=== PATIENT | male | born 1935 | race Caucasian/White ===

== ENCOUNTER 2016-08-24 08:00 | Inpatient (IN) | payer MEDICARE, OTHER ==
[2016-08-24] VITALS (7 sets, daily range): BP systolic 90–127; BP diastolic 40–59; PULSE 47–83; RESP 12–16; O2SAT 96–100
[~2016-08-24] VITALS: Ht 177.8 cm; Wt 82.5 kg
--- NOTE | 2016-08-24 08:13 | ED.REPORT ---
HPI-General Illness Date of Service Aug 24, 2016 ED Provider: Chau Hdz MD The patient is a 81 year old male with history of atrial fibrillation with anticoagulation, congestive heart failure, multiple myeloma, lymphoma, renal failure, trigeminal neuralgia, peripheral neuropathy, and hyponatremia, who was sent to the emergency department from [facility] for bradycardia with a rate in the 20's. The patient is currently staying a rehabilitation center for left hip surgery. He had an episode of vomiting this morning with what appeared to be coffee ground emesis. He had an abdominal CT at [place] that showed a possible ileus. He was given Protonix for his GI complaints. He was given epinephrine for long pauses and atropine which did not affect his heart rate. He was started on an dopamine drip at [place] and transferred here. Medics administered 0.5 epinephrine x2 en route. His pressures have been in the 70s and 80s systolic. The patient had a brief period of asystole, he returned to a normal rhythm spontaneously, compressions were not started. The patient is not able to provide a substantial history at this time. The patient is a full code and was able to verbally agree with plan for pacemaker. Cardiology was called prior to patients arrival. She paged the cath team. Nursing Notes Stated Complaint: BRADYCARDIA Chief Complaint: Critical Care/Intubated Nursing Notes Reviewed: Yes Allergies: Coded Allergies: Penicillins (Verified Allergy, Unknown, 08/24/16) General Time Seen by MD: 07:59 Chief Complaint Other (bradycardia) Hx Obtained From: Patient (very limited), EMS Arrived By: Ambulance Sudden in Onset?: Yes Onset Occurred: 1 - 4 hours ago Symptom Duration: Since onset Severity: Current: No pain currently Severity: Maximum: No pain Recent Healthcare: Recent doctor visit, Recent hospitalization, Previous surgery (hip surgery) Similar Sx Previous: No Past Medical History Past Medical History Atrial fibrillation Congestive heart failure Recent left hip fracture with ORIF Multiple myeloma Trigeminal neuralgia Peripheral neuropathy Hyponatremia Depression Renal failure Sleep apnea Past Surgical History Left hip ORIF Aortic valve replacement Pilonidal cyst surgery Bunionectomy Family History Noncontributory Smoking History Never Smoker Social History Alcohol Use: Denies alcohol use Drug Use: Denies drug use Other Social History: Good social support Ambulatory Status Independent Review of Systems +bradycardia Unable to Obtain ROS Patient condition Full Review of Systems GI: Reports: Hematemesis, Nausea, Vomiting Physical Exam Vital Signs Vital Signs Date Time Temp Pulse Resp B/P Pulse Ox O2 Delivery O2 Flow Rate FiO2 08/24/16 08:02 36.0 47 14 122/56 100 Non-Rebreather Initial VS: Reviewed Head / Eyes: Atraumatic, Normocephalic, PERRL ENT: Conjunctiva normal, No scleral icterus Neck: Supple, Non-tender, Full range of motion Extremities: No swelling, No tenderness Skin: Warm, Dry Neurologic: Nonfocal Alertness: Positive: Somnolent Minimally responds to verbal stimulus. No signs of trauma. Respiratory / Chest: Breath sounds = bilat, No respiratory distress, No rales, No rhonchi, No wheezing, No retractions Good oxygen saturation on 15 L by nonrebreather Heart Rate / Rhythm: Positive: Bradycardia Heart rate initially in the 20s-30s. Thready palpable femoral pulses. Abdomen: Non-tender Bowel Sounds / Distention: Positive: Distention moderate Interpretation & Diagnostics Lab Results Interpretation Result Diagram: 08/24/16 0813 08/24/16 0813 Test 08/24/16 08:13 08/24/16 08:14 White Blood Count 11.0th/mm3 (3.8-10.1) Red Blood Count 3.05mil/mm3 (4.40-5.80) Hemoglobin 9.9g/dL (13.8-17.2) Hematocrit 31.4% (41.0-50.0) Mean Corpuscular Volume 103.0fL (81-100) Mean Corpuscular Hemoglobin 32.5pg (27.0-35.0) Mean Corpuscular Hemoglobin Concent 31.5% (32.0-37.0) Red Cell Distribution Width 19.5% (12.3-15.4) Platelet Count 404bil/L (150-400) Neutrophils (%) (Auto) 91.2% (40-74) Lymphocytes (%) (Auto) 3.0% (14-46) Monocytes (%) (Auto) 4.7% (4-12) Eosinophils (%) (Auto) 0.1% (0-5) Basophils (%) (Auto) 0.3% (0-3) Prothrombin Time 25.8sec (8.1-12.5) Prothromb Time International Ratio 2.37ratio Activated Partial Thromboplast Time 43.4sec (22.8-33.0) Sodium Level 128mEq/L (134-144) Potassium Level 5.7mEq/L (3.5-5.2) Chloride Level 89mEq/L (97-108) Carbon Dioxide Level 13mmol/L (18-29) Blood Urea Nitrogen 101mg/dL (8-27) Creatinine 3.48mg/dL (0.76-1.27) Estimat Glomerular Filtration Rate 18mL/min (>59) Glucose Level 137mg/dL (60-99) Calcium Level 8.4mg/dL (8.5-10.1) Magnesium Level 3.2mg/dL (1.6-2.6) Total Bilirubin 2.7mg/dL (0.0-1.2) Aspartate Amino Transf (AST/SGOT) 40U/L (0-50) Alanine Aminotransferase (ALT/SGPT) 13U/L (0-44) Alkaline Phosphatase 260U/L (25-160) Troponin T 0.213ug/L (0.0-0.011) Pro-B-Type Natriuretic Peptide 29849ot/mL (0-486) Total Protein 8.6g/dL (6.4-8.4) Albumin 3.5g/dL (3.4-5.0) Digoxin Level 0.3nG/mL (0.9-2.0) Hold Michelle Top Tube Received (Received) ECG Interpretation ECG Interpretation: Wide complex bradycardia with a rate of 43 bpm No discernible P waves RBBB pattern Time: 08:06 Interpreted by: ED physician X-Ray Chest Interpretation Chest Xray Interpretation: IMPRESSION: Persistent right mid and lower lung air space opacities may represent atelectasis and/or developing pneumonia. Dictated by: Enrico Gama M.D. on 08/24/2016 at 8:45 Interpretation / Wet Read by: Interpret - Radiologist Re-Eval/Medical Decision Med Decision/Clinical Course In summary, the patient is a 81-year-old male with extensive past medical history as documented above who presents to this emergency department from [facility] where he initially presented with possible coffee-ground emesis but was subsequently found to be bradycardic with a heart rate in the 20s to 30s with hypotension and depressed mental status. There he was treated with atropine without any effect and placed on a dopamine drip to tell he remained bradycardic. He was found to have a positive troponin of approximately 0.2, his heart rate was noted to respond somewhat to epinephrine. He was transferred here after being discussed with Dr. Lundberg (cardiology). Prior to the patient's arrival I had a discussion with Dr. Lundberg regarding his management. Plan for transvenous pacer when adequately stabilized to go to the Text[employer] Sales Representative. Upon arrival the patient was pale/dusky in appearance, with thready femoral pulses and heart rate in the 20s to 30s despite being on a dopamine drip. I immediately administered 0.5 mg of IV atropine though this did not seem to increase his heart rate. Subsequently to Dr. Lundberg arrived at bedside and we opted to initiate transcutaneous pacing though we are unable to achieve capture. Meanwhile, I had started the patient on epinephrine drip which he responded nicely with increase in his heart rate to the 60s to 70s. His blood pressure and mentation improved. Discussion with Dr. Lundberg we opted to administer 1 ampule of calcium bicarbonate as well as 2 g of calcium gluconate given the patient's hyperkalemia and renal failure. We discussed his positive troponin which was thought to likely be multifactorial and related to his underlying renal failure as well as potential myocardial ischemia in the setting of profound bradycardia. Given his initially for stabilization he was not immediately taken for cardiac catheterization or heparinized. LABS: wbc 11, hct 31.4, INR 2.37, NA 128, K 5.7, BUN 101, creatinine 3.48, mag 3.2, total bili 2.7, trop .213, BNP 30552, digoxin level undetectable. CXR: Persistent right mid and lower lung air space opacities may represent atelectasis and/or developing pneumonia. Once stabilized, the patient was emergently taken for placement of a transvenous pacemaker. Pt was discussed with admitting hospitalist accepted for further management after plant operator control room operator consultation with cardiology. The patient had arterial stick pantoprazole for presumed upper GI bleed and had no symptoms of ongoing GI bleeding here in the emergency department. This will be further addressed once he is stabilized from a cardiovascular standpoint. Counter Attendant: Toño Hospitalist: Sedrick Time of Eval: 08:10 Re-Evaluation/Progress Note: Dr. Lundberg is at bedside Time of Eval: 08:17 Re-Evaluation/Progress Note: The patient understands with plan for cardiac catheterization. Consultation #1: Referral / Consult Name: Nataliia Lundberg MD Consulted With: Cardiology Call Returned at: 08:16 Spring Upholsterer: Agrees with eval, Agrees with plan, Requested livestock laborer Consultation #2: Referral / Consult Name: Rory Dubose MD Consulted With: Hospitalist Call Returned at: 08:34 Spring Upholsterer: Will see patient, Agrees with eval, Agrees with plan, Accepts admit Counseled Regarding: Diagnosis, Lab results, Need for admission Discharge & Departure Primary Impression: Sick sinus syndrome Additional Impressions: Hematemesis Nausea presence: with nausea Qualified Code: K92.0 - Hematemesis Acute renal failure Acute renal failure type: unspecified Qualified Code: N17.9 - Acute kidney failure, unspecified Hyperkalemia Hypotension Hypotension type: unspecified hypotension type Qualified Code: I95.9 - Hypotension, unspecified Shock circulatory Elevated troponin Elevated brain natriuretic peptide (BNP) level Hypomagnesemia Hyponatremia Disposition: ADMITTED TO HOSPITAL Discharge Condition All VS Reviewed: Yes Condition: Stable Crit Care Except Billable Proc Time Spent: 75-104 minutes Services Performed: Patient management by me, Time spent at bedside, Reviewing test results, Reviewing imaging, Discussing patient care, Documentation in record, Time with fam/surrogate Critical Care Notes: Much of my involvement in this patient's critical care was preparing for his arrival in discussing his case prior to arrival with ER physician at [facility] and cardiology here at [facility]. Scribe Attestation Portions of this note were transcribed by Nati Calle. I, Dr. Hdz personally performed the history, physical exam and medical decision-making; I reviewed and confirmed the accuracy of the information in the transcribed note. Signed by: Chelle Cadet, 08/23/2015 and 0935. Chau Hdz MD Aug 24, 2016 08:13 Nati Calle Aug 24, 2016 08:19
[2016-08-24 08:16] LABS: BASOPHILS % (AUTO) 0.3 % (0-3); EOSINOPHILS % (AUTO) 0.1 % (0-5); MONOCYTES % (AUTO) 4.7 % (4-12); Mean Corpuscular Hemoglobin 32.5 pg (27.0-35.0); NEUTROPHILS % (AUTO) 91.2 % (40-74); Platelet Count 404 bil/L (150-400)
[2016-08-24] MEDS ORDERED: Sodium Bicarb 1 mEq/mL 50 mL Inj ONE (08:17)
[2016-08-24] MEDS ORDERED: Heparin 5,000 Units/500 mL NS Premix IV ONE ×2 (08:19→13:32)
[2016-08-24] MEDS ORDERED: 0.9% Sodium Chloride 1,000 ML ONE (08:22)
[2016-08-24] MEDS ORDERED: Insulin Human REGular-Omnicell 100 Unit/mL ONE (08:26)
[2016-08-24 08:39] LABS: INR 2.37 ratio
--- NOTE | 2016-08-24 08:48 | DRSVH ---
PROCEDURE: X-RAY CHEST ONE VIEW, PORTABLE ([id number]) INDICATIONS: 81 year-old male with shortness of breath. TECHNIQUE: One view of the chest was acquired. COMPARISON: [facility], CHEST 1 VIEW, 08/24/2016, 6:00. FINDINGS: Surgical changes and devices: Patient is status post median sternotomy. Lungs and pleura: No pleural effusions or pneumothorax. Right mid and lower lung hazy opacities pers ist. Left lung appears clear. Mediastinum: Mediastinal contours appear normal. Heart size is normal. There is aortic atheroscler osis. Bones and chest wall: No suspicious bony lesions. Overlying soft tissues appear unremarkable. IMPRESSION: Persistent right mid and lower lung air space opacities may represent atelectasis and/or developing pneumonia. Dictated by: Enrico Gama M.D. on 08/24/2016 at 8:45 Approved by: Enrico Gama M.D. on 08/24/2016 at 8:47
[2016-08-24] MEDS ORDERED: fentaNYL-PF 50 mCg/mL 2 mL Inj ONE (08:55)
[2016-08-24 09:03] LABS: Magnesium 3.2 mg/dL (1.6-2.6)
[2016-08-24] MEDS ORDERED: 0.9% Sodium Chloride 250 ML ONE (09:03)
[2016-08-24 09:10] LABS: TROPONIN T 0.213 ug/L (0.0-0.011)
[2016-08-24] MEDS ORDERED: Sodium Bicarb (50 mEq) 8.4% 1 mEq/mL 50 mL Syringe IVPUSH ONE (09:50)
[2016-08-24] MEDS ORDERED: Sodium Chloride LOK Flush 10 mL Syringe IVFLUSH PRN ×4 (09:50→14:05)
[2016-08-24] MEDS ORDERED: Ondansetron 2 mg/mL 2 mL Inj IVPUSH PRN (10:05)
[2016-08-24] MEDS ORDERED: Senna-Docusate 8.6-50 mg Tablet PO PRN (10:05)
[2016-08-24] MEDS ORDERED: Polyethylene Glycol (PEG) 17 Gm Powder PO PRN (10:05)
[2016-08-24] MEDS ORDERED: Alum-Mag Hydrox-Simeth 30 mL Suspension PO PRN (10:05)
[2016-08-24] MEDS ORDERED: 0.9% Sodium Chloride 500 ML ONE (10:35)
--- NOTE | 2016-08-24 10:59 | CONS ---
[address] [address] CONSULTATION REPORT PATIENT: SANDRINE VAN : 1935 MR#: [id number] ADMIT: 08/24/2016 JOB ID: [id number] DATE OF SERVICE: 08/24/2016 CHIEF COMPLAINT: Altered mental status and symptomatic bradycardia. HISTORY OF PRESENT ILLNESS: The patient is a complex 81-year-old man with history of coronary artery disease status post CABG. He has a history of aortic valve replacement with a mechanical prosthesis in the 90s. He has chronic atrial fibrillation and has an implantable loop recorder in place for consideration of permanent pacemaker. He is closely monitored by Dr. Walker. Additionally he has pulmonary hypertension. He is on chronic oral anticoagulation. He has myelodysplastic syndrome and renal insufficiency with unknown baseline. He had a roque course in the past month. He was hospitalized for acute decompensated heart failure at [facility] for 8 days. He was aggressively diuresed and sent home. Unfortunately, at home he fell and broke his hip and subsequently required hip replacement at [facility]. He was recuperating at [facility] home doing acute inpatient rehab when he developed worsening altered mental status, bloody vomiting, and confusion. The says he has not been himself for days. This morning I received a call from Dr. Salazar after he was brought to [facility] Emergency Department for further evaluation. He was found to have symptomatic bradycardia. His heart rate was in the 30s. He was hypotensive with systolic blood pressure in the 60s. He was altered. He apparently had multiple episodes of bloody emesis. History is obtained from Dr. Salazar from patient's and patient's son. The patient himself is somewhat somnolent, but arousable so, I cannot obtain much history from him. In the emergency department after he was brought in to [facility] he was found to have hyperkalemia and acute renal failure. His potassium was 5.7, creatinine 2.8, and there was associated elevated troponin. His INR was also 2.6, and he has reduced white count of 2.9. Cardiology was consulted to assist in his management. He was diagnosed with being critically ill and so was transferred to [facility] for further management. HOSPITAL COURSE: In the emergency department I assessed this patient I firmly believe that his bradycardia and wide QRS complex was related to hyperkalemia. I treated him with 1 amp of bicarbonate, 1 amp of calcium gluconate, and 10 units of insulin and 1 amp of D50. This resulted in immediate improvement in his bradycardia. As a result, we were able to safely reduce his epinephrine drip from 0.5 mcg/kg per minute to 0.2 mcg/kg per minute and hopefully will be able to wean it off soon. The patient's mental status improved, his color improved. Of note I tried to transcutaneously pace and he could not tolerate it. PAST MEDICAL HISTORY: 1. Coronary artery disease status post CABG in the s. Procedure was done on the [facility]. I will check his chest x-ray. There are no obvious ring markers thus his surgical anatomy is unknown. 2. Aortic valve replacement. He does not have a card identifying the valve ; family being that he has a mechanical prosthesis. 3. Chronic AFib treated with metoprolol and oral anticoagulation. 4. He has an implantable loop recorder, which I have not interrogated yet. 5. Kidney disease. His baseline creatinine unfortunately is unknown. Right now his creatinine is 3.8 consistent with acute renal failure. 6. Multiple myeloma. 7. Trigemina neuralgia. 8. Sleep apnea. 9. Hip fracture, left total hip arthroplasty. 10. Bunionectomy. SOCIAL HISTORY: No tobacco. No drugs or alcohol. He is accompanied by his and son. ROS: unobtainable because patient is quite somnolent and critically ill on pressors. ALLERGIES: PENICILLIN. CURRENT MEDICATIONS: At home: 1. Torsemide 60 mg twice a day. 2. Toprol-XL 25 mg daily. 3. Potassium chloride 10 mEq daily. 4. Spironolactone 25 mg daily. 5. Sertraline 50 mg twice a day. 6. Protonix 40 mg daily. 7. Sildenafil 20 mg 3 times a day. 8. Tamsulosin 0.4 mg twice a day. 9. Warfarin. 10. Ultram. PHYSICAL EXAMINATION: Temp current, blood pressure is 110/80, pulse at this moment in time is 82 beats per minute irregularly irregular. He is satting 99% on oxy mask. Cachectic, older man in no apparent distress. Eyes: No scleral icterus. Heart normal S1, S2. Irregularly irregular. No obvious murmurs. Lungs are clear anteriorly. Abdomen is soft, positive bowel sounds, somewhat distended. Legs show no edema. He has a Cardona catheter in draining dark yellow urine. DIAGNOSTIC STUDIES: Labs reviewed from [facility]. Chest x-ray was reviewed from [facility]. CT scan abdomen and pelvis was reviewed from [facility] and it shows dilated loops of bowel and bilateral pleural effusions. ASSESSMENT AND PLAN: This is a complex man. He has pulmonary hypertension. He is on sildenafil and aggressive diuretics. He has acute renal failure. He has renal insufficiency, and he had bradycardia to the point where he requires epinephrine drip. I am going to put in a temporary pacemaker and will consult Nephrology for assistance with hyperkalemia management. He may need to have Kayexalate to facilitate bowel movements and improvement in hyperkalemia. We certainly will not give him any diuretics or potassium supplements or spironolactone. Thank you very much for the opportunity to evaluate. TAYE
[2016-08-24 11:19] LABS: Bilirubin, Direct 1.7 mg/dL (0.0-0.3)
[2016-08-24] MEDS ORDERED: 0.9% Sodium Chloride 1,000 ML IV SCH (11:45)
--- NOTE | 2016-08-24 12:22 | DRSVH ---
PROCEDURE: X-RAY PICC LINE PLACEMENT BY NURSE ([id number]) INDICATIONS: 81 year-old male with hyperkalemia, with need for pressors. COMPARISON: None. FINDINGS: PICC was placed by the intravenous therapy team from the right side. Fluoroscopic spot fi lm demonstrates tip of PICC in the lower superior vena cava. Patient is status post median sternotom y. IMPRESSION: Tip of PICC lies within the lower superior vena cava. Dictated by: Enrico Gama M.D. on 08/24/2016 at 12:19 Approved by: Enrico Gama M.D. on 08/24/2016 at 12:20
--- NOTE | 2016-08-24 12:24 | ABG ---
DateTimeAnalyzed 12:19:00 -_ pH ____7.280 - pCO2 ___41.1__ -mmHg pO2 ___41.9__ -mmHg HCO3- ___18.7__ -mmol/L ABE ___-7.0__ -mmol/L tHb ____8.4__ -g/dL O2Hb ___63.2__ -% COHb ____1.9__ -% MetHb ____1.3__ -% sO2 ___65.3__ -% FIO2 ___21.0__ -% Drawn By as - Date/Time Notified____ 12:23:00 -_ Liter_Flow ____2.0__ -L/min Oxygen Device 1 __oxymask - Notified By ams - Notified Whom dr yanchuk - B 748 -mmHg tO2 ____7.5__ -Vol% Gavin test N/A -
[2016-08-24] MEDS: Piperacillin-Tazo 3.375 Gm Inj 3.375 GM in Dextrose 5% Minibag Plus 50 ML IV SCH (13:07)
[2016-08-24] MEDS: SODIUM BICARB IV SCH (13:07)
[2016-08-24] MEDS: SODIUM CHLORIDE 0.45% IV SCH (13:07)
[2016-08-24 13:38] LABS: BASOPHILS % (AUTO) 0.1 % (0-3); EOSINOPHILS % (AUTO) 0 % (0-5); MONOCYTES % (AUTO) 3.6 % (4-12); Mean Corpuscular Hemoglobin 32.1 pg (27.0-35.0); Mean Corpuscular Volume 100.8 fL (81-100); NEUTROPHILS % (AUTO) 94.7 % (40-74); Platelet Count 469 bil/L (150-400)
--- NOTE | 2016-08-24 13:38 | CS94 ---
[address] [address] DIAGNOSTIC CARDIAC CATHETERIZATION PATIENT: SANDRINE VAN : 1935 MR#: [id number] ADMIT: 08/24/2016 JOB ID: [id number] SERVICE DATE: 08/24/2016 SUBJECTIVE: This morning, the patient presented with AFib with very slow ventricular response and wide QRS complexes. The patient was doing poorly. He was brought to the lab engineer for temporary wire placement, but as his electrolyte disarray was corrected, he actually improved to the point where he no longer needed pacing wire. The procedure was canceled.
[2016-08-24] MEDS ORDERED: Atropine 1 mg/10 mL (Code) Syringe ONE (14:04)
--- NOTE | 2016-08-24 14:28 | PCM.HPMED ---
Subjective Date of Service Aug 24, 2016 Primary Provider: Admitting Physician: Nataliia Lundberg MD Primary Care Physician: Other,Physician Attending Physician: Nataliia Lundberg MD Chief Complaint: Symptomatic Bradycardia History of Present Illness: Randy Anand is a 81 year old man with past medical history significant for atrial fibrillation on anticoagulation s/p an implantable loop recorder in place for consideration of permanent pacemaker, [place] mechanical aortic valve , right-sided heart failure, CAD s/p CABG, pulmonary hypertension, and chronic kidney disease who presented to the [facility] emergency department from [facility] ED with initial complaint of coffee-ground emesis and was subsequently found to be bradycardic in the 20s hypotension and depressed mental status. The patient is unable to give any history at this time and the majority of history is collected from chart notes and from the patient's family who are at bedside. He was noted to have significant sinus pause and was initially treated with epinephrine and atropine which had no effect. He was started on an dopamine drip at [place] and transferred here. Medics administered 0.5 epinephrine x2 en route and arrived with SBP in the 80s-90s. He was found to have a positive troponin of approximately 0.2, his heart rate was noted to respond somewhat to epinephrine. He was transferred here after being discussed with Dr. Lundberg ( cardiology). An attempt was made to initiate transcutaneous pacing, however the device would not capture and this could not be done. An initial plan was for the patient to received a transvenous pacer, however upon Dr. Lundberg's evaluation of the patient she noted his severe metabolic acidosis and treated him with 1 ampule of calcium bicarbonate as well as 2 g of calcium gluconate given the patient's hyperkalemia and renal failure which successfully increased the patient's heart rate. In the patient's recent history he was admitted to [facility] for decompensated heart failure for 8 days and was aggressive diuresed. He was discharged home and unfortunately fell and broke his hip which resulted in a subsequent hospital stay at [facility]. He was recuperating at [facility] home doing acute inpatient rehab when he developed worsening altered mental status, bloody vomiting, and confusion. Per the patient's family the patient has vomited several times this morning with bloody emesis but he has not had any episodes while he has been at [facility]. He had an abdominal CT at [place] that showed pericholecystic fluid may raise the question of acute cholecystitis. LABS: WBC 11, HCT 31.4, INR 2.37, Na 128, K 5.7, BUN 101, creatinine 3.48, mag 3.2, total bili 2.7, trop 0.213, BNP 40806, digoxin level undetectable. CXR: Persistent right mid and lower lung air space opacities may represent atelectasis and/or developing pneumonia. Outpatient [facility] [employer] [facility]: Dr. Walker. Review of Systems: A review of systems could not be performed as the patient is minimally communicative at this time. Allergies Coded Allergies: Penicillins (Verified Allergy, Unknown, 08/24/16) Home Medications 1. Torsemide 80 mg twice a day. 2. Zolpidem 10 mg PRN 3. Potassium chloride 10 mEq daily. 4. Spironolactone 25 mg daily. 5. Sertraline 50 mg twice a day. 6. Protonix 40 mg daily. 7. Sildenafil 20 mg 3 times a day. 8. Tamsulosin 0.4 mg twice a day. 9. Warfarin. 10. Ultram. 11. Metolazone 2.5 mg PO week Requesting records from acute rehab for most current medication list and administration. PMH Atrial fibrillation Congestive heart failure, right-sided Recent left hip fracture with ORIF Multiple myeloma, although this a bit questionable as the patient has not had a BMT but has been off CXT for two years per family. His outpatient oncologist is Dr. Aguila at [facility] at the [facility]. Trigeminal neuralgia Peripheral neuropathy Hyponatremia Depression Renal failure Sleep apnea Mechanical Aortic Valve Surgical History Left hip ORIF Aortic valve replacement, in the 90s. Pilonidal cyst surgery Bunionectomy Family History Family history of coronary artery disease. Social History Hx Alcohol Use: No Hx Substance Use: No Hx Tobacco Use: No Smoking Status: Never Smoker Exam Vital Signs Vital Sign - Last Date Time Temp Pulse Resp B/P Pulse Ox O2 Delivery O2 Flow Rate FiO2 08/24/16 10:00 36.3 63 14 94/41 97 OxyMask 7.00 Exam General: pale, ill-appearing thin elderly male, awakens only to noxious stimulus , somnolent HEENT: Normocephalic, atraumatic. External ears without defect. Pupils equal, round, and reactive to light and accommodation. Anicteric sclerae, moist and pale conjunctivae, and no lid lag. Oropharynx free of erythema and cobble stoning with moist mucosa. No blood noted in the month. Neck: Supple with full range of motion. No jugular venous distension. No bruits. No lymphadenopathy or thyromegaly. Cardiovascular: Bradycardic with frequent pauses with crisp mechanical valve noted Pulmonary: Coarse breath sounds throughout. Normal respiratory effort with no use of accessory muscles. Abdomen: Bowel tones present. Soft, mildly tender to palpation in the RUQ, however please note that the patient required an aggressive sternal rub to elicit a response and he dose grimace to palpation of his abdomen, nondistended. No hepatosplenomegaly or masses appreciated. Extremities: No clubbing, cyanosis, edema, or lymphadenopathy appreciated. Skin: Normal temperature, turgor, and texture; no rash, ulcers, or subcutaneous nodules appreciated. Neurological: Patient somnolent, no gross neurological deficits noted. Psychiatric: Somnolent. . Cardona absent. Lab and Diagnostics Result Diagram: 08/24/1681208/24/16812 X-Rays, CTs and MRIs ABDOMEN/PELVIS WITHOUT CONTRAST IMPRESSION: 1. Pericholecystic fluid may raise the question of acute cholecystitis in the appropriate clinical setting. Consider limited abdominal ultrasound for further evaluation as needed. 2. Bibasilar mobile pleural effusions, as well as scattered abdominal and pelvic ascites, of uncertain etiology. 3. Incidental 1.8 cm lateral right renal cortical exophytic cyst. 4. Small fat-containing periumbilical ventral hernia. Dictated by: Enrico Gama M.D. on 08/24/2016 at 7:45 Approved by: Enrico Gama M.D. on 08/24/2016 at 7:55 (Please note that a full report can be found through [employer].) Assessment & Plan Randy Anand is a 81 year old man with past medical history significant for atrial fibrillation on anticoagulation s/p an implantable loop recorder in place for consideration of permanent pacemaker, [place] mechanical aortic valve , right-sided heart failure, CAD s/p CABG, pulmonary hypertension, and chronic kidney disease who presented to the [facility] emergency department from [facility] ED with initial complaint of coffee-ground emesis and was subsequently found to be bradycardic in the 20s hypotension and depressed mental status. 1. Symptomatic bradycardia, present on admission, acute -Secondary to hyperkalemia in the setting of acute kidney injury -Patient appears to be exquisitely sensitive to hyperkalemia even at a potassium of 5.7 -Cardiology consulted, appreciate the expertise and input -Patient continues to be on an epinephrine drip -The patient is currently on a bicarbonate drip with 1 amp of sodium bicarb in 1 /2NS at 80 cc/hr per Dr. Harden -The patient did not receive a pacer earlier however he continues to have ongoing pauses as long as [address] Lundberg has elected to take him back to the cathlab for a transvenous pacer 2. Acute kidney injury on chronic kidney disease, present on admission, acute -With electrolyte abnormalities including hyperkalemia -Secondary to prerenal azotemia due to severe bradycardia and poor profusion -Dr. Harden of nephrology consulted, appreciate the expertise and input -Kayexalate given by Dr. Lundberg in the ED, patient has not yet had a bowel movement -Recheck BMP now -Discussed case in detail with Dr. Harden, he does not believe the patient needs dialysis at this time 3. Severe sepsis, present on admission, acute -Likely secondary to acalculous cholecystitis versus pneumonia -His procalcitonin argues a little against an acute infection however the rest of the picture argues for it, will trend procalcitonin tomorrow -CT of abdomen from [facility] revealed pericholecystic fluid may raise the question of acute acalculous cholecystitis -CT uncertain will proceed with abdominal U/S for better visualization -Will start patient on Zosyn for broad spectrum coverage of possible pulmonary infection but more likely an abdominal infection. 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 Anion gap metabolic acidosis, present on admission, acute -Likely multifactorial but primarily due to elevated lactate -Please note that the elevated lactate could also be concerning for ischemic bowel -Continue bicarbonate drip as described above -Dr. Harden consulted -VBG showed pH of 7.280 pCO2 41 5. Suspected acute cholecystic, present on admission, acute -Noted on CT coupled with tender RUQ, direct hyperbilirubinemia, elevated alk phos quite concerning for cholecystitis or even ascending cholangitis -U/S as noted above -Consider surgical consultation if LFTs worsen or U/S is definitive. 6. Upper GI bleed, present on admission, acute -Uncertain of cause, however a prior discharge summary describes a history of cirrhosis. Uncertain if patient has a history varices. -Will start patient on Protonix push BID -Continue to trend H&H -If H&H trends down or more emesis is noted, will consult GI -may need to consider resuming warfarin soon given mechanical valve if no further bleeding -stool guiac ordered 7. Elevated troponin of uncertain significance, present on admission, acute -Likely secondary to demand ischemia in the setting of right-sided heart failure and severe bradycardia 8. Pulmonary hypertension with right-sided heart failure, present on admission, acute -Will hold diuretics at this time due to hypotension 10. Mechanical aortic valve, present on admission, acute -Hold patient's warfarin in the setting of possible UGIB 11. Macrocytic anemia, present on admission, acute -Uncertain of baseline -Macrocytosis could represent reticulocytes, will order retic count 12. Hip fracture s/p ORIF 13. Hypovolemia hyponatremia, present on admission, acute -Likely multifactorial due to loses and SSRI, will continue to monitor 14. History of Tegretol toxicity, present on admission, acute -Will order a level 15. Altered mental state -due to severe sepsis and ARF CODE STATUS: FULL CODE Admit patient to the CCU with anticipated length of stay >2 midnights due to severity of the patient's illness, likelihood of decompensation and complexity of treatment. Time spent 60 minutes Attending Statement patient seen and examined with Dr Adame .I agree with the history,exam, impression and plan as outlined above Angelica Adame DO Aug 24, 2016 11:21 Rory Dubose MD Aug 24, 2016 15:37
[2016-08-24 14:40] LABS: APPEARANCE,URINE SLIGHTLY CLOUDY (CLEAR,HAZY); COLOR,URINE YELLOW (YELLOW); ICTOTEST,URINE POSITIVE (Negative); OCCULT BLOOD,URINE LARGE (NEGATIVE); UROBILINOGEN,URINE NORMAL (NORMAL)
--- NOTE | 2016-08-24 15:52 | CONS ---
[address] [address] CONSULTATION REPORT PATIENT: SANDRINE VAN : 1935 MR#: [id number] ADMIT: 08/24/2016 JOB ID: [id number] DATE OF SERVICE: HISTORY: The patient is a rather complex 81-year-old, white male, who was transferred to [facility] from [facility] for severe bradycardia, acute on chronic kidney injury, and hypotension. At time of his transfer, his creatinine was markedly elevated, and renal consultation is being sought for further evaluation of his renal dysfunction. He has a longstanding history of cardiovascular disease, dating back a number of years. Sometime in the , he underwent an aortic valve replacement and has been on chronic anticoagulation since that time. Since June of last year, he has had multiple admissions for congestive heart failure at [facility] in [place]. Most recently, he was discharged approximately two weeks ago following treatment for congestive heart failure. On August 19, his BUN and creatinine were 97 and 2.8, respectively. He was sent to an extended care facility for several days and then home, and several days later, he slipped and fell, fracturing his left hip. He was taken to hospital on [facility], where he underwent an ORIF of the left hip. He was in there for approximately four days and was once again also aggressively diuresed postoperatively because of extensive edema. He was subsequently discharged to an extended care facility. His states that he has had very little oral intake over the last several days and has had persistent nausea with some vomiting and constipation. He also has had a cough and some abdominal distention. Over the last several days, he has had a marked decrease in his urine output. Late last night, he was found to have a low pulse and hypotension and was subsequently taken to the emergency department and then transferred here. In the emergency department, he was found to be quite bradycardic with a heart rate in the 30s and hypotensive. His potassium at that time was 5.7, bicarbonate was 13, BUN and creatinine were 101 and 3.48, respectively. He was given an amp of sodium bicarbonate and some calcium gluconate which resulted in prompt resolution of his bradycardia. An abdominal single-view x-ray of the abdomen was performed at [facility] and was reported to have some nonspecific findings. There was no comment as far as any increased stool or changes in the gastric air bubble. Although there is no history of chronic kidney disease, I strongly suspect that he probably does have a component of this. He has been on chronic anticoagulation since his heart surgery a number of years ago. He has a history of either multiple myeloma or MGUS for about 6-7 years. He was treated with some type of chemotherapy but has had no therapy in the last two years. He does have chronic anemia and a history of benign prostatic hypertrophy. Otherwise, he denies a history of any hematuria, proteinuria, recurrent urinary tract infections, renal lithiasis, or use of nonsteroidal anti-inflammatories. At time of admission, he was on a number of medications that could have been aggravating the underlying dysfunction. These include metoprolol, Protonix, potassium chloride, and spironolactone. He has also been on 60 mg of torsemide twice a day. 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 He denies a history of any prior stroke, seizure, asthma, emphysema, prior myocardial infarction, rheumatic heart disease, hepatitis, peptic ulcer disease, other malignancies, thyroid illness, or hyperlipidemia. PAST SURGICAL HISTORY: Significant for coronary artery bypass graft and left hip ORIF several weeks ago. ALLERGIES: He is allergic to PENICILLIN. SOCIAL HISTORY: There is no history of any recent alcohol or tobacco use. MEDICATIONS: At time of admission, include Tegretol, vitamin D3, acetaminophen, vitamin B12, Colace, metoprolol, Protonix, potassium chloride, Zoloft, sildenafil, spironolactone, Flomax, testosterone injection every three weeks, torsemide, Ultram, warfarin, and Zolpidem. FAMILY HISTORY: Noncontributory. REVIEW OF SYSTEMS: Detailed above. Otherwise is negative for any severe headache, visual change, wheezing, chest pain, orthopnea, generalized abdominal pain, rash or arthralgias. PHYSICAL EXAMINATION: Revealed a pale, quite somnolent, 81-year-old, white male who was markedly pale and appeared chronically ill. Vital signs at time of my evaluation showed a blood pressure of 127/45 with a heart rate of 83. HEENT examination is remarkable for pale sclerae and dilated pupils bilaterally. These were sluggishly reactive to light. But it should be noted he has been given fentanyl. There was some evidence of some bitemporal wasting and mucous membranes were somewhat dry. Neck is supple without adenopathy, thyromegaly, or jugular venous distention. Lungs showed a few scattered rhonchi but otherwise were clear, but it should be noted that he had a very poor inspiratory effort. Heart was irregularly irregular. Abdomen was distended with diminished bowel sounds. There was diffuse tympany to percussion in the upper half of his abdomen. There was no tenderness, rebound, guarding, masses, or hepatosplenomegaly. Extremities showed some [id number] nails and some very trivial generalized edema. Skin turgor was good and there was no evidence of any rashes. LABORATORY EXAMINATION: This morning, his sodium is 128, potassium 5.8, chloride 89, CO2 of 27, BUN and creatinine are 101 and 3.48. Calcium was 8.4. Magnesium is 3.2. Total bili is 2.7. AST and ALT are normal, and his alkaline phosphatase is 260. His total protein is elevated at 8.6, and albumin is 3.5. Digoxin level is 0.3. PTT was 28.8 with an INR of 2.37. His white count is 11.0, hemoglobin was 9.9, hematocrit 31.4. MCV was 103. Platelet count was 404 with 91% neutrophils. IMPRESSION: 1. Acute on chronic kidney injury secondary to hypotension, bradycardia, and intravascular volume depletion. 2. Chronic kidney disease of unknown stage. 3. Increased anion gap metabolic acidosis. 4. Hyperkalemia. 5. Macrocytic anemia. 6. Hypotension. 7. Benign prostatic hypertrophy. 8. Status post aortic valve replacement with chronic anticoagulation. 9. 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 RECOMMENDATION: 1. I would like to get a renal ultrasound along with uric acid, SPEP, UPEP, and urinalysis. 2. I would like to give him some cautious IV hydration with half-normal saline and one amp of sodium bicarbonate at 80 per hour x24 hours. 3. I would hold the beta tyson, spironolactone, and potassium chloride. 4. I would like to check a B12 and folate level, and we need to closely follow his intake, output, and his lab. Once again, I would like to thank you for allowing me to participate in the care of this most pleasant and interesting patient. I will be following him closely with you.
[2016-08-24] MEDS: Pantoprazole 4 mg/mL 10 mL Inj IVPUSH SCH (15:55)
--- NOTE | 2016-08-24 15:58 | OP ---
[address] [address] OPERATIVE REPORT PATIENT: SANDRINE VAN : 1935 MR#: [id number] ADMIT: 08/24/2016 JOB ID: [id number] DATE OF SURGERY: 08/24/2016 SURGEON: Nataliia Lundberg MD. PREOPERATIVE DIAGNOSIS(ES): POSTOPERATIVE DIAGNOSIS(ES): PROCEDURE: Temporary pacemaker implant via right common femoral vein. CHIEF COMPLAINT: Bradycardia with very slow pulse. METHOD: Following informed consent, patient was sedated. A 5-Cameroonian sheath was placed in the right common femoral vein. Sheath placement was confirmed via fluoroscopy. At this point in time, a 5-Cameroonian balloon-tipped pacing wire was advanced into the right ventricular apex. Capture threshold testing was performed. Capture threshold testing was good with a capture threshold of 0.5 milliamps. The patient did well. The sheath and the pacing leads were secured in place. No complications immediately postprocedure. No blood loss. Thank you very much for the opportunity to participate in this patient's care.
--- NOTE | 2016-08-24 16:01 | NUR ---
Lab results phoned to Dr Harden as requested. No new orders received.
--- NOTE | 2016-08-24 17:21 | DRSVH ---
PROCEDURE: US RENAL SONOGRAM INDICATIONS: 81 year-old male with acute kidney injury. TECHNIQUE: Real-time scanning was performed of the kidneys and bladder, with image documentation. COMPARISON: [facility], CT, ABDOMEN/PELVIS WITHOUT CONTRAS, 08/24/2016, 6:09. FINDINGS: Kidneys: Kidneys are normal in size. Right kidney measures 10.0 cm long; left kidney measures 10.7 cm long. Right renal cortical thickness is 1.1 cm; left renal cortical thickness is 1.0 cm. Renal c ortical echotexture is normal. No hydronephrosis or nephrolithiasis. No suspicious solid mass lesio ns. Bladder: Bladder is decompressed by a Cardona catheter at the time of scan. Miscellaneous: No free pelvic fluid. There is gallbladder wall thickening up to 3 mm, as well as per icholecystic fluid. No gallstones or biliary sludge. There is scattered perihepatic ascites. IMPRESSION: 1. A post-renal cause is not identified for acute renal insufficiency. 2. Gallbladder wall thickening as well as pericholecystic fluid may suggest acalculous cholecystitis. 3. Scattered perihepatic ascites again noted. Dictated by: Enrico Gama M.D. on 08/24/2016 at 17:16 Approved by: Enrico Gama M.D. on 08/24/2016 at 17:20
--- NOTE | 2016-08-24 17:31 | NUR ---
Transfer to floor from [employer] [facility] Received patient from [employer] around 1000 this morning. Patient was somnolent, drowsy. Skin dusky. Placed on 7 L oxymask at time of arrival. Sats 95%. Tele showed afib with an IVCD, rate irregular. Rate from 40 - 79s. As time went on, Patient started to have more and more pauses. Some paused up to 7 seconds long. Cardiology made aware and decided to take patient back to [facility] for temporary pacemaker. That was done and patient returned again from [employer] at around 1515 with Temporary pacemaker via right groin. Pacemaker asynchronous at a rate of 80 and MA of 5. Noted a 100% paced beat since this was done. Patient is more alert and talkative since this was done and skin is pink. Patient remains on epinephrine at .2 mcg/kg/min keeping MAP at 55 or greater. Sodium Bicarb gtt running at 80 mls/hr. Patient received 1 L ns bolus when back from [facility] and then another L is running over 3 hours. Zosyn infused as ordered. Patient knows to keep right leg straight. Keeping HOB flat. Harrison cath not draining so it was assessed. Catheter did not seem to be in bladder. Water was removed from balloon and attempted to feed harrison in to drain better, but unsuccessful and too painful for patient. Harrison cath was removed. Scanned bladder and found 0 mls in bladder. Patient has put out 175 mls/dark esha urine this shift via catheter. Will attempt to void per urinal. Family supportive at bedside and aware of POC.
[2016-08-24 18:06] LABS: BASOPHILS % (AUTO) 0.1 % (0-3); EOSINOPHILS % (AUTO) 0 % (0-5); Platelet Count 473 bil/L (150-400)
[2016-08-24] MEDS ORDERED: Amiodarone 150 mg/100 mL D5W Premix IV ONE (18:07)
[2016-08-24 18:13] LABS: MONOCYTES % (AUTO) 3.4 % (4-12); Mean Corpuscular Hemoglobin 32.7 pg (27.0-35.0); Mean Corpuscular Volume 100.8 fL (81-100); NEUTROPHILS % (AUTO) 94.7 % (40-74)
[2016-08-24] MEDS ORDERED: Methohexital 10 mg/mL 50 mL Inj ONE (18:18)
[2016-08-24] MEDS: EPINEPHrine 10,000 mCg/250 mL NS IV SCH ×2 (18:43)
--- NOTE | 2016-08-24 19:11 | DRSVH ---
PROCEDURE: X-RAY CHEST ONE VIEW ([id number]) INDICATIONS: 81 year-old male with ventricular tachycardia. TECHNIQUE: One view of the chest was acquired. COMPARISON: [facility], CR, XR CHEST 1VW (PORTABLE), 08/24/2016, 8:28. [facility], CR, CHEST 1 VIEW, 08/24/2016, 6:00. FINDINGS: Surgical changes and devices: New right PICC is present, with tip in the mid superior vena cava. Sandhya ent is status post coronary artery bypass grafting. Cutaneous pacer pads are now present. Lungs and pleura: No pleural effusions or pneumothorax. Hazy right mid and lower lung opacities pers ist. Mediastinum: Mediastinal contours appear normal. Heart size is normal. Bones and chest wall: No suspicious bony lesions. Overlying soft tissues appear unremarkable. IMPRESSION: 1. New right PICC is present, with tip in expected position. 2. Persistent right lower lung subtle air space opacities may represent atelectasis or early pneumoni a. Dictated by: Enrico Gama M.D. on 08/24/2016 at 19:07 Approved by: Enrico Gama M.D. on 08/24/2016 at 19:09
--- NOTE | 2016-08-24 19:18 | NUR ---
VTach At 181, patient was drinking milk and his monitor alarmed. Looking at alarm it looked like pacemaker was not capturing, rate was in the 90s and wide. Dr Lundberg was on the floor and came right in. Toño felt this was a slow VTach. Patient was awake, but more confused and dusky in color. O2 was at 4L nc, sats at 97%. Toño ordered an Amiodarone bolus of 150 mg, done. An ECG and CXR were done. Epinephrine gtt continued at .2 mcg/kg/min. Gave one amp Na bicarb. No change in rhythm. Patent was given 1 mg Versed and 20 mg Brevital and was shocked with 200 joules. Rhythm went asystole, so pacemaker was turned on and a rhythm was captured. Patient is being paced at 81 beats/min. Patient is sleepy, but sats are 100 % on 7 L oxymask. Son is present and aware of happenings. Report given to azra shift RN.
[2016-08-24 19:22] LABS: TROPONIN T 0.275 ug/L (0.0-0.011)
[2016-08-24] MEDS ORDERED: Amiodarone 360 mg/200 mL D5W Premix IV ONE (19:36)
[2016-08-24] MEDS ORDERED: IV Premix 1 EACH IV ONE (19:36)
--- NOTE | 2016-08-24 20:21 | PROCED ---
[address] [address] PROCEDURE NOTE PATIENT: SANDRINE VAN : 1935 MR#: [id number] ADMIT: 08/24/2016 JOB ID: [id number] DATE OF SERVICE: 08/24/2016 POSTOPERATIVE DIAGNOSIS(ES): PREOPERATIVE DIAGNOSIS(ES): SURGEON: Nataliia Lundberg MD CHIEF COMPLAINT: Ventricular tachycardia. The patient is a 81-year-old man with hyperkalemia and metabolic acidosis. He has worsening dysrhythmia. He was in complete heart block and slow ventricular response in the 30s and then suddenly he developed ventricular tachycardia at a rate of 100 beats per minute. He was remarkably stable during that period but he did not respond to amiodarone. So, therefore, he was sedated with Versed 1 mg and Brevital 20 mg IV and 100 joules of synchronized energy was delivered and his index rhythm which is AFib with very slow ventricular response was restored. I turned the pacer back on and he is paced at 80 beats per minute with an output of 5 milliamps and capture threshold of 0.5 milliamps. Thank you very much for the opportunity to evaluate him. There were no complications in the post procedure period.
[2016-08-24] MEDS ORDERED: Piperacillin-Tazo 3.375 Gm Inj 3.375 GM in Dextrose 5% Minibag Plus 50 ML IV SCH (20:30)
[2016-08-24] MEDS: Amiodarone 360 mg/200 mL D5W 360 MG, Filter, Taxol 14256-28 1 EACH in IV Premix 1 EACH IV SCH (20:50)
[2016-08-25 00:30] VITALS: BP 100/79; PULSE 81; RESP 14; O2SAT 97
[2016-08-25] MEDS ORDERED: IV Premix 1 EACH IV ONE ×2 (00:41→06:24)
[2016-08-25] MEDS ORDERED: Amiodarone 360 mg/200 mL D5W Premix IV ONE ×2 (00:41→06:24)
[2016-08-25] MEDS: Piperacillin-Tazo 3.375 Gm Inj 3.375 GM in Dextrose 5% Minibag Plus 50 ML IV SCH ×3 (00:55→21:37)
[2016-08-25] MEDS: SODIUM BICARB IV SCH ×2 (01:25→16:22)
[2016-08-25] MEDS: SODIUM CHLORIDE 0.45% IV SCH ×2 (01:25→16:22)
[2016-08-25] MEDS: Amiodarone 360 mg/200 mL D5W 360 MG, Filter, Taxol 14256-28 1 EACH in IV Premix 1 EACH IV SCH (01:25)
[2016-08-25] MEDS: EPINEPHrine 10,000 mCg/250 mL NS IV SCH ×4 (03:59→13:57)
[2016-08-25 04:30] VITALS: BP 111/52; PULSE 81; RESP 16; O2SAT 98
--- NOTE | 2016-08-25 04:50 | NUR ---
At approx. 0410 pt starting having in/out runs of wide complex ventricular rhythm. Ekg showed pacer not capturing. Pt asymptomatic. Blood pressures stable. Labs pending. Dr. Lundberg notified. The only new orders given were to watch pt at this point with no further interventions.
[2016-08-25 08:00] VITALS: BP 112/53; PULSE 81; RESP 12; O2SAT 98
[2016-08-25] MEDS: Pantoprazole 4 mg/mL 10 mL Inj IVPUSH SCH ×2 (08:52→17:16)
--- NOTE | 2016-08-25 09:29 | DRSVH ---
PROCEDURE: X-RAY CHEST ONE VIEW, PORTABLE ([id number]) INDICATIONS: pulm htn TECHNIQUE: One view of the chest was acquired. COMPARISON: [facility], CR, XR CHEST 1VW, 08/24/2016, 18:21. [facility], CR, XR CHEST 1VW (PORTABLE), 08/24/2016, 8:28. FINDINGS: Surgical changes and devices: Post median sternotomy. Stable positioning of right PICC. Temporary p ercutaneous pacer lead redemonstrated projecting over the left heart. Lungs and pleura: Mild venous congestion redemonstrated in persistent bibasilar patchy airspace opaci ties. No pneumothorax. Mediastinum: Mediastinal contours appear normal. Heart size is enlarged. Bones and chest wall: No suspicious bony lesions. Overlying soft tissues appear unremarkable. IMPRESSION: 1. Stable support lines and tubes. 2. Mild edema and/or pneumonia versus atelectasis involving the lung bases. Dictated by: Juan BECKMAN Interpreted: Yves Dallas MD on 08/25/2016 at 9:26 Approved by: Juan BECKMAN Interpreted: Yves Dallas MD on 08/25/2016 at 9:28
[2016-08-25] MEDS ORDERED: SPIR25TA3 PO (10:30)
[2016-08-25] MEDS ORDERED: SERT20OR PO (10:30)
[2016-08-25] MEDS ORDERED: SERT100T PO (10:30)
[2016-08-25] MEDS ORDERED: HYDR-4003 PO (10:34)
[2016-08-25] MEDS ORDERED: PANT40TA2 PO (10:34)
[2016-08-25] MEDS ORDERED: CRB400TCR PO (10:34)
[2016-08-25] MEDS ORDERED: METO25TA99 PO (10:34)
[2016-08-25] MEDS ORDERED: DIPH25CA6 PO (10:34)
[2016-08-25] MEDS ORDERED: TORS20TA3 PO (10:34)
[2016-08-25] MEDS ORDERED: TRAM50TA2 PO (10:41)
[2016-08-25] MEDS ORDERED: SILD20TA PO (10:41)
[2016-08-25] MEDS ORDERED: LACT1CAP13 PO (10:41)
[2016-08-25] MEDS ORDERED: ZLP10T PO (10:41)
[2016-08-25] MEDS ORDERED: BISA-67 PO (10:54)
[2016-08-25] MEDS ORDERED: LOV80 SUBQ (10:54)
[2016-08-25] MEDS ORDERED: MAGN400O4 PO (10:54)
[2016-08-25] MEDS ORDERED: TAMS0.4C98 PO (10:54)
[2016-08-25] MEDS ORDERED: WARF7.5T PO (10:54)
[2016-08-25] MEDS ORDERED: Glucose 40% Oral Gel 15 Gm Tube PO PRN (11:35)
[2016-08-25 12:00] VITALS: BP 112/55; PULSE 81; RESP 14; O2SAT 98
[2016-08-25] MEDS: Insulin LISPRO 300 Unit/3 mL Inj SUBQ SCH ×3 (12:22→20:28)
[2016-08-25 12:31] LABS: INR 3.46 ratio
--- NOTE | 2016-08-25 14:25 | PCM.PNMED ---
Subjective Date of Service Aug 25, 2016 Subjective c/o being thirsty, able to lay down flat, no orthopnea. harrison cath was removed. Per family, the patient has gained at least 30 ibs after left hip surgery. They are not certain whether NSAIDs were given after the procedure. Patient is not aware of having kidney disease. Exam Vital Signs Vital Sign - Last Date Time Temp Pulse Resp B/P Pulse Ox O2 Delivery O2 Flow Rate FiO2 08/25/16 12:00 Supplement Oxygen 08/25/16 12:00 36.7 81 14 112/55 98 4.00 Intake and Output 08/24/16 08/24/16 08/25/16 Cumulative From/Thru 15:00 23:00 07:00 08/24/16 08:02 - 08/25/16 06:12 Intake Total 2017 ml 2650 ml 4667 ml Output Total 175 ml 400 ml 575 ml Balance 1842 ml 2250 ml 4092 ml Intake Oral 60 ml 60 ml IV Total 2016 ml 2590 ml 4607 ml Output Urine Total 175 ml 400 ml 575 ml # Voids 4 4 Exam General:chronically ill looking, in non acute distress. HEENT: Normocephalic, atraumatic. External ears without defect. PERRLA, dry mucous membrane. Neck: no JVD. no lymphadenopathy. Cardiovascular: valve, regular rhythm, HR 70s. Pulmonary: Coarse BS, B/L, no wheezing. no accessory muscle use. Abdomen: soft, NT, mild distension,no hepatosplenomegaly or masses appreciated. Extremities: 2+ edema with sacral and scrotal swelling. Lab and Diagnostics Result Diagram: 08/24/16 1745 08/25/16 0430 X-Rays, CTs and MRIs ABDOMEN/PELVIS WITHOUT CONTRAST IMPRESSION: 1. Pericholecystic fluid may raise the question of acute cholecystitis in the appropriate clinical setting. Consider limited abdominal ultrasound for further evaluation as needed. 2. Bibasilar mobile pleural effusions, as well as scattered abdominal and pelvic ascites, of uncertain etiology. 3. Incidental 1.8 cm lateral right renal cortical exophytic cyst. 4. Small fat-containing periumbilical ventral hernia. Dictated by: Enrico Gama M.D. on 08/24/2016 at 7:45 Approved by: Enrico Gama M.D. on 08/24/2016 at 7:55 (Please note that a full report can be found through [employer].) Assessment & Plan 1. STANTON - Unknown baseline serum creatinine. - Patient is not certain whether NSAIDs were given after the procedure. - It is very difficult to assess his volume status given a very complex underlying heart disease. - He is thirsty, able to lay down flat and has no orthopnea. Thus, he rather has low effective circulating volume with increased total body water. - The etiology of STANTON is rather due to intravascular volume depletion and possible ischemic ATN. - We will finish off the current IV 1/2 NS+NaHCO3 gtt today. - We will resume diuretic within 24 hrs. - No urgent HD indicated at this time. 2. Hyperkalemia - resolved. - secondary to STANTON, LMWH and spironolactone. 3. Anion gap metabolic acidosis due to uremia and lactic acidosis. - improving with IV bicarb gtt. 4. Hypervolemia hyponatremia. - dilutional secondary to CHF and STANTON. - check serum osm, urine osm. 4. Sepsis - Suspected acute acalculous cholecystic - B/cx: GPC 5. Coffee ground emesis. 6. Pulmonary hypertension with right-sided heart failure 7. s/p mechanical AVR. VTE Mechanical Devices: Intermittant Pneumatic CD Aris Schwartz MD Aug 25, 2016 14:25
--- NOTE | 2016-08-25 15:37 | NUR ---
Social Work: Initial Assessment Attempt Weight Reduction Specialist attempted to meet with patient and complete initial assessment, but he is in the cath. lab for a pace maker. SW will attempt to complete the initial assessment tomorrow. Snehal Melendez, SONY, ACM
--- NOTE | 2016-08-25 15:45 | NUR ---
NUTRITION ASSESSMENT Assess: Pt is a 81 yo male was transferred from [facility] w/ bradycardia, STANTON on CKD and hypotension. Pt also presented w/ coffee ground emesis. Pt taken to [facility] for insertion of a temporary pacemaker on 08/24. Pt is currently using an oxymask. Per MD notes, dialysis is not needed at this time. Notes state AMS d/t sepsis and ARF. In rounds, nurse mentioned he has a distended abdomen w/ no stool to date. Nursing had plans to start a bowel regimen to help resolve the issue. PMHx: Afib, CHF, left hip fracture, multiple myeloma, trigeminal neuralgia, peripheral neuropathy, hyponatremia, depression, renal failure, sleep apnea, mechanical aortic valve. LABS: Reviewed. Na 129, Cl 89, BUN 103, Shearing Shed Hand 3.39, Gluc 189, Uric Acid 12.0, Ca 8.1, Bilirubin 2.1, Alk Phos 210, Alb 3.2 MEDICATIONS: Epinephrine, Sodium Bicarbonate, Sodium Chloride, Insulin CURRENT DIET: Clear Liquids (08/25) no PO recorded. GI symptoms/stool: No BMs abdomen distended SKIN: George 13 no other skin issues noted. ANTHROPOMETRICS: Current Wt: 90.3 kg BMI: 28.6 kg/m2 IBW: 73 kg ESTIMATED NEEDS: Renal Failure, no dialysis Calories: 6190-7824 kcal/day (25-35 kcal/kg BW) Protein: 70-90 g/day (0.8-1.0 g/kg BW) Fluids: ~2000 ml/day (Approx. 1 ml/kcal/d) NUTRITION DIAGNOSIS: 1) Altered nutrition related lab values related to STANTON on CKD and hyponatremia as evidenced by elevated BUN and creatinine levels and low sodium lab values. INTERVENTION: 1) Will continue to monitor for timely diet advancement. 2) If diet not advanced in 24-48 hours, will consider adding supplement or initiating nutrition support. MONITOR/EVALUATE: Diet advancement, labs, GI, PO, wt, POC. Will continue to monitor pt per high nutritional risk guidelines. Addendum: 08/25/16 at [address] Auxiliary student documentation reviewed. I agree with above documentation. Jose Maria Sadler RDN, CD Addendum: 08/26/16 at [address] Diet advanced to [facility] Healthy 08/26. Nurse requested dietitian consult for pt preferences. Pt states poor appetite, likely d/t no BM in last 10 days. Pt is receiving lactulose. Will add Vanilla Ensure to B&L trays, and Magic Cups TID to increase calorie and protein intake. Addendum: 08/26/16 at [address] I have read and agree with above student documentation Cristal Foster, RD, CD
--- NOTE | 2016-08-25 15:57 | NUR ---
Social Work Initial Assessment Data & Assessment: EMR Reviewed. See Initial Assessment. What Job Titles Mean completed initial assessment with patient's , Estela Anand- [phone], via phone because patient was in the cath. lab. SW role explained and discharge plan discussed with patient's . Patient stated that prior to coming into the hospital patient was at [facility], [facility] and [facility]. The patient's stated that the plan is for the patient to return to [facility]. Patient is a 81 y/o male that admitted due to bradycardia. Patient's primary insurance is medicare and [employer] supp. as secondary. Prior to patient hospitalizations and SNF stay he live in a two story home, but everything was on the first level. There is four steps to enter the patient's home Patient does not have DME and has never had HH. Patient does not have LTC benefits. currently the plan is for the patient to return [facility] whe medically ready. SW will continue to follow. Plan: It is likely that the patient will discharge to [facility] when medically ready. SW will cotinue to follow. Nirmal Mendiola LMSW, [facility] Addendum: 08/26/16 at 1607 by NIRMAL MENDIOLA Amended: Links added.
[2016-08-25 16:00] VITALS: BP 112/52; PULSE 81; RESP 14; O2SAT 99
--- NOTE | 2016-08-25 16:46 | DRSVH ---
PROCEDURE: NM HIDA SCAN WITH CCK PHARMACEUTICAL: 4.9 mCi Tc-99m mebrofenin IV; 1.81 mcg CCK IV. INDICATIONS: thickened gallbladder TECHNIQUE: Following intravenous administration of Tc-99m mebrofenin, sequential anterior abdominal images were obtained. To evaluate the contractile response of the gallbladder in response to Cholecystokinin (CC K), sincalide (0.02 g/kg) was administered by slow intravenous infusion approximately 60 minutes aft er the administration of the radiopharmaceutical. Sequential imaging was continued for [address] the start of CCK infusion. Gallbladder ejection fraction was calculated. COMPARISON: None. FINDINGS: Biliary scan: There is normal tracer uptake and excretion by the liver. There is normal visualizati on of the intrahepatic ducts, common bile duct, and gallbladder. There is normal tracer transit into the duodenum. CCK stimulation: There is poor contractile response of the gallbladder to CCK infusion. The calcula roger gallbladder ejection fraction is 51%; normal values are above 35%. It has been shown that any patient abdominal pain after CCK administration is related to the rate of CCK injection, rather than to any underlying gallbladder disease (Clinical Nuclear Medicine 2012; 37: 63-70. Journal of Nuclear Medicine 2014; 55: 1-9). IMPRESSION: 1. Normal filling of gallbladder. No evidence for acute cholecystitis. 2. Poor contractile response of gallbladder to CCK infusion with gallbladder ejection fraction is 3.1 %. This finding is consistent with gallbladder dyskinesia. Dictated by: Yves Dallas M.D. on 08/25/2016 at 16:43 Approved by: Yves Dallas M.D. on 08/25/2016 at 16:44
--- NOTE | 2016-08-25 16:59 | PCM.PNMED ---
Subjective Date of Service Aug 25, 2016 Subjective Randy Anand is a 81 year old man with history of atrial fibrillation on anticoagulation s/p implantable loop recorder, mechanical aortic valve, right heart failure, CAD s/p CABG, pulmonary hypertension, and CKD who presented with hematemesis and bradycardia. Admitted for symptomatic bradycardia, STANTON, severe sepsis, and possible acalculous cholecystitis. Overnight: Pt had runs of wide complex tachycardia, not captured by the pacer, likely a slow Vtach per Dr. Lundberg. Pt became more confused and received Amio bolus, Na bicarb, and cardioversion. Pt went into asystole and pacer captured a rhythm. He had another run of wide complex tachycardia later in the night but remained asymptomatic and his BP was stable, and this eventually improved. He still has not had a bowel movement despite several doses of Kayexalate. Today: He reports weakness and severe constipation, without a proper bowel movement for 10 days. He denies fevers, chills, abdominal pain/chest pain, N/V, lightheadedness or dizziness. On further questioning, he is unsure about the cause of his history of cirrhosis, but reports he drank heavily earlier in life and denies hx of Hep C. He has an aunt with Crohn's disease. His states he had an upper/lower endoscopy at [facility] around June 2016 for a GI bleed. Apparently the EGD revealed ulcers, while the colonoscopy was negative other than a polyp that was not removed. He reports Tylenol use of about 3 pills at a time, but denies NSAID use. Exam Vital Signs Vital Sign - Last Date Time Temp Pulse Resp B/P Pulse Ox O2 Delivery O2 Flow Rate FiO2 08/25/16 12:00 Supplement Oxygen 08/25/16 12:00 36.7 81 14 112/55 98 4.00 Intake and Output 08/24/16 08/24/16 08/25/16 Cumulative From/Thru 15:00 23:00 07:00 08/24/16 08:02 - 08/25/16 06:12 Intake Total 2016 ml 2650 ml 4667 ml Output Total 175 ml 400 ml 575 ml Balance 1842 ml 2250 ml 4092 ml Intake Oral 60 ml 60 ml IV Total 2016 ml 2590 ml 4607 ml Output Urine Total 175 ml 400 ml 575 ml # Voids 4 4 Exam General: Pale, ill-appearing thin elderly male. Alert and oriented today. No acute distress. Head: Normocephalic, atraumatic. External ears without defect. Eyes: Pupils equal, round, and reactive to light and accommodation. Anicteric sclerae, moist and pale conjunctivae, and no lid lag. Cardiovascular: Bradycardic with frequent pauses with crisp mechanical valve noted Pulmonary: Coarse breath sounds throughout. Abdomen: Bowel tones present. Soft, tender to palpation in the RUQ. No masses appreciated. Extremities: Bilateral lower extremity edema noted. Neurological: No gross neurological deficits noted. Lab and Diagnostics Result Diagram: 08/24/16 1745 08/25/16 0430 X-Rays, CTs and MRIs ABDOMEN/PELVIS WITHOUT CONTRAST IMPRESSION: 1. Pericholecystic fluid may raise the question of acute cholecystitis in the appropriate clinical setting. Consider limited abdominal ultrasound for further evaluation as needed. 2. Bibasilar mobile pleural effusions, as well as scattered abdominal and pelvic ascites, of uncertain etiology. 3. Incidental 1.8 cm lateral right renal cortical exophytic cyst. 4. Small fat-containing periumbilical ventral hernia. Dictated by: Enrico Gama M.D. on 08/24/2016 at 7:45 Approved by: Enrico Gama M.D. on 08/24/2016 at 7:55 (Please note that a full report can be found through Web Ambassador.) Assessment & Plan Randy Anand is a 81 year old man with history of atrial fibrillation on anticoagulation s/p implantable loop recorder, mechanical aortic valve, right heart failure, CAD s/p CABG, pulmonary hypertension, and CKD who presented with hematemesis and bradycardia. Admitted for symptomatic bradycardia, STANTON, severe sepsis, and possible acalculous cholecystitis. 1. Symptomatic bradycardia, present on admission, acute -Secondary to hyperkalemia in the setting of acute kidney injury. Patient appears to be exquisitely sensitive to hyperkalemia even at a potassium of 5.7. -Cardiology consulted, appreciate the expertise and input -Patient continues to be on an epinephrine drip -The patient is currently on a bicarbonate drip per Dr. Harden for hyperkalemia and acidosis. 2. Acute kidney injury on chronic kidney disease, present on admission, acute -Secondary to prerenal azotemia due to severe bradycardia and poor profusion. Kayexalate given by Dr. Lundberg in the ED, patient has not yet had a bowel movement -Dr. Harden of nephrology consulted, appreciate the expertise and input -Discussed case in detail with Dr. Harden, he does not believe the patient needs dialysis at this time 3. Severe sepsis, present on admission, acute. Improving. -Likely secondary to acalculous cholecystitis versus pneumonia. His procalcitonin has increased to 1.19. Lactic acid 1.4. WBC 15.5. Temp 36 on admission. Fluid resuscitation proves a little difficult in this patient due to his pulmonary hypertension and right-sided heart failure and his need to be flat for a transvenous pacemaker -Zosyn IV for broad spectrum coverage. 4. Anion gap metabolic acidosis, present on admission, acute. Improving. -Likely multifactorial but primarily due to elevated lactate. Lactic acidosis resolved. AG improved from 26 to 19. -Continue bicarbonate drip as described above -Dr. Harden of Nephrology consulted. 5. Acute acalculous cholecystitis, present on admission, acute -Tender RUQ, direct hyperbilirubinemia, elevated alk phos. CT abd showed pericholecystic fluid, US showed gallbladder wall thickening. -Dr. Redding of Surgery has been consulted. We appreciate his expertise. 6. Upper GI bleed, present on admission, acute -Uncertain of cause, however a prior discharge summary describes a history of cirrhosis. He denies hx of varices, apparently had gastric ulcers on EGD in Jun 2016. Colonoscopy at same time was apparently negative except for a polyp. -Obtain endoscopy records from [facility] -Protonix push BID -Continue to trend H&H -If H&H trends down or more hematemesis is noted, will consult GI -May need to consider resuming warfarin soon given mechanical valve if no further bleeding 7. Hyperglycemia, acute. - Glucose in 170s-180s. - A1c ordered - Humalog low dose correctional scale. 8. Elevated troponin of uncertain significance, present on admission, acute -Likely secondary to demand ischemia in the setting of right-sided heart failure and severe bradycardia 9. Pulmonary hypertension with right-sided heart failure, present on admission, acute -Will hold diuretics at this time due to hypotension 10. Mechanical aortic valve, present on admission, acute -Hold patient's warfarin in the setting of possible UGIB 11. Macrocytic anemia, present on admission, acute -Uncertain of baseline -Macrocytosis could represent reticulocytes, will order retic count 12. Hip fracture s/p ORIF 13. Hypovolemia hyponatremia, present on admission, acute -Likely multifactorial due to loses and SSRI, will continue to monitor 14. History of Tegretol toxicity, present on admission, acute -Will order a level 15. Altered mental state -due to severe sepsis and ARF CODE STATUS: FULL CODE Admit patient to the CCU with anticipated length of stay >2 midnights due to severity of the patient's illness, likelihood of decompensation and complexity of treatment. VTE Mechanical Devices: Intermittant Pneumatic CD Attending Statement The patient was seen and examined together with Dr. Martinez on 08/25/2016 and I agree with the history, exam and plan as outlined in the note above. . Jose Juan Martinez Aug 25, 2016 13:27 Brandon Nielson MD Aug 25, 2016 19:56
--- NOTE | 2016-08-25 18:10 | NUR ---
Cardiac/Hemodynamics/Activity Tele was 100% paced, rate 81 until cards turned off temp pacer. Tele has since been Afib with IVCD, rate 79s. No tachycardia or pauses. Right groin pacer sheath still in place, but pacer off. Attempting to wean Epinephrine gtt which is down to .16 from .2. BP is 111/58, with MAP of 68. Continuing to wean Epi. UOP this shift = 1100 mls. Patient voiding per urinal. Patient keeping right leg strait and HOB at 15 degrees. Patient is adjusting himself in bed. left knee slightly elevated on pillow for comfort. Continuing with POC.
--- NOTE | 2016-08-25 18:34 | NUR ---
Post Void Residual Bladder scanned after voiding via urinal and said that there were 0 mls in bladder.
--- NOTE | 2016-08-25 19:30 | CONS ---
[address] [address] CONSULTATION REPORT PATIENT: SANDRINE VAN : 1935 MR#: [id number] ADMIT: 08/24/2016 JOB ID: [id number] DATE OF SERVICE: 08/25/2016 REQUESTED BY: Angelica Adame D.O. HISTORY OF PRESENT ILLNESS: I was asked to see this patient for possible acalculous cholecystitis. He is a complex man who was transferred from a skilled nursing in [place] to [facility] because of change of mental status and the development of bradycardia. He has had a temporary pacemaker placed by Dr. Lundberg. In his workup, he had a CT scan of his abdomen demonstrate a thickened gallbladder. He had a retroperitoneal ultrasound that also showed a thickened gallbladder but no gallstones. There was also some pericholecystic fluid. But, he also has bilateral effusions. He is on warfarin and he has a therapeutic INR. The patient denies any abdominal pain. The patient would like to have water. He has not had any upper abdominal operations. He has had a recent left hip operation. PAST MEDICAL HISTORY: His past history is significant for his recent left hip replacement. He also has a history of atrial fibrillation and anticoagulation status, congestive heart failure, multiple myeloma, trigeminal neuralgia, peripheral neuropathy, hyponatremia, depression, sleep apnea and renal failure. REVIEW OF SYSTEMS: Again, the patient denies any abdominal pain. He is alert and asking appropriate questions. He is accompanied by his very supportive family including his , daughter and son. PHYSICAL EXAMINATION: BMI is 28.6, temperature 36.7, brachial blood pressure 112/55, pulse 81, respiratory rate 14, O2 sat on 4 L is 98%. HEENT: EOMI. PERRLA, No scleral icterus. Neck: No masses. Abdomen: Soft, nontender with deep palpation in his right upper quadrant. There is no tenderness. He has a negative Queen sign. LABORATORY RESULTS: White blood cell count from yesterday is 15.5 with a left shift. He has a hematocrit of 26.8, platelet count 473,000. INR today is 3.46. Chemistries from this morning: Sodium was 129, potassium 4.9, creatinine 3.39, glucose 189, total bilirubin 2.1. AST is 48, ALT 17, alk phos 210. Imaging is reviewed by myself. IMPRESSION: Certainly on physical examination, he has no evidence of cholecystitis. He also is therapeutically anticoagulated. He has bilateral pleural effusions, and I am not convinced that he has cholecystitis. I have recommended and have ordered a HIDA scan. Will use that to determine next steps. For the time being, I would not reverse his INR and I think he can have clear liquids.
[2016-08-25 20:35] VITALS: BP 102/56; PULSE 85; RESP 14; O2SAT 97
--- NOTE | 2016-08-25 23:09 | CONS ---
[address] [address] CONSULTATION REPORT PATIENT: SANDRINE VAN : 1935 MR#: [id number] ADMIT: 08/24/2016 JOB ID: [id number] DATE OF SERVICE: 08/25/[address] Kraus for this timely consult. REASON FOR CONSULTATION: Sepsis with shock and bradycardia. 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 He was admitted twice to [facility] in [place] with heart failure which sounds as if it was primarily right-sided heart failure during June and early July. The patient's son tells me there were also issues perhaps with some cirrhosis issues and fluid accumulation in his abdomen and legs. Eventually, the patient's cardiac filling pressures and other issues were apparently fine tuned and he was discharged home. After a very brief period at home, the patient fell which was quite unrelated to any of his problems which just preceded that. During that fall, he fractured his left hip and required admission to [facility] where his hip was successfully pinned in an ORIF procedure. He was then transferred to the rehab in [place] where yesterday, August 24, he was found to have coffee-ground emesis as well as severe bradycardia and hypotension. This was all associated with diminished mental status. No additional history was available from the patient at the time of these events and he now really cannot recall much of what happened, of course, during that period at [facility]. In any event, he was transferred to the ED at [place] and because Cardiology was needed, the plan was to transfer him back to [facility] in [place] where he is usually hospitalized. Unfortunately, their hospital was full and he ended up here at [facility] in the ICU. En route, he required epinephrine and dopamine to maintain his blood pressure. Upon admission here, he was found to have an elevated troponin and a temporary pacer was inserted in the groin. He was also found to have very significant metabolic acidosis which has been addressed. A CT scan done at [facility] apparently just prior to her transfer raised the question about possible acute cholecystitis and that has led to some concern about infection as a precipitating cause of these recent events. Also of concern has been the positive blood culture which is growing Staph. For his part, the patient does not recall too much about these recent events. He is certainly aware about his hip fracture and his ongoing convalescence at the rehab facility, but beyond that does not recall much of yesterday's events. He tells me today that he does not recall having had any fevers, chills, or sweats in the recent several days. He likewise has no sinus complaints, no sore throat, no significant cough or shortness of breath and no chest pain. He has had some vomiting and some of this was apparently coffee-ground emesis which has led to part of this ongoing evaluation. He has been constipated lately perhaps due to pain meds he has been receiving and denies any urinary complaints though apparently during part of his recent hospital/SNF experience lately he did have a Cardona in place which has now been removed. PAST MEDICAL HISTORY: 1. Organic heart disease; a. Atrial fibrillation. b. Status post aortic valve replacement. c. Right-sided CHF. 2. Alcoholic cirrhosis, according to both the patient and his son. 3. Trigeminal neuralgia with history of Tegretol toxicity as part of his treatment regimen. 4. Lymphocytoblastic lymphoma. 5. 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 6. 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 7. Chronic hyponatremia. 8. Benign prostatic hypertrophy. 9. Recent left hip fracture within the past 10 days with left hip ORIF. 10. Chronic renal insufficiency. 11. Obstructive sleep apnea. SOCIAL HISTORY: The patient reports he is a long-time nonsmoker. Apparently he was a pretty significant consumer of alcohol until seven or eight years ago when he was diagnosed with his hematologic problems and then quit all alcohol consumption and has not drunk since. 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 He and his retired to this area as one of their sons resides here and this is the son who is with him providing additional history today. His has subsequently . FAMILY HISTORY: Negative for tuberculosis in his first-degree relatives. REVIEW OF SYSTEMS: Was done in its entirety. The patient reports he has no headache, no visual change, no eye pain. His mouth is dry but he has no sore throat or trouble swallowing. He reports his neck is not stiff. He has not noticed any swollen lymph nodes or glands. He has no cough or shortness of breath at this time. No chest pain. No nausea or vomiting. He is constipated. Since his Cardona catheter was removed he notes a little bit of terminal dysuria but not severe. No urgency or frequency. He has the temporary catheter in his groin which he finds a bit uncomfortable, but that is the only symptom in that region. He notes his legs and abdomen are much, much more swollen than they were just a week or two ago and he attributes this to all the fluids he received after his hip fracture. The remainder of the review of systems is negative. PHYSICAL EXAMINATION: Reveals an afebrile gentleman, temperature 36.7, pulse 81, respiratory rate 14, blood pressure 112/55. He is saturating 98% on 4 L. The patient's mental status is fairly clear. With prompting, he is aware of where he is, though he initially thought he was in a hospital in [place], but that is probably excusable since he was just recently in a hospital in [place]. He is aware of the date and current events. His mood seems a bit depressed and his affect is a bit flat, but it is difficult to establish given all he has been through in the last day or two. His head is without trauma. His eyes without conjunctival or scleral change. Nose normal. Oral cavity: Dry mucous membranes. No thrush, hairy leukoplakia or pharyngitis. Neck is completely supple. No cervical or supraclavicular adenopathy is noted. His lungs are quite clear with only a few crackles at the bases. Cardiac tones currently regular rate and rhythm. The abdomen is distended and it appears he does have some degree of ascites. I cannot palpate his liver or spleen due to his abdominal distention. The patient does not have suprapubic fullness. He does not have a Cardona catheter. Penis and scrotum essentially normal. No inguinal adenopathy. A transvenous pacer is present in the left groin. The patient has basically anasarca with 2 to 3+ edema all the way from his lower abdomen all the way down to his feet. There is no skin breakdown, however, and no evidence of cellulitis. Neurologically, he is intact. He can move all four extremities though he is quite weak. He does have stocking-type peripheral neuropathy. LABORATORIES: Include white count 11,000 yesterday, now 15, with about 95% polys. Platelet count 473. His hematocrit 27. Hemoglobin A1c is pending. Lactic acid was elevated when he came over at 8; it is now down to a normal 1.4. Procalcitonin 1.19 and this is in association though with a creatinine of 3.39. Liver function tests normal AST and ALT. His alk phos was 218 which is one of the reasons a HIDA scan was done earlier today. Urinalysis was 6-10 white cells. Micro studies include a single bottle which has gram-positive cocci in it which are in clusters and appear to be Staph. A MRSA screen of the nares is complete and negative. A urine has no growth to date. IMAGING: Includes three chest x-rays so far. The most recent of these shows some subtle bibasilar changes which could most likely be atelectasis. These are not impressive. In addition, the patient has had a retroperitoneal ultrasound which did not show any abnormalities of the kidneys. Gallbladder wall thickening and some pericholecystic fluid was seen, but it was also noted that he had scattered perihepatic ascites. The HIDA scan was just completed, and I reviewed this downstairs in the [facility] area with the radiologist. There is no evidence whatsoever of cholecystitis. IMPRESSION: At this point, I think the verdict is out as to whether or not the patient has any significant infection. The patient was found with diminished mental status, bradycardia and hypotension yesterday at the rehabilitation facility and transported him to the [facility] and then on to here. At that time, he was having a pronounced bradycardia and with recovery of the bradycardia, the patient's blood pressure basically recovered. There was also found what appeared to be a gastrointestinal bleed while he was there. He has had a recent fracture of his hip and there are multiple other factors which could be contributing to the drop in the blood pressure and pulse besides infection. Arguing in favor of infection is the elevated white count to about 15,000 as well as a procalcitonin of 1.2, but recall this is a procalcitonin of 1.2 in the setting of quite an elevated creatinine which tends to increase the level of pro calcitonin, so I am not certain we can hang our hat on that. I see little evidence for pneumonia. The patient has really no pulmonary symptoms. His lungs sound clear to auscultation, and his chest x-ray is quite unimpressive. It is possible he may have a urinary tract infection given that he has some pyuria but, again, that is certainly not proven. There is no evidence that he has an infection of his hip as the surgical site looks benign and it is relatively asymptomatic. Likewise, there is no evidence at all for gallbladder infection nor inflammation as his right upper quadrant is basically nontender. I suspect that the pericholecystic fluid and wall thickening are the result of the ascites in that area which makes the ultrasound notoriously difficult to interpret and we have a HIDA scan which would indicate the gallbladder fills normally and there is no cholecystitis. Given all that I just stated that argues against infection, I do think it is prudent to cover him for least another day or two until we have some maturation of the blood cultures and see whether the single Staph positive blood culture is coag-negative or coag-positive Staph. This patient does have a [place] Mitchell's valve and, of course, the possibility of prosthetic valve infection with either coag-positive or coag-negative Staph is an ever present concern. RECOMMENDATIONS: 1. I would continue with Zosyn overnight. 2. Repeat blood cultures x2 will be checked. 3. Will repeat procalcitonin and a CBC with a diff tomorrow morning. 4. We await the ID of the organism found in his blood. 5. Also note that the patient does apparently have underlying alcoholic cirrhosis and we now have a dramatically rising creatinine along with anasarca. This is, of course, worrisome and raises the possibility of hepatorenal syndrome. 6. Will continue to follow this case closely with you.
[2016-08-26] VITALS (7 sets, daily range): BP systolic 95–118; BP diastolic 48–83; PULSE 79–103; RESP 14–30; O2SAT 96–98
--- NOTE | 2016-08-26 00:55 | PROG NOTE ---
[address] [address] PROGRESS NOTE PATIENT: SANDRINE VAN : 1935 MR#: [id number] ADMIT: 08/24/2016 JOB ID: [id number] DATE: 08/25/2016 CHIEF COMPLAINT: Severe dizziness and altered mental status. SUBJECTIVE: This morning, August 25, 2016, the patient started getting breakthrough marshall rhythm which appears to be junctional escape, which is quite regular at about 80 beats per minute with wide QRS complex morphology. I contacted his primary veterinarian, Dr. Hope, and it turns out that this is what his marshall rhythm generally looks like. He is feeling better. He is pain-free. He still has not had a bowel movement and, unfortunately, it turns out that he has acute cholecystitis and his white count is going up, but he is not having any fevers or chills. OBJECTIVE: Vital signs: Temperature 36.7, blood pressure 100/79, up to 112/55, pulse 80 beats per minute, satting 97-99% on 3-4 L nasal cannula. His weight is 90.3 kg on the built-in scale. This corresponds to 200 pounds. He is in more than out so far, as of August 24 by 1.8 L. Very pleasant man. No apparent distress. Eyes: No scleral icterus. Neck: Supple. No carotid bruits. Heart: Normal S1, mechanical S2. No murmurs. Lungs are clear anterior. Abdomen is soft, but distended, with hypoactive bowel sounds. Extremities show mild edema bilaterally. Serial compression devices are on. Capture thresholds on the pacing wire is 0.5 milliamps, but I actually turned off the pacing wire because he does not appear to be needing it anymore, but I left the sheath in. LABORATORY: His labs were reviewed. His white count is going up, 15, with anemia, hematocrit 27%. Platelet count is elevated consistent with acute phase reactant with significant neutrophil predominance. The patient's lactic acid is better, down from 8, to most recently 1.4. The patient's protein electrophoresis is still pending. Albumin as low as 3.1. Troponin-T 0.275. Potassium was 5.7 on admission. Most recent potassium was 4.9. Creatinine was apparently 2 at baseline, 3.5 on admission, and 3.4 currently. CURRENT MEDICATIONS: 1. He is still on epinephrine drip at 0.2 mcg/kg per minute. 2. Protonix 40 mg IV twice a day. 3. Zosyn 3.375 g every 12 hours. 4. Lispro sliding scale insulin. 5. Bicarb drip at 80 mL/h. ASSESSMENT AND PLAN: This is a 81-year-old man with multiple cardiovascular issues. 1. Atrial fibrillation with slow ventricular response--resolved after electrolytes have been corrected. 2. Elevated INR--most recently 3.46. Warfarin is on hold. Goal INR is between 2-3 given mechanical mitral prosthesis and chronic atrial fibrillation. 3. Pulmonary hypertension--he has elevated transpulmonary gradient in the past, with the most recent cardiac catheterization showing pulmonary artery systolic pressure of 60/28, with a mean pulmonary artery pressure of 41 mmHg and pulmonary capillary wedge pressure of 17 mmHg. He was previously treated with sildenafil, but not recently. He was previously treated with high dose diuretic, torsemide and spironolactone, but not currently. Diuretics are on hold, and the potassium supplements due to acute renal failure. 4. Ventricular tachycardia--he had a brief episode of sustained ventricular tachycardia, which responded favorably to DC cardioversion. Normal sinus rhythm was restored. 5. Management of temporary pacemaker wire. Temporary pacemaker wire was implanted August 24, 2016. It is currently connected to a pacing box, but it is turned off because his marshall conduction appears to have returned. If his marshall conduction continues to be working well, then we can tomorrow, on August 26, take out the pacing wire and the pacing venous sheath. 6. Preoperative assessment. The patient may need to have cholecystectomy versus G-tube for cholecystostomy drainage of infected gallbladder. He has a history of remote coronary artery bypass graft surgery and history of mechanical prosthesis in the aortic position. Recommend obtaining an echocardiogram prior to surgery to better stratify his operative risks. My partner, Dr. Bledsoe, will see the patient on August 26, and discuss this issue with him further once diagnostics are available for review. 7. Prognosis: The patient's prognosis is poor because of his multiple comorbid conditions. Dr. Bledsoe broached the subject of palliative care. The patient is thinking about it, but certainly right now, he appears to be . Thank you very much for the opportunity to participate in his care.
[2016-08-26] MEDS: EPINEPHrine 10,000 mCg/250 mL NS IV SCH ×2 (02:14)
[2016-08-26 05:05] LABS: BASOPHILS % (AUTO) 0.2 % (0-3); EOSINOPHILS % (AUTO) 1.4 % (0-5); Mean Corpuscular Hemoglobin 31.9 pg (27.0-35.0); Mean Corpuscular Volume 100.4 fL (81-100); NEUTROPHILS % (AUTO) 91.2 % (40-74); Platelet Count 306 bil/L (150-400)
[2016-08-26 05:27] LABS: Magnesium 2.8 mg/dL (1.6-2.6)
--- NOTE | 2016-08-26 05:37 | NUR ---
BP/Tele Pt BP stable throughout night. Able to wean Epi gtt almost to off (BP drops slightly when asleep). Goal is to keep MAP >55. Pt remains free of CP, palpitations, SCHMID, n/v/d, or abdominal pain. Tele stable accelerated junctional rhythm throughout night with rate in 80s. No need for pacing at any time. Will continue to monitor. Care ongoing
[2016-08-26 06:13] LABS: Vitamin B12 >1999 pg/mL (211-946)
[2016-08-26] MEDS: Pantoprazole 4 mg/mL 10 mL Inj IVPUSH SCH ×2 (07:58→17:48)
[2016-08-26] MEDS: Insulin LISPRO 300 Unit/3 mL Inj SUBQ SCH ×4 (08:00→20:10)
[2016-08-26] MEDS: Piperacillin-Tazo 3.375 Gm Inj 3.375 GM in Dextrose 5% Minibag Plus 50 ML IV SCH ×2 (08:18→20:11)
--- NOTE | 2016-08-26 10:48 | PCM.PNMED ---
Subjective Date of Service Aug 26, 2016 Subjective Pt reports feeling better today. He has no chest pain or shortness of breath. His HR is regular with wide QRS complex. He c/o worsening scrotal swelling and LE edema. Gaining at least 30 ibs over the past couple of weeks. He remains on epinephrine gtt. Exam Vital Signs Vital Sign - Last Date Time Temp Pulse Resp B/P Pulse Ox O2 Delivery O2 Flow Rate FiO2 08/26/16 08:00 Supplement Oxygen 08/26/16 05:30 36.8 80 16 95/48 98 3.00 Intake and Output 08/25/16 08/25/16 08/26/16 Cumulative From/Thru 15:00 23:00 07:00 08/24/16 08:02 - 08/26/16 05:32 Intake Total 1430 ml 899 ml 6996 ml Output Total 1100 ml 1200 ml 2875 ml Balance 330 ml -301 ml 4121 ml Intake Oral 400 ml 600 ml 1060 ml IV Total 1030 ml 299 ml 5936 ml Output Urine Total 1100 ml 1200 ml 2875 ml # Voids 4 # Bowel Movements 0 0 Exam General:chronically ill looking, in non acute distress. HEENT: Normocephalic, atraumatic. External ears without defect. PERRLA, dry mucous membrane. Neck: no JVD. no lymphadenopathy. Cardiovascular: valve click, regular rhythm, HR 80s. Pulmonary: Coarse BS, B/L, no wheezing. no accessory muscle use. Abdomen: soft, NT, mild distension,no hepatosplenomegaly or masses appreciated. Extremities: 3+ edema with sacral and scrotal swelling. Lab and Diagnostics Result Diagram: 08/26/1644408/26/16444 X-Rays, CTs and MRIs ABDOMEN/PELVIS WITHOUT CONTRAST IMPRESSION: 1. Pericholecystic fluid may raise the question of acute cholecystitis in the appropriate clinical setting. Consider limited abdominal ultrasound for further evaluation as needed. 2. Bibasilar mobile pleural effusions, as well as scattered abdominal and pelvic ascites, of uncertain etiology. 3. Incidental 1.8 cm lateral right renal cortical exophytic cyst. 4. Small fat-containing periumbilical ventral hernia. Dictated by: Enrico Gama M.D. on 08/24/2016 at 7:45 Approved by: Enrico Gama M.D. on 08/24/2016 at 7:55 (Please note that a full report can be found through [employer].) Assessment & Plan 1. STANTON - Unknown baseline serum creatinine. - Patient is not certain whether NSAIDs were given after the procedure. - It is very difficult to assess his volume status given a very complex underlying heart disease. - His kidney function has improved with IVF over the past 48 hrs. He now c/o LE and scrotal swelling and gaining 30 ibs (normal weight 170 ibs). - will try IV lasix drip today at 5 mg /hr. 2. Symptomatic bradycardia - resolved. 3. Hyperkalemia - resolved. - secondary to STANTON, LMWH and spironolactone. 4. Anion gap metabolic acidosis due to uremia and lactic acidosis. - improving with IV bicarb gtt. 5. Sepsis - Suspected acute acalculous cholecystic, HIDA scan: No evidence for acute cholecystitis. (+) GB dyskinesia. - B/cx: GPC. 6. Coffee ground emesis. 7. Pulmonary hypertension with right-sided heart failure. 8. s/p mechanical AVR. Plan: start lasix gtt 5 mg/hr. Urgent HD is not indicated at this moment. monitor intake and output. Overall prognosis is poor. Agreed with Dr. Bledsoe to consult palliative care. VTE Mechanical Devices: Intermittant Pneumatic CD Aris Schwartz MD Aug 26, 2016 10:48
--- NOTE | 2016-08-26 11:20 | NUR ---
Palliative Care Palliative Care received verbal order from Dr Bledsoe 08/26/16 to assist with goals of care. Patient is a 81 year old man with history of atrial fibrillation on anticoagulation s/p implantable loop recorder, mechanical aortic valve, right heart failure, CAD s/p CABG, pulmonary hypertension and CKD. He presented with hematemesis and bradycardia and was admitted 08/24/16 for care of symptomatic bradycardia, STANTON, severe sepsis and possible acalculous cholecystitis. Estela Anand () [phone] Candido Bautista (son) [phone] Palliative Care to follow. Dr Reynaga and [facility] SPECIALIST will meet with patient and today at 12:45 p.m. Ronda Bello
[2016-08-26] MEDS: Furosemide Inj 100 MG in 0.9% Sodium Chloride 90 ML IVPUSH SCH (11:25)
--- NOTE | 2016-08-26 12:01 | DRSVH ---
[facility]erg[facility] With [facility] [address] [place] [address] Echocardiogram Report Name: SANDRINE VAN Study Date: 08/26/2016 Height : 70 in Hospital Exam Location: [facility] Weight : 210 lb Gender: Male BSA: 2 .1 m2 : 1935 Age: 81 yrs BP: 10 1/50 mmHg Reason For Study: AVR Ordering Physician: HOSPITALIST [facility] Performed By: Shira Bradley Referring Physician: DR. Sourav GREENE, DR. BLEDSOE Interpretation Summary 1) Mild concentric left ventricular hypertrophy with normal size and systolic function (EF 55-60%). 2) Severely dliated right ventricle with severely reduced function. 3) Flattened septum is consistent with RV pressure/volume overload. 4) Mechanical aortic valve present, opens well. Mildly increased mean gradient of 26mHg. 5) Severe tricuspid regurgitation present. 6) Pulmonary hypertension present, estimated systolic pulmonary pressure of 52mmHg. 7) Elevated right sided filling pressures. 8) No prior Echo avaliable for comparison. Left Ventricle: The left ventricle is normal in size. The LVOT diameter is 1.9 cm. There is mild concentric left ventricular hypertrophy. Left ventricular systolic function is normal. The ejection fraction is estimated to be 55-60%. Flattened septum is consistent with RV pressure/volume overload. Right Ventricle: There is a pacemaker lead in the right ventricle. The right ventricle is severely dilated. Right ventricular systolic function is severely reduced. Atria: The left atrium is mildly dilated. The right atrium is moderately dilated. There is no Doppler evidence for an atrial septal defect. Mitral Valve: There is moderate mitral annular calcification. The mitral valve leaflets are mildly calcified. Aortic Valve: The aortic valve is not well visualized. There is a mechanical aortic valve. The prosthetic aortic valve is well-seated. The calculated aortic valve area is 1.2 cm2. The peak aortic velocity is 3.2 m/sec. The aortic valve mean gradient is 26 mmHg. No aortic regurgitation is present. Tricuspid Valve: Tricuspid leaflets are thickened. The right ventricular systolic pressure is estimated at 52 mmHg assuming a right atrial pressure of 15 mm Hg. There is severe tricuspid regurgitation. Pulmonic Valve: The pulmonic valve leaflets are thin and pliable; valve motion is normal. There is a trace or physiologic amount of pulmonic regurgitation. Great Vessels: The aortic root is normal size. The ascending aorta is mildly enlarged. The pulmonary artery is not well visualized, but is probably normal size. The IVC is dilated (diameter is greater than 2.1 cm) and it collapses less than 50% with a sniff. This suggests a high right atrial pressure of 15 mm Hg. A catheter appeared to lie in the inferior vena cava. Pericardium/ Pleura There is no pericardial effusion. There is a small right-sided pleural effusion. MMode/2D Measurements & Calculations LVIDd: 5.1 cm LA dimension: 4.2 cm RA long axis LVOT diam: 1.9 cm LVIDs: 3.7 cm Ao root diam FS: 27.4 % LA A2 area: 25.2 cm RA area EPSS: 1.0 cm LA A4 area: 22.8 cm asc Aorta Diam IVSd: 1.2 cm LA length (vol) : 25.1 cm LVPWd: 1.3 cm RA vol Ao Arch Diam (Prox LA vol: 87.6 ml : 100.ml Trans): 2.4 cm LA vol index RA : 47.2 mm2 IVC diam: 2.7 cm LV lemons. diameter/BSA LV sys. diameter/BSA (cm/m^2): 2.4 (cm/m^2): 1.7 Doppler Measurements & Calculations Ao V2 max MV E max rick TR max rick MV V2 mean : 316.5 cm/sec : 143.7 cm/sec : 302.8 cm/sec : 77.4 cm/sec Ao max PG TR max PG MV mean P.1 mmHg : 40.1 mmHg MVA(VTI): 2.2 cm2 : 36.7 mmHg MV V2 VTI: 35.1 cm Ao mean PG PA V2 max : 26.3 mmHg : 90.8 cm/sec LVOT Max Rick PA mean PG : 142.8 cm/sec PA Accel Time JACKIE(I,D): 1.2 cm sev ratio Ao V2 mean LV V1 max PG PA V2 mean JACKIE indexed to BSA : 251.6 cm/sec : 63.0 cm/sec (cm^2/m^2): 0.57 Ao V2 VTI: 64.3 cmLV V1 VTI: 28.7 cm JACKIE(V,D): 1.2 cm2 Reading Physician:12:00 PM
--- NOTE | 2016-08-26 12:58 | PROG NOTE ---
[address] [address] PROGRESS NOTE PATIENT: SANDRINE VAN : 1935 MR#: [id number] ADMIT: 08/24/2016 JOB ID: [id number] DATE: 08/26/2016 SUBJECTIVE: The patient is seen in followup. He again reports no abdominal pain. His HIDA scan showed normal filling of his gallbladder without evidence of acute cholecystitis. His ejection fraction was reduced but he does not have acute cholecystitis. He does not need an operation or a percutaneous drainage of his gallbladder. I will not actively follow. Please contact me if you need further input.
--- NOTE | 2016-08-26 13:06 | PROG NOTE ---
[address] [address] PROGRESS NOTE PATIENT: SANDRINE VAN : 1935 MR#: [id number] ADMIT: 08/24/2016 JOB ID: [id number] DATE: 08/26/2016 INFECTIOUS DISEASE FOLLOW UP NOTE: REASON FOR FOLLOWUP: Leukocytosis and elevated procalcitonin in a patient with multiple medical problems. INTERVAL HISTORY: Overnight, the patient states he has been free of fevers, chills or sweats. He has no sore throat, cough or chest pain. He denies abdominal pain, nausea, vomiting or diarrhea. He is having some trouble urinating and this is in part due to the impressive swelling of his scrotum and lower extremities. He has not had dysuria per se. PHYSICAL EXAMINATION: Reveals an afebrile gentleman, temperature 36.8, pulse 80, respiratory rate 16, blood pressure 95/48. He is not on vasopressors. He is saturating well on 3 L nasal oxygen. Examination of the mental status reveals he is clear today. Oral cavity without thrush or pharyngitis. Lungs with some crackles at the bases. Cardiac tone: Regular rate and rhythm. The abdomen is soft and nontender. He does have a quite enlarged scrotum with a great deal of edema but no inflammation. He does not have a Cardona catheter. Lower extremities are notable for anasarca. His left hip postoperative incision is without evidence of inflammation. LABORATORY STUDIES: Include a white count which has normalized at 8300. He does have 91% polys, however. His creatinine is 2.7, down from yesterday's 3.39. His AST is 52. His ALT is 21. His alk phos 193. Albumin is 3. Urinalysis 6-10 white cells. Micro studies include one of four blood cultures on admission which grew coag-negative Staph. A MRSA screen is negative. A urine culture is negative and repeat blood cultures negative so far. The liver scan showed no evidence of cholecystitis and yesterday's chest x-ray showed possible mild atelectasis, pneumonia or CHF. IMPRESSION: This is an extraordinarily complicated case who I discussed in person with the ICU team today as well as personally with Dr. Bledsoe of Cardiology. The patient was transferred from the [facility] two days ago because of bradycardia and hypotension. There was also a possibility of a GI bleed and this was all occurring after two recent hospitalizations in [place] for right heart failure and a recent hospitalization at [facility], to have a fractured hip repaired. It was unclear when he was transferred here whether not he had an infection and I think it is still a bit debatable. At this point, his white count has normalized and we are waiting on a repeat procalcitonin. There is really little to suggest pneumonia based on auscultation and chest x-ray. There is no evidence that he has a urinary tract infection as he has a negative urine culture and his gallbladder has been exonerated by the basically normal HIDA scan. The hip incision likewise looks uninfected and his blood culture which was positive in 1/4 bottles is coag-negative staph, and almost certainly a contaminant even though it is of concern as he does have a prosthetic heart valve. RECOMMENDATIONS: 1. I would continue with the Zosyn one more day. If our follow up blood cultures and all other studies are negative tomorrow, I think we should seriously consider stopping. 2. I have ordered a stat repeat procalcitonin as I thought it had been ordered today but it has not apparently. If his procalcitonin is dropping, I think that will be more evidence that he does not have an infection. 3. Palliative Care will be meeting with this patient given that he has quite an extraordinary list of problems including his kidneys, liver, right heart and a recent hip fracture.
[2016-08-26] MEDS: carBAMazepine 200 mg Tablet PO SCH ×2 (13:57→20:12)
--- NOTE | 2016-08-26 14:07 | PCM.PNMED ---
Subjective Date of Service Aug 26, 2016 Subjective Overnight: Epinephrine was weaned almost off but unable to be discontinued due to hypotension. Pacer was turned off per cardiology, pt had accelerated junctional rhythm with HR 80s overnight without any acute events. Today: He states he feels much better, reports constipation but denies fevers, chills, shortness of breath, abdominal pain, N/V/D, chest pain. Exam Vital Signs Vital Sign - Last Date Time Temp Pulse Resp B/P Pulse Ox O2 Delivery O2 Flow Rate FiO2 08/26/16 08:00 Supplement Oxygen 08/26/16 05:30 36.8 80 16 95/48 98 3.00 Intake and Output 08/25/16 08/25/16 08/26/16 Cumulative From/Thru 15:00 23:00 07:00 08/24/16 08:02 - 08/26/16 05:32 Intake Total 1430 ml 899 ml 6996 ml Output Total 1100 ml 1200 ml 2875 ml Balance 330 ml -301 ml 4121 ml Intake Oral 400 ml 600 ml 1060 ml IV Total 1030 ml 299 ml 5936 ml Output Urine Total 1100 ml 1200 ml 2875 ml # Voids 4 # Bowel Movements 0 0 Exam General: Alert and oriented today. No acute distress. Head: Normocephalic, atraumatic. External ears without defect. Eyes: Pupils equal, round, and reactive to light and accommodation. Anicteric sclerae, Cardiovascular: Regular rate and rhythm. Mechanical valve sound noted. Pulmonary: Clear to auscultation bilaterally. Abdomen: Bowel tones present. Soft, minimally tender to palpation in the RUQ. No masses appreciated. Extremities: Significant bilateral lower extremity edema Neurological: No gross neurological deficits noted. Lab and Diagnostics Result Diagram: 08/26/165 08/26/16444 X-Rays, CTs and MRIs ABDOMEN/PELVIS WITHOUT CONTRAST IMPRESSION: 1. Pericholecystic fluid may raise the question of acute cholecystitis in the appropriate clinical setting. Consider limited abdominal ultrasound for further evaluation as needed. 2. Bibasilar mobile pleural effusions, as well as scattered abdominal and pelvic ascites, of uncertain etiology. 3. Incidental 1.8 cm lateral right renal cortical exophytic cyst. 4. Small fat-containing periumbilical ventral hernia. Dictated by: Enrico Gama M.D. on 08/24/2016 at 7:45 Approved by: Enrico Gama M.D. on 08/24/2016 at 7:55 X-RAY CHEST ONE VIEW, PORTABLE IMPRESSION: Persistent right mid and lower lung air space opacities may represent atelectasis and/or developing pneumonia. Dictated by: Enrico Gama M.D. on 08/24/2016 at 8:45 Approved by: Enrico Gama M.D. on 08/24/2016 at 8:47 X-RAY CHEST ONE VIEW IMPRESSION: 1. New right PICC is present, with tip in expected position. 2. Persistent right lower lung subtle air space opacities may represent atelectasis or early pneumonia. Dictated by: Enrico Gama M.D. on 08/24/2016 at 19:07 Approved by: Enrico Gama M.D. on 08/24/2016 at 19:09 X-RAY CHEST ONE VIEW, PORTABLE IMPRESSION: 1. Stable support lines and tubes. 2. Mild edema and/or pneumonia versus atelectasis involving the lung bases. Dictated by: Juan BECKMAN Interpreted: Yves Dallas MD on 08/25/2016 at 9:26 Approved by: Juan BECKMAN Interpreted: Yves Dallas MD on 08/25/2016 at 9:28 US RENAL SONOGRAM IMPRESSION: 1. A post-renal cause is not identified for acute renal insufficiency. 2. Gallbladder wall thickening as well as pericholecystic fluid may suggest acalculous cholecystitis. 3. Scattered perihepatic ascites again noted. Dictated by: Enrico Gama M.D. on 08/24/2016 at 17:16 Approved by: Enrico Gama M.D. on 08/24/2016 at 17:20 NM HIDA SCAN WITH CCK IMPRESSION: 1. Normal filling of gallbladder. No evidence for acute cholecystitis. 2. Poor contractile response of gallbladder to CCK infusion with gallbladder ejection fraction is 3.1%. This finding is consistent with gallbladder dyskinesia. Dictated by: Yves Dallas M.D. on 08/25/2016 at 16:43 Approved by: Yves Dallas M.D. on 08/25/2016 at 16:44 Assessment & Plan Randy Anand is a 81 year old man with history of atrial fibrillation on anticoagulation s/p implantable loop recorder, mechanical aortic valve, right heart failure, CAD s/p CABG, pulmonary hypertension, and CKD who presented with hematemesis and bradycardia. Admitted for symptomatic bradycardia, STANTON, severe sepsis, and possible acalculous cholecystitis. 1. Symptomatic bradycardia, present on admission, acute. Improving. -Secondary to hyperkalemia in the setting of acute kidney injury. Patient appears to be exquisitely sensitive to hyperkalemia even at a potassium of 5.7. K now normal and bradycardia has since improved, with HR in 80s. He still has a temporary pacer at this time. -Cardiology consulted, appreciate the expertise and input -Patient continues to be on an epinephrine drip, attempting to wean off. May switch to dopamine per cardiology. 2. Acute kidney injury on chronic kidney disease, present on admission, acute. Improving. -Secondary to prerenal azotemia due to severe bradycardia and poor profusion. Kayexalate given by Dr. Lundberg in the ED, patient has not yet had a bowel movement. -Dr. Harden of nephrology consulted, appreciate the expertise and input -Discussed case in detail with Dr. Harden, he does not believe the patient needs dialysis at this time 3. Upper GI bleed, present on admission, acute. Present on admission. -Uncertain of cause, however a prior discharge summary describes a history of cirrhosis. He denies hx of varices, apparently had gastric ulcers on EGD in Jun 2016. Colonoscopy at same time was apparently negative except for a polyp. -Obtain endoscopy records from [facility] -Protonix push BID -Continue to trend H&H -If H&H trends down or more hematemesis is noted, will consult GI -May need to consider resuming warfarin soon given mechanical valve if no further bleeding 4. Anasarca, acute. Not present on admission. - Pt is up 4L total this admission but presents with significant bilateral lower extremity and scrotal edema. Per Dr. Solano, will attempt to diurese gently with low-dose Lasix drip. - Low dose Lasix drip ordered. 5. Hyperglycemia, acute. Present on admission. - Glucose in 170s-180s. A1c 5.7. - A1c ordered - Humalog low dose correctional scale. 6. Acute constipation. Present on admission. - Pt reports no bowel movement for 10 days despite receiving stool softeners, as well as Kayexalate this admission. He has been passing gas. - Will attempt scheduled Senna. If this fails, will start Lactulose. 7. Severe sepsis, present on admission, acute. Resolving. -Possibly secondary to pneumonia. His procalcitonin was 1.19. Lactic acid 1.4. WBC 15.5. Temp 36 on admission. Fluid resuscitation proves a little difficult in this patient due to his pulmonary hypertension and right-sided heart failure. -Zosyn IV for broad spectrum coverage. 8. Elevated troponin of uncertain significance, present on admission, acute -Likely secondary to demand ischemia in the setting of right-sided heart failure and severe bradycardia 9. Anion gap metabolic acidosis, present on admission, acute. Resolving. -Likely multifactorial but primarily due to elevated lactate. Lactic acidosis resolved. AG improved from 26 to 19 to 16. -Dr. Harden of Nephrology consulted. 10. Gallbladder dyskinesia, present on admission. -Initially concern for acalculous cholecystitis given mildly tender RUQ, direct hyperbilirubinemia, elevated alk phos. CT abd showed pericholecystic fluid, US showed gallbladder wall thickening. However, HIDA scan showed gallbladder dyskinesia and no sign of cholecystitis. Surgery has evaluated the patient and he does not require surgery. - Continue to monitor. 11. Pulmonary hypertension with right-sided heart failure, present on admission , acute - Continue to monitor 12. Mechanical aortic valve, present on admission, acute -Hold patient's warfarin in the setting of possible UGIB 13. Macrocytic anemia, present on admission, acute -Uncertain of baseline -Macrocytosis could represent reticulocytes, will order retic count 14. Hip fracture s/p ORIF - Ordered PT to evaluate and help with mobility. 15. Hypovolemia hyponatremia, present on admission, acute -Likely multifactorial due to loses and SSRI, will continue to monitor 16. History of Tegretol toxicity. -Tegretol level normal. 17. Altered mental state. Resolved. -due to severe sepsis and ARF Disposition: Given his cardiac history, CKD, cirrhosis, and recent hip fracture , his prognosis is not favorable. We have consulted Palliative Care to guide a [id number] discussion with the patient and family. Pain Evaluation: Adequate Pain Control VTE Mechanical Devices: Intermittant Pneumatic CD Resuscitation Status: DNR/DNI:Do Not Resuscitate/Intubate Attending Statement The patient was seen and examined together with Dr. Martinez on 08/26/2015 and I agree with the history, exam and plan as outlined in the note above. . Jose Juan Martinez Aug 26, 2016 14:07 Brandon Nielson MD Aug 27, 2016 08:17
--- NOTE | 2016-08-26 14:14 | PCM.PNCARD ---
Subjective Date of service Aug 26, 2016 Chief Complaint bradycardia History of Present Illness 81 yo M with very complicated medical history involving cor pulmonale, prior CABG and mechanical AVR in the admitted with STANTON and bradycardia in the setting of diuretic therapy. Subjective: Patient feels comfortable at rest. He wishes that he could do more things such as watch TV or read a book, something he hasn't done in the past few months due to recurrent hospitalizations and facility stays. PROBLEM LIST: # Hypotension # Chronic cor pulmonale from pulm HTN # VT # Atrial fibrillation with slow ventricular response # STANTON # Anemia Exam Vital Signs Vital Sign - Last Date Time Temp Pulse Resp B/P Pulse Ox O2 Delivery O2 Flow Rate FiO2 08/26/16 08:00 Supplement Oxygen 08/26/16 05:30 36.8 80 16 95/48 98 3.00 Intake and Output 08/25/16 08/25/16 08/26/16 Cumulative From/Thru 15:00 23:00 07:00 08/24/16 08:02 - 08/26/16 05:32 Intake Total 1430 ml 899 ml 6996 ml Output Total 1100 ml 1200 ml 2875 ml Balance 330 ml -301 ml 4121 ml Intake Oral 400 ml 600 ml 1060 ml IV Total 1030 ml 299 ml 5936 ml Output Urine Total 1100 ml 1200 ml 2875 ml # Voids 4 # Bowel Movements 0 0 General appearance: No apparent distress, frail elderly, pleasant, cooperative HEET: Normocephalic atraumatic, no scleral icterus, tongue midline, mucous membranes moist Neck: supple Cardiovascular: RRR, normal S1 and normal S2, no murmurs/rubs/gallops, PMI nondisplaced, +JVD, 3+ peripheral edema extending to sacrum Respiratory: Fair aeration, coarse b/l Abdomen: Soft, nontender, nondistended, + bowel sounds Lab and Diagnostics Result Diagram: 08/26/1644408/26/16444 X-Rays, CTs and MRIs Echo 08/26/2016: 1) Mild concentric left ventricular hypertrophy with normal size and systolic function (EF 55-60%). 2) Severely dliated right ventricle with severely reduced function. 3) Flattened septum is consistent with RV pressure/volume overload. 4) Mechanical aortic valve present, opens well. Mildly increased mean gradient of 26mHg. 5) Severe tricuspid regurgitation present. 6) Pulmonary hypertension present, estimated systolic pulmonary pressure of 52mmHg. 7) Elevated right sided filling pressures. 8) No prior Echo avaliable for comparison. Assessment & Plan Assessment 81 yo M with very complicated medical history involving cor pulmonale, prior CABG and mechanical AVR in the admitted with STANTON and bradycardia in the setting of diuretic therapy.L # Hypotension: likely from cor pulmonale. BP is better with epinephrine gtt. - Wean down epinephrine as tolerated by BP # Chronic cor pulmonale from Pulm HTN: severe RV failure and significant pulm HTN noted on Echo 08/26/16. He is clearly hypervolemic but high dose of diuretics caused significant STANTON that was present on admission. Plan - Oxygen therapy - Gentle diuresis while closely monitoring the renal function # VT: patient had sustained VT in the hospital that required synchronized cardioversion. Suspect this was due to electrolyte abnormalities due to renal failure. No recurrence since. - Continue to monitor # Atrial fibrillation with slow ventricular response: resolved with correction of electrolyte abnormalities. - Will consider taking out the temporary pacer wire tomorrow (ideally when the patient is off epinephrine gtt) - INR therapeutic (goal 2.5-3.5). Probably due gut dysfunction along with recent warfarin use. Hold warfarin until INR below 3 and then consider restarting it # Mechanical AVR: anticoagulation as above # STANTON: BUN and Cr have improved mildly with IVFs. Will monitor renal function with gentle diuresis today # Anemia: suspect this is due to recent illnesses and IVFs. Continue to monitor serially. # Goals of care: Mr. Anand is a man with a very complicated medical history and has had recurrent hospitalization and facility stays over the past few months. He is frail and not thriving. I recommend palliative care consult to discuss goals of care and patient agrees with the plan. Problems: VTE Mechanical Devices: Intermittant Pneumatic CD Time spent I spent 60 minutes of critical care time managing the patient's hemodynamics, pacemaker, volume status, and goals of care. Garett Bledsoe MD Aug 26, 2016 14:13
--- NOTE | 2016-08-26 14:53 | PCM.CONPAL ---
Date of Service Aug 26, 2016 Date of Hospital Admission: Aug 24, 2016 at 08:16 Date of Palliative Consult: Aug 26, 2016 Requesting Provider: Garett Bledsoe MD Reason Palliative Care Consult: Goals of Care Discussion Hospital Unit @time of consult: Critical Care Palliative Care Recommendation 81 yo male with multiple medical problems including CHF, chronic a. fib, mechanical aortic valve, myelodysplasia, etc. admitted with bradycardia and hypotension, acute on chronic renal failure, electrolyte abnormalities, possible cholecystitis, etc. Clinically improving, though still with significant limitations related to his chronic right heart failure and associated lower extremity edema as well as his recent hip fracture. Palliative medicine consulted to review with patient and family their goals of care. Summary of palliative recommendations: -Symptom management (Pain/other)- patient in no significant distress. Continued management per his medical/consulting teams. -DPOA/Advanced Directives/POLST- patient has previously expressed wish to be DO NOT RESUSCITATE/DO NOT INTUBATE/limited interventions. He and his are quite confident that he does not want CPR/defibrillation/intubation or mechanical ventilation. They would not want artificial nutrition nor dialysis. He has said he does not want any further chemotherapy for his myelodysplasia/ myeloma. They are quite comfortable with lesser interventions including synchronized cardioversion, IV fluids, antibiotics, etc. They both note that if he reaches a point where it appears as recovery is impossible that he would not want to be kept alive. 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 -Family/emotional support- patient has excellent support locally from his and son. Family is comfortable contemplating obtaining additional caregiver support at home if needed eventually. -Spiritual support- active with their [employer] jehovah's witness, and comforted by their eloisa. Offered pull tab dealer visit and they declined at this time. Patient Goals: 1. Patient and his want to be told the truth about his illness, even if it is unpleasant. 2. Patient and his would like to be told prognosis when it can be predicted , to better guide treatment decisions. Additional Medical Diagnoses with primary management by Hospitalist team include : 1. Symptomatic bradycardia, present on admission, acute. Improving. 2. Acute kidney injury on chronic kidney disease, present on admission, acute. Improving. 3. Upper GI bleed, present on admission, acute. Present on admission. 4. Anasarca, acute. Not present on admission. 5. Hyperglycemia, acute. Present on admission. 6. Acute constipation. Present on admission. 7. Severe sepsis, present on admission, acute. Resolving. 8. Elevated troponin of uncertain significance, present on admission, acute 9. Anion gap metabolic acidosis, present on admission, acute. Resolving. 10. Gallbladder dyskinesia, present on admission. 11. Pulmonary hypertension with right-sided heart failure, present on admission , acute 12. Mechanical aortic valve, present on admission, acute 13. Macrocytic anemia, present on admission, acute 14. Hip fracture s/p ORIF 15. Hypovolemia hyponatremia, present on admission, acute 16. History of Tegretol toxicity. 17. Altered mental state. Resolved. Problems: End of Life Preferences DO NOT RESUSCITATE/DO NOT INTUBATE/limited interventions as above Goals of Care Patient and his continue to hope for recovery and eventual return home. They understand that his prognosis is limited- they have been told by his usual import dispatcher that he may have 2-4 years to live Disposition Plan on return to [facility] for further rehabilitation before eventual return home Resuscitation Status Resuscitation Status: DNR/DNI:Do Not Resuscitate/Intubate Limited Interventions: Medications and IV Fluid POLST Updates/Changes Previous POLST?: Yes POLST Last Review Date: Aug 26, 2016 Antibiotics: Use ABX if can Prolong Life Artificially Admin Nutrition: No Artifical Nutrition by Tube POLST Discussed with: Patient, Spouse/Other POLST Review Outcome: No Change . Advanced Care Planning Address: POLST, Durable Power of Printer Slotter Feeder Pain: None Pt History History of Present Illness Per admission H&P: 81 year old man with past medical history significant for atrial fibrillation on anticoagulation s/p an implantable loop recorder in place for consideration of permanent pacemaker, [place] mechanical aortic valve, right-sided heart failure, CAD s/p CABG, pulmonary hypertension, and chronic kidney disease who presented to the [facility] emergency department from [facility] ED with initial complaint of coffee-ground emesis and was subsequently found to be bradycardic in the 20s hypotension and depressed mental status. The patient is unable to give any history at this time and the majority of history is collected from chart notes and from the patient's family who are at bedside. He was noted to have significant sinus pause and was initially treated with epinephrine and atropine which had no effect. He was started on an dopamine drip at [facility] and transferred here. Medics administered 0.5 epinephrine x2 en route and arrived with SBP in the 80s-90s. He was found to have a positive troponin of approximately 0.2, his heart rate was noted to respond somewhat to epinephrine. He was transferred here after being discussed with Dr. Lundberg (cardiology). An attempt was made to initiate transcutaneous pacing, however the device would not capture and this could not be done. An initial plan was for the patient to received a transvenous pacer, however upon Dr. Lundberg's evaluation of the patient she noted his severe metabolic acidosis and treated him with 1 ampule of calcium bicarbonate as well as 2 g of calcium gluconate given the patient's hyperkalemia and renal failure which successfully increased the patient's heart rate. In the patient's recent history he was admitted to [facility] for decompensated heart failure for 8 days and was aggressive diuresed. He was discharged home and unfortunately fell and broke his hip which resulted in a subsequent hospital stay at [facility]. He was recuperating at [facility] home doing acute inpatient rehab when he developed worsening altered mental status, bloody vomiting, and confusion. Per the patient's family the patient has vomited several times this morning with bloody emesis but he has not had any episodes while he has been at [facility]. Outpatient import dispatcher: Dr. Walker. Since admission, patient's cardiac rhythm has stabilized. Temporary transvenous pacemaker to be removed later today, and thereafter he will be mobilized. Concerns about possible infection at time of admission have receded , with Dr. Baez of infectious disease anticipating possible discontinuation of antibiotics tomorrow. Palliative medicine was consulted in order to review goals of care with patient and his family, in light of his multiple recent hospitalizations and decline Prior to seeing the patient, I reviewed his records in the EMR in detail, requested community health advocate obtain records from [facility] in [facility] re: his recent admission there (and then later reviewed those records in detail when they became available) and spoke with his import dispatcher, his hospitalist team and nurse. When I first arrived, he was undergoing echocardiogram evaluation and we agreed I would return later to speak with him and his . I contacted her by phone and arranged a meeting. Past Medical History Significant PMH Noted: Atrial fibrillation, chronic Congestive heart failure, right-sided, chronic Recent left hip fracture with ORIF Multiple myeloma, although this a bit questionable as the patient has not had a BMT but has been off CXT for two years per family. His outpatient oncologist is Dr. Aguila at [facility] at the [facility]. Trigeminal neuralgia Peripheral neuropathy Hyponatremia Depression Chronic renal failure (awaiting records to stage) Sleep apnea Mechanical Aortic Valve; on chronic warfarin anticoagulation Surgical History Left hip ORIF Aortic valve replacement, in the 90s. 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 Family Members Issues: Remarried recently as above. 5 children, one in this area [place] the [place]. His local son, Candido Gomez, is maintaining contact with the other family members and keeping them apprised of the situation. Patient's Hillary is the POA, with son Candido as backup Family continues to hope that he will recover and be able to return home and have several more years of quality life Social Support: By report, good social support from family members and others Living Situation: Has been at [facility] since his most recent hospitalization and hip fracture but hopes to return home eventually Spiritual Support Spiritual Support [employer] and he and his note that they are comforted by their eloisa Palliative Performance Scale PPS Patient Status: Baseline (recent baseline while at [facility]) PPS Ambulation: Mainly Sit/Lie PPS Activity: Unable to do any work PPS Self-Care: Occasional assistance necessary PPS Intake: Normal or reduced PPS Conscious Level: Full or confusion (mild confusion intermittently) Performance Scale: 50% ADLs ADL Patient Status: Baseline (while at SNF recovering from hip surgery) ADL Ambulation: Mainly Sit/Lie ADL Dressing: Occasional assistance necessary ADL Feeding: Full ADL Hygene/bathing: Occasional assistance necessary ADL Transfers: Occasional assistance necessary POLST at Time of Admission Previous POLST?: Yes POLST Last Review Date: Aug 26, 2016 Cardiopulmonary Resuscitation: DNR: Do Not Attempt Resuscitation Medical Interventions: Limited Additional Interventions Antibiotics: Use ABX if can Prolong Life Artificially Admin Nutrition: No Artifical Nutrition by Tube POLST Discussed with: Patient, Spouse/Other POLST Status: No change from last encounter Allergy Allergies Reviewed: Yes Medications Current Medications: Current Medications Sodium Chloride 1,000 ml @ 0 mls/hr Q0M IV Last administered on 08/24/16 15:34 ; Admin Dose 999 MLS/HR; Start 08/24/16 at 11:45 Pantoprazole 40 mg 40 mg BIDAC IVPUSH Last administered on 08/26/16 07:58; Admin Dose 40 MG; Start 08/24/16 at 16:30 Piperacillin Sod/ Tazobactam Sod 3.375 gm/Dextrose/ Water 50 ml @ 12.5 mls/hr Q12 IV; Start 08/24/16 at 20:30; Stop 08/24/16 at 20:30; Status DC Piperacillin Sod/ Tazobactam Sod 3.375 gm/Dextrose/ Water 50 ml @ 12.5 mls/hr Q12 IV Last administered on 08/26/16 08:18; Admin Dose 12.5 MLS/HR; Start at 12:40 Sodium Bicarbonate/ Sodium Chloride 1,050 ml @ 80 mls/hr Q13H8M IV Last administered on 08/25/16 01:25; Admin Dose 80 MLS/HR; Start 08/24/16 at 12:47; Stop 08/26/16 at 02:26; Status DC Lidocaine HCl 10 ml 10 ml ONCE PRN INJ; Start 08/24/16 at 14:55 Epinephrine/ Sodium Chloride/ Miscellaneous 250 ml @ 7.63 mls/hr Q24H IV Last administered on 08/26/16 02:14; Admin Dose 7.63 MLS/HR; Start 08/24/16 at 18:40 Insulin Human Lispro Nutritional Dose to be given pr... [facility] SUBQ Last administered on 08/25/16 17:16; Admin Dose 1 UNIT; Start 08/25/16 at 12:00 Furosemide/Sodium Chloride 100 ml @ 5 mls/hr Q20H IVPUSH; Start 08/26/16 at 10:30 Scheduled Carbamazepine (Tegretol Xr) 400 Mg Tabcr 400 MG PO BID Enoxaparin (Lovenox) 80 Mg/0.8 Ml Syringe 80 MG SUBQ DAILY Metoprolol Succinate ER (Metoprolol Succinate ER) 25 Mg Tab.er.24h 25 MG PO DAILY Pantoprazole DR (Protonix) 40 Mg Tablet 40 MG PO DAILY Sertraline HCl (Zoloft) 100 Mg Tablet 100 MG PO DAILY Sildenafil Citrate (Revatio) 20 Mg Tablet 20 MG PO TID Spironolactone (Spironolactone) 25 Mg Tablet 25 MG PO DAILY Tamsulosin (Flomax) 0.4 Mg Capsule 0.4 MG PO BID Torsemide (Torsemide) 20 Mg Tablet 20 MG PO DAILY Warfarin Sodium (Coumadin) 7.5 Mg Tablet 7.5 MG PO DAILY Scheduled PRN Bisacodyl (Dulcolax) 5 Mg Tablet.dr 5 MG PO DAILY PRN PRN For Constipation Mild Constipation : Step 2 Hydrocodone-Acetaminophen 5-325 mg (Hydrocodone-Acetaminophen 5-325 mg) 1 Each Tablet 1-2 TABLET PO Q4H PRN PRN For Pain Lactobacillus Acidophilus (Acidophilus) 1 Each Capsule 1 EACH PO BID PRN PRN When on antibiotics Magnesium Hydroxide (Milk of Magnesia) 400 Mg/5 Ml Oral.susp 400 MG PO PRN For Constipation If no BM for 3 days If unable to give or refuse, then see step 2 Tramadol (Tramadol) 50 Mg Tablet 50 MG PO BID PRN PRN For Pain Zolpidem (Ambien) 10 Mg Tablet 10 MG PO HS PRN PRN For Insomnia diphenhydrAMINE HCl (Benadryl) 25 Mg Capsule 25 MG PO Q4 PRN PRN For Itching Objective Findings Exam Vital Sign - Last Date Time Temp Pulse Resp B/P Pulse Ox O2 Delivery O2 Flow Rate FiO2 08/26/16 08:00 Supplement Oxygen 08/26/16 05:30 36.8 80 16 95/48 98 3.00 Intake and Output 08/25/16 08/25/16 08/26/16 Cumulative From/Thru 15:00 23:00 07:00 08/24/16 08:02 - 08/26/16 05:32 Intake Total 1430 ml 899 ml 6996 ml Output Total 1100 ml 1200 ml 2875 ml Balance 330 ml -301 ml 4121 ml Intake Oral 400 ml 600 ml 1060 ml IV Total 1030 ml 299 ml 5936 ml Output Urine Total 1100 ml 1200 ml 2875 ml # Voids 4 # Bowel Movements 0 0 Objective Pleasant, thin elderly gentleman lying in bed in no distress. Oriented and appropriate, with only occasional slight lapses in memory. Vital signs noted. Skin is pale, warm and dry. Head and neck exam without acute focal findings. Lungs clear auscultation anterolaterally with dry sounding cough after deep breathing. Heart sounds regular with very soft systolic murmur heard across the precordium. Abdomen is flat, nontender, without peritoneal signs. Upper extremities are lean and without edema; lower extremities with 3+ pitting edema above the knees and also scrotal edema. Neurologic exam limited but grossly intact throughout. Lab/Diagnostics Lab and Imaging results reviewed in detail in EMR. Patient/Family Conference Members Present Family Members Present Patient and his Hillary Medical Team Members Present? Dr. Reynaga Ms. Collier and medical student Ricardo Trimble Discussion/Goals of Care Discussion FAMILY UNDERSTANDING OF DISEASE: Good. Patient and his agree that their heart doctors have told them he has 2-4 years to live, secondary to his advanced right heart failure. Patient had functionally been doing very well prior to June and he and his hope he can return to that baseline status. DISEASE PROGRESSION/EVIDENCE OF DECLINE: Unfortunate series of hospitalizations , not all related to his chronic medical illnesses. Hip fracture and associated rehabilitation has set him back. SYMPTOM BURDEN: Most troubled at this time by his lower extremity and scrotal edema. GOALS: Stabilization of cardiac status, improvement in lower extremity edema, improvement in mobility. He and his hope that he gets well enough that he will be able to return home, and ultimately be able to take a little trips locally, stay socially active, spends time with his pet Time spent Total time 95 minutes; >50% face to face with patient and family, providing counselling regarding plans and recommendations, and in care coordination with his medical teams. Of the above total time, 30 minutes counseling for advanced care planning with the patient and his copies to: Jeffy Dunlap MD; Pattie Hope MD, David F MD Aug 26, 2016 11:29
[2016-08-26 15:08] LABS: INR 2.51 ratio
--- NOTE | 2016-08-26 15:08 | NUR ---
Palliative care note [facility] D/A: Met with pt and his spouse Estela as well as Dr.s Reynaga and Nai. Discussion regarding goals of care and prognosis. 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 He worked for 17 years for [employer] which had a variety of hospitals around the [facility]. At one time, he worked on what was then called [employer] which had 564 beds. 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 Pt spouse Estela was an tax accountant in the [employer] business and describes that she has "seen what happens when families are not aware of what the wishes and goals of their family members or loved ones are" and both have resolved to make as many decisions and talk openly about end of life and their wishes. Pt is clear that he does not wish CPR nor does he wish intubation/ventilation. He would like to continue to receive medical care which he feels adds to his quality of life (hence current treatment) but has turned down chemo after getting very ill on chemo and is not sure he would want dialysis should the need arise. Pt and spouse are recently to each other, about three years ago. Spouse Estela can be reached at either [phone] or [phone]. She is pt DPOA and secondary DPOA is pt son Candido Bautista who can be reached at [phone] or [phone]. Candido is pt's son by his first . Pt has several children and all except Candido live on the [facility]. Pt goal is to be able to go home post return to [facility] and be able to go on several weekend trips. Phone call to [facility] to relay that pt and spouse wish for him to return to [facility]. Have also educated family about OPC services from [facility] as well as the fact that [facility] program. P: Palliative care to follow. Analy Carroll [facility]
--- NOTE | 2016-08-26 19:25 | NUR ---
CV: Junctional rhythm with rate 80's much of day, appears to convert to A-fib around [address] Bledsoe here and aware, no new orders. Pacing cath remains in place, right groin site stable. Pacer has been off this shift. Epi gtt 0.05-0.09 keeping MAP >55, currently at 0.05. Goal per Dr Bledsoe is to wean to off or lowest possible rate prior to removing pacing wire. Plan possibly d/c pacer tomorrow. GI/: Good uop on lasix gtt with 1100cc out this shift. C/O constipation, ducolax suppository given without pt able to pass hard stool independently. Able to manually disimpact some but able to feel a large amount of firm stool still in rectal vault. Report to car shifter regarding progress and or lack of in passing stool. Dressing removed from left hip. Parks in place. Incisions WNL, no redness, minimal amount serous drainage. Family here at intervals. questions answered as able.
[2016-08-27] VITALS (9 sets, daily range): BP systolic 80–108; BP diastolic 48–83; PULSE 88–102; RESP 10–20; O2SAT 92–97
[2016-08-27] MEDS ORDERED: 0.9% Sodium Chloride 250 ML ONE (03:32)
[2016-08-27] MEDS: Furosemide Inj 100 MG in 0.9% Sodium Chloride 90 ML IVPUSH SCH (04:32)
[2016-08-27] MEDS: EPINEPHrine 10,000 mCg/250 mL NS IV SCH ×2 (04:33)
[2016-08-27 04:52] LABS: BASOPHILS % (AUTO) 0.1 % (0-3); MONOCYTES % (AUTO) 2.7 % (4-12); Mean Corpuscular Hemoglobin 31.8 pg (27.0-35.0); Mean Corpuscular Volume 100.8 fL (81-100); NEUTROPHILS % (AUTO) 94.3 % (40-74); Platelet Count 300 bil/L (150-400)
--- NOTE | 2016-08-27 05:05 | NUR ---
BM Pt started shift with 9/10 bowel pain. Pt requesting additional bowel medications. Pt given ordered Magnesium Citrate. Pt given ordered Tylenol with little effect. Order received for Oxycodone 5mg PO with some effect. Pt later incontinent of large loose stool.
[2016-08-27] MEDS: Piperacillin-Tazo 3.375 Gm Inj 3.375 GM in Dextrose 5% Minibag Plus 50 ML IV SCH (08:23)
[2016-08-27] MEDS: Insulin LISPRO 300 Unit/3 mL Inj SUBQ SCH ×4 (08:24→20:00)
[2016-08-27] MEDS: Pantoprazole 4 mg/mL 10 mL Inj IVPUSH SCH ×2 (08:24→18:44)
[2016-08-27] MEDS: carBAMazepine 200 mg Tablet PO SCH ×2 (08:25→21:34)
--- NOTE | 2016-08-27 09:15 | PROG NOTE ---
[address] [address] PROGRESS NOTE PATIENT: SANDRINE VAN : 1935 MR#: [id number] ADMIT: 08/24/2016 JOB ID: [id number] DATE: 08/27/2016 REASON FOR FOLLOW UP: Elevated procalcitonin, and questions regarding infection. INTERVAL HISTORY: The patient is awake and alert today. He reports that he was having a terrible problem with constipation but that has been relieved during the course of the night. Otherwise he says he has been fairly comfortable. He denies fevers, chills, or sweats. He denies sore throat. He states he has a little bit of a dry cough but is not significantly short of breath. He no longer has any abdominal discomfort. PHYSICAL EXAMINATION: Reveals a consistently afebrile gentleman, who has been afebrile since admission. Temperature now 36.6, pulse 102, blood pressure ranging between 107 systolic and 80 systolic. He is saturating pretty well on 2 L. He is awake, alert, and able to offer a history. His sinuses are nontender. Oral cavity without pharyngitis. Neck is supple. Lungs: A few crackles at the bases when he sits upright, but actually quite clear. His abdomen is soft and nontender throughout, and particularly the right upper quadrant is completely benign. No skin rashes noted. He does have considerable peripheral edema, and efforts are underway to diurese the patient. LABORATORIES: Include a white count of 9900, left shift 94% segs. His creatinine is 2.06, improved from 3.65 just three days ago. His bilirubin is 2.3. AST and ALT have now normalized. Alk phos 219. His procalcitonin is basically steady at 1.2-1.3, and has been over the last three days. We do not have a procalcitonin from today, though one might be helpful, and I have ordered a stat repeat. Urine 6-10 white cells, and the urine culture negative. One blood culture out of eight has grown coag-negative Staph which almost certainly represents contamination. The gallbladder scan exonerated the gallbladder as a source of infection, and also ruled out cholecystitis. Chest x-rays have been basically negative, though there has been some subtle bibasilar infiltrates which likely represent atelectasis. IMPRESSION: This is a complex, elderly gentleman with a recent hip fracture, as well as multiple recent admissions for right-sided heart failure and edema. He has an underlying aortic valve replacement. Despite many concerns about infection including the possibility of pneumonia, prosthetic valve infection or possible cholecystitis, I really see no evidence for infection ongoing. At this point, I think we should stop antibiotics and observe. RECOMMENDATIONS: 1. This case discussed with Dr. Nielson of the hospital's service, who concurs with this plan. 2. Will go ahead and stop his Zosyn, as I think it is likely that this contributes to his fluid and electrolyte problems without benefit. 3. A procalcitonin will be added on to this morning's labs. I anticipate his procalcitonin will likely hover around 1, given his degree of renal insufficiency.
--- NOTE | 2016-08-27 11:08 | PCM.PNMED ---
Subjective Date of Service Aug 27, 2016 Subjective Good UOP with lasix gtt. constipated, received some laxatives. (+) large BM with loose stool. (+) tachycardic, HR 90-100, wide QRS complex. Exam Vital Signs Vital Sign - Last Date Time Temp Pulse Resp B/P Pulse Ox O2 Delivery O2 Flow Rate FiO2 08/27/16 04:51 36.6 102 10 80/48 92 Nasal Cannula 2.00 08/26/16 08:00 50 Intake and Output 08/26/16 08/26/16 08/27/16 Cumulative From/Thru 15:00 23:00 07:00 08/24/16 08:02 - 08/27/16 05:18 Intake Total 1231 ml 1332 ml 9559 ml Output Total 1100 ml 2150 ml 6125 ml Balance 131 ml -818 ml 3434 ml Intake Oral 860 ml 1100 ml 3020 ml IV Total 371 ml 232 ml 6539 ml Output Urine Total 1100 ml 2150 ml 6125 ml # Voids 4 # Bowel Movements 2 1 3 Exam General:chronically ill looking, in non acute distress. HEENT: Normocephalic, atraumatic. External ears without defect. PERRLA, dry mucous membrane. Neck: no JVD. no lymphadenopathy. Cardiovascular: valve click, regular rhythm, HR 80s. Pulmonary: Coarse BS, B/L, no wheezing. no accessory muscle use. Abdomen: soft, NT, mild distension,no hepatosplenomegaly or masses appreciated. Extremities: 3+ edema with sacral and scrotal swelling, condom cath with yellowish urine. Lab and Diagnostics Result Diagram: 08/27/1642908/27/16429 X-Rays, CTs and MRIs ABDOMEN/PELVIS WITHOUT CONTRAST IMPRESSION: 1. Pericholecystic fluid may raise the question of acute cholecystitis in the appropriate clinical setting. Consider limited abdominal ultrasound for further evaluation as needed. 2. Bibasilar mobile pleural effusions, as well as scattered abdominal and pelvic ascites, of uncertain etiology. 3. Incidental 1.8 cm lateral right renal cortical exophytic cyst. 4. Small fat-containing periumbilical ventral hernia. Dictated by: Enrico Gama M.D. on 08/24/2016 at 7:45 Approved by: Enrico Gama M.D. on 08/24/2016 at 7:55 X-RAY CHEST ONE VIEW, PORTABLE IMPRESSION: Persistent right mid and lower lung air space opacities may represent atelectasis and/or developing pneumonia. Dictated by: Enrico Gama M.D. on 08/24/2016 at 8:45 Approved by: Enrico Gama M.D. on 08/24/2016 at 8:47 X-RAY CHEST ONE VIEW IMPRESSION: 1. New right PICC is present, with tip in expected position. 2. Persistent right lower lung subtle air space opacities may represent atelectasis or early pneumonia. Dictated by: Enrico Gama M.D. on 08/24/2016 at 19:07 Approved by: Enrico Gama M.D. on 08/24/2016 at 19:09 X-RAY CHEST ONE VIEW, PORTABLE IMPRESSION: 1. Stable support lines and tubes. 2. Mild edema and/or pneumonia versus atelectasis involving the lung bases. Dictated by: Juan BECKMAN Interpreted: Yves Dallas MD on 08/25/2016 at 9:26 Approved by: Juan BECKMAN Interpreted: Yves Dallas MD on 08/25/2016 at 9:28 US RENAL SONOGRAM IMPRESSION: 1. A post-renal cause is not identified for acute renal insufficiency. 2. Gallbladder wall thickening as well as pericholecystic fluid may suggest acalculous cholecystitis. 3. Scattered perihepatic ascites again noted. Dictated by: Enrico Gama M.D. on 08/24/2016 at 17:16 Approved by: Enrico Gama M.D. on 08/24/2016 at 17:20 NM HIDA SCAN WITH CCK IMPRESSION: 1. Normal filling of gallbladder. No evidence for acute cholecystitis. 2. Poor contractile response of gallbladder to CCK infusion with gallbladder ejection fraction is 3.1%. This finding is consistent with gallbladder dyskinesia. Dictated by: Yves Dallas M.D. on 08/25/2016 at 16:43 Approved by: Yves Dallas M.D. on 08/25/2016 at 16:44 Assessment & Plan 1. STANTON - cardiorenal syndrome. - improving. 2. Symptomatic bradycardia - resolved. 3. Hyperkalemia - resolved. - secondary to STANTON, LMWH and spironolactone. 4. Anion gap metabolic acidosis due to uremia and lactic acidosis. - improving with IV bicarb gtt. 5. Coffee ground emesis. 6. Pulmonary hypertension with right-sided heart failure. 7. s/p mechanical AVR. Plan:continue supportive treatment. continue lasix gtt 5 mg/hr for another day. Aug 26, 2016 10:48 VTE Mechanical Devices: Intermittant Pneumatic CD Resuscitation Status: DNR/DNI:Do Not Resuscitate/Intubate Limited Interventions: Medications and IV Fluid Aris Schwartz MD Aug 27, 2016 11:08
[2016-08-27] MEDS ORDERED: 0.9% Sodium Chloride 250 ML IV ONE (12:10)
[2016-08-27 12:44] LABS: Unsaturated Iron Binding 159.1 ug/dL
--- NOTE | 2016-08-27 13:24 | PCM.PNCARD ---
Subjective Date of service Aug 27, 2016 Chief Complaint bradycardia History of Present Illness 81 yo M with very complicated medical history involving cor pulmonale, prior CABG and mechanical AVR in the admitted with STANTON and bradycardia in the setting of diuretic therapy. Subjective: Patient feels comfortable at rest. He wants to rest and sleep. He is on IV furosemide and making urine. His epinephrine gtt has been turned off. PROBLEM LIST: # Hypotension: nearly resolved # Chronic cor pulmonale from pulm HTN # Atrial fibrillation with slow ventricular response # CABG and mechanical AVR in the # STANTON # Anemia Exam Vital Signs Vital Sign - Last Date Time Temp Pulse Resp B/P Pulse Ox O2 Delivery O2 Flow Rate FiO2 08/27/16 04:51 36.6 102 10 80/48 92 Nasal Cannula 2.00 08/26/16 08:00 50 Intake and Output 08/26/16 08/26/16 08/27/16 Cumulative From/Thru 15:00 23:00 07:00 08/24/16 08:02 - 08/27/16 05:18 Intake Total 1231 ml 1332 ml 9559 ml Output Total 1100 ml 2150 ml 6125 ml Balance 131 ml -818 ml 3434 ml Intake Oral 860 ml 1100 ml 3020 ml IV Total 371 ml 232 ml 6539 ml Output Urine Total 1100 ml 2150 ml 6125 ml # Voids 4 # Bowel Movements 2 1 3 General appearance: No apparent distress, frail elderly, pleasant, cooperative HEET: Normocephalic atraumatic, no scleral icterus, tongue midline, mucous membranes moist Neck: supple Cardiovascular: RRR, normal S1 and normal S2, no murmurs/rubs/gallops, PMI nondisplaced, +JVD, 3+ peripheral edema extending to sacrum Respiratory: Fair aeration, coarse b/l Abdomen: Soft, nontender, nondistended, + bowel sounds Lab and Diagnostics Result Diagram: 08/27/1642908/27/16 043 X-Rays, CTs and MRIs Echo 08/26/2016: 1) Mild concentric left ventricular hypertrophy with normal size and systolic function (EF 55-60%). 2) Severely dliated right ventricle with severely reduced function. 3) Flattened septum is consistent with RV pressure/volume overload. 4) Mechanical aortic valve present, opens well. Mildly increased mean gradient of 26mHg. 5) Severe tricuspid regurgitation present. 6) Pulmonary hypertension present, estimated systolic pulmonary pressure of 52mmHg. 7) Elevated right sided filling pressures. 8) No prior Echo avaliable for comparison. Assessment & Plan Assessment 81 yo M with very complicated medical history involving cor pulmonale, prior CABG and mechanical AVR in the admitted with STANTON and bradycardia in the setting of diuretic therapy.L # Hypotension: nearly resolved. Off epinephrine gtt today. Continue to monitor. # Chronic cor pulmonale from Pulm HTN: severe RV failure and significant pulm HTN noted on Echo 08/26/16. He is clearly hypervolemic but high dose of diuretics caused significant STANTON that was present on admission. With low dose diuretic on 08/26/2016, patient's renal function didn't worsen. Plan - Oxygen therapy - Diuresis while closely monitoring the renal function # VT: patient had sustained VT in the hospital that required synchronized cardioversion. Suspect this was due to electrolyte abnormalities due to renal failure. No recurrence since. - Continue to monitor # Atrial fibrillation with slow ventricular response: resolved with correction of electrolyte abnormalities. - Will take out the temporary pacer wire today - Restart warfarin to keep goal INR therapeutic (goal 2.5-3.5). # Mechanical AVR: anticoagulation as above # STANTON: BUN and Cr have improved. Etiology was ischemic ATN. Will monitor renal function with diuresis. # Anemia: suspect this is due to recent illnesses and IVFs. Continue to monitor serially. # Goals of care: Palliative care saw the patient yesterday and patient and family decided that he is DNR/DNI and not interested in dialysis. He is okay with synchronized cardioversion if that is needed. Problems: Pain Evaluation: Adequate Pain Control VTE Mechanical Devices: Intermittant Pneumatic CD Resuscitation Status: DNR/DNI:Do Not Resuscitate/Intubate Limited Interventions: Medications and IV Fluid Time spent I spent 45 minutes of critical care time manging this patient's hemodynamics, arrhythmias, cor pulmonale, and volume status. Garett Bledsoe MD Aug 27, 2016 13:23
[2016-08-27 15:36] LABS: INR 2.06 ratio
--- NOTE | 2016-08-27 16:33 | NUR ---
Blood pressure Epinephrine gtt weaned off this am at 0900. Lasix gtt continued per nephrology and will stop tomorrow at 0900. Temp pacemaker catheter removed per slab stripper at 1330. No complications. R groin site soft , clean and dry. 1 unit of blood started at 1515. Patient tolerating well. Patient having diarrhea after laxatives given yesterday. Patient incontinent of bladder and bowel. Patient refusing catheter as was very difficult and unsuccessful attempt a couple of days ago. Condom cath not staying on. Brief on currently. Skin intact. L hip wound oozing still. Resident researched hip surgery was on 08/18/16. Requested date to remove rené from Dr. Kraus who reports because of swelling/edema and oozing from insc. will leave rené in for a couple more days until after further diereses. Labs including potassium values reviewed with Resident No new orders except to continue to monitor. No change to rhythm. Patient still afib with IVCD
--- NOTE | 2016-08-27 18:09 | PCM.PNMED ---
Subjective Date of Service Aug 27, 2016 Subjective Overnight: Pt had a large bowel movement overnight. On telemetry, he had junctional rhythm in the 80s, occasionally converting into afib. Otherwise stable overnight. Today: He denies abdominal pain, N/V/D, chest pain, shortness of breath, fevers , or chills. Exam Vital Signs Vital Sign - Last Date Time Temp Pulse Resp B/P Pulse Ox O2 Delivery O2 Flow Rate FiO2 08/27/16 16:02 36.5 88 18 95/55 96 Nasal Cannula 2.00 08/26/16 08:00 50 Intake and Output 08/26/16 08/26/16 08/27/16 Cumulative From/Thru 15:00 23:00 07:00 08/24/16 08:02 - 08/27/16 05:18 Intake Total 1231 ml 1332 ml 9559 ml Output Total 1100 ml 2150 ml 6125 ml Balance 131 ml -818 ml 3434 ml Intake Oral 860 ml 1100 ml 3020 ml IV Total 371 ml 232 ml 6539 ml Output Urine Total 1100 ml 2150 ml 6125 ml # Voids 4 # Bowel Movements 2 1 3 Exam General: Alert and oriented today. No acute distress. Head: Normocephalic, atraumatic. External ears without defect. Eyes: Pupils equal, round, and reactive to light and accommodation. Anicteric sclerae, Cardiovascular: Regular rate and rhythm. Mechanical valve sound noted. Pulmonary: Clear to auscultation bilaterally. Abdomen: Bowel tones present. Soft, no tenderness to palpation. No masses appreciated. Extremities: Significant bilateral lower extremity edema Neurological: No gross neurological deficits noted. Lab and Diagnostics Result Diagram: 08/27/1642908/27/16 043 X-Rays, CTs and MRIs ABDOMEN/PELVIS WITHOUT CONTRAST IMPRESSION: 1. Pericholecystic fluid may raise the question of acute cholecystitis in the appropriate clinical setting. Consider limited abdominal ultrasound for further evaluation as needed. 2. Bibasilar mobile pleural effusions, as well as scattered abdominal and pelvic ascites, of uncertain etiology. 3. Incidental 1.8 cm lateral right renal cortical exophytic cyst. 4. Small fat-containing periumbilical ventral hernia. Dictated by: Enrico Gama M.D. on 08/24/2016 at 7:45 Approved by: Enrico Gama M.D. on 08/24/2016 at 7:55 X-RAY CHEST ONE VIEW, PORTABLE IMPRESSION: Persistent right mid and lower lung air space opacities may represent atelectasis and/or developing pneumonia. Dictated by: Enrico Gama M.D. on 08/24/2016 at 8:45 Approved by: Enrico Gama M.D. on 08/24/2016 at 8:47 X-RAY CHEST ONE VIEW IMPRESSION: 1. New right PICC is present, with tip in expected position. 2. Persistent right lower lung subtle air space opacities may represent atelectasis or early pneumonia. Dictated by: Enrico Gama M.D. on 08/24/2016 at 19:07 Approved by: Enrico Gama M.D. on 08/24/2016 at 19:09 X-RAY CHEST ONE VIEW, PORTABLE IMPRESSION: 1. Stable support lines and tubes. 2. Mild edema and/or pneumonia versus atelectasis involving the lung bases. Dictated by: Juan BECKMAN Interpreted: Yves Dallas MD on 08/25/2016 at 9:26 Approved by: Juan BECKMAN Interpreted: Yves Dallas MD on 08/25/2016 at 9:28 US RENAL SONOGRAM IMPRESSION: 1. A post-renal cause is not identified for acute renal insufficiency. 2. Gallbladder wall thickening as well as pericholecystic fluid may suggest acalculous cholecystitis. 3. Scattered perihepatic ascites again noted. Dictated by: Enrico Gama M.D. on 08/24/2016 at 17:16 Approved by: Enrico Gama M.D. on 08/24/2016 at 17:20 NM HIDA SCAN WITH CCK IMPRESSION: 1. Normal filling of gallbladder. No evidence for acute cholecystitis. 2. Poor contractile response of gallbladder to CCK infusion with gallbladder ejection fraction is 3.1%. This finding is consistent with gallbladder dyskinesia. Dictated by: Yves Dallas M.D. on 08/25/2016 at 16:43 Approved by: Yves Dallas M.D. on 08/25/2016 at 16:44 Assessment & Plan Randy Anand is a 81 year old man with history of atrial fibrillation on anticoagulation s/p implantable loop recorder, mechanical aortic valve, right heart failure, CAD s/p CABG, pulmonary hypertension, and CKD who presented with hematemesis and bradycardia. Admitted for symptomatic bradycardia, STANTON, severe sepsis, and possible acalculous cholecystitis. 1. Symptomatic bradycardia, present on admission, acute. Improving. -Secondary to hyperkalemia in the setting of acute kidney injury. Patient appears to be exquisitely sensitive to hyperkalemia even at a potassium of 5.7. K now normal and bradycardia has since improved, with HR in 80s. He still has a temporary pacer at this time. -Cardiology consulted, appreciate the expertise and input -Patient weaned off epinephrine gtt. 2. Acute kidney injury on chronic kidney disease, present on admission, acute. Improving. -Secondary to cardiorenal syndrome due to bradycardia caused by hyperkalemia -Nephrology is consulted. We appreciate the expertise and input. 3. Possible upper GI bleed, present on admission, acute. Present on admission. -Uncertain of cause, however a prior discharge summary describes a history of cirrhosis. EGD 07/01/16 was normal. Colonoscopy 07/01/16 showed 4 polyps, not resected, small internal and medium external hemorrhoids, and 2 areas of possible angiodysplasia in the colon. -Protonix push BID -If H&H trends down or more hematemesis is noted, will consult GI -Will transfuse 1U PRBC slowly over 4 hours while diuresing. 4. Anasarca, acute. Not present on admission. - Pt is up 4L total this admission but presents with significant bilateral lower extremity and scrotal edema. Per Dr. Solano, will attempt to diurese gently with low-dose Lasix drip. - Lasix drip 5. Hyperglycemia, acute. Present on admission. - Glucose in 170s-180s. A1c 5.7. - Humalog low dose correctional scale. 6. Acute constipation. Present on admission. - Pt reports no bowel movement for 10 days despite receiving stool softeners, as well as Kayexalate this admission. He has been passing gas. - Will attempt scheduled Senna. If this fails, will start Lactulose. 7. Sepsis, Ruled out. -Initially thought to be secondary to pneumonia or cholecystitis but these were ruled out. His procalcitonin was 1.19. Lactic acid 1.4. WBC 15.5. Temp 36 on admission. His presentation and labs were likely secondary to cardiorenal syndrome. -Zosyn IV stopped. 8. Elevated troponin of uncertain significance, present on admission, acute -Likely secondary to demand ischemia in the setting of right-sided heart failure and severe bradycardia, as well as acute kidney injury. 9. Anion gap metabolic acidosis, present on admission, acute. Resolving. -Likely multifactorial but primarily due to elevated lactate. Lactic acidosis resolved. AG improved from 26 to 19 to 16. -Dr. Harden of Nephrology consulted. 10. Gallbladder dyskinesia, present on admission. -Initially concern for acalculous cholecystitis given mildly tender RUQ, direct hyperbilirubinemia, elevated alk phos. CT abd showed pericholecystic fluid, US showed gallbladder wall thickening. However, HIDA scan showed gallbladder dyskinesia and no sign of cholecystitis. Surgery has evaluated the patient and he does not require surgery. - Continue to monitor. 11. Pulmonary hypertension with right-sided heart failure, present on admission , acute - Continue to monitor 12. Mechanical aortic valve, present on admission, acute -Restarted warfarin 13. Macrocytic anemia, present on admission, acute -Uncertain of baseline -Macrocytosis could represent reticulocytes, will order retic count 14. Hip fracture s/p ORIF - Ordered PT to evaluate and help with mobility. 15. Hypovolemia hyponatremia, present on admission, acute -Likely multifactorial due to loses and SSRI, will continue to monitor 16. History of Tegretol toxicity. -Tegretol level normal. 17. Altered mental state. Resolved. -due to severe sepsis and ARF Disposition: Given his cardiac history, CKD, cirrhosis, and recent hip fracture , his prognosis is not favorable. We have consulted Palliative Care to guide a [id number] discussion with the patient and family. VTE Mechanical Devices: Intermittant Pneumatic CD Resuscitation Status: DNR/DNI:Do Not Resuscitate/Intubate Limited Interventions: Medications and IV Fluid Attending Statement The patient was seen and examined together with Dr. Martinez on 08/27/2016 and I agree with the history, exam and plan as outlined in the note above. . Jose Juan Martinez Aug 27, 2016 18:09 Brandon Nielson MD Aug 30, 2016 08:09
[2016-08-28] VITALS (8 sets, daily range): BP systolic 97–117; BP diastolic 55–66; PULSE 91–104; RESP 14–17; O2SAT 95–99
[2016-08-28] MEDS: Furosemide Inj 100 MG in 0.9% Sodium Chloride 90 ML IVPUSH SCH (04:43)
--- NOTE | 2016-08-28 06:10 | NUR ---
Shift TELE: Afib with IVC (Unchanged) rate of 80s-110s. Irregular and click upon auscultation. Respiratory: Pt removed oxygen several times throughout the night. Pt desaturates to mid 80s but quickly recovers upon replacing oxygen on patient. Prominent cough on several occasions throughout the night; coughing not started when drinking water but continues despite drinking sips of water. GI/: Patient denies N/V. Pt has had 3 incontinent briefs of diarrhea. Condom Catheter replaced. Neuro: Pt is forgetful, A&Ox3, able to [place], CMS in all extremities. Pt uses call light appropriately and is able to express his needs. Skin: Right femoral groin site covered with clear op-site dressing, no hematoma/tenderness. Marc intact to right Hip with slight serous drainage from the uncovered anterior-lateral site, and moderate sero-sanguenous drainage from covered staple sites inferiorly. Additional 24 hours of Lasix gtt at 5mg/hour will be up at 0900 this morning (08/28).
--- NOTE | 2016-08-28 07:10 | PCM.PALLBR ---
Palliative Care Recommendation 81 yo male with multiple medical problems including CHF, chronic a. fib, mechanical aortic valve, myelodysplasia, etc. admitted with bradycardia and hypotension, acute on chronic renal failure, electrolyte abnormalities, possible cholecystitis, etc. Clinically improving, though still with significant limitations related to his chronic right heart failure and associated lower extremity edema as well as his recent hip fracture. Palliative medicine consulted to review with patient and family their goals of care. Summary of palliative recommendations: -Symptom management (Pain/other)- patient in no significant distress. Continued management per his medical/consulting teams. -DPOA/Advanced Directives/POLST- patient has previously expressed wish to be DO NOT RESUSCITATE/DO NOT INTUBATE/limited interventions. He and his are quite confident that he does not want CPR/defibrillation/intubation or mechanical ventilation. They would not want artificial nutrition nor dialysis. He has said he does not want any further chemotherapy for his myelodysplasia/ myeloma. They are quite comfortable with lesser interventions including synchronized cardioversion, IV fluids, antibiotics, etc. They both note that if he reaches a point where it appears as recovery is impossible that he would not want to be kept alive. 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 -Family/emotional support- patient has excellent support locally from his and son. Family is comfortable contemplating obtaining additional caregiver support at home if needed eventually. -Spiritual support- active with their [employer], and comforted by their eloisa. Offered roll forming machine set up operator visit and they declined at this time. Patient Goals: 1. Patient and his want to be told the truth about his illness, even if it is unpleasant. 2. Patient and his would like to be told prognosis when it can be predicted , to better guide treatment decisions. Additional Medical Diagnoses with primary management by Hospitalist team include : 1. Symptomatic bradycardia, present on admission, acute. Improving. 2. Acute kidney injury on chronic kidney disease, present on admission, acute. Improving. 3. Upper GI bleed, present on admission, acute. Present on admission. 4. Anasarca, acute. Not present on admission. 5. Hyperglycemia, acute. Present on admission. 6. Acute constipation. Present on admission. 7. Severe sepsis, present on admission, acute. Resolving. 8. Elevated troponin of uncertain significance, present on admission, acute 9. Anion gap metabolic acidosis, present on admission, acute. Resolving. 10. Gallbladder dyskinesia, present on admission. 11. Pulmonary hypertension with right-sided heart failure, present on admission , acute 12. Mechanical aortic valve, present on admission, acute 13. Macrocytic anemia, present on admission, acute 14. Hip fracture s/p ORIF 15. Hypovolemia hyponatremia, present on admission, acute 16. History of Tegretol toxicity. 17. Altered mental state. Resolved. Problems: End of Life Preferences DO NOT RESUSCITATE/DO NOT INTUBATE/limited interventions as above Goals of Care Patient and his continue to hope for recovery and eventual return home. They understand that his prognosis is limited- they have been told by his usual job coach that he may have 2-4 years to live Disposition Plan on return to [facility] for further rehabilitation before eventual return home Resuscitation Status Resuscitation Status: DNR/DNI:Do Not Resuscitate/Intubate Limited Interventions: Medications and IV Fluid POLST Updates/Changes Previous POLST?: Yes POLST Last Review Date: Aug 26, 2016 Antibiotics: Use ABX if can Prolong Life Artificially Admin Nutrition: No Artifical Nutrition by Tube POLST Discussed with: Patient, Spouse/Other POLST Review Outcome: No Change Total time 15 minutes; >50% face to face with patient and/or family, providing counselling regarding plans and recommendations, and in care coordination with his/her medical teams. I also spent an additional [ ] minutes counseling for advanced care planning with the patient/the patients family/the surrogate decision maker. Palliative Brief Note Date of Service Aug 27, 2016 . 81 yo with multiple medical issues including recent hypotension, renal insuff, CHF primarily R sided, myelodysplasia and afib. Seen today but note of modest confusion-unclear on what has been diagnosed etc- was more confused in the night. His partner is not here today due to weather and any discussion on GOC and POLST are postponed--pt agrees-until she can be here to assist. Shanique Caldwell MD Aug 28, 2016 07:10
[2016-08-28 07:35] LABS: BASOPHILS % (AUTO) 0 % (0-3); EOSINOPHILS % (AUTO) 1.3 % (0-5); MONOCYTES % (AUTO) 3.1 % (4-12); Mean Corpuscular Hemoglobin 31.6 pg (27.0-35.0); Mean Corpuscular Volume 101.5 fL (81-100); NEUTROPHILS % (AUTO) 92.3 % (40-74); Platelet Count 248 bil/L (150-400)
[2016-08-28] MEDS: Insulin LISPRO 300 Unit/3 mL Inj SUBQ SCH ×4 (08:00→22:00)
[2016-08-28] MEDS: Pantoprazole 4 mg/mL 10 mL Inj IVPUSH SCH ×2 (09:09→17:56)
[2016-08-28] MEDS: carBAMazepine 200 mg Tablet PO SCH ×2 (09:10→20:16)
--- NOTE | 2016-08-28 10:44 | NUR ---
NUTRITION FOLLOW UP Assess: Pt is a 81 yo male was transferred from [facility] w/ bradycardia, STANTON on CKD and hypotension. STANTON is improving w/ nephrology consulted. Per MD notes, dialysis is not needed at this time. Pt remains on temporary pacemaker. Pt started on bowel regimen 08/26, and has experienced multiple BMs and diarrhea. Diet advanced on 08/26. Pt PO intake is improving. States liking Vanilla Ensure and Magic Cups. All breakfast items on tray were eaten 08/28. Palliative is involved w/ plans of care. PMHx: Afib, CHF, left hip fracture, multiple myeloma, trigeminal neuralgia, peripheral neuropathy, hyponatremia, depression, renal failure, sleep apnea, mechanical aortic valve. LABS: Reviewed. Cl 95, BUN 80, Ticket Printer 2.06, Gluc 152, Ca 8.1, Total Bilirubin 2.3, Alk Phos 219, Alb 2.9, Procalcitonin 0.80 MEDICATIONS: Epinephrine, Senna CURRENT DIET: Heart Healthy - PO Ref-75% GI symptoms/stool: Diarrhea r/t bowel regimen - BM x 3 (08/28) SKIN: George 16 - no other skin issues noted. ANTHROPOMETRICS: Current Wt: 95.9 kg BMI: 30.3 kg/m2 IBW: 73 kg Admit Wt: 90.3 kg (BMI: 28.6 kg/m2) ESTIMATED NEEDS: Renal Failure, no dialysis (recalculated 08/28) Calories: 5520-5375 kcal/day (25-30 kcal/kg BW) Protein: 70-90 g/day (0.8-1.0 g/kg BW) Fluids: ~2000 ml/day (Approx. 1 ml/kcal/d) NUTRITION DIAGNOSIS: 1) Altered nutrition related lab values related to STANTON on CKD and hyponatremia as evidenced by elevated BUN and creatinine levels and low sodium lab values. ---IMPROVED. Na WNL. BUN and Ticket Printer trending down. INTERVENTION: 1) Continue w/ Vanilla Ensure on B&L trays. 2) Continue Magic Cups on all trays. 3) Send Skim Milk on all trays per pt preference. MONITORING/EVALUATION: PO intake, Supps, GI, Labs, nutrition status, POC. Will continue to monitor per moderate nutritional risk guidelines. Addendum: 08/28/16 at [address] Student documentation reviewed and I agree with the above assessment. Tavo Ruiz, , RDN, CD
--- NOTE | 2016-08-28 10:48 | NUR ---
RIVAS Patient's gave verbal agreement for RIVAS
--- NOTE | 2016-08-28 11:44 | PROG NOTE ---
[address] [address] PROGRESS NOTE PATIENT: SANDRINE VAN : 1935 MR#: [id number] ADMIT: 08/24/2016 JOB ID: [id number] DATE: 08/28/2016 INFECTIOUS DISEASE FOLLOW UP NOTE: REASON FOR FOLLOW UP: Concern about systemic infection. INTERVAL HISTORY: The patient reports he is continuing to feel well. Recall that we stopped his antibiotics yesterday. He denies having any fevers, chills or sweats. He has been bothered a bit by abdominal distention, but no significant abdominal pain. No nausea or vomiting. No skin rash has been reported. PHYSICAL EXAMINATION: Reveals an elderly gentleman who is sitting up in bed and looks more alert than he has previously. 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 Temperature 36.5, pulse 98, blood pressure 117/66. He is saturating 96% on 2 L. As noted he is awake and alert. His eyes are without scleral icterus. His oral cavity negative. Lungs reasonably clear today. Abdomen soft and nontender though quite distended. The extremities are warm and well perfused. His hip incision site benign. LABORATORIES: Include a white count which has further normalized to 6100. Platelet count stable at 248. His creatinine is 1.85 which continues to improve. AST and ALT are normal. Bilirubin is 2. Alk phos 211 which is actually better. Procalcitonin yesterday was 0.8 and that has been declining from 1.27 two days ago. Micro studies include eight blood culture bottles, one of which grew a coag-negative staph, which was methicillin sensitive. MRSA screen was negative and urine culture was negative. Recall that the gallbladder study HIDA scan was negative. IMPRESSION: I see no evidence for infection in this patient. It would appear that a decision to stop antibiotics yesterday was a reasonable and safe one, and at this point, I see no evidence of ongoing infection. His procalcitonin is slightly elevated and this is almost certainly on the basis of renal insufficiency and I think the fall in his procalcitonin in the last couple days is just basically a marker for his improving renal function. RECOMMENDATIONS: 1. No antibiotics. 2. ID will go ahead and sign off at this time.
[2016-08-28] MEDS ORDERED: Potassium Chloride 20 mEq SR Tablet PO ONE (11:55)
--- NOTE | 2016-08-28 12:01 | PCM.PNMED ---
Subjective Date of Service Aug 28, 2016 Subjective off epinephrine. stable BP, HR 90-100/min. no acute issue overnight. responding well with IV lasix gtt. Exam Vital Signs Vital Sign - Last Date Time Temp Pulse Resp B/P Pulse Ox O2 Delivery O2 Flow Rate FiO2 08/28/16 10:30 98 08/28/16 08:12 Supplement Oxygen 08/28/16 08:12 36.5 15 117/66 96 2.00 50 Intake and Output 08/27/16 08/27/16 08/28/16 Cumulative From/Thru 15:00 23:00 07:00 08/24/16 08:02 - 08/28/16 05:44 Intake Total 732 ml 1058 ml 25740 ml Output Total 900 ml 200 ml 7225 ml Balance -168 ml 858 ml 4124 ml Intake Oral 900 ml 3920 ml IV Total 432 ml 158 ml 7129 ml Packed Cells 300 ml 300 ml Output Urine Total 900 ml 200 ml 7225 ml # Voids 3 3 10 # Bowel Movements 3 3 9 Exam General:chronically ill looking, in non acute distress. HEENT: Normocephalic, atraumatic. External ears without defect. PERRLA. Neck: no JVD. no lymphadenopathy. Cardiovascular: valve click, regular rhythm, HR 90-100s. Pulmonary: fine crackles at bases, no wheezing. no accessory muscle use. Abdomen: soft, NT, mild distension,no hepatosplenomegaly or masses appreciated. Extremities: 2+ edema with sacral and scrotal swelling, condom cath with yellowish urine. Lab and Diagnostics Result Diagram: 08/28/1651408/28/16514 X-Rays, CTs and MRIs ABDOMEN/PELVIS WITHOUT CONTRAST IMPRESSION: 1. Pericholecystic fluid may raise the question of acute cholecystitis in the appropriate clinical setting. Consider limited abdominal ultrasound for further evaluation as needed. 2. Bibasilar mobile pleural effusions, as well as scattered abdominal and pelvic ascites, of uncertain etiology. 3. Incidental 1.8 cm lateral right renal cortical exophytic cyst. 4. Small fat-containing periumbilical ventral hernia. Dictated by: Enrico Gama M.D. on 08/24/2016 at 7:45 Approved by: Enrico Gama M.D. on 08/24/2016 at 7:55 X-RAY CHEST ONE VIEW, PORTABLE IMPRESSION: Persistent right mid and lower lung air space opacities may represent atelectasis and/or developing pneumonia. Dictated by: Enrico Gama M.D. on 08/24/2016 at 8:45 Approved by: Enrico Gama M.D. on 08/24/2016 at 8:47 X-RAY CHEST ONE VIEW IMPRESSION: 1. New right PICC is present, with tip in expected position. 2. Persistent right lower lung subtle air space opacities may represent atelectasis or early pneumonia. Dictated by: Enrico Gama M.D. on 08/24/2016 at 19:07 Approved by: Ernico Gama M.D. on 08/24/2016 at 19:09 X-RAY CHEST ONE VIEW, PORTABLE IMPRESSION: 1. Stable support lines and tubes. 2. Mild edema and/or pneumonia versus atelectasis involving the lung bases. Dictated by: Juan BECKMAN Interpreted: Yves Dallas MD on 08/25/2016 at 9:26 Approved by: Juan BECKMAN Interpreted: Yves Dallas MD on 08/25/2016 at 9:28 US RENAL SONOGRAM IMPRESSION: 1. A post-renal cause is not identified for acute renal insufficiency. 2. Gallbladder wall thickening as well as pericholecystic fluid may suggest acalculous cholecystitis. 3. Scattered perihepatic ascites again noted. Dictated by: Enrico Gama M.D. on 08/24/2016 at 17:16 Approved by: Enrico Gama M.D. on 08/24/2016 at 17:20 NM HIDA SCAN WITH CCK IMPRESSION: 1. Normal filling of gallbladder. No evidence for acute cholecystitis. 2. Poor contractile response of gallbladder to CCK infusion with gallbladder ejection fraction is 3.1%. This finding is consistent with gallbladder dyskinesia. Dictated by: Yves Dallas M.D. on 08/25/2016 at 16:43 Approved by: Yves Dallas M.D. on 08/25/2016 at 16:44 Assessment & Plan 1. STANTON - cardiorenal syndrome. - improving. 2. Symptomatic bradycardia - resolved. 3. Hyperkalemia - resolved. - secondary to STANTON, LMWH and spironolactone. 4. Anion gap metabolic acidosis due to uremia and lactic acidosis. - resolved. 5. Coffee ground emesis. 6. Anemia s/p blood transfusion. 7. Pulmonary hypertension with right-sided heart failure. 8. s/p mechanical AVR. Plan: add metolazone 5 mg PO x 1, increase lasix gtt to 10 mg/hr. KCL 40 mEq PO x1. VTE Mechanical Devices: Intermittant Pneumatic CD Resuscitation Status: DNR/DNI:Do Not Resuscitate/Intubate Limited Interventions: Medications and IV Fluid Aris Schwartz MD Aug 28, 2016 12:01
[2016-08-28] MEDS: Furosemide Inj 100 MG in 0.9% Sodium Chloride 90 ML IV SCH ×2 (12:28→19:25)
--- NOTE | 2016-08-28 13:01 | PCM.PNCARD ---
Subjective Date of service Aug 28, 2016 Chief Complaint bradycardia History of Present Illness 81 yo M with very complicated medical history involving cor pulmonale, prior CABG and mechanical AVR in the admitted with STANTON and bradycardia in the setting of diuretic therapy. Subjective: Patient feels comfortable at rest. He is on IV furosemide and making urine. His temporary pacer wire has been removed and he has been off epinephrine gtt for > 24 hours. PROBLEM LIST: # Hypotension: resolved # Chronic cor pulmonale from pulm HTN # Atrial fibrillation with slow ventricular response # CABG and mechanical AVR in the # STANTON # Anemia Exam Vital Signs Vital Sign - Last Date Time Temp Pulse Resp B/P Pulse Ox O2 Delivery O2 Flow Rate FiO2 08/28/16 12:21 36.7 97 16 97/65 97 Nasal Cannula 2.00 08/28/16 08:12 50 Intake and Output 08/27/16 08/27/16 08/28/16 Cumulative From/Thru 14:59 22:59 06:59 08/24/16 08:02 - 08/28/16 05:44 Intake Total 732 ml 1058 ml 51061 ml Output Total 900 ml 200 ml 7225 ml Balance -168 ml 858 ml 4124 ml Intake Oral 900 ml 3920 ml IV Total 432 ml 158 ml 7129 ml Packed Cells 300 ml 300 ml Output Urine Total 900 ml 200 ml 7225 ml # Voids 3 3 10 # Bowel Movements 3 3 9 General appearance: No apparent distress, frail elderly, pleasant, cooperative HEET: Normocephalic atraumatic, no scleral icterus, tongue midline, mucous membranes moist Neck: supple Cardiovascular: RRR, normal S1 and normal S2, no murmurs/rubs/gallops, PMI nondisplaced, +JVD, 2+ peripheral edema extending to sacrum Respiratory: Fair aeration, coarse b/l Abdomen: Soft, nontender, nondistended, + bowel sounds Lab and Diagnostics Result Diagram: 08/28/1651408/28/16514 X-Rays, CTs and MRIs Echo 08/26/2016: 1) Mild concentric left ventricular hypertrophy with normal size and systolic function (EF 55-60%). 2) Severely dliated right ventricle with severely reduced function. 3) Flattened septum is consistent with RV pressure/volume overload. 4) Mechanical aortic valve present, opens well. Mildly increased mean gradient of 26mHg. 5) Severe tricuspid regurgitation present. 6) Pulmonary hypertension present, estimated systolic pulmonary pressure of 52mmHg. 7) Elevated right sided filling pressures. 8) No prior Echo avaliable for comparison. Assessment & Plan Assessment 81 yo M with very complicated medical history involving cor pulmonale, prior CABG and mechanical AVR in the admitted with STANTON and bradycardia in the setting of diuretic therapy. # Chronic cor pulmonale from Pulm HTN: severe RV failure and significant pulm HTN noted on Echo 08/26/16. With high dose torsemide as outpatient, he had significant STANTON on admission that improved with IVFs. He is clearly hypervolemic and is urinating with furosemide gtt with stable renal function. Plan - Oxygen therapy - Diuresis while closely monitoring the renal function # VT: patient had sustained VT in the hospital that required synchronized cardioversion. Suspect this was due to electrolyte abnormalities as a result of STANTON. No recurrence since. - Continue to monitor # Atrial fibrillation with slow ventricular response: resolved with correction of electrolyte abnormalities. s/p temporary pacer wire that was removed 2016. - Continue warfarin to keep goal INR therapeutic (goal 2.5-3.5). # Mechanical AVR: anticoagulation as above # STANTON: BUN and Cr have improved. Etiology was ischemic ATN. Will monitor renal function with diuresis. # Hypotension: resolved # Anemia: suspect this is due to recent illnesses and IVFs. Continue to monitor serially. # Goals of care: Palliative care saw the patient yesterday and patient and family decided that he is DNR/DNI and not interested in dialysis. He is okay with synchronized cardioversion if that is needed. Problems: Pain Evaluation: Adequate Pain Control VTE Mechanical Devices: Intermittant Pneumatic CD Resuscitation Status: DNR/DNI:Do Not Resuscitate/Intubate Limited Interventions: Medications and IV Fluid Garett Bledsoe MD Aug 28, 2016 13:01
[2016-08-28 13:23] LABS: INR 1.63 ratio
--- NOTE | 2016-08-28 15:03 | PCM.PHAPRO ---
Progress bradycardia Warfarin DOsing Indication AVR plus Afib Home dose 7.5mg/d Target INR 2.5-3.5 Recent dosing Date Aug 25-Aug 26-Aug 27-Aug 28-Aug 29-Aug 30-Aug 31-Aug INR 2.37 3.46 2.51 2.06 1.63 INR change 1.09 -0.95 -0.45 Warf Dose held held 5 5 7.5 a/ Seems able to tolerate home dose. p. 7.5mg today and follow. Robin Grissom S Pharm D Aug 28, 2016 15:03
--- NOTE | 2016-08-28 15:29 | NUR ---
Evaluation completed. Please go to "Notes" then click on "Assessments and Notes" (bottom left corner of screen). Then select appropriate discipline tab on top of screen.
--- NOTE | 2016-08-28 15:35 | PCM.PNMED ---
Subjective Date of Service Aug 28, 2016 Subjective Overnight: Patient continued to have afib overnight. He intermittently removed his nasal cannula overnight and desatted to 80s but recovers when replacing the NC. Otherwise no acute events overnight. Today: He states he feels well, denies chest pain, SOB, coughing, wheezing, fevers, chills, N/V/D. He reports lower extremity edema. Exam Vital Signs Vital Sign - Last Date Time Temp Pulse Resp B/P Pulse Ox O2 Delivery O2 Flow Rate FiO2 08/28/16 12:21 36.7 97 16 97/65 97 Nasal Cannula 2.00 08/28/16 08:12 50 Intake and Output 08/27/16 08/27/16 08/28/16 Cumulative From/Thru 15:00 23:00 07:00 08/24/16 08:02 - 08/28/16 05:44 Intake Total 732 ml 1058 ml 64666 ml Output Total 900 ml 200 ml 7225 ml Balance -168 ml 858 ml 4124 ml Intake Oral 900 ml 3920 ml IV Total 432 ml 158 ml 7129 ml Packed Cells 300 ml 300 ml Output Urine Total 900 ml 200 ml 7225 ml # Voids 3 3 10 # Bowel Movements 3 3 9 Exam General: Alert and oriented today. No acute distress. Head: Normocephalic, atraumatic. External ears without defect. Eyes: Pupils equal, round, and reactive to light and accommodation. Anicteric sclerae, Cardiovascular: Regular rate and rhythm. Mechanical valve sound noted. Pulmonary: Clear to auscultation bilaterally. Abdomen: Bowel tones present. Soft, no tenderness to palpation. No masses appreciated. Extremities: Significant bilateral lower extremity edema Neurological: No gross neurological deficits noted. Lab and Diagnostics Result Diagram: 08/28/1651408/28/16514 X-Rays, CTs and MRIs ABDOMEN/PELVIS WITHOUT CONTRAST IMPRESSION: 1. Pericholecystic fluid may raise the question of acute cholecystitis in the appropriate clinical setting. Consider limited abdominal ultrasound for further evaluation as needed. 2. Bibasilar mobile pleural effusions, as well as scattered abdominal and pelvic ascites, of uncertain etiology. 3. Incidental 1.8 cm lateral right renal cortical exophytic cyst. 4. Small fat-containing periumbilical ventral hernia. Dictated by: Enrico Gama M.D. on 08/24/2016 at 7:45 Approved by: Enrico Gama M.D. on 08/24/2016 at 7:55 X-RAY CHEST ONE VIEW, PORTABLE IMPRESSION: Persistent right mid and lower lung air space opacities may represent atelectasis and/or developing pneumonia. Dictated by: Enrico Gama M.D. on 08/24/2016 at 8:45 Approved by: Enrico Gama M.D. on 08/24/2016 at 8:47 X-RAY CHEST ONE VIEW IMPRESSION: 1. New right PICC is present, with tip in expected position. 2. Persistent right lower lung subtle air space opacities may represent atelectasis or early pneumonia. Dictated by: Enrico Gama M.D. on 08/24/2016 at 19:07 Approved by: Enrico Gama M.D. on 08/24/2016 at 19:09 X-RAY CHEST ONE VIEW, PORTABLE IMPRESSION: 1. Stable support lines and tubes. 2. Mild edema and/or pneumonia versus atelectasis involving the lung bases. Dictated by: Juan BECKMAN Interpreted: Yves Dallas MD on 08/25/2016 at 9:26 Approved by: Juan BECKMAN Interpreted: Yves Dallas MD on 08/25/2016 at 9:28 US RENAL SONOGRAM IMPRESSION: 1. A post-renal cause is not identified for acute renal insufficiency. 2. Gallbladder wall thickening as well as pericholecystic fluid may suggest acalculous cholecystitis. 3. Scattered perihepatic ascites again noted. Dictated by: Enrico Gama M.D. on 08/24/2016 at 17:16 Approved by: Enrico Gama M.D. on 08/24/2016 at 17:20 NM HIDA SCAN WITH CCK IMPRESSION: 1. Normal filling of gallbladder. No evidence for acute cholecystitis. 2. Poor contractile response of gallbladder to CCK infusion with gallbladder ejection fraction is 3.1%. This finding is consistent with gallbladder dyskinesia. Dictated by: Yves Dallas M.D. on 08/25/2016 at 16:43 Approved by: Yves Dallas M.D. on 08/25/2016 at 16:44 Assessment & Plan Randy Anand is a 81 year old man with history of atrial fibrillation on anticoagulation s/p implantable loop recorder, mechanical aortic valve, right heart failure, CAD s/p CABG, pulmonary hypertension, and CKD who presented with hematemesis and bradycardia. Admitted for symptomatic bradycardia, STANTON, severe sepsis, and possible acalculous cholecystitis. 1. Chronic cor pulmonale with fluid overload - Pt has history of severe RV failure and significant pulmonary hypertension. Echo 08/26/16 showed mild concentric LVH with EF 55-60%, severe RV dilation with reduced function, flattened septum, mechanical AV, severe TR, and pulmonary hypertension. Will continue to diurese while closely monitoring renal function. - Lasix drip increased from 5 to 10 ml/hr. - Metolazone 5 mg PO once 2. Acute kidney injury on chronic kidney disease, present on admission, acute. Improving. -Secondary to cardiorenal syndrome due to bradycardia caused by hyperkalemia -Nephrology is consulted. We appreciate the expertise and input. 3. Possible upper GI bleed, present on admission, acute. Present on admission. -Uncertain of cause, however a prior discharge summary describes a history of cirrhosis. EGD 07/01/16 was normal. Colonoscopy 07/01/16 showed 4 polyps, not resected, small internal and medium external hemorrhoids, and 2 areas of possible angiodysplasia in the colon. Received 1U PRBC. -Protonix push BID -If H&H trends down or more hematemesis is noted, will consult GI 4. Anasarca, acute. Not present on admission. - Pt is up 4L total this admission but presents with significant bilateral lower extremity and scrotal edema. Per Dr. Solano, will attempt to diurese with Lasix drip. 5. Symptomatic bradycardia, present on admission, acute. Resolved. -Secondary to hyperkalemia in the setting of acute kidney injury. Patient appears to be exquisitely sensitive to hyperkalemia even at a potassium of 5.7. K now normal and bradycardia has since improved, with HR in 80s. He still has a temporary pacer at this time. -Cardiology consulted, appreciate the expertise and input -Patient weaned off epinephrine gtt. Temporary pacemaker removed. 6. Hyperglycemia, acute. Present on admission. - Glucose in 170s-180s. A1c 5.7. - Humalog low dose correctional scale. 7. Acute constipation. Present on admission. - Pt reports no bowel movement for 10 days despite receiving stool softeners, as well as Kayexalate this admission. He has been passing gas. - Will attempt scheduled Senna. If this fails, will start Lactulose. 8. Sepsis, Ruled out. -Initially thought to be secondary to pneumonia or cholecystitis but these were ruled out. His procalcitonin was 1.19. Lactic acid 1.4. WBC 15.5. Temp 36 on admission. His presentation and labs were likely secondary to cardiorenal syndrome. -Zosyn IV stopped. 9. Elevated troponin of uncertain significance, present on admission, acute -Likely secondary to demand ischemia in the setting of right-sided heart failure and severe bradycardia, as well as acute kidney injury. 10. Anion gap metabolic acidosis, present on admission, acute. Resolving. -Likely multifactorial but primarily due to elevated lactate. Lactic acidosis resolved. AG improved from 26 to 19 to 16. -Dr. Harden of Nephrology consulted. 11. Gallbladder dyskinesia, present on admission. -Initially concern for acalculous cholecystitis given mildly tender RUQ, direct hyperbilirubinemia, elevated alk phos. CT abd showed pericholecystic fluid, US showed gallbladder wall thickening. However, HIDA scan showed gallbladder dyskinesia and no sign of cholecystitis. Surgery has evaluated the patient and he does not require surgery. - Continue to monitor. 12. Pulmonary hypertension with right-sided heart failure, present on admission , acute - Continue to monitor 13. Mechanical aortic valve, present on admission, acute -Restarted warfarin 14. Macrocytic anemia, present on admission, acute -Uncertain of baseline -Macrocytosis could represent reticulocytes, will order retic count 15. Hip fracture s/p ORIF - Ordered PT to evaluate and help with mobility. 16. Hypovolemia hyponatremia, present on admission, acute -Likely multifactorial due to loses and SSRI, will continue to monitor 17. History of Tegretol toxicity. -Tegretol level normal. 18. Altered mental state. Resolved. -due to severe sepsis and ARF Disposition: Given his cardiac history, CKD, cirrhosis, and recent hip fracture , his prognosis is not favorable. We have consulted Palliative Care to guide a [id number] discussion with the patient and family. [facility] in 3-4 days. VTE Mechanical Devices: Intermittant Pneumatic CD Resuscitation Status: DNR/DNI:Do Not Resuscitate/Intubate Limited Interventions: Medications and IV Fluid Attending Statement The patient was seen and examined together with Dr. Martinez on 08/28/2016 and I agree with the history, exam and plan as outlined in the note above. . Jose Juan Martinez Aug 28, 2016 15:35 Brandon Nielson MD Aug 30, 2016 08:10
--- NOTE | 2016-08-28 16:32 | PCM.PALLBR ---
Palliative Care Recommendation 81 yo male with multiple medical problems including CHF, chronic a. fib, mechanical aortic valve, myelodysplasia, etc. admitted with bradycardia and hypotension, acute on chronic renal failure, electrolyte abnormalities, possible cholecystitis, etc. Clinically improving, though still with significant limitations related to his chronic right heart failure and associated lower extremity edema as well as his recent hip fracture. Palliative medicine consulted to review with patient and family their goals of care. Summary of palliative recommendations: 08/28/16 Weakness and debility-continues most likely due to CHF and recent hip fx. Confusion mild but we both think it best to await his to complete POLST. She has been ill and hopfully can come in tomorrow -Symptom management (Pain/other)- patient in no significant distress. Continued management per his medical/consulting teams. -DPOA/Advanced Directives/POLST- patient has previously expressed wish to be DO NOT RESUSCITATE/DO NOT INTUBATE/limited interventions. He and his are quite confident that he does not want CPR/defibrillation/intubation or mechanical ventilation. They would not want artificial nutrition nor dialysis. He has said he does not want any further chemotherapy for his myelodysplasia/ myeloma. They are quite comfortable with lesser interventions including synchronized cardioversion, IV fluids, antibiotics, etc. They both note that if he reaches a point where it appears as recovery is impossible that he would not want to be kept alive. 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 -Family/emotional support- patient has excellent support locally from his and son. Family is comfortable contemplating obtaining additional caregiver support at home if needed eventually. -Spiritual support- [facility], and comforted by their eloisa. Offered supervisor color making visit and they declined at this time. Patient Goals: 1. Patient and his want to be told the truth about his illness, even if it is unpleasant. 2. Patient and his would like to be told prognosis when it can be predicted , to better guide treatment decisions. Additional Medical Diagnoses with primary management by Hospitalist team include : 1. Symptomatic bradycardia, present on admission, acute. Improving. 2. Acute kidney injury on chronic kidney disease, present on admission, acute. Improving. 3. Upper GI bleed, present on admission, acute. Present on admission. 4. Anasarca, acute. Not present on admission. 5. Hyperglycemia, acute. Present on admission. 6. Acute constipation. Present on admission. 7. Severe sepsis, present on admission, acute. Resolving. 8. Elevated troponin of uncertain significance, present on admission, acute 9. Anion gap metabolic acidosis, present on admission, acute. Resolving. 10. Gallbladder dyskinesia, present on admission. 11. Pulmonary hypertension with right-sided heart failure, present on admission , acute 12. Mechanical aortic valve, present on admission, acute 13. Macrocytic anemia, present on admission, acute 14. Hip fracture s/p ORIF 15. Hypovolemia hyponatremia, present on admission, acute 16. History of Tegretol toxicity. 17. Altered mental state. Resolved. Problems: End of Life Preferences DO NOT RESUSCITATE/DO NOT INTUBATE/limited interventions as above Goals of Care Patient and his continue to hope for recovery and eventual return home. They understand that his prognosis is limited- they have been told by his usual front end alignment specialist that he may have 2-4 years to live Disposition Plan on return to [facility] for further rehabilitation before eventual return home Resuscitation Status Resuscitation Status: DNR/DNI:Do Not Resuscitate/Intubate Limited Interventions: Medications and IV Fluid POLST Updates/Changes Previous POLST?: Yes POLST Last Review Date: Aug 26, 2016 Antibiotics: Use ABX if can Prolong Life Artificially Admin Nutrition: No Artifical Nutrition by Tube POLST Discussed with: Patient, Spouse/Other POLST Review Outcome: No Change . Symptom management: Drowsiness/sleepiness, Delirium (mild) Total time 15 minutes; >50% face to face with patient and/or family, providing counselling regarding plans and recommendations, and in care coordination with his/her medical teams. I also spent an additional [ ] minutes counseling for advanced care planning with the patient/the patients family/the surrogate decision maker. Palliative Brief Note Date of Service Aug 28, 2016 . 81 yo with Afib, RHCHF, bradycardia requiring temporary pacing and hypotension without known infection. He continues to be weak-stating tried to work with PT and sit up but just want to lie back down. He has had some confusion since admit but has been easily redirected. O: pupils remain pinpoint, FEOM sleeping much of the day and still groggy with occ slurred speech when seen HR irreg and 90-100 BP 90/ initial proBNP 38K CR down to 1.85 lactic acid was >8 now 2.2 Shanique Caldwell MD Aug 28, 2016 16:32
[2016-08-28] MEDS: EPINEPHrine 10,000 mCg/250 mL NS IV SCH ×2 (17:55)
--- NOTE | 2016-08-28 19:42 | NUR ---
Ortho/Edema/Lasix gtt/Bowels/Nuero Patient a/o x 3, but forgetful. Patient denies pain, but unable to stand because of LLE pain from ORIF hip. Left hip drsg with sangineous drainage, changed x 1 and serous drainage from upper incision, rené intact. gen edema from waist down with swelling in scrotal area. Scrotum and BLE elevated. Lasix gtt increased to 10 mg/hr per MD orders. Condom cath inplace, esha uop. Bladder scan x 1 done showed zero ml in bladder. Patient incont loose brown stool x 1. Patient has noted BUE jerking when attempting to hold objects or feed self. Will cont poc.
[2016-08-29] VITALS (9 sets, daily range): BP systolic 90–108; BP diastolic 56–63; PULSE 90–104; RESP 12–20; O2SAT 93–96
--- NOTE | 2016-08-29 05:23 | NUR ---
Transfer of care Pt received into care from Carmen Benjamin RN. Pt A&O. Full assessment done. Pt incontinent. Condom catheter removed. Another could not be placed. Brief placed.
[2016-08-29] MEDS: Furosemide Inj 100 MG in 0.9% Sodium Chloride 90 ML IV SCH (06:01)
[2016-08-29 06:15] LABS: BASOPHILS % (AUTO) 0 % (0-3); EOSINOPHILS % (AUTO) 1.4 % (0-5); MONOCYTES % (AUTO) 3.2 % (4-12); Mean Corpuscular Hemoglobin 31.2 pg (27.0-35.0); Mean Corpuscular Volume 101.1 fL (81-100); NEUTROPHILS % (AUTO) 91.2 % (40-74); Platelet Count 227 bil/L (150-400)
[2016-08-29 06:32] LABS: INR 1.66 ratio
[2016-08-29] MEDS: Insulin LISPRO 300 Unit/3 mL Inj SUBQ SCH ×4 (08:00→21:04)
[2016-08-29] MEDS: Pantoprazole 4 mg/mL 10 mL Inj IVPUSH SCH ×2 (08:19→17:28)
[2016-08-29] MEDS: carBAMazepine 200 mg Tablet PO SCH ×2 (08:20→21:03)
[2016-08-29] MEDS: Potassium Chloride 20 mEq SR Tablet PO SCH ×3 (09:10→21:03)
[2016-08-29] MEDS ORDERED: KCl 40 mEq/D5W 500 mL 40 MEQ in IV Premix 1 EACH IV ONE (10:15)
--- NOTE | 2016-08-29 10:15 | PCM.PNMED ---
Subjective Date of Service Aug 29, 2016 Subjective BP on the low side. Hypokalemia noted. doing about the same, no acute issue overnight. Exam Vital Signs Vital Sign - Last Date Time Temp Pulse Resp B/P Pulse Ox O2 Delivery O2 Flow Rate FiO2 08/29/16 07:50 36.7 97 12 94/56 93 Nasal Cannula 2.00 08/28/16 08:12 50 Intake and Output 08/28/16 08/28/16 08/29/16 Cumulative From/Thru 15:00 23:00 07:00 08/24/16 08:02 - 08/29/16 06:27 Intake Total 964 ml 870 ml 19749 ml Output Total 550 ml 1400 ml 9175 ml Balance 414 ml -530 ml 4008 ml Intake Oral 857 ml 750 ml 5527 ml IV Total 107 ml 120 ml 7356 ml Packed Cells 300 ml Output Urine Total 550 ml 1400 ml 9175 ml # Voids 2 12 # Bowel Movements 1 2 12 Exam General:chronically ill looking, in non acute distress. HEENT: Normocephalic, atraumatic. External ears without defect. PERRLA. Neck: no JVD. no lymphadenopathy. Cardiovascular: valve click, regular rhythm, HR 90-100s. Pulmonary: fine crackles at bases, no wheezing. no accessory muscle use. Abdomen: soft, NT, mild distension,no hepatosplenomegaly or masses appreciated. Extremities: 2+ edema with sacral and decreased scrotal swelling. Lab and Diagnostics Result Diagram: 08/29/16 0500 08/29/16 0500 X-Rays, CTs and MRIs ABDOMEN/PELVIS WITHOUT CONTRAST IMPRESSION: 1. Pericholecystic fluid may raise the question of acute cholecystitis in the appropriate clinical setting. Consider limited abdominal ultrasound for further evaluation as needed. 2. Bibasilar mobile pleural effusions, as well as scattered abdominal and pelvic ascites, of uncertain etiology. 3. Incidental 1.8 cm lateral right renal cortical exophytic cyst. 4. Small fat-containing periumbilical ventral hernia. Dictated by: Enrico Gama M.D. on 08/24/2016 at 7:45 Approved by: Enrico Gama M.D. on 08/24/2016 at 7:55 X-RAY CHEST ONE VIEW, PORTABLE IMPRESSION: Persistent right mid and lower lung air space opacities may represent atelectasis and/or developing pneumonia. Dictated by: Enrico Gama M.D. on 08/24/2016 at 8:45 Approved by: Enrico Gama M.D. on 08/24/2016 at 8:47 X-RAY CHEST ONE VIEW IMPRESSION: 1. New right PICC is present, with tip in expected position. 2. Persistent right lower lung subtle air space opacities may represent atelectasis or early pneumonia. Dictated by: Enrico Gama M.D. on 08/24/2016 at 19:07 Approved by: Enrico Gama M.D. on 08/24/2016 at 19:09 X-RAY CHEST ONE VIEW, PORTABLE IMPRESSION: 1. Stable support lines and tubes. 2. Mild edema and/or pneumonia versus atelectasis involving the lung bases. Dictated by: Juan BECKMAN Interpreted: Yves Dallas MD on 08/25/2016 at 9:26 Approved by: Juan BECKMAN Interpreted: Yves Dallas MD on 08/25/2016 at 9:28 US RENAL SONOGRAM IMPRESSION: 1. A post-renal cause is not identified for acute renal insufficiency. 2. Gallbladder wall thickening as well as pericholecystic fluid may suggest acalculous cholecystitis. 3. Scattered perihepatic ascites again noted. Dictated by: Enrico Gama M.D. on 08/24/2016 at 17:16 Approved by: Enrico Gama M.D. on 08/24/2016 at 17:20 NM HIDA SCAN WITH CCK IMPRESSION: 1. Normal filling of gallbladder. No evidence for acute cholecystitis. 2. Poor contractile response of gallbladder to CCK infusion with gallbladder ejection fraction is 3.1%. This finding is consistent with gallbladder dyskinesia. Dictated by: Yves Dallas M.D. on 08/25/2016 at 16:43 Approved by: Yves Dallas M.D. on 08/25/2016 at 16:44 Assessment & Plan 1. STANTON - cardiorenal syndrome. - improving. 2. Symptomatic bradycardia - resolved. 3. Hyperkalemia - resolved. - secondary to STANTON, LMWH and spironolactone. 4. Anion gap metabolic acidosis due to uremia and lactic acidosis. - resolved. 5. Coffee ground emesis. 6. Anemia s/p blood transfusion. 7. Pulmonary hypertension with right-sided heart failure. 8. s/p mechanical AVR. 9. Chronic Afib. Plan: d/c IV lasix gtt. replace KCL 40 meq IVPB x 1 and KCL 40 meq TID. check Mg and PO4 level. Repeat K at 1600. will resume IV lasix gtt 10 mg/hr tonight. VTE Mechanical Devices: Intermittant Pneumatic CD Resuscitation Status: DNR/DNI:Do Not Resuscitate/Intubate Limited Interventions: Medications and IV Fluid Aris Schwartz MD Aug 29, 2016 10:15
[2016-08-29] MEDS: Albuterol 1.25 mg/3 mL Inhalation Solution NEB PRN ×2 (13:59→16:17)
--- NOTE | 2016-08-29 14:19 | PCM.PNCARD ---
Subjective Date of service Aug 29, 2016 Chief Complaint bradycardia History of Present Illness 81 yo M with very complicated medical history involving cor pulmonale, prior CABG and mechanical AVR in the admitted with STANTON and bradycardia in the setting of diuretic therapy. Subjective: Patient feels comfortable at rest. He is on IV furosemide and making urine. He continues to have significant anasarca. PROBLEM LIST: # Chronic cor pulmonale from pulm HTN # Atrial fibrillation with slow ventricular response # CABG and mechanical AVR in the # STANTON # Anemia Exam Vital Signs Vital Sign - Last Date Time Temp Pulse Resp B/P Pulse Ox O2 Delivery O2 Flow Rate FiO2 08/29/16 13:40 103 20 95 Nasal Cannula 1.00 08/29/16 12:12 37.0 97/57 08/28/16 08:12 50 Intake and Output 08/28/16 08/28/16 08/29/16 Cumulative From/Thru 14:59 22:59 06:59 08/24/16 08:02 - 08/29/16 06:27 Intake Total 964 ml 870 ml 87922 ml Output Total 550 ml 1400 ml 9175 ml Balance 414 ml -530 ml 4008 ml Intake Oral 857 ml 750 ml 5527 ml IV Total 107 ml 120 ml 7356 ml Packed Cells 300 ml Output Urine Total 550 ml 1400 ml 9175 ml # Voids 2 12 # Bowel Movements 1 2 12 General appearance: No apparent distress, frail elderly, pleasant, cooperative HEET: Normocephalic atraumatic, no scleral icterus, tongue midline, mucous membranes moist Neck: supple Cardiovascular: RRR, normal S1 and normal S2, no murmurs/rubs/gallops, PMI nondisplaced, +JVD, 2+ peripheral edema extending to sacrum Respiratory: Fair aeration, coarse b/l Abdomen: Soft, nontender, nondistended, + bowel sounds Lab and Diagnostics Result Diagram: 08/29/16 0500 08/29/16 0500 X-Rays, CTs and MRIs Echo 08/26/2016: 1) Mild concentric left ventricular hypertrophy with normal size and systolic function (EF 55-60%). 2) Severely dliated right ventricle with severely reduced function. 3) Flattened septum is consistent with RV pressure/volume overload. 4) Mechanical aortic valve present, opens well. Mildly increased mean gradient of 26mHg. 5) Severe tricuspid regurgitation present. 6) Pulmonary hypertension present, estimated systolic pulmonary pressure of 52mmHg. 7) Elevated right sided filling pressures. 8) No prior Echo avaliable for comparison. Assessment & Plan Assessment 81 yo M with very complicated medical history involving cor pulmonale, prior CABG and mechanical AVR in the admitted with STANTON and bradycardia in the setting of diuretic therapy. # Chronic cor pulmonale from Pulm HTN: severe RV failure and significant pulm HTN noted on Echo 08/26/16. With high dose torsemide as outpatient, he had significant STANTON on admission that improved with IVFs. He is clearly hypervolemic and is urinating with furosemide gtt with stable renal function but he continues to have significant anasarca. Plan: - Oxygen therapy - Start dopamine gtt renal perfusion dose to help improve diuresis - Diuresis while closely monitoring the renal function # VT: patient had sustained VT in the hospital that required synchronized cardioversion. Suspect this was due to electrolyte abnormalities as a result of STANTON. No recurrence since. - Continue to monitor # Atrial fibrillation with slow ventricular response: resolved with correction of electrolyte abnormalities. s/p temporary pacer wire that was removed 2016. - Continue warfarin to keep goal INR therapeutic (goal 2.5-3.5). # Mechanical AVR: anticoagulation as above # STANTON: BUN and Cr have improved. Etiology was ischemic ATN. Will monitor renal function with diuresis. # Hypotension: resolved # Anemia: suspect this is due to recent illnesses and IVFs. Continue to monitor serially. # Goals of care: Palliative care saw the patient yesterday and patient and family decided that he is DNR/DNI and not interested in dialysis. He is okay with synchronized cardioversion if that is needed. Problems: Pain Evaluation: Adequate Pain Control VTE Mechanical Devices: Intermittant Pneumatic CD Resuscitation Status: DNR/DNI:Do Not Resuscitate/Intubate Limited Interventions: Medications and IV Fluid Garett Bledsoe MD Aug 29, 2016 14:19
--- NOTE | 2016-08-29 14:32 | PCM.PHAPRO ---
Progress bradycardia WARFARIN MANAGEMENT PER PHARMACY [facility] gsf DFF Date 5-Aug 6-Aug 7-Aug 8-Aug 28-Aug 29-Aug INR 2.37 3.46 2.51 2.06 1.63 1.66 INR change 1.09 -0.95 -0.45 0.03 Warf Dose held held 5 5 7.5 Subtherapeutic INR. Dose not given yesterday evening. Will order warfarin 7.5 mg this evening. Gary Cook, PharmD Gary Cook Aug 29, 2016 14:32
--- NOTE | 2016-08-29 15:18 | DRSVH ---
PROCEDURE: X-RAY CHEST ONE VIEW, PORTABLE ([id number]) INDICATIONS: cough TECHNIQUE: One view of the chest was acquired. COMPARISON: [facility], CR, XR CHEST 1VW (PORTABLE), 08/25/2016, 5:25. FINDINGS: Surgical changes and devices: Post median sternotomy. Stable position of right PICC. Lungs and pleura: Diffuse, widespread bilateral pulmonary interstitial and air space opacities are p resent minimally decreased from prior examination Mediastinum: Mediastinal contours appear normal. Heart size is enlarged. Bones and chest wall: No suspicious bony lesions. Overlying soft tissues appear unremarkable. IMPRESSION: Slight decrease in diffuse edema/pneumonia pattern when compared to prior exam. Dictated by: Juan Mooney RRA Interpreted: Franklin Hernandez MD on 08/29/2016 at 15:17 Transcribed by: ELSA on 08/29/2016 at 15:18 Approved by: Franklin Hernandez M.D. on 08/31/2016 at 16:02
[2016-08-29 15:58] LABS: APPEARANCE,URINE HAZY (CLEAR,HAZY); COLOR,URINE YELLOW (YELLOW); OCCULT BLOOD,URINE TRACE (NEGATIVE); UROBILINOGEN,URINE NORMAL (NORMAL)
--- NOTE | 2016-08-29 16:26 | NUR ---
Shift: VSS, tele Afib 60s-90s, a/o x3, moves all extremities. Pt able to dangle at EOB with PT, very resistant to activity, required firm encouragement to participate. Cardona cath placed with 1 attempt, urine specimen sent to lab, Lasix gtt continues at 10mL/hr, Dopamine gtt started at 5mcg/kg/min. Pt's concerned about increasing levels of confusion and increasing productive cough, MD notified, PRN neb treatments ordered, sputum sample ordered. Pt/spouse instructed to collect sputum if pt coughs something up, specimen cup provided. R Picc line occludes frequently, IV therapy notified and will assess during their rounds. Care ongoing.
[2016-08-29] MEDS: Furosemide Inj 100 MG in 0.9% Sodium Chloride 90 ML IVPUSH SCH (17:27)
[2016-08-29] MEDS: EPINEPHrine 10,000 mCg/250 mL NS IV SCH ×2 (17:33)
--- NOTE | 2016-08-29 18:14 | NUR ---
Wound Wound evaluation received, pt seen at bedside. 81 year old man with past medical history significant for atrial fibrillation on anticoagulation s/p an implantable loop recorder in place for consideration of permanent pacemaker, [facility] [place] mechanical aortic valve, right-sided heart failure, CAD s/p CABG, pulmonary hypertension, and chronic kidney disease who presented to the [facility] emergency department from [facility] ED with initial complaint of coffee-ground emesis and was subsequently found to be bradycardic in the 20s hypotension and depressed mental status. reports pt fell and suffered a fracture at his left hip/femur this was treated orthopedically at [facility]. Today I visualize 3 incisions that are held closed by rené at his right hip. leg is significantly edematous and the proximal incisions are weeping minimally a serous fluid, skin edges of all wounds are approximated and there is no erythema, wounds are cleaned with betadine then covered with xeroform and a adhesive foam dressing, pt was rolled into sidelying to further assess for any pressure related skin issues, none were found. Pt's brief was saturated so the recommendation was made for consideration of Cardona ctheterization. Dressings at hip can be changed by nursing q 48 hrs or PRN for soiling. Wound will recheck on this patient Thursday.
--- NOTE | 2016-08-29 20:10 | PCM.PNMED ---
Subjective Date of Service Aug 29, 2016 Subjective Randy Anand is a 81 year old man with history of atrial fibrillation on anticoagulation s/p implantable loop recorder, mechanical aortic valve, right heart failure, CAD s/p CABG, pulmonary hypertension, and CKD who presented with hematemesis and bradycardia. Admitted for symptomatic bradycardia, STANTON, severe sepsis, and possible acalculous cholecystitis. Overnight: No acute events overnight. Patient Yobany ramos converted to sinus rhythm snoring. Today: He states he feels a bit weak, also has a bit of a non-productive cough with some wheezes, although patient does seem to very weak cough ability., denies chest pain, SOB, fevers, chills, N/V/D. He reports lower extremity edema and scrotal edema. Of note family states the patient's mental status may be just a bit slowed from the days prior. Exam Vital Signs Vital Sign - Last Date Time Temp Pulse Resp B/P Pulse Ox O2 Delivery O2 Flow Rate FiO2 08/29/16 07:50 36.7 97 12 94/56 93 Nasal Cannula 2.00 08/28/16 08:12 50 Intake and Output 08/28/16 08/28/16 08/29/16 Cumulative From/Thru 15:00 23:00 07:00 08/24/16 08:02 - 08/29/16 06:27 Intake Total 964 ml 870 ml 08723 ml Output Total 550 ml 1400 ml 9175 ml Balance 414 ml -530 ml 4008 ml Intake Oral 857 ml 750 ml 5527 ml IV Total 107 ml 120 ml 7356 ml Packed Cells 300 ml Output Urine Total 550 ml 1400 ml 9175 ml # Voids 2 12 # Bowel Movements 1 2 12 Exam General: Alert and oriented today. No acute distress. Head: Normocephalic, atraumatic. External ears without defect. Eyes: Pupils equal, round, and reactive to light and accommodation. Anicteric sclerae, Cardiovascular: Regular rate and rhythm. Mechanical valve sound noted. Pulmonary: Clear to auscultation bilaterally. Abdomen: Bowel tones present. Soft, no tenderness to palpation. No masses appreciated. Extremities: Significant bilateral lower extremity edema Neurological: No gross neurological deficits noted. IVs and Medications Medications Reviewed: Medications were reviewed in detail Lab and Diagnostics Result Diagram: 08/29/16 0500 08/29/16 0500 X-Rays, CTs and MRIs ABDOMEN/PELVIS WITHOUT CONTRAST IMPRESSION: 1. Pericholecystic fluid may raise the question of acute cholecystitis in the appropriate clinical setting. Consider limited abdominal ultrasound for further evaluation as needed. 2. Bibasilar mobile pleural effusions, as well as scattered abdominal and pelvic ascites, of uncertain etiology. 3. Incidental 1.8 cm lateral right renal cortical exophytic cyst. 4. Small fat-containing periumbilical ventral hernia. Dictated by: Enrico Gama M.D. on 08/24/2016 at 7:45 Approved by: Enrico Gama M.D. on 08/24/2016 at 7:55 X-RAY CHEST ONE VIEW, PORTABLE IMPRESSION: Persistent right mid and lower lung air space opacities may represent atelectasis and/or developing pneumonia. Dictated by: Enrico Gama M.D. on 08/24/2016 at 8:45 Approved by: Enrico Gama M.D. on 08/24/2016 at 8:47 X-RAY CHEST ONE VIEW IMPRESSION: 1. New right PICC is present, with tip in expected position. 2. Persistent right lower lung subtle air space opacities may represent atelectasis or early pneumonia. Dictated by: Enrico Gama M.D. on 08/24/2016 at 19:07 Approved by: Enrico Gama M.D. on 08/24/2016 at 19:09 X-RAY CHEST ONE VIEW, PORTABLE IMPRESSION: 1. Stable support lines and tubes. 2. Mild edema and/or pneumonia versus atelectasis involving the lung bases. Dictated by: Juan BECKMAN Interpreted: Yves Dallas MD on 08/25/2016 at 9:26 Approved by: Juan BECKMAN Interpreted: Yves Dallas MD on 08/25/2016 at 9:28 US RENAL SONOGRAM IMPRESSION: 1. A post-renal cause is not identified for acute renal insufficiency. 2. Gallbladder wall thickening as well as pericholecystic fluid may suggest acalculous cholecystitis. 3. Scattered perihepatic ascites again noted. Dictated by: Enrico Gama M.D. on 08/24/2016 at 17:16 Approved by: Enrico Gama M.D. on 08/24/2016 at 17:20 NM HIDA SCAN WITH CCK IMPRESSION: 1. Normal filling of gallbladder. No evidence for acute cholecystitis. 2. Poor contractile response of gallbladder to CCK infusion with gallbladder ejection fraction is 3.1%. This finding is consistent with gallbladder dyskinesia. Dictated by: Yves Dallas M.D. on 08/25/2016 at 16:43 Approved by: Yves Dallas M.D. on 08/25/2016 at 16:44 Assessment & Plan Randy Anand is a 81 year old man with history of atrial fibrillation on anticoagulation s/p implantable loop recorder, mechanical aortic valve, right heart failure, CAD s/p CABG, pulmonary hypertension, and CKD who presented with hematemesis and bradycardia. Admitted for symptomatic bradycardia, STANTON, severe sepsis, and possible acalculous cholecystitis. 1. Chronic cor pulmonale with fluid overload, present on admission. Active. - Pt has history of severe RV failure and significant pulmonary hypertension. Echo 08/26/16 showed mild concentric LVH with EF 55-60%, severe RV dilation with reduced function, flattened septum, mechanical AV, severe TR, and pulmonary hypertension. Will continue to diurese while closely monitoring renal function. - Metolazone 5 mg PO once - Increased non-productive cough today. - Viral PCR pending, - Sputum culture pending. - UA with culture pending. - Cardona placed. - Procalcitonin pending 2. Acute kidney injury on chronic kidney disease, present on admission, acute. Improving. - Secondary to cardiorenal syndrome due to bradycardia caused by hyperkalemia - Nephrology is consulted. We appreciate the expertise and input. - Creatinine on admission 2.48 on 08/24/16, currently 1.60. 08/29/16 3. Anasarca, acute. Not present on admission. Active and improving. - Pt is up 4L total this admission but presents with significant bilateral lower extremity and scrotal edema. - Per Dr. Solano with nephrology, will d/c Lasix drip. - Replace KCL 40 meq IVPB x 1 and KCL 40 meq TID. - IV lasix 40 mg Q 12hr starting tonight. 4. Symptomatic bradycardia, present on admission, acute. Resolved. -Secondary to hyperkalemia in the setting of acute kidney injury. Patient appears to be exquisitely sensitive to hyperkalemia even at a potassium of 5.7. K now normal and bradycardia has since improved, with HR in 80s. He still has a temporary pacer at this time. -Cardiology consulted, appreciate the expertise and input -Patient weaned off epinephrine gtt. Temporary pacemaker removed. 5. Hyperglycemia, acute. Present on admission. Resolved. - Glucose in 170s-180s. A1c 5.7. - Humalog low dose correctional scale. 6. Possible upper GI bleed, present on admission, stable. -Uncertain of cause, however a prior discharge summary describes a history of cirrhosis. EGD 07/01/16 was normal. Colonoscopy 07/01/16 showed 4 polyps, not resected, small internal and medium external hemorrhoids, and 2 areas of possible angiodysplasia in the colon. Received 1U PRBC. -Protonix push BID -If H&H trends down or more hematemesis is noted, will consult GI - Hemoglobin 8.4 up from 7.8 7. Acute constipation. Present on admission. Resolved. - Pt reports no bowel movement for 10 days despite receiving stool softeners, as well as Kayexalate this admission. He has been passing gas. - Will attempt scheduled Senna. If this fails, will start Lactulose. 9. Elevated troponin of uncertain significance, present on admission, acute -Likely secondary to demand ischemia in the setting of right-sided heart failure and severe bradycardia, as well as acute kidney injury. 10. Anion gap metabolic acidosis, present on admission, acute. Resolving. - Likely multifactorial but primarily due to elevated lactate. Lactic acidosis resolved. AG improved from 26 to 19 to 16. - Dr. Harden of Nephrology consulted. 11. Gallbladder dyskinesia, present on admission. Stable. -Initially concern for acalculous cholecystitis given mildly tender RUQ, direct hyperbilirubinemia, elevated alk phos. CT abd showed pericholecystic fluid, US showed gallbladder wall thickening. However, HIDA scan showed gallbladder dyskinesia and no sign of cholecystitis. Surgery has evaluated the patient and he does not require surgery. - Continue to monitor. 12. Pulmonary hypertension with right-sided heart failure, present on admission , acute. Active. - Continue to monitor 13. Mechanical aortic valve, present on admission, acute -Restarted warfarin 14. Macrocytic anemia, present on admission, acute -Uncertain of baseline -Macrocytosis could represent reticulocytes, will order retic count 15. Hip fracture s/p ORIF - Ordered PT to evaluate and help with mobility. 16. Hypovolemia hyponatremia, present on admission, acute -Likely multifactorial due to loses and SSRI, will continue to monitor 17. History of Tegretol toxicity. -Tegretol level normal. 18. Altered mental state. Resolved. -due to severe sepsis and ARF Disposition: Given his cardiac history, CKD, cirrhosis, and recent hip fracture , his prognosis is not favorable. We have consulted Palliative Care to guide a [id number] discussion with the patient and family. He will eventually discharge to [facility], likely in 3-4 days. Pain Evaluation: Adequate Pain Control VTE Mechanical Devices: Intermittant Pneumatic CD Resuscitation Status: DNR/DNI:Do Not Resuscitate/Intubate Limited Interventions: Medications and IV Fluid Attending Statement The patient was seen and examined together with Dr. Woodward on 08/29/2016 and I agree with the history, exam and plan as outlined in the note above. . CEDRICK WOODWARD DO Aug 29, 2016 11:51 Brandon Nielson MD Aug 30, 2016 08:10
--- NOTE | 2016-08-29 23:06 | PCM.PALLBR ---
Palliative Care Recommendation 81 yo male with multiple medical problems including CHF, chronic a. fib, mechanical aortic valve, myelodysplasia, etc. admitted with bradycardia and hypotension, acute on chronic renal failure, electrolyte abnormalities, possible cholecystitis, etc. Clinically improving, though still with significant limitations related to his chronic right heart failure and associated lower extremity edema as well as his recent hip fracture. Palliative medicine consulted to review with patient and family their goals of care. Summary of palliative recommendations 08/29/16 goals of care reviewed with patient and his . POLST is completed. He has difficulty with signing but makes his attempt. His close signs front and back of form. Goals are DNR/DNI/ limited intervention/ no feeding tube. Form completed and copies made for patient and chart Expectations are another 2-3 days at least for diuresing. Patient is not interested in pursuing dialysis in the future. 08/28/16 Weakness and debility-continues most likely due to CHF and recent hip fx. Confusion mild but we both think it best to await his to complete POLST. She has been ill and hopfully can come in tomorrow -Symptom management (Pain/other)- patient in no significant distress. Continued management per his medical/consulting teams. -DPOA/Advanced Directives/POLST- patient has previously expressed wish to be DO NOT RESUSCITATE/DO NOT INTUBATE/limited interventions. He and his are quite confident that he does not want CPR/defibrillation/intubation or mechanical ventilation. They would not want artificial nutrition nor dialysis. He has said he does not want any further chemotherapy for his myelodysplasia/ myeloma. They are quite comfortable with lesser interventions including synchronized cardioversion, IV fluids, antibiotics, etc. They both note that if he reaches a point where it appears as recovery is impossible that he would not want to be kept alive. 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 -Family/emotional support- patient has excellent support locally from his and son. Family is comfortable contemplating obtaining additional caregiver support at home if needed eventually. -Spiritual support- active with their [employer], and comforted by their eloisa. Offered bingo checker visit and they declined at this time. Patient Goals: 1. Patient and his want to be told the truth about his illness, even if it is unpleasant. 2. Patient and his would like to be told prognosis when it can be predicted , to better guide treatment decisions. Additional Medical Diagnoses with primary management by Hospitalist team include : 1. Symptomatic bradycardia, present on admission, acute. Improving. 2. Acute kidney injury on chronic kidney disease, present on admission, acute. Improving. 3. Upper GI bleed, present on admission, acute. Present on admission. 4. Anasarca, acute. Not present on admission. 5. Hyperglycemia, acute. Present on admission. 6. Acute constipation. Present on admission. 7. Severe sepsis, present on admission, acute. Resolving. 8. Elevated troponin of uncertain significance, present on admission, acute 9. Anion gap metabolic acidosis, present on admission, acute. Resolving. 10. Gallbladder dyskinesia, present on admission. 11. Pulmonary hypertension with right-sided heart failure, present on admission , acute 12. Mechanical aortic valve, present on admission, acute 13. Macrocytic anemia, present on admission, acute 14. Hip fracture s/p ORIF 15. Hypovolemia hyponatremia, present on admission, acute 16. History of Tegretol toxicity. 17. Altered mental state. Resolved. Problems: End of Life Preferences DO NOT RESUSCITATE/DO NOT INTUBATE/limited interventions as above Goals of Care Patient and his continue to hope for recovery and eventual return home. They understand that his prognosis is limited- they have been told by his usual line controller that he may have 2-4 years to live Disposition Plan on return to [facility] for further rehabilitation before eventual return home Resuscitation Status Resuscitation Status: DNR/DNI:Do Not Resuscitate/Intubate Limited Interventions: Medications and IV Fluid POLST Updates/Changes Previous POLST?: Yes POLST Last Review Date: Aug 26, 2016 Antibiotics: Use ABX if can Prolong Life Artificially Admin Nutrition: No Artifical Nutrition by Tube POLST Discussed with: Patient, Spouse/Other POLST Review Outcome: New Form Completed (08/29/16 DNR/DNI) . Advanced Care Planning Address: POLST Pain: None Symptom management: Dyspnea, Delirium Total time 30 minutes; >50% face to face with patient and/or family, providing counselling regarding plans and recommendations, and in care coordination with his/her medical teams. I also spent an additional [ ] minutes counseling for advanced care planning with the patient/the patients family/the surrogate decision maker. Palliative Brief Note Date of Service Aug 29, 2016 . Met with patient and his Lucas. She had been out ill for 2 days and was surprised at his confusion. She is well versed in his clinical course otherwise and is progression of disease. He came in with picture of sepsis but no source identified. Cultures negative blood pressure remains borderline low 90/ and he continues to have significant lower extremity and scrotal edema relating to his right heart failure. He also continues to have his mild delirium. He has been managed aggressively by cardiology with known diagnosis of cor pulmonale and pulmonary hypertension with severe right ventricular failure status post AVR and CABG in . Attempts at diuresis improved with addition of IV dobutamine. 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 He and his have been for over 3 years. They have had extensive discussions regarding desired medical interventions and end-of-life issues. She has been gradually taking over all of their affairs he has been first at [facility] more recently at [facility]. Shanique Caldwell MD Aug 29, 2016 23:06
[2016-08-30] VITALS (13 sets, daily range): BP systolic 90–107; BP diastolic 47–65; PULSE 95–108; RESP 15–23; O2SAT 91–96
[2016-08-30] MEDS: Furosemide Inj 100 MG in 0.9% Sodium Chloride 90 ML IVPUSH SCH ×2 (02:57→14:41)
[2016-08-30 03:21] LABS: BASOPHILS % (AUTO) 0.1 % (0-3); EOSINOPHILS % (AUTO) 1.2 % (0-5); MONOCYTES % (AUTO) 2.3 % (4-12); Mean Corpuscular Hemoglobin 31.8 pg (27.0-35.0); Mean Corpuscular Volume 99.7 fL (81-100); NEUTROPHILS % (AUTO) 93.4 % (40-74); Platelet Count 247 bil/L (150-400)
[2016-08-30 03:40] LABS: INR 1.76 ratio
--- NOTE | 2016-08-30 04:48 | NUR ---
Edema Ongoing pitting edema to BLE with anasarca from scrotal edema; lasix gtt infusing and >2L urine output so far this shift. Pt reports significant discomfort from edema and catheter placement; 650mg Tylenol administered x2 this shift with relief upon reassessment. Brief changed PRN d/t weeping. Pt refused turns this shift but compliant with all other care. AOx3 with delayed responses and mild confusion. NC 1.5L in place, SpO2 92-94%. Dressings C/D/I to L hip and arm. VSS. at bedside.
[2016-08-30] MEDS ORDERED: Potassium Chloride Oral 20 mEq SR Tab(K 3 - 3.7 & Creat < 2) PO ONE (05:15)
--- NOTE | 2016-08-30 07:25 | PCM.PHAPRO ---
Progress bradycardia Date 5-Aug 6-Aug 7-Aug 8-b 9-b 10-Aug 11-Aug INR 2.37 3.46 2.51 2.06 1.63 1.66 1.76 INR change 1.09 -0.95 -0.45 0.03 0.1 Warf Dose held held ? 5 ? 7.5 5 Daniel Monroe Aug 30, 2016 07:25
[2016-08-30] MEDS: Pantoprazole 4 mg/mL 10 mL Inj IVPUSH SCH ×2 (07:48→17:36)
[2016-08-30] MEDS: carBAMazepine 200 mg Tablet PO SCH ×2 (07:53→20:42)
[2016-08-30] MEDS: Insulin LISPRO 300 Unit/3 mL Inj SUBQ SCH ×4 (07:53→20:42)
[2016-08-30] MEDS ORDERED: Albuterol-Ipratropium 3 mL Inhalation Solution NEB ONE (08:10)
[2016-08-30] MEDS ORDERED: acetaZOLAMIDE 250 mg Tablet PO ONE (11:25)
--- NOTE | 2016-08-30 11:29 | PCM.PNCARD ---
Subjective Date of service Aug 30, 2016 Chief Complaint bradycardia History of Present Illness 81 yo M with very complicated medical history involving cor pulmonale, prior CABG and mechanical AVR in the admitted with STANTON and bradycardia in the setting of diuretic therapy. Subjective: Patient feels comfortable at rest. He was started on IV dopamine gtt and his diuresis improved significantly. He participated in PT today but got tired very easily. PROBLEM LIST: # Chronic cor pulmonale from pulm HTN # Atrial fibrillation with slow ventricular response # CABG and mechanical AVR in the # STANTON # Anemia Exam Vital Signs Vital Sign - Last Date Time Temp Pulse Resp B/P Pulse Ox O2 Delivery O2 Flow Rate FiO2 08/30/16 10:59 99 17 93 Nasal Cannula 1.50 08/30/16 07:32 36.8 104/65 08/28/16 08:12 50 Intake and Output 08/29/16 08/29/16 08/30/16 Cumulative From/Thru 14:59 22:59 06:59 08/24/16 08:02 - 08/30/16 06:24 Intake Total 1149 ml 1219 ml 76960 ml Output Total 700 ml 2775 ml 93530 ml Balance 449 ml -1556 ml 2901 ml Intake Oral 460 ml 1000 ml 6987 ml IV Total 689 ml 219 ml 8264 ml Packed Cells 300 ml Output Urine Total 700 ml 2775 ml 48373 ml # Voids 3 15 # Bowel Movements 1 13 General appearance: No apparent distress, frail elderly, pleasant, cooperative HEET: Normocephalic atraumatic, no scleral icterus, tongue midline, mucous membranes moist Neck: supple Cardiovascular: RRR, normal S1 and normal S2, no murmurs/rubs/gallops, PMI nondisplaced, +JVD, 2+ peripheral edema extending to sacrum Respiratory: Fair aeration, coarse b/l Abdomen: Soft, nontender, nondistended, + bowel sounds Lab and Diagnostics Result Diagram: 08/30/1630908/30/16 031 X-Rays, CTs and MRIs Echo 08/26/2016: 1) Mild concentric left ventricular hypertrophy with normal size and systolic function (EF 55-60%). 2) Severely dliated right ventricle with severely reduced function. 3) Flattened septum is consistent with RV pressure/volume overload. 4) Mechanical aortic valve present, opens well. Mildly increased mean gradient of 26mHg. 5) Severe tricuspid regurgitation present. 6) Pulmonary hypertension present, estimated systolic pulmonary pressure of 52mmHg. 7) Elevated right sided filling pressures. 8) No prior Echo avaliable for comparison. Assessment & Plan Assessment 81 yo M with very complicated medical history involving cor pulmonale, prior CABG and mechanical AVR in the admitted with STANTON and bradycardia in the setting of diuretic therapy. # Chronic cor pulmonale from Pulm HTN: severe RV failure and significant pulm HTN noted on Echo 08/26/16. With high dose torsemide as outpatient, he had significant STANTON on admission that improved with IVFs. He is now clearly hypervolemic and has significant anasarca. His urine output was marginal with IV furosemide alone but addition of dopamine gtt has significantly improved diuresis. Plan: - Oxygen therapy - Continue dopamine gtt renal perfusion dose to continue with IV diuresis - Acetazolamide 500mg PO X1 today to decrease rising CO2 - Diuresis with IV furosemide gtt while closely monitoring the renal function # VT: patient had sustained VT in the hospital that required synchronized cardioversion. Suspect this was due to electrolyte abnormalities as a result of STANTON. No recurrence since. - Continue to monitor # Atrial fibrillation with slow ventricular response: resolved with correction of electrolyte abnormalities. s/p temporary pacer wire that was removed 2016. - Continue warfarin to keep goal INR therapeutic (goal 2.5-3.5). # Mechanical AVR: anticoagulation as above # STANTON: BUN and Cr have improved. Etiology was ischemic ATN. Will monitor renal function with diuresis. # Hypotension: resolved # Anemia: suspect this is due to recent illnesses and IVFs. Continue to monitor serially. # Goals of care: Palliative care consulted and following and patient and family decided that he is DNR/DNI and not interested in dialysis. He is okay with synchronized cardioversion if that is needed. Problems: Pain Evaluation: Adequate Pain Control VTE Mechanical Devices: Intermittant Pneumatic CD Resuscitation Status: DNR/DNI:Do Not Resuscitate/Intubate Limited Interventions: Medications and IV Fluid Garett Bledsoe MD Aug 30, 2016 11:29
--- NOTE | 2016-08-30 11:36 | NUR ---
RIVAS RIVAS signed by patient's
--- NOTE | 2016-08-30 12:30 | PCM.PNMED ---
Subjective Date of Service Aug 30, 2016 Subjective good UOP. scrotal swelling improved. (+) LE swelling. on dopamine and IV lasix drip at 10 mg/hr. (+) nausea/vomiting x 1 in am. (+) tired and weak. Exam Vital Signs Vital Sign - Last Date Time Temp Pulse Resp B/P Pulse Ox O2 Delivery O2 Flow Rate FiO2 08/30/16 11:16 99 16 94 Nasal Cannula 1.50 08/30/16 07:32 36.8 104/65 08/28/16 08:12 50 Intake and Output 08/29/16 08/29/16 08/30/16 Cumulative From/Thru 15:00 23:00 07:00 08/24/16 08:02 - 08/30/16 06:24 Intake Total 1149 ml 1219 ml 71696 ml Output Total 700 ml 2775 ml 82202 ml Balance 449 ml -1556 ml 2901 ml Intake Oral 460 ml 1000 ml 6987 ml IV Total 689 ml 219 ml 8264 ml Packed Cells 300 ml Output Urine Total 700 ml 2775 ml 51823 ml # Voids 3 15 # Bowel Movements 1 13 Exam General:chronically ill looking, in non acute distress. HEENT: Normocephalic, atraumatic. External ears without defect. PERRLA. Neck: no JVD. no lymphadenopathy. Cardiovascular: valve click, regular rhythm, systolic murmur, HR 100-110s. Pulmonary: fine crackles at bases, no wheezing. no accessory muscle use. Abdomen: soft, NT, mild distension,no hepatosplenomegaly or masses appreciated. Extremities: 2+ edema with sacral and decreased scrotal swelling. Lab and Diagnostics Result Diagram: 08/30/1630908/30/16 0310 X-Rays, CTs and MRIs ABDOMEN/PELVIS WITHOUT CONTRAST IMPRESSION: 1. Pericholecystic fluid may raise the question of acute cholecystitis in the appropriate clinical setting. Consider limited abdominal ultrasound for further evaluation as needed. 2. Bibasilar mobile pleural effusions, as well as scattered abdominal and pelvic ascites, of uncertain etiology. 3. Incidental 1.8 cm lateral right renal cortical exophytic cyst. 4. Small fat-containing periumbilical ventral hernia. Dictated by: Enrico Gama M.D. on 08/24/2016 at 7:45 Approved by: Enrico Gama M.D. on 08/24/2016 at 7:55 X-RAY CHEST ONE VIEW, PORTABLE IMPRESSION: Persistent right mid and lower lung air space opacities may represent atelectasis and/or developing pneumonia. Dictated by: Enrico Gama M.D. on 08/24/2016 at 8:45 Approved by: Enrico Gama M.D. on 08/24/2016 at 8:47 X-RAY CHEST ONE VIEW IMPRESSION: 1. New right PICC is present, with tip in expected position. 2. Persistent right lower lung subtle air space opacities may represent atelectasis or early pneumonia. Dictated by: Enrico Gama M.D. on 08/24/2016 at 19:07 Approved by: Enrico Gama M.D. on 08/24/2016 at 19:09 X-RAY CHEST ONE VIEW, PORTABLE IMPRESSION: 1. Stable support lines and tubes. 2. Mild edema and/or pneumonia versus atelectasis involving the lung bases. Dictated by: Juan BECKMAN Interpreted: Yves Dallas MD on 08/25/2016 at 9:26 Approved by: Juan BECKMAN Interpreted: Yves Dallas MD on 08/25/2016 at 9:28 US RENAL SONOGRAM IMPRESSION: 1. A post-renal cause is not identified for acute renal insufficiency. 2. Gallbladder wall thickening as well as pericholecystic fluid may suggest acalculous cholecystitis. 3. Scattered perihepatic ascites again noted. Dictated by: Enrico Gama M.D. on 08/24/2016 at 17:16 Approved by: Enrico Gama M.D. on 08/24/2016 at 17:20 NM HIDA SCAN WITH CCK IMPRESSION: 1. Normal filling of gallbladder. No evidence for acute cholecystitis. 2. Poor contractile response of gallbladder to CCK infusion with gallbladder ejection fraction is 3.1%. This finding is consistent with gallbladder dyskinesia. Dictated by: Yves Dallas M.D. on 08/25/2016 at 16:43 Approved by: Yves Dallas M.D. on 08/25/2016 at 16:44 Assessment & Plan 1. STANTON - cardiorenal syndrome. - improving. 2. Acute on chronic right sided heart failure. 3. Suspected overdiuresis - worsening metabolic alkalosis. - hyponatremia, hypochloremia. 4. Hypokalemia. 5. Anemia s/p blood transfusion. 6. s/p mechanical AVR. 7. Chronic Afib. Plan: decrease lasix gtt to 5 mg/hr. add diamox 500 mg PO x 1. replace KCL 40 meq x1. 2g Na per day. Check serum osm. VTE Mechanical Devices: Intermittant Pneumatic CD Resuscitation Status: DNR/DNI:Do Not Resuscitate/Intubate Limited Interventions: Medications and IV Fluid Aris Schwartz MD Aug 30, 2016 12:30
--- NOTE | 2016-08-30 14:45 | PCM.PNMED ---
Subjective Date of Service Aug 30, 2016 Subjective Randy Anand is a 81 year old man with history of atrial fibrillation on anticoagulation s/p implantable loop recorder, mechanical aortic valve, right heart failure, CAD s/p CABG, pulmonary hypertension, and CKD who presented with hematemesis and bradycardia. Admitted for symptomatic bradycardia, STANTON, severe sepsis, and possible acalculous cholecystitis. Overnight: No acute events overnight. Today: He states he feels better than yesterday and at bedside states that he looks better and sounds better than yesterday. His cough continues largely nonproductive from the day before however it is more productive and sounds a bit more rhonchorous. Continues to experience and expiratory wheezes. Patient does seem to very weak cough ability. Denies chest pain, SOB, fevers, chills, N /V/D. He reports lower extremity edema and scrotal edema is improving from the day before. Exam Vital Signs Vital Sign - Last Date Time Temp Pulse Resp B/P Pulse Ox O2 Delivery O2 Flow Rate FiO2 08/30/16 07:32 36.8 101 15 104/65 92 1.50 08/30/16 07:32 Supplement Oxygen 08/28/16 08:12 50 Intake and Output 08/29/16 08/29/16 08/30/16 Cumulative From/Thru 15:00 23:00 07:00 08/24/16 08:02 - 08/30/16 06:24 Intake Total 1149 ml 1219 ml 93527 ml Output Total 700 ml 2775 ml 72910 ml Balance 449 ml -1556 ml 2901 ml Intake Oral 460 ml 1000 ml 6987 ml IV Total 689 ml 219 ml 8264 ml Packed Cells 300 ml Output Urine Total 700 ml 2775 ml 86591 ml # Voids 3 15 # Bowel Movements 1 13 Exam General: Alert and oriented today. No acute distress. Head: Normocephalic, atraumatic. External ears without defect. Eyes: Pupils equal, round, and reactive to light and accommodation. Anicteric sclerae, Cardiovascular: Regular rate and rhythm. Mechanical valve sound noted. Pulmonary: Clear to auscultation bilaterally. Abdomen: Bowel tones present. Soft, no tenderness to palpation. No masses appreciated. Extremities: Significant bilateral lower extremity edema Neurological: No gross neurological deficits noted. IVs and Medications Medications Reviewed: Medications were reviewed in detail Lab and Diagnostics Result Diagram: 08/30/1630908/30/16309 X-Rays, CTs and MRIs ABDOMEN/PELVIS WITHOUT CONTRAST IMPRESSION: 1. Pericholecystic fluid may raise the question of acute cholecystitis in the appropriate clinical setting. Consider limited abdominal ultrasound for further evaluation as needed. 2. Bibasilar mobile pleural effusions, as well as scattered abdominal and pelvic ascites, of uncertain etiology. 3. Incidental 1.8 cm lateral right renal cortical exophytic cyst. 4. Small fat-containing periumbilical ventral hernia. Dictated by: Enrico Gama M.D. on 08/24/2016 at 7:45 Approved by: Enrico Gama M.D. on 08/24/2016 at 7:55 X-RAY CHEST ONE VIEW, PORTABLE IMPRESSION: Persistent right mid and lower lung air space opacities may represent atelectasis and/or developing pneumonia. Dictated by: Enrico Gama M.D. on 08/24/2016 at 8:45 Approved by: Enrico Gama M.D. on 08/24/2016 at 8:47 X-RAY CHEST ONE VIEW IMPRESSION: 1. New right PICC is present, with tip in expected position. 2. Persistent right lower lung subtle air space opacities may represent atelectasis or early pneumonia. Dictated by: Enrico Gama M.D. on 08/24/2016 at 19:07 Approved by: Enrico Gama M.D. on 08/24/2016 at 19:09 X-RAY CHEST ONE VIEW, PORTABLE IMPRESSION: 1. Stable support lines and tubes. 2. Mild edema and/or pneumonia versus atelectasis involving the lung bases. Dictated by: Juan BECKMAN Interpreted: Yves Dallas MD on 08/25/2016 at 9:26 Approved by: Juan BECKMAN Interpreted: Yves Dallas MD on 08/25/2016 at 9:28 US RENAL SONOGRAM IMPRESSION: 1. A post-renal cause is not identified for acute renal insufficiency. 2. Gallbladder wall thickening as well as pericholecystic fluid may suggest acalculous cholecystitis. 3. Scattered perihepatic ascites again noted. Dictated by: Enrico Gama M.D. on 08/24/2016 at 17:16 Approved by: Enrico Gama M.D. on 08/24/2016 at 17:20 NM HIDA SCAN WITH CCK IMPRESSION: 1. Normal filling of gallbladder. No evidence for acute cholecystitis. 2. Poor contractile response of gallbladder to CCK infusion with gallbladder ejection fraction is 3.1%. This finding is consistent with gallbladder dyskinesia. Dictated by: Yves Dallas M.D. on 08/25/2016 at 16:43 Approved by: Yves Dallas M.D. on 08/25/2016 at 16:44 Assessment & Plan Randy Anand is a 81 year old man with history of atrial fibrillation on anticoagulation s/p implantable loop recorder, mechanical aortic valve, right heart failure, CAD s/p CABG, pulmonary hypertension, and CKD who presented with hematemesis and bradycardia. Admitted for symptomatic bradycardia, STANTON, severe sepsis, and possible acalculous cholecystitis. 1. Chronic cor pulmonale with fluid overload, present on admission. Active. - Pt has history of severe RV failure and significant pulmonary hypertension. Echo 08/26/16 showed mild concentric LVH with EF 55-60%, severe RV dilation with reduced function, flattened septum, mechanical AV, severe TR, and pulmonary hypertension. Will continue to diurese while closely monitoring renal function. - Metolazone 5 mg PO once. - Increased non-productive cough today. - Sputum culture pending. - UA with culture negative. - Cardona placed. - Procalcitonin 0.40. 2. Acute kidney injury on chronic kidney disease, present on admission, acute. Improving. - Secondary to cardiorenal syndrome due to bradycardia caused by hyperkalemia - Nephrology is consulted. We appreciate the expertise and input. - Creatinine on admission 2.48 on 08/24/16, currently 1.50 - 08/30/2016. - Following ins and outs. - Decrease lasix gtt to 5 mg/hr. - Diamox 500 mg PO x 1. - KCL 40 meq x1. - 2g Na per day. - Check serum osm. 3. Anasarca, acute. Not present on admission. Active and improving. - Pt is up 4L total this admission but presents with significant bilateral lower extremity and scrotal edema. - Per Dr. Solano with nephrology, will d/c Lasix drip. - Replace KCL 40 meq IVPB x 1 and KCL 40 meq TID. - IV lasix 40 mg Q 12hr starting tonight. 4. Symptomatic bradycardia, present on admission, acute. Resolved. -Secondary to hyperkalemia in the setting of acute kidney injury. Patient appears to be exquisitely sensitive to hyperkalemia even at a potassium of 5.7. K now normal and bradycardia has since improved, with HR in 80s. He still has a temporary pacer at this time. -Cardiology consulted, appreciate the expertise and input -Patient weaned off epinephrine gtt. Temporary pacemaker removed. 5. Hyperglycemia, acute. Present on admission. Resolved. - Glucose in 170s-180s. A1c 5.7. - Humalog low dose correctional scale. 6. Possible upper GI bleed, present on admission, stable. -Uncertain of cause, however a prior discharge summary describes a history of cirrhosis. EGD 07/01/16 was normal. Colonoscopy 07/01/16 showed 4 polyps, not resected, small internal and medium external hemorrhoids, and 2 areas of possible angiodysplasia in the colon. Received 1U PRBC. -Protonix push BID -If H&H trends down or more hematemesis is noted, will consult GI - Hemoglobin 8.4 up from 7.8 7. Acute constipation. Present on admission. Resolved. - Pt reports no bowel movement for 10 days despite receiving stool softeners, as well as Kayexalate this admission. He has been passing gas. - Will attempt scheduled Senna. If this fails, will start Lactulose. 9. Elevated troponin of uncertain significance, present on admission, acute -Likely secondary to demand ischemia in the setting of right-sided heart failure and severe bradycardia, as well as acute kidney injury. 10. Anion gap metabolic acidosis, present on admission, acute. Resolving. - Likely multifactorial but primarily due to elevated lactate. Lactic acidosis resolved. AG improved from 26 to 19 to 16. - Dr. Harden of Nephrology consulted. 11. Gallbladder dyskinesia, present on admission. Stable. -Initially concern for acalculous cholecystitis given mildly tender RUQ, direct hyperbilirubinemia, elevated alk phos. CT abd showed pericholecystic fluid, US showed gallbladder wall thickening. However, HIDA scan showed gallbladder dyskinesia and no sign of cholecystitis. Surgery has evaluated the patient and he does not require surgery. - Continue to monitor. 12. Pulmonary hypertension with right-sided heart failure, present on admission , acute. Active. - Continue to monitor 13. Mechanical aortic valve, present on admission, acute -Restarted warfarin 14. Macrocytic anemia, present on admission, acute -Uncertain of baseline -Macrocytosis could represent reticulocytes, will order retic count 15. Hip fracture s/p ORIF - Ordered PT to evaluate and help with mobility. 16. Hypovolemia hyponatremia, present on admission, acute -Likely multifactorial due to loses and SSRI, will continue to monitor 17. History of Tegretol toxicity. -Tegretol level normal. 18. Altered mental state. Resolved. -due to severe sepsis and ARF Disposition: Given his cardiac history, CKD, cirrhosis, and recent hip fracture , his prognosis is not favorable. We have consulted Palliative Care to guide a [id number] discussion with the patient and family. He will eventually discharge to [facility], likely in 3-4 days. Pain Evaluation: Adequate Pain Control VTE Mechanical Devices: Intermittant Pneumatic CD Resuscitation Status: DNR/DNI:Do Not Resuscitate/Intubate Limited Interventions: Medications and IV Fluid Attending Statement The patient was seen and examined together with Dr. Woodward on 08/30/2016 and I agree with the history, exam and plan as outlined in the note above. . CEDRICK WOODWARD DO Aug 30, 2016 07:47 Brandon Nielson MD Aug 31, 2016 08:00
--- NOTE | 2016-08-30 15:20 | NUR ---
Social Work Brief Note: Data & Assessment: EMR reviewed. Patient is a 81 y/o male on his seventh day of hospitalization. Patient's was at bedside. Palliative has been consulted and is on the case. Patient is currently on nasal Cannular and Oxymizer. Patient will likely discharge back to [facility]. SW will continue to follow and assist throughout stay. Plan: Patient is likely to discharge back to [facility]. SW will continue to follow. Snehal Melendez LMSW, LASHAUN
[2016-08-31] VITALS (8 sets, daily range): BP systolic 84–118; BP diastolic 59–66; PULSE 99–105; RESP 18–22; O2SAT 89–93
[2016-08-31 04:05] LABS: BASOPHILS % (AUTO) 0.1 % (0-3); EOSINOPHILS % (AUTO) 1.5 % (0-5); MONOCYTES % (AUTO) 2.6 % (4-12); Mean Corpuscular Hemoglobin 31.4 pg (27.0-35.0); Platelet Count 256 bil/L (150-400)
[2016-08-31 04:29] LABS: INR 2.2 ratio
--- NOTE | 2016-08-31 05:12 | NUR ---
Respiratory Pt on 1.5L NC throughout shift, intermittent desaturations to 87-89%; pt increased to 2L NC this AM with SpO2 increase to 89-92%. Pt denies feeling dyspneic; frequent production of thick yellow sputum. VSS. Lasix gtt and dopamine gtt infusing. Tele afib 100s. Pt denies any pain. Ongoing waist-down edema, extremities elevated, SCDs in place, pt positioned on side intermittently. Dressings C/D/I.
[2016-08-31] MEDS ORDERED: Potassium Chloride Oral 20 mEq SR Tab(K 3 - 3.7 & Creat < 2) PO ONE (06:50)
[2016-08-31] MEDS: Insulin LISPRO 300 Unit/3 mL Inj SUBQ SCH ×4 (08:00→22:00)
[2016-08-31] MEDS: carBAMazepine 200 mg Tablet PO SCH ×2 (10:08→20:20)
[2016-08-31] MEDS: Pantoprazole 4 mg/mL 10 mL Inj IVPUSH SCH ×2 (10:09→16:12)
[2016-08-31] MEDS: Furosemide Inj 100 MG in 0.9% Sodium Chloride 90 ML IVPUSH SCH (10:42)
[2016-08-31] MEDS ORDERED: acetaZOLAMIDE 250 mg Tablet PO ONE ×2 (11:00→13:15)
--- NOTE | 2016-08-31 13:13 | PCM.PNCARD ---
Subjective Date of service Aug 31, 2016 Chief Complaint bradycardia History of Present Illness 81 yo M with very complicated medical history involving cor pulmonale, prior CABG and mechanical AVR in the admitted with STANTON and bradycardia in the setting of diuretic therapy. Subjective: Patient feels comfortable at rest. He had a difficulty night due to coughing. He is tired today. PROBLEM LIST: # Chronic cor pulmonale from pulm HTN # Atrial fibrillation with slow ventricular response # CABG and mechanical AVR in the # STANTON # Anemia Exam Vital Signs Vital Sign - Last Date Time Temp Pulse Resp B/P Pulse Ox O2 Delivery O2 Flow Rate FiO2 08/31/16 10:14 102 08/31/16 07:53 37.1 20 110/60 93 Nasal Cannula 3.00 08/28/16 08:12 50 Intake and Output 08/30/16 08/30/16 08/31/16 Cumulative From/Thru 15:00 23:00 07:00 08/24/16 08:02 - 08/31/16 05:54 Intake Total 684 ml 464 ml 60667 ml Output Total 2100 ml 1600 ml 96331 ml Balance -1416 ml -1136 ml 349 ml Intake Oral 480 ml 300 ml 7767 ml IV Total 204 ml 164 ml 8632 ml Packed Cells 300 ml Output Urine Total 2100 ml 1600 ml 56120 ml # Voids 15 # Bowel Movements 0 13 General appearance: No apparent distress, frail elderly, pleasant, cooperative HEET: Normocephalic atraumatic, no scleral icterus, tongue midline, mucous membranes moist Neck: supple Cardiovascular: RRR, normal S1 and normal S2, no murmurs/rubs/gallops, PMI nondisplaced, +JVD, 2+ peripheral edema extending to sacrum (improved from yesterday) Respiratory: Fair aeration, coarse b/l Abdomen: Soft, nontender, nondistended, + bowel sounds Lab and Diagnostics Result Diagram: 08/31/16 03508/31/16 035 X-Rays, CTs and MRIs Echo 08/26/2016: 1) Mild concentric left ventricular hypertrophy with normal size and systolic function (EF 55-60%). 2) Severely dliated right ventricle with severely reduced function. 3) Flattened septum is consistent with RV pressure/volume overload. 4) Mechanical aortic valve present, opens well. Mildly increased mean gradient of 26mHg. 5) Severe tricuspid regurgitation present. 6) Pulmonary hypertension present, estimated systolic pulmonary pressure of 52mmHg. 7) Elevated right sided filling pressures. 8) No prior Echo avaliable for comparison. Assessment & Plan Assessment 81 yo M with very complicated medical history involving cor pulmonale, prior CABG and mechanical AVR in the admitted with STANTON and bradycardia in the setting of diuretic therapy. # Chronic cor pulmonale from Pulm HTN: severe RV failure and significant pulm HTN noted on Echo 08/26/16. With high dose torsemide as outpatient, he had significant STANTON on admission that improved with IVFs. He is now clearly hypervolemic and has significant anasarca which is slowly improving with IV furosemide and IV dopamine gtt. Plan: - Oxygen therapy - Continue dopamine gtt renal perfusion dose to continue with IV diuresis - Acetazolamide 500mg PO X1 again today to stabilize/decrease rising CO2 - Diuresis with IV furosemide gtt while closely monitoring the renal function - Continue spironolactone 25mg daily # VT: patient had sustained VT in the hospital that required synchronized cardioversion. Suspect this was due to electrolyte abnormalities as a result of STANTON. No recurrence since. - Continue to monitor # Atrial fibrillation with slow ventricular response: resolved with correction of electrolyte abnormalities. s/p temporary pacer wire that was removed 2016. - Continue warfarin to keep goal INR therapeutic (goal 2.5-3.5). # Mechanical AVR: anticoagulation as above # STANTON: BUN and Cr have improved. Etiology was ischemic ATN. Will monitor renal function with diuresis. # Hypotension: resolved # Anemia: suspect this is due to recent illnesses and IVFs. Continue to monitor serially. # Goals of care: Palliative care consulted and following and patient and family decided that he is DNR/DNI and not interested in dialysis. He is okay with synchronized cardioversion if that is needed. Problems: Pain Evaluation: Adequate Pain Control VTE Mechanical Devices: Intermittant Pneumatic CD Resuscitation Status: DNR/DNI:Do Not Resuscitate/Intubate Limited Interventions: Medications and IV Fluid Garett Bledsoe MD Aug 31, 2016 13:13
--- NOTE | 2016-08-31 13:53 | PCM.PNMED ---
Subjective Date of Service Aug 31, 2016 Subjective tired, cough, (+) RSV and coronavirus. good UOP with IV lasix and dopamine. Exam Vital Signs Vital Sign - Last Date Time Temp Pulse Resp B/P Pulse Ox O2 Delivery O2 Flow Rate FiO2 08/31/16 10:14 102 08/31/16 07:53 37.1 20 110/60 93 Nasal Cannula 3.00 08/28/16 08:12 50 Intake and Output 08/30/16 08/30/16 08/31/16 Cumulative From/Thru 15:00 23:00 07:00 08/24/16 08:02 - 08/31/16 05:54 Intake Total 684 ml 464 ml 84506 ml Output Total 2100 ml 1600 ml 08162 ml Balance -1416 ml -1136 ml 349 ml Intake Oral 480 ml 300 ml 7767 ml IV Total 204 ml 164 ml 8632 ml Packed Cells 300 ml Output Urine Total 2100 ml 1600 ml 18866 ml # Voids 15 # Bowel Movements 0 13 Exam General:chronically ill looking, in non acute distress. HEENT: Normocephalic, atraumatic. External ears without defect. PERRLA. Neck: no JVD. no lymphadenopathy. Cardiovascular: valve click, regular rhythm, systolic murmur, HR 100-110s. Pulmonary: fine crackles at bases, no wheezing. no accessory muscle use. Abdomen: soft, NT, mild distension,no hepatosplenomegaly or masses appreciated. Extremities: 2+ edema with sacral and decreased scrotal swelling. Lab and Diagnostics Result Diagram: 08/31/16 0355 08/31/16 0355 X-Rays, CTs and MRIs ABDOMEN/PELVIS WITHOUT CONTRAST IMPRESSION: 1. Pericholecystic fluid may raise the question of acute cholecystitis in the appropriate clinical setting. Consider limited abdominal ultrasound for further evaluation as needed. 2. Bibasilar mobile pleural effusions, as well as scattered abdominal and pelvic ascites, of uncertain etiology. 3. Incidental 1.8 cm lateral right renal cortical exophytic cyst. 4. Small fat-containing periumbilical ventral hernia. Dictated by: Enrico Gama M.D. on 08/24/2016 at 7:45 Approved by: Enrico Gama M.D. on 08/24/2016 at 7:55 X-RAY CHEST ONE VIEW, PORTABLE IMPRESSION: Persistent right mid and lower lung air space opacities may represent atelectasis and/or developing pneumonia. Dictated by: Enrico Gama M.D. on 08/24/2016 at 8:45 Approved by: Enrico Gama M.D. on 08/24/2016 at 8:47 X-RAY CHEST ONE VIEW IMPRESSION: 1. New right PICC is present, with tip in expected position. 2. Persistent right lower lung subtle air space opacities may represent atelectasis or early pneumonia. Dictated by: Enrico Gama M.D. on 08/24/2016 at 19:07 Approved by: Enrico Gama M.D. on 08/24/2016 at 19:09 X-RAY CHEST ONE VIEW, PORTABLE IMPRESSION: 1. Stable support lines and tubes. 2. Mild edema and/or pneumonia versus atelectasis involving the lung bases. Dictated by: Juan BECKMAN Interpreted: Yves Dallas MD on 08/25/2016 at 9:26 Approved by: Juan BECKMAN Interpreted: Yves Dallas MD on 08/25/2016 at 9:28 US RENAL SONOGRAM IMPRESSION: 1. A post-renal cause is not identified for acute renal insufficiency. 2. Gallbladder wall thickening as well as pericholecystic fluid may suggest acalculous cholecystitis. 3. Scattered perihepatic ascites again noted. Dictated by: Enrico Gama M.D. on 08/24/2016 at 17:16 Approved by: Enrico Gama M.D. on 08/24/2016 at 17:20 NM HIDA SCAN WITH CCK IMPRESSION: 1. Normal filling of gallbladder. No evidence for acute cholecystitis. 2. Poor contractile response of gallbladder to CCK infusion with gallbladder ejection fraction is 3.1%. This finding is consistent with gallbladder dyskinesia. Dictated by: Yves Dallas M.D. on 08/25/2016 at 16:43 Approved by: Yves Dallas M.D. on 08/25/2016 at 16:44 Assessment & Plan 1. STANTON - cardiorenal syndrome. - improving. 2. Acute on chronic right sided heart failure. 3. RSV and Coronavirus infection. 4. Hypokalemia. 5. Anemia s/p blood transfusion. 6. s/p mechanical AVR. 7. Chronic Afib. Plan: continue lasix gtt to 5 mg/hr. add diamox 500 mg PO x 1. replace KCL 40 meq x1. 2g Na per day. VTE Mechanical Devices: Intermittant Pneumatic CD Resuscitation Status: DNR/DNI:Do Not Resuscitate/Intubate Limited Interventions: Medications and IV Fluid Aris Schwartz MD Aug 31, 2016 13:53
--- NOTE | 2016-08-31 16:53 | PCM.PNMED ---
Subjective Date of Service Aug 31, 2016 Subjective Overnight: He had been feeling short of breath, coughing up thick yellow sputum. Today: He reports shortness of breath, productive cough, wheezing, and constipation. No other complaints at this time. Exam Vital Signs Vital Sign - Last Date Time Temp Pulse Resp B/P Pulse Ox O2 Delivery O2 Flow Rate FiO2 08/31/16 11:30 36.9 99 20 103/59 92 Nasal Cannula 08/31/16 07:53 3.00 08/28/16 08:12 50 Intake and Output 08/30/16 08/30/16 08/31/16 Cumulative From/Thru 15:00 23:00 07:00 08/24/16 08:02 - 08/31/16 05:54 Intake Total 684 ml 464 ml 44321 ml Output Total 2100 ml 1600 ml 61787 ml Balance -1416 ml -1136 ml 349 ml Intake Oral 480 ml 300 ml 7767 ml IV Total 204 ml 164 ml 8632 ml Packed Cells 300 ml Output Urine Total 2100 ml 1600 ml 67972 ml # Voids 15 # Bowel Movements 0 13 Exam General: Alert and oriented today. No acute distress. Head: Normocephalic, atraumatic. External ears without defect. Eyes: Pupils equal, round, and reactive to light and accommodation. Anicteric sclerae, Cardiovascular: Regular rate and rhythm. Mechanical valve sound noted. Pulmonary: Wheezes bilaterally Abdomen: Bowel tones present. Soft, no tenderness to palpation. No masses appreciated. Extremities: Improving bilateral lower extremity edema Neurological: No gross neurological deficits noted. Lab and Diagnostics Result Diagram: 08/31/16 0355 08/31/16 0355 X-Rays, CTs and MRIs ABDOMEN/PELVIS WITHOUT CONTRAST IMPRESSION: 1. Pericholecystic fluid may raise the question of acute cholecystitis in the appropriate clinical setting. Consider limited abdominal ultrasound for further evaluation as needed. 2. Bibasilar mobile pleural effusions, as well as scattered abdominal and pelvic ascites, of uncertain etiology. 3. Incidental 1.8 cm lateral right renal cortical exophytic cyst. 4. Small fat-containing periumbilical ventral hernia. Dictated by: Enrico Gama M.D. on 08/24/2016 at 7:45 Approved by: Enrico Gama M.D. on 08/24/2016 at 7:55 X-RAY CHEST ONE VIEW, PORTABLE IMPRESSION: Persistent right mid and lower lung air space opacities may represent atelectasis and/or developing pneumonia. Dictated by: Enrico Gama M.D. on 08/24/2016 at 8:45 Approved by: Enrico Gama M.D. on 08/24/2016 at 8:47 X-RAY CHEST ONE VIEW IMPRESSION: 1. New right PICC is present, with tip in expected position. 2. Persistent right lower lung subtle air space opacities may represent atelectasis or early pneumonia. Dictated by: Enrico Gama M.D. on 08/24/2016 at 19:07 Approved by: Enrico Gama M.D. on 08/24/2016 at 19:09 X-RAY CHEST ONE VIEW, PORTABLE IMPRESSION: 1. Stable support lines and tubes. 2. Mild edema and/or pneumonia versus atelectasis involving the lung bases. Dictated by: Juan BECKMAN Interpreted: Yves Dallas MD on 08/25/2016 at 9:26 Approved by: Juan BECKMAN Interpreted: Yves Dallas MD on 08/25/2016 at 9:28 US RENAL SONOGRAM IMPRESSION: 1. A post-renal cause is not identified for acute renal insufficiency. 2. Gallbladder wall thickening as well as pericholecystic fluid may suggest acalculous cholecystitis. 3. Scattered perihepatic ascites again noted. Dictated by: Enrico Gama M.D. on 08/24/2016 at 17:16 Approved by: Enrico Gama M.D. on 08/24/2016 at 17:20 NM HIDA SCAN WITH CCK IMPRESSION: 1. Normal filling of gallbladder. No evidence for acute cholecystitis. 2. Poor contractile response of gallbladder to CCK infusion with gallbladder ejection fraction is 3.1%. This finding is consistent with gallbladder dyskinesia. Dictated by: Yves Dallas M.D. on 08/25/2016 at 16:43 Approved by: Yves Dallas M.D. on 08/25/2016 at 16:44 Assessment & Plan Randy Anand is a 81 year old man with history of atrial fibrillation on anticoagulation s/p implantable loop recorder, mechanical aortic valve, right heart failure, CAD s/p CABG, pulmonary hypertension, and CKD who presented with hematemesis and bradycardia. Admitted for symptomatic bradycardia, STANTON, severe sepsis, and possible acalculous cholecystitis. 1. Chronic cor pulmonale with fluid overload, present on admission. Active. - Pt has history of severe RV failure and significant pulmonary hypertension. Echo 08/26/16 showed mild concentric LVH with EF 55-60%, severe RV dilation with reduced function, flattened septum, mechanical AV, severe TR, and pulmonary hypertension. Will continue to diurese while closely monitoring renal function. - Metolazone 5 mg PO once. - Continue Lasix gtt - Increased non-productive cough today. - Sputum culture showed coronavirus and RSV. - UA with culture negative. 2. Acute kidney injury on chronic kidney disease, present on admission, acute. Improving. - Secondary to cardiorenal syndrome due to bradycardia caused by hyperkalemia - Nephrology is consulted. We appreciate the expertise and input. - Creatinine on admission 2.48 on 08/24/16, currently 1.50 - 08/30/2016. - Following ins and outs. - Decrease lasix gtt to 5 mg/hr. - Diamox 500 mg PO x 1. - KCL 40 meq x1. - 2g Na per day. - Check serum osm. 3. Anasarca, acute. Not present on admission. Active and improving. - Pt is up 4L total this admission but presents with significant bilateral lower extremity and scrotal edema. - Per Dr. Solano with nephrology, will d/c Lasix drip. - Replace KCL 40 meq IVPB x 1 and KCL 40 meq TID. - IV lasix 40 mg Q 12hr starting tonight. 4. Symptomatic bradycardia, present on admission, acute. Resolved. -Secondary to hyperkalemia in the setting of acute kidney injury. Patient appears to be exquisitely sensitive to hyperkalemia even at a potassium of 5.7. K now normal and bradycardia has since improved, with HR in 80s. He still has a temporary pacer at this time. -Cardiology consulted, appreciate the expertise and input -Patient weaned off epinephrine gtt. Temporary pacemaker removed. 5. Hyperglycemia, acute. Present on admission. Resolved. - Glucose in 170s-180s. A1c 5.7. - Humalog low dose correctional scale. 6. Possible upper GI bleed, present on admission, stable. -Uncertain of cause, however a prior discharge summary describes a history of cirrhosis. EGD 07/01/16 was normal. Colonoscopy 07/01/16 showed 4 polyps, not resected, small internal and medium external hemorrhoids, and 2 areas of possible angiodysplasia in the colon. Received 1U PRBC. -Protonix push BID -If H&H trends down or more hematemesis is noted, will consult GI - Hemoglobin 8.4 up from 7.8 7. Acute constipation. Present on admission. Resolved. - Pt reports no bowel movement for 10 days despite receiving stool softeners, as well as Kayexalate this admission. He has been passing gas. - Will attempt scheduled Senna. If this fails, will start Lactulose. 9. Elevated troponin of uncertain significance, present on admission, acute -Likely secondary to demand ischemia in the setting of right-sided heart failure and severe bradycardia, as well as acute kidney injury. 10. Anion gap metabolic acidosis, present on admission, acute. Resolving. - Likely multifactorial but primarily due to elevated lactate. Lactic acidosis resolved. AG improved from 26 to 19 to 16. - Dr. Harden of Nephrology consulted. 11. Gallbladder dyskinesia, present on admission. Stable. -Initially concern for acalculous cholecystitis given mildly tender RUQ, direct hyperbilirubinemia, elevated alk phos. CT abd showed pericholecystic fluid, US showed gallbladder wall thickening. However, HIDA scan showed gallbladder dyskinesia and no sign of cholecystitis. Surgery has evaluated the patient and he does not require surgery. - Continue to monitor. 12. Pulmonary hypertension with right-sided heart failure, present on admission , acute. Active. - Continue to monitor 13. Mechanical aortic valve, present on admission, acute -Restarted warfarin 14. Macrocytic anemia, present on admission, acute -Uncertain of baseline -Macrocytosis could represent reticulocytes, will order retic count 15. Hip fracture s/p ORIF - Ordered PT to evaluate and help with mobility. 16. Hypovolemia hyponatremia, present on admission, acute -Likely multifactorial due to loses and SSRI, will continue to monitor 17. History of Tegretol toxicity. -Tegretol level normal. 18. Altered mental state. Resolved. -due to severe sepsis and ARF Disposition: Given his cardiac history, CKD, cirrhosis, and recent hip fracture , his prognosis is not favorable. We have consulted Palliative Care to guide a [id number] discussion with the patient and family. He will eventually discharge to [facility], likely in 3-4 days. VTE Mechanical Devices: Intermittant Pneumatic CD Resuscitation Status: DNR/DNI:Do Not Resuscitate/Intubate Limited Interventions: Medications and IV Fluid Attending Statement The patient was seen and examined together with Dr. Martinez on 08/31/2016 and I agree with the history, exam and plan as outlined in the note above. . Jose Juan Martinez Aug 31, 2016 16:53 Brandon Nielson MD Sep 03, 2016 09:13
--- NOTE | 2016-08-31 18:37 | NUR ---
Diuresing during day shift patient had 1550ml out with 707ml in PO and IV combined. Denies SOB. LE swelling improved from a couple days ago, per 's reports. decreased appetite, eating only 25% of breakfast and lunch, declined dinner. encourage increased mobility, even in bed while awake. continue to monitor.
[2016-09-01] VITALS (16 sets, daily range): BP systolic 85–113; BP diastolic 43–62; PULSE 86–120; RESP 16–22; O2SAT 91–99
[2016-09-01 03:55] LABS: BASOPHILS % (AUTO) 0.1 % (0-3); EOSINOPHILS % (AUTO) 0.8 % (0-5); MONOCYTES % (AUTO) 1.8 % (4-12); Mean Corpuscular Hemoglobin 31.7 pg (27.0-35.0); Mean Corpuscular Volume 101.3 fL (81-100); Platelet Count 251 bil/L (150-400)
[2016-09-01 04:12] LABS: INR 2.46 ratio
--- NOTE | 2016-09-01 05:49 | NUR ---
Dressing Change Dressing changed to pt left hip. Xeroform and Island dressing applied, site was C/D/I with rené intact, pt denies any pain. Pt on Q2 turns with hip precautions followed. VSS and Tele Afib with IVCD
[2016-09-01] MEDS: Furosemide Inj 100 MG in 0.9% Sodium Chloride 90 ML IVPUSH SCH (06:16)
[2016-09-01] MEDS ORDERED: Potassium Chloride Oral 20 mEq SR Tab(K 3 - 3.7 & Creat < 2) PO ONE (06:25)
[2016-09-01] MEDS: Insulin LISPRO 300 Unit/3 mL Inj SUBQ SCH (08:00)
[2016-09-01] MEDS: Pantoprazole 4 mg/mL 10 mL Inj IVPUSH SCH ×2 (08:58→18:07)
[2016-09-01] MEDS: carBAMazepine 200 mg Tablet PO SCH ×2 (08:58→21:38)
[2016-09-01] MEDS ORDERED: Albuterol-Ipratropium 3 mL Inhalation Solution NEB ONE (10:10)
[2016-09-01] MEDS: Albuterol 1.25 mg/3 mL Inhalation Solution NEB PRN ×2 (12:05→17:40)
--- NOTE | 2016-09-01 12:46 | DRSVH ---
PROCEDURE: X-RAY CHEST ONE VIEW, PORTABLE ([id number]) INDICATIONS: dyspnea TECHNIQUE: One view of the chest was acquired. COMPARISON: [facility], CR, XR CHEST 1VW (PORTABLE), 08/29/2016, 11:27. FINDINGS: Surgical changes and devices: Median sternotomy wires. No change in positioning of right PICC. Lungs and pleura: Mild edema persist and bibasilar airspace opacities. No pleural effusion or pneumo thorax. Mediastinum: Mediastinal contours appear normal. Heart size is normal. Bones and chest wall: No suspicious bony lesions. Overlying soft tissues appear unremarkable. IMPRESSION: Edema and/or pneumonia versus atelectasis involving the lung bases. Dictated by: Juan Mooney RRA Interpreted: Yves Dallas MD on 09/01/2016 at 12:45 Transcribed by: PRATEEK on 09/01/2016 at 12:46 Approved by: Yves Dallas M.D. on 09/01/2016 at 17:20
[2016-09-01] MEDS ORDERED: KCl 40 mEq/D5W 500 mL 40 MEQ in IV Premix 500 EACH IV SCH (13:25)
--- NOTE | 2016-09-01 13:29 | ABG ---
DateTimeAnalyzed 13:23:00 -_ pH ____7.444 - 7.350 7.450 pCO2 ___48.2__ -mmHg 35.0 45.0 pO2 ___80.0__ -mmHg 69.0 116 HCO3- ___32.5__ -mmol/L 22.0 26.0 ABE ____7.8__ -mmol/L -2.0 2.0 tHb ____9.5__ -g/dL O2Hb ___93.2__ -% COHb ____2.3__ -% MetHb ____1.2__ -% sO2 ___96.6__ -% 25.0 FIO2 ___32.0__ -% Drawn By gj - Date/Time Notified____ 13:29:00 -_ Spontaneous_RR ___20.0__ -b/min Liter_Flow ____3.0__ -L/min Oxygen Device 1 __CANNULA - Notified By GJ - Notified Whom ___MCCART - B 763 -mmHg tO2 ___12.5__ -Vol% Gavin test _Positive -
[2016-09-01] MEDS: KCl 40 mEq/100 mL (CENTRAL) 40 MEQ in IV Premix 1 EACH IV SCH ×2 (14:20→21:39)
[2016-09-01] MEDS: Lactulose 20 Gm/30 mL 30 mL Syrup PO SCH ×2 (14:20→21:39)
--- NOTE | 2016-09-01 14:43 | PCM.PNMED ---
Subjective Date of Service Sep 01, 2016 Subjective Patient is known to me from a GI consultation approximately 8 days ago. Since that time he has had a rather stormy hospital course. While his heart function remains good with an ejection fraction of around 40-50% he continues to be fluid overload. He has been receiving diuretics and has a persistent metabolic alkalosis probably secondary to this. Last 24 hours his intake is 1171 with 3150 and urine output. His blood pressures remain hovering in the 90-100 range. Otherwise his sodium is 133, potassium 3.4 chloride 89, CO2 33 BUN and creatinine 47 and 1.54. I am not sure if this is congestive heart failure since he has a relatively preserved ejection fraction and remains persistently hypotensive. Exam Vital Signs Vital Sign - Last Date Time Temp Pulse Resp B/P Pulse Ox O2 Delivery O2 Flow Rate FiO2 09/01/16 14:28 87/56 09/01/16 13:02 103 09/01/16 12:30 36.9 17 96 Nasal Cannula 3.00 08/28/16 08:12 50 Intake and Output 08/31/16 08/31/16 09/01/16 Cumulative From/Thru 15:00 23:00 07:00 08/24/16 08:02 - 09/01/16 06:09 Intake Total 707 ml 957 ml 55745 ml Output Total 1550 ml 1675 ml 59243 ml Balance -843 ml -718 ml -1212 ml Intake Oral 540 ml 800 ml 9107 ml IV Total 167 ml 157 ml 8956 ml Packed Cells 300 ml Output Urine Total 1550 ml 1675 ml 03381 ml # Voids 15 # Bowel Movements 13 Exam Patient remains quite somnolent and minimally responsive. Neck is supple without adenopathy, thyromegaly, or jugular venous distention. Lungs showed a few rhonchi but otherwise clear. Heart regular rhythm. Bradycardic. Diminished bowel sounds. There is also diffuse tympany to percussion. I did not appreciate any hepatomegaly. He does have some dullness in both flanks. Extremities showed some mild generalized edema. Lab and Diagnostics Result Diagram: 09/01/16 0345 09/01/16 1100 X-Rays, CTs and MRIs ABDOMEN/PELVIS WITHOUT CONTRAST IMPRESSION: 1. Pericholecystic fluid may raise the question of acute cholecystitis in the appropriate clinical setting. Consider limited abdominal ultrasound for further evaluation as needed. 2. Bibasilar mobile pleural effusions, as well as scattered abdominal and pelvic ascites, of uncertain etiology. 3. Incidental 1.8 cm lateral right renal cortical exophytic cyst. 4. Small fat-containing periumbilical ventral hernia. Dictated by: Enrico Gama M.D. on 08/24/2016 at 7:45 Approved by: Enrico Gama M.D. on 08/24/2016 at 7:55 X-RAY CHEST ONE VIEW, PORTABLE IMPRESSION: Persistent right mid and lower lung air space opacities may represent atelectasis and/or developing pneumonia. Dictated by: Enrico Gama M.D. on 08/24/2016 at 8:45 Approved by: Enrico Gama M.D. on 08/24/2016 at 8:47 X-RAY CHEST ONE VIEW IMPRESSION: 1. New right PICC is present, with tip in expected position. 2. Persistent right lower lung subtle air space opacities may represent atelectasis or early pneumonia. Dictated by: Enrico Gama M.D. on 08/24/2016 at 19:07 Approved by: Enrico Gama M.D. on 08/24/2016 at 19:09 X-RAY CHEST ONE VIEW, PORTABLE IMPRESSION: 1. Stable support lines and tubes. 2. Mild edema and/or pneumonia versus atelectasis involving the lung bases. Dictated by: Juan BECKMAN Interpreted: Yves Dallas MD on 08/25/2016 at 9:26 Approved by: Juan BECKMAN Interpreted: Yves Dallas MD on 08/25/2016 at 9:28 US RENAL SONOGRAM IMPRESSION: 1. A post-renal cause is not identified for acute renal insufficiency. 2. Gallbladder wall thickening as well as pericholecystic fluid may suggest acalculous cholecystitis. 3. Scattered perihepatic ascites again noted. Dictated by: Enrico Gama M.D. on 08/24/2016 at 17:16 Approved by: Enrico Gama M.D. on 08/24/2016 at 17:20 NM HIDA SCAN WITH CCK IMPRESSION: 1. Normal filling of gallbladder. No evidence for acute cholecystitis. 2. Poor contractile response of gallbladder to CCK infusion with gallbladder ejection fraction is 3.1%. This finding is consistent with gallbladder dyskinesia. Dictated by: Yves Dallas M.D. on 08/25/2016 at 16:43 Approved by: Yves Dallas M.D. on 08/25/2016 at 16:44 Assessment & Plan Impression #1 acute kidney injury which appears resolved #2 hyponatremia and hypokalemia with a persistent metabolic alkalosis. Most likely this is from transient intravascular volume depletion from diuresis. I do not feel that congestive heart failure as part of the clinical picture at this time. Recommendations #1 As his renal function is back to baseline I will sign off. Please notify me of any change or any questions thank you VTE Mechanical Devices: Intermittant Pneumatic CD Resuscitation Status: DNR/DNI:Do Not Resuscitate/Intubate Limited Interventions: Medications and IV Fluid Walter Harden DO Sep 01, 2016 14:43 to see if he has reaccumulated any ascitic fluid. We may be looking at a possible hepatorenal rather than a cardiorenal syndrome currently. VTE Mechanical Devices: Intermittant Pneumatic CD Resuscitation Status: DNR/DNI:Do Not Resuscitate/Intubate Limited Interventions: Medications and IV Fluid Walter Harden DO Sep 01, 2016 14:43
--- NOTE | 2016-09-01 15:21 | PROG NOTE ---
[address] [address] PROGRESS NOTE PATIENT: SANDRINE VAN : 1935 MR#: [id number] ADMIT: 08/24/2016 JOB ID: [id number] DATE: 09/01/2016 FOLLOWUP NOTE: The patient has been in the hospital now for eight days with anasarca related to a combination of chronic right heart failure in addition to volume overload related to recent hospitalization for fracture repair. He is followed by Cardiology in [place] closely, and in June and July, had hospitalizations and right heart catheterizations for fluid congestion. In July, his left and right-sided filling pressures were markedly elevated with a wedge pressure of 25 and a CVP pressure of 28. He has a history of moderate pulmonary hypertension with PA pressures in the 60s and was treated for a period of time with sildenafil, though this was discontinued in July when he presented with recurrent episodes of falling at home. Both heart catheterizations demonstrated a normal cardiac output and normal cardiac index. Echocardiograms demonstrate normal left ventricular systolic function. On my review of his echocardiogram currently, his right ventricle is moderately but not severely enlarged and right ventricular systolic function is mild to moderately impaired and not severely impaired. He has significant tricuspid regurgitation noted as well. During his hospital stay, he has been diuresing briskly over the past 3-4 days with institution of intravenous furosemide and low-dose dopamine. His admitting weight was between 100 and 102 kg. His current weight this morning was 88.6 kg. This equates to around 193 pounds, and his , who is in the room today, states that his dry weight is around 170 pounds, which is what he had been able to maintain prior to his hip replacement surgery. During his diuresis, his renal function and acute renal insufficiency have improved with a creatinine stabilizing in the range of 1.5-1.6. He is mildly hypokalemic and I think will require much more aggressive potassium replacement and probably will benefit from an increased dose of spironolactone. PAST MEDICAL HISTORY: Also notable for the fact that his right heart failure symptoms and pulmonary hypertension apparently have been something that have been notable for the past several years, according to his . The etiology of his pulmonary hypertension and right heart failure is not at all certain, and what is notable to me is the fact that he did have a history of obstructive sleep apnea with a sleep study done in [place] a couple of years ago but has been unable to tolerate the CPAP mask and has not been using it. In addition to his cardiac issues, he has a history of multiple myeloma treated with chemotherapy by information contained in his current records. Apparently, also a lymphoblastic lymphoma. He has been on Tegretol for trigeminal neuralgia and has been toxic with that previously. He has a history of hepatic cirrhosis by report, likely related both to a combination of right heart failure and history of increased alcohol intake a number of years ago. Today, this gentleman appears moderately dyspneic. He has mild pallor and some evidence to suggest mild hyperbilirubinemia. His respiratory rate is steady with no evidence of Sunil-Bonner respirations. He has a very prominent jugular venous distention visible at the ear lobe of the patient at about 60 degrees, only with inspiration. His heart rate with atrial fibrillation has been moderately increased on his current dose of 5 mcg/kg/minute of dopamine. Lung exam demonstrates moderate expiratory wheezes. I do not hear any obvious rhonchi or rales. Heart tones demonstrate crisp mechanical aortic valve clicks. I do not hear any significant diastolic murmurs. There is a soft aortic systolic flow murmur, normal for this valve. He has apparent ascites and hepatomegaly on exam and flank, sacral, and lower extremity edema that is still 3+. LABORATORY WORK: Today is notable for an INR of 2.46. Potassium of 3.3, sodium of 133. CO2 is high at 32 and 33 consistent with a hypokalemic metabolic alkalosis. Creatinine is stable at 1.4-1.5. Bilirubin has been variable at 1.7-2.0. Alkaline phosphatase around 237. Total protein 7.7 with an albumin of 3.3. His protein electrophoresis, ordered on August 24, 2016, apparently still is pending. IMPRESSION: The patient is still 20-25 pounds above his dry weight. His right ventricular function is not severely depressed but only moderately so, and his left ventricular systolic function is normal with previously demonstrated normal cardiac index and output. He should continue to be aggressively diuresed, and I would continue with intravenous Lasix. I would increase his spironolactone to 50 mg a day and his potassium to 40 mEq b.i.d. This will help his metabolic alkalosis. Blood gas may be helpful to make sure that he does not have a compensatory respiratory acidosis. Repeat dose of Diamox or acetazolamide would also be reasonable to consider. I will be happy to follow up with his care over the next several days.
--- NOTE | 2016-09-01 15:51 | NUR ---
NUTRITION FOLLOW UP Assess: Pt is a 81 yo male was transferred from [facility] w/ bradycardia, STANTON on CKD and hypotension. STANTON is improving per nephrology. Pt experiencing bilateral lower extremity and scrotal edema, and is receiving diuretics. Pt remains on bowel regimen. Per notes, pt has decreased appetite w/ low PO intake. PMHx: Afib, CHF, left hip fracture, multiple myeloma, trigeminal neuralgia, peripheral neuropathy, hyponatremia, depression, renal failure, sleep apnea, mechanical aortic valve. LABS: Reviewed. Na 133, K 3.4, Cl 89, CO2 33, BUN 65, [employer] 1.54, Gluc 140, Bilirubin 1.7, Alk Phos 237, Ammonia 90, Alb 3.3 MEDICATIONS: Potassium Chloride, Dopamine, Senna, Sodium Chloride, Lactulose CURRENT DIET: Heart Healthy - PO Ref-25% GI symptoms/stool: BM x 1 (08/29) SKIN: George 16 - no other skin issues noted. ANTHROPOMETRICS: Current Wt: 88.6 kg BMI: 28.0 kg/m2 IBW: 73 kg Admit Wt: 90.3 kg (BMI: 28.6 kg/m2) ESTIMATED NEEDS: Renal Failure, no dialysis (recalculated 08/28) Calories: 1069-4645 kcal/day (25-30 kcal/kg BW) Protein: 70-90 g/day (0.8-1.0 g/kg BW) Fluids: ~2000 ml/day (Approx. 1 ml/kcal/d) NUTRITION DIAGNOSIS: 1) Altered nutrition related lab values related to STANTON on CKD and hyponatremia as evidenced by elevated BUN and creatinine levels and low sodium lab values. ---IMPROVED. BUN and Creatinine trending down. 2) Inadequate oral intake related to acute illness as evidenced by poor PO intake of refused-25% and pt stated decrease in appetite. INTERVENTION: 1) Continue w/ Vanilla Ensure on B&L trays. 2) Continue Magic Cups on all trays. MONITORING/EVALUATION: PO intake, GI, labs, nutrition status, POC. Will continue to monitor per moderate nutritional risk guidelines. Addendum: 09/01/16 at [address] Student documentation reviewed and I agree with above note. DUSTIN.
--- NOTE | 2016-09-01 16:56 | NUR ---
Change in Condition Mentation - This morning upon his assessment he was alert and oriented to self and place, but not time. He definitely is forgetful and confused as he makes comments that do not make sense. For example, he said, "hello," multiple times in a row to a respiratory therapist that came in to care for him. Blood Pressure - His Dopamine was at 5 mcg/kg/hour. Dr. Peres said to decrease it to 2. Did so and his blood pressure dropped from 100s/60s to 80s/50s (checked automatic and manually). Asymptomatic. Notified Dr. Mcgee and Dr. Harden. A few medication orders were changed. BP has ranged 80-100s/50s. Pt sleeping. Potassium - His recheck of potassium this morning was 3.3. MD order IV potassium every 8 hours which was hung. Will recheck in the AM of 09/02. Care continues.
--- NOTE | 2016-09-01 17:46 | DRSVH ---
PROCEDURE: US ABDOMEN, LIMITED ([id number]) INDICATIONS: Ascites, liver dysfunction. TECHNIQUE: Real-time focused scanning was performed of the abdomen, with image documentation. COMPARISON: [facility], CR, XR CHEST 1VW (PORTABLE), 09/01/2016, 10:44. [facility], CT, ABDOMEN/PELVIS WITHOUT CONTRAS, 08/24/2016, 6:09. FINDINGS: Limited evaluation of the abdomen demonstrates trace free fluid in the right upper quadrant. No disc rete free fluid collections identified in the left upper, left lower, or right lower quadrants. IMPRESSION: 1. Trace free fluid demonstrated in the right upper quadrant. Dictated by: Garett Coffey M.D. on 09/01/2016 at 17:41 Approved by: Garett Coffey M.D. on 09/01/2016 at 17:44
--- NOTE | 2016-09-01 17:55 | NUR ---
Social Work Note: Readiness for Discharge Data& Assessment: Per MD in morning rounds, pt is getting closer to being medically ready for discharge. SW confirmed with pt that the plan is for pt to return to [facility] for continued rehab prior to returning home once stronger. SW left voicemail with [facility] admissions to confirm they are still expecting pt at their facility when medically ready. Pt denies any other needs at this time. SW to continue to follow if any needs arise. Plan: Anticipated discharge back to [facility] when medically ready for continued rehab. SW to await confirmation from [facility]. Pt denies any other needs at this time. SW to continue to follow if any needs arise. LANDRY Hemphill
--- NOTE | 2016-09-01 22:10 | PCM.PNMED ---
Subjective Date of Service Sep 01, 2016 Subjective Overnight: No acute overnight events. Today: He reports feeling better today. His appetite is diminished. He is only oriented to person and day. No other complaints at this time. Exam Vital Signs Vital Sign - Last Date Time Temp Pulse Resp B/P Pulse Ox O2 Delivery O2 Flow Rate FiO2 09/01/16 17:40 98 16 99 Nasal Cannula 3.00 09/01/16 17:18 36.9 107/57 08/28/16 08:12 50 Intake and Output 08/31/16 08/31/16 09/01/16 Cumulative From/Thru 15:00 23:00 07:00 08/24/16 08:02 - 09/01/16 06:09 Intake Total 707 ml 957 ml 01830 ml Output Total 1550 ml 1675 ml 36811 ml Balance -843 ml -718 ml -1212 ml Intake Oral 540 ml 800 ml 9107 ml IV Total 167 ml 157 ml 8956 ml Packed Cells 300 ml Output Urine Total 1550 ml 1675 ml 04562 ml # Voids 15 # Bowel Movements 13 Exam General: Alert and oriented to person and day. No acute distress. Slower mentation today from previous days. Head: Normocephalic, atraumatic. External ears without defect. Eyes: Pupils equal, round, and reactive to light and accommodation. Anicteric sclerae, Cardiovascular: Regular rate and rhythm. Mechanical valve sound noted. Pulmonary: Wheezes bilaterally Abdomen: Bowel tones present. Soft, no tenderness to palpation. No masses appreciated. Extremities: Improving bilateral lower extremity edema. Neurological: No gross neurological deficits noted. IVs and Medications Medications Reviewed: Medications were reviewed in detail Lab and Diagnostics Result Diagram: 09/01/16 0345 09/01/16 1100 X-Rays, CTs and MRIs ABDOMEN/PELVIS WITHOUT CONTRAST IMPRESSION: 1. Pericholecystic fluid may raise the question of acute cholecystitis in the appropriate clinical setting. Consider limited abdominal ultrasound for further evaluation as needed. 2. Bibasilar mobile pleural effusions, as well as scattered abdominal and pelvic ascites, of uncertain etiology. 3. Incidental 1.8 cm lateral right renal cortical exophytic cyst. 4. Small fat-containing periumbilical ventral hernia. Dictated by: Enrico Gama M.D. on 08/24/2016 at 7:45 Approved by: Enrico Gama M.D. on 08/24/2016 at 7:55 X-RAY CHEST ONE VIEW, PORTABLE IMPRESSION: Persistent right mid and lower lung air space opacities may represent atelectasis and/or developing pneumonia. Dictated by: Enrico Gama M.D. on 08/24/2016 at 8:45 Approved by: Enrico Gama M.D. on 08/24/2016 at 8:47 X-RAY CHEST ONE VIEW IMPRESSION: 1. New right PICC is present, with tip in expected position. 2. Persistent right lower lung subtle air space opacities may represent atelectasis or early pneumonia. Dictated by: Enrico Gama M.D. on 08/24/2016 at 19:07 Approved by: Enrico Gama M.D. on 08/24/2016 at 19:09 X-RAY CHEST ONE VIEW, PORTABLE IMPRESSION: 1. Stable support lines and tubes. 2. Mild edema and/or pneumonia versus atelectasis involving the lung bases. Dictated by: Juan BECKMAN Interpreted: Yves Dallas MD on 08/25/2016 at 9:26 Approved by: Juan BECKMAN Interpreted: Yves Dallas MD on 08/25/2016 at 9:28 US RENAL SONOGRAM IMPRESSION: 1. A post-renal cause is not identified for acute renal insufficiency. 2. Gallbladder wall thickening as well as pericholecystic fluid may suggest acalculous cholecystitis. 3. Scattered perihepatic ascites again noted. Dictated by: Enrico Gama M.D. on 08/24/2016 at 17:16 Approved by: Enrico Gama M.D. on 08/24/2016 at 17:20 NM HIDA SCAN WITH CCK IMPRESSION: 1. Normal filling of gallbladder. No evidence for acute cholecystitis. 2. Poor contractile response of gallbladder to CCK infusion with gallbladder ejection fraction is 3.1%. This finding is consistent with gallbladder dyskinesia. Dictated by: Yves Dallas M.D. on 08/25/2016 at 16:43 Approved by: Yves Dallas M.D. on 08/25/2016 at 16:44 Additional Diagnostics US ABDOMEN, LIMITED IMPRESSION: 1. Trace free fluid demonstrated in the right upper quadrant. Dictated by: Garett Coffey M.D. on 09/01/2016 at 17:41 Assessment & Plan Randy Anand is a 81 year old man with history of atrial fibrillation on anticoagulation s/p implantable loop recorder, mechanical aortic valve, right heart failure, CAD s/p CABG, pulmonary hypertension, and CKD who presented with hematemesis and bradycardia. Admitted for symptomatic bradycardia, STANTON, severe sepsis, and possible acalculous cholecystitis. 1. Chronic cor pulmonale with fluid overload, present on admission. Active. - Pt has history of severe RV failure and significant pulmonary hypertension. Echo 08/26/16 showed mild concentric LVH with EF 55-60%, severe RV dilation with reduced function, flattened septum, mechanical AV, severe TR, and pulmonary hypertension. Will continue to diurese while closely monitoring renal function. Most likely 2nd to uncontrolled severe sleep apnea. - Dr. Peres with Cardiology following, recommendations appreciated. - Lasix gtt was d/c'd today and restarted this evening. - Increased non-productive cough today. - Sputum culture showed coronavirus and RSV. - UA with culture negative. - Awaiting previous Sleep study results. - We will start CPAP tonight. 2. Acute kidney injury on chronic kidney disease, present on admission, acute. Improving. - Secondary to cardiorenal or hepatorenal syndrome. - Nephrology has signed off. - Creatinine on admission 2.48 on 08/24/16, currently 1.50 - 08/30/2016. - Following ins and outs. - Lasix gtt was d/c'd today and restarted this evening. - KCL 40 meq x1. - 2g Na per day. 3. Anasarca, acute. Not present on admission. Active and improving. - Pt is up 4L total this admission but presents with significant bilateral lower extremity and scrotal edema. - Replace KCL 40 Q8H x 4 doses. - Continue spironolactone 50 mg daily. - Lasix gtt was continued today. We will discontinue Lasix drip tomorrow and start torsemide 80 twice a day. - Abdominal US per above. 4. Symptomatic bradycardia, present on admission, acute. Resolved. -Secondary to hyperkalemia in the setting of acute kidney injury. Patient appears to be exquisitely sensitive to hyperkalemia even at a potassium of 5.7. K now normal and bradycardia has since improved, with HR in 80s. He still has a temporary pacer at this time. -Cardiology consulted, appreciate the expertise and input -Patient weaned off epinephrine gtt. Temporary pacemaker removed. 5. Hyperglycemia, acute. Present on admission. Resolved. - Glucose in 170s-180s. A1c 5.7. - Humalog low dose correctional scale. 6. Possible upper GI bleed, present on admission, stable. -Uncertain of cause, however a prior discharge summary describes a history of cirrhosis. EGD 07/01/16 was normal. Colonoscopy 07/01/16 showed 4 polyps, not resected, small internal and medium external hemorrhoids, and 2 areas of possible angiodysplasia in the colon. Received 1U PRBC. -Protonix push BID -If H&H trends down or more hematemesis is noted, will consult GI - Hemoglobin 8.4 up from 7.8 7. Acute constipation. Present on admission. Resolved. - Pt reports no bowel movement for 10 days despite receiving stool softeners, as well as Kayexalate this admission. He has been passing gas. - Will attempt scheduled Senna. If this fails, will start Lactulose. 9. Elevated troponin of uncertain significance, present on admission, acute -Likely secondary to demand ischemia in the setting of right-sided heart failure and severe bradycardia, as well as acute kidney injury. 10. Anion gap metabolic acidosis, present on admission, acute. Resolving. - Likely multifactorial but primarily due to elevated lactate. Lactic acidosis resolved. AG improved from 26 to 19 to 16. - Dr. Harden of Nephrology consulted. 11. Gallbladder dyskinesia, present on admission. Stable. -Initially concern for acalculous cholecystitis given mildly tender RUQ, direct hyperbilirubinemia, elevated alk phos. CT abd showed pericholecystic fluid, US showed gallbladder wall thickening. However, HIDA scan showed gallbladder dyskinesia and no sign of cholecystitis. Surgery has evaluated the patient and he does not require surgery. - Continue to monitor. 12. Pulmonary hypertension with right-sided heart failure, present on admission , acute. Active. - Continue to monitor 13. Mechanical aortic valve, present on admission, acute -Restarted warfarin 14. Macrocytic anemia, present on admission, acute -Uncertain of baseline -Macrocytosis could represent reticulocytes, will order retic count 15. Hip fracture s/p ORIF - Ordered PT to evaluate and help with mobility. 16. Hypovolemia hyponatremia, present on admission, acute -Likely multifactorial due to loses and SSRI, will continue to monitor 17. History of Tegretol toxicity. -Tegretol level normal. 18. Altered mental state. Continuing. -due to severe sepsis and ARF - Ammonia level elevated 90. - Titrating with lactulose 3-4 bowel movements per day. Disposition: Given his cardiac history, CKD, cirrhosis, and recent hip fracture , his prognosis is not favorable. We have consulted Palliative Care to guide a [id number] discussion with the patient and family. He will eventually discharge to [facility], likely in 3-4 days. Pain Evaluation: Adequate Pain Control VTE Mechanical Devices: Intermittant Pneumatic CD Resuscitation Status: DNR/DNI:Do Not Resuscitate/Intubate Limited Interventions: Medications and IV Fluid Attending Statement The patient was seen and examined together with Dr. Woodward on 09/01/2016 and I agree with the history, exam and plan as outlined in the note above. . CEDRICK WOODWARD DO Sep 01, 2016 18:36 Brandon Nielson MD Sep 03, 2016 09:14
[2016-09-02] VITALS (9 sets, daily range): BP systolic 96–110; BP diastolic 58–67; PULSE 93–110; RESP 15–20; O2SAT 96–99
[2016-09-02] MEDS: KCl 40 mEq/100 mL (CENTRAL) 40 MEQ in IV Premix 1 EACH IV SCH ×2 (04:43→14:26)
[2016-09-02] MEDS: Lactulose 20 Gm/30 mL 30 mL Syrup PO SCH ×3 (04:43→20:33)
[2016-09-02 05:00] LABS: BASOPHILS % (AUTO) 0.2 % (0-3); EOSINOPHILS % (AUTO) 2.7 % (0-5); MONOCYTES % (AUTO) 2.9 % (4-12); Mean Corpuscular Hemoglobin 31.2 pg (27.0-35.0); Mean Corpuscular Volume 102.7 fL (81-100); Platelet Count 229 bil/L (150-400)
[2016-09-02 05:21] LABS: INR 2.6 ratio
--- NOTE | 2016-09-02 05:22 | NUR ---
Mentation / Respiratory Pt AOx3, answers questions appropriately though with delay, voices needs, more coherent as shift progressed and able to converse with staff. Pt participatory in care and bed mobility. SpO2 90-98% on 3L NC, pt denies dyspnea. 1 loose BM this shift after lactulose administration. Lasix gtt reinitiated. VSS. Tele afib 100s-110s.
--- NOTE | 2016-09-02 09:45 | NUR ---
PICC, Dopamine PICC - About 0945 it was discovered that he had pulled out his PICC Line. He had a small amount of blood on his gown and linens. The PICC site had clotted off and stopped bleeding. A dressing as applied to the site and PICC line was inspected and found to be intact. A new peripheral IV was started in his left forearm. Dopamine - Per Dr. Javier and Dr. Peres's orders his Dopamine was stopped this morning. Care continues.
--- NOTE | 2016-09-02 10:17 | PROG NOTE ---
[address] [address] PROGRESS NOTE PATIENT: SANDRINE VAN : 1935 MR#: [id number] ADMIT: 08/24/2016 JOB ID: [id number] DATE: 09/02/2016 SUBJECTIVE: The patient seems to be getting along better. He continues to diurese on intravenous Lasix and is doing fine with lower dose dopamine at 2 mcg/kg per minute. When I see him in the room, he is alert and cooperative, but mildly confused, with obvious asterixis. His exam otherwise is unchanged from yesterday with prominent jugular venous distention and a dependent edema with moderate ascites. He has pulled out his IV and taken off his oxygen sometime during the night and wrapped them up in the sheets. There is a modest amount of blood related to this, but there is no active bleeding seen. LABORATORY: The patient's laboratory shows a stable renal function. Potassium is improved some at 3.6. Bilirubin has continued to decline at 1.5, and his hemoglobin is stable at 9.3. IMPRESSION: Anasarca: Again, this patient has near-normal left ventricular systolic function with moderate right ventricular enlargement and systolic dysfunction and moderately severe pulmonary hypertension, likely related to underlying obstructive sleep apnea which has not been treated. He remains about 20 pounds above his stated dry weight of 170 pounds. His ammonia level was elevated and clearly he is moderately confused with asterixis, likely related to that, and I believe that should be treated. I am going to recommend that we discontinue his dopamine today and continue intravenous Lasix for one more day, and probably tomorrow, I think it would be reasonable to change him to p.o. torsemide at 80 mg b.i.d., which he was taking before. With adequate potassium replacement, would continue with 50 mg of spironolactone daily as well. He should be maintained off of sildenafil and the beta-tyson therapy, and will require aggressive treatment of his malnutrition and generalized weakness. I do not think we will be successful with that unless his ammonia is treated, and I think I would certainly recommend that.
[2016-09-02] MEDS: carBAMazepine 200 mg Tablet PO SCH ×2 (10:28→20:36)
[2016-09-02] MEDS: Pantoprazole 4 mg/mL 10 mL Inj IVPUSH SCH ×2 (10:28→17:55)
--- NOTE | 2016-09-02 11:52 | DRSVH ---
PROCEDURE: X-RAY CHEST ONE VIEW, PORTABLE ([id number]) INDICATIONS: DYSPNEA. TECHNIQUE: One view of the chest was acquired. COMPARISON: [facility], CR, XR CHEST 1VW (PORTABLE), 09/01/2016, 10:44. FINDINGS: Surgical changes and devices: A well-positioned right PICC. Median sternotomy wires. Lungs and pleura: Persistent edema and bibasilar patchy airspace opacities. No significant change. Mediastinum: Mediastinal contours appear normal. Heart size is enlarged. Bones and chest wall: No suspicious bony lesions. Overlying soft tissues appear unremarkable. IMPRESSION: 1. No significant change from prior examination suggestive of pulmonary edema and/or pneumonia. Dictated by: Juan Mooney RRA Interpreted: Veronica Guevara MD on 09/02/2016 at 10:37 Transcribed by: LOY on 09/02/2016 at 14:51 Approved by: Veronica Guevara M.D. on 09/02/2016 at 15:01
--- NOTE | 2016-09-02 16:08 | PCM.PALLBR ---
Palliative Care Recommendation 81 yo male with multiple medical problems including CHF, chronic a. fib, mechanical aortic valve, myelodysplasia, etc. admitted with bradycardia and hypotension, acute on chronic renal failure, electrolyte abnormalities, possible cholecystitis, etc. Clinically improving, though still with significant limitations related to his chronic right heart failure and associated lower extremity edema as well as his recent hip fracture. Palliative medicine consulted to review with patient and family their goals of care. Summary of palliative recommendation 09/02/16 Patient remains medically complicated with mild hypotension requiring pressors at times. Weakness and debility-significant RHF- reviewed with Dr. Peres-he believes ongoing diureses slowly and then maintenance with moderate dosing. Ja Bell thinks this is remeable at least in the short term. GO-- he would like to go to [facility]. DNR/DNI. 08/29/16 goals of care reviewed with patient and his . POLST is completed. He has difficulty with signing but makes his attempt. His close signs front and back of form. Goals are DNR/DNI/ limited intervention/ no feeding tube. Form completed and copies made for patient and chart Expectations are another 2-3 days at least for diuresing. Patient is not interested in pursuing dialysis in the future. 08/28/16 Weakness and debility-continues most likely due to CHF and recent hip fx. Confusion mild but we both think it best to await his to complete POLST. She has been ill and hopefully can come in tomorrow -Symptom management (Pain/other)- patient in no significant distress. Continued management per his medical/consulting teams. -DPOA/Advanced Directives/POLST- patient has previously expressed wish to be DO NOT RESUSCITATE/DO NOT INTUBATE/limited interventions. He and his are quite confident that he does not want CPR/defibrillation/intubation or mechanical ventilation. They would not want artificial nutrition nor dialysis. He has said he does not want any further chemotherapy for his myelodysplasia/ myeloma. They are quite comfortable with lesser interventions including synchronized cardioversion, IV fluids, antibiotics, etc. They both note that if he reaches a point where it appears as recovery is impossible that he would not want to be kept alive. 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 -Family/emotional support- patient has excellent support locally from his and son. Family is comfortable contemplating obtaining additional caregiver support at home if needed eventually. -Spiritual support- active with their [facility] hoahaoism, and comforted by their eloisa. Offered vessel scrapper helper visit and they declined at this time. Patient Goals: 1. Patient and his want to be told the truth about his illness, even if it is unpleasant. 2. Patient and his would like to be told prognosis when it can be predicted , to better guide treatment decisions. Additional Medical Diagnoses with primary management by Hospitalist team include : 1. Symptomatic bradycardia, present on admission, acute. Improving. 2. Acute kidney injury on chronic kidney disease, present on admission, acute. Improving. 3. Upper GI bleed, present on admission, acute. Present on admission. 4. Anasarca, acute. Not present on admission. 5. Hyperglycemia, acute. Present on admission. 6. Acute constipation. Present on admission. 7. Severe sepsis, present on admission, acute. Resolving. 8. Elevated troponin of uncertain significance, present on admission, acute 9. Anion gap metabolic acidosis, present on admission, acute. Resolving. 10. Gallbladder dyskinesia, present on admission. 11. Pulmonary hypertension with right-sided heart failure, present on admission , acute 12. Mechanical aortic valve, present on admission, acute 13. Macrocytic anemia, present on admission, acute 14. Hip fracture s/p ORIF 15. Hypovolemia hyponatremia, present on admission, acute 16. History of Tegretol toxicity. 17. Altered mental state. Resolved. Problems: End of Life Preferences DO NOT RESUSCITATE/DO NOT INTUBATE/limited interventions as above Goals of Care Patient and his continue to hope for recovery and eventual return home. They understand that his prognosis is limited- they have been told by his usual steel turner that he may have 2-4 years to live Disposition Plan on return to [facility] for further rehabilitation before eventual return home Resuscitation Status Resuscitation Status: DNR/DNI:Do Not Resuscitate/Intubate Limited Interventions: Medications and IV Fluid POLST Updates/Changes Previous POLST?: Yes POLST Last Review Date: Aug 26, 2016 Antibiotics: Use ABX if can Prolong Life Artificially Admin Nutrition: No Artifical Nutrition by Tube POLST Discussed with: Patient, Spouse/Other POLST Review Outcome: New Form Completed (08/29/16 DNR/DNI) . Symptom management: Nausea, Dyspnea, Delirium Total time 25 minutes; >50% face to face with patient and/or family, providing counselling regarding plans and recommendations, and in care coordination with his/her medical teams. I also spent an additional [ ] minutes counseling for advanced care planning with the patient/the patients family/the surrogate decision maker. copies to: Nataliia Lundberg MD Palliative Brief Note Date of Service Sep 02, 2016 . 81 yo pt with known MCI now worse with elevated ammonia and increased confusion. RHfailure- at least moderated with fluid retention and scrotal edema now gradually diuresed off. Problem with moderate hypotension- probably reflecting Recent hip fx possibly related to orthostasis-still in recovery from that. O: seen with Dr. Peres confused but very pleasant NAD moderate anemia CR 1.4 Shanique Caldwell MD Sep 02, 2016 16:08
[2016-09-03] VITALS (9 sets, daily range): BP systolic 83–108; BP diastolic 45–62; PULSE 74–107; RESP 13–20; O2SAT 95–99
[2016-09-03 03:48] LABS: BASOPHILS % (AUTO) 0.2 % (0-3); MONOCYTES % (AUTO) 3.3 % (4-12); Mean Corpuscular Hemoglobin 31.4 pg (27.0-35.0); Mean Corpuscular Volume 102.5 fL (81-100); NEUTROPHILS % (AUTO) 86.3 % (40-74); Platelet Count 201 bil/L (150-400)
[2016-09-03 03:59] LABS: INR 2.67 ratio
--- NOTE | 2016-09-03 06:33 | NUR ---
Cough/Mentation Pt has a strong productive cough and is able to clear is airway. Pt alert and oriented x3 and appropriate.
[2016-09-03] MEDS: Lactulose 20 Gm/30 mL 30 mL Syrup PO SCH ×3 (06:42→21:25)
[2016-09-03] MEDS: carBAMazepine 200 mg Tablet PO SCH ×2 (07:58→21:49)
[2016-09-03] MEDS: Pantoprazole 4 mg/mL 10 mL Inj IVPUSH SCH ×2 (07:59→17:28)
--- NOTE | 2016-09-03 10:37 | PROG NOTE ---
[address] [address] PROGRESS NOTE PATIENT: SANDRINE VAN : 1935 MR#: [id number] ADMIT: 08/24/2016 JOB ID: [id number] DATE: 09/03/2016 CARDIOLOGY FOLLOW UP NOTE: The patient states that he is feeling congested this morning. He is coughing up some clear sputum and has fairly severe diffuse wheezing. He continues on intravenous furosemide but his weight is actually up a kilogram from yesterday and his net diuresis has significantly declined over the past couple of days since his low-dose dobutamine was held or discontinued. He remains in atrial fibrillation with a moderately rapid ventricular response with rates in the 100-110 range. DATE: PHYSICAL EXAMINATION: This gentleman is mildly confused but cooperative. He appears moderately dyspneic with audible wheezing. Blood pressure has been in the 90s to low 100s with heart rates in the 100-110 range in AFib. His lungs demonstrate diffuse expiratory wheezes and bibasilar rales. Cardiac auscultation reveals a rapid irregular rhythm with normal aortic mechanical clicks. Abdomen is soft and nontender with prominent flank and sacral edema. He has prominent dependent edema in both lower extremities. His color appears reasonably good without obvious jaundice and his extremities are warm and well perfused. He has no focal neurologic findings. LABORATORY: Shows improved potassium at 3.7. His renal function is stable. Carbon dioxide is improving. His bilirubin is lower at 1.4. IMPRESSION: The patient needs more aggressive diuresis. Instead of starting him back up on dopamine, I would like to switch him over to oral antibiotics and see if we can titrate those to provide ample diuresis. Will change him to 40 mg of torsemide b.i.d. plus 5 mg dose of metolazone today. Will put him on low-dose oral potassium as well as his spironolactone. I would like to put him on low-dose beta tyson because of his moderately rapid atrial fibrillation which I think he should tolerate okay. Lactulose was started for his elevated ammonia level and liver function seems to be stable. I think it is clear that he has a fairly significant bronchitis or perhaps pneumonia. His chest x-ray from yesterday actually shows continued improvement in his moderate pulmonary edema noted on admission. He may benefit from a more aggressive bronchodilator therapy and respiratory treatment.
--- NOTE | 2016-09-03 11:20 | PCM.PHAPRO ---
Progress bradycardia Warfarin: Indication: AVR plus AFIB INR Target 2.5-3.5 History of Inpt dosing: RPh gsf ? ? DFF RTM RTM RTM DFF gsf Date 5-Aug 6-Aug 7-Aug 8-Aug 28-Aug 29-Aug 30-Aug 12-Aug 13-Aug 14-Aug 15-Aug INR 2.37 3.46 2.51 2.06 1.63 1.66 1.76 2.20 2.46 2.6 2.67 INR change 1.09 -0.95 -0.45 0.03 0.1 0.44 0.26 0.14 0.07 Warf Dose held held ? 5 ? 7.5 5 5 5 5 7.5mg p/ Increase to 6mg/d to push INR closer to 3 Robin Grissom Pharm D Sep 03, 2016 11:20
--- NOTE | 2016-09-03 11:42 | PCM.PNMED ---
Subjective Date of Service Sep 02, 2016 Subjective Overnight: No acute overnight events. Reports that he pulled out his picc line due to confusion. Today: He reports feeling better today. His appetite is diminished. He is only oriented to person and day. No other complaints at this time. Exam Vital Signs Vital Sign - Last Date Time Temp Pulse Resp B/P Pulse Ox O2 Delivery O2 Flow Rate FiO2 09/03/16 11:30 36.5 101 18 89/54 96 Nasal Cannula 3.00 08/28/16 08:12 50 Intake and Output 09/02/16 09/02/16 09/03/16 Cumulative From/Thru 15:00 23:00 07:00 08/24/16 08:02 - 09/03/16 06:33 Intake Total 914 ml 655 ml 29514 ml Output Total 900 ml 1200 ml 14696 ml Balance 14 ml -545 ml -3754 ml Intake Oral 750 ml 600 ml 42596 ml IV Total 164 ml 55 ml 9564 ml Packed Cells 300 ml Output Urine Total 900 ml 1200 ml 68199 ml # Voids 15 # Bowel Movements 1 1 16 Exam General: Alert and oriented to person and day. No acute distress. Slower mentation today from previous days. Head: Normocephalic, atraumatic. External ears without defect. Eyes: Pupils equal, round, and reactive to light and accommodation. Anicteric sclerae, Cardiovascular: Regular rate and rhythm. Mechanical valve sound noted. Pulmonary: Wheezes bilaterally Abdomen: Bowel tones present. Soft, no tenderness to palpation. No masses appreciated. Extremities: Improving bilateral lower extremity edema. Neurological: No gross neurological deficits noted.s equal, round, and reactive to light and accommodation. Anicteric sclerae, Cardiovascular: Regular rate and rhythm. Mechanical valve sound noted. Pulmonary: Wheezes bilaterally Abdomen: Bowel tones present. Soft, no tenderness to palpation. No masses appreciated. Extremities: Improving bilateral lower extremity edema. Neurological: No gross neurological deficits noted. IVs and Medications Medications Reviewed: Medications were reviewed in detail Lab and Diagnostics Result Diagram: 09/03/1633309/03/16333 X-Rays, CTs and MRIs ABDOMEN/PELVIS WITHOUT CONTRAST IMPRESSION: 1. Pericholecystic fluid may raise the question of acute cholecystitis in the appropriate clinical setting. Consider limited abdominal ultrasound for further evaluation as needed. 2. Bibasilar mobile pleural effusions, as well as scattered abdominal and pelvic ascites, of uncertain etiology. 3. Incidental 1.8 cm lateral right renal cortical exophytic cyst. 4. Small fat-containing periumbilical ventral hernia. Dictated by: Enrico Gama M.D. on 08/24/2016 at 7:45 Approved by: Enrico Gama M.D. on 08/24/2016 at 7:55 X-RAY CHEST ONE VIEW, PORTABLE IMPRESSION: Persistent right mid and lower lung air space opacities may represent atelectasis and/or developing pneumonia. Dictated by: Enrico Gama M.D. on 08/24/2016 at 8:45 Approved by: Enrico Gama M.D. on 08/24/2016 at 8:47 X-RAY CHEST ONE VIEW IMPRESSION: 1. New right PICC is present, with tip in expected position. 2. Persistent right lower lung subtle air space opacities may represent atelectasis or early pneumonia. Dictated by: Enrico Gama M.D. on 08/24/2016 at 19:07 Approved by: Enrico Gama M.D. on 08/24/2016 at 19:09 X-RAY CHEST ONE VIEW, PORTABLE IMPRESSION: 1. Stable support lines and tubes. 2. Mild edema and/or pneumonia versus atelectasis involving the lung bases. Dictated by: Juan BECKMAN Interpreted: Yves Dallas MD on 08/25/2016 at 9:26 Approved by: Juan BECKMAN Interpreted: Yves Dallas MD on 08/25/2016 at 9:28 US RENAL SONOGRAM IMPRESSION: 1. A post-renal cause is not identified for acute renal insufficiency. 2. Gallbladder wall thickening as well as pericholecystic fluid may suggest acalculous cholecystitis. 3. Scattered perihepatic ascites again noted. Dictated by: Enrico Gama M.D. on 08/24/2016 at 17:16 Approved by: Enrico Gama M.D. on 08/24/2016 at 17:20 NM HIDA SCAN WITH CCK IMPRESSION: 1. Normal filling of gallbladder. No evidence for acute cholecystitis. 2. Poor contractile response of gallbladder to CCK infusion with gallbladder ejection fraction is 3.1%. This finding is consistent with gallbladder dyskinesia. Dictated by: Yves Dallas M.D. on 08/25/2016 at 16:43 Approved by: Yves Dallas M.D. on 08/25/2016 at 16:44 Additional Diagnostics US ABDOMEN, LIMITED IMPRESSION: 1. Trace free fluid demonstrated in the right upper quadrant. Dictated by: Garett Coffey M.D. on 09/01/2016 at 17:41 Assessment & Plan Randy Anand is a 81 year old man with history of atrial fibrillation on anticoagulation s/p implantable loop recorder, mechanical aortic valve, right heart failure, CAD s/p CABG, pulmonary hypertension, and CKD who presented with hematemesis and bradycardia. Admitted for symptomatic bradycardia, STANTON, severe sepsis, and possible acalculous cholecystitis. 1. Chronic cor pulmonale with fluid overload, present on admission. Active. - Pt has history of severe RV failure and significant pulmonary hypertension. Echo 08/26/16 showed mild concentric LVH with EF 55-60%, severe RV dilation with reduced function, flattened septum, mechanical AV, severe TR, and pulmonary hypertension. Will continue to diurese while closely monitoring renal function. Most likely 2nd to uncontrolled severe sleep apnea. - Dr. Peres with Cardiology following, recommendations appreciated. - Lasix gtt was d/c'd today and restarted this evening. - Increased non-productive cough today. - Sputum culture showed coronavirus and RSV. - UA with culture negative. - Sleep study showed severe sleep apnea. - We will start CPAP tonight. 2. Acute kidney injury on chronic kidney disease, present on admission, acute. Improving. - Secondary to cardiorenal or hepatorenal syndrome. - Nephrology has signed off. - Creatinine on admission 2.48 on 08/24/16, currently 1.50 - 08/30/2016. - Following ins and outs. - Lasix gtt was d/c'd today and restarted this evening. - KCL 40 meq x1. - 2g Na per day. 3. Anasarca, acute. Not present on admission. Active and improving. - Pt is up 4L total this admission but presents with significant bilateral lower extremity and scrotal edema. - Replace KCL 40 Q8H x 4 doses. - Continue spironolactone 50 mg daily. - Lasix gtt was continued today. We will discontinue Lasix drip tomorrow and start torsemide 80 twice a day. - Abdominal US per above. 4. Symptomatic bradycardia, present on admission, acute. Resolved. -Secondary to hyperkalemia in the setting of acute kidney injury. Patient appears to be exquisitely sensitive to hyperkalemia even at a potassium of 5.7. K now normal and bradycardia has since improved, with HR in 80s. He still has a temporary pacer at this time. -Cardiology consulted, appreciate the expertise and input -Patient weaned off epinephrine gtt. Temporary pacemaker removed. 5. Hyperglycemia, acute. Present on admission. Resolved. - Glucose in 170s-180s. A1c 5.7. - Humalog low dose correctional scale. 6. Possible upper GI bleed, present on admission, stable. -Uncertain of cause, however a prior discharge summary describes a history of cirrhosis. EGD 07/01/16 was normal. Colonoscopy 07/01/16 showed 4 polyps, not resected, small internal and medium external hemorrhoids, and 2 areas of possible angiodysplasia in the colon. Received 1U PRBC. -Protonix push BID -If H&H trends down or more hematemesis is noted, will consult GI - Hemoglobin 8.4 up from 7.8 7. Acute constipation. Present on admission. Resolved. - Pt reports no bowel movement for 10 days despite receiving stool softeners, as well as Kayexalate this admission. He has been passing gas. - Will attempt scheduled Senna. If this fails, will start Lactulose. 9. Elevated troponin of uncertain significance, present on admission, acute -Likely secondary to demand ischemia in the setting of right-sided heart failure and severe bradycardia, as well as acute kidney injury. 10. Anion gap metabolic acidosis, present on admission, acute. Resolving. - Likely multifactorial but primarily due to elevated lactate. Lactic acidosis resolved. AG improved from 26 to 19 to 16. - Dr. Harden of Nephrology consulted. 11. Gallbladder dyskinesia, present on admission. Stable. -Initially concern for acalculous cholecystitis given mildly tender RUQ, direct hyperbilirubinemia, elevated alk phos. CT abd showed pericholecystic fluid, US showed gallbladder wall thickening. However, HIDA scan showed gallbladder dyskinesia and no sign of cholecystitis. Surgery has evaluated the patient and he does not require surgery. - Continue to monitor. 12. Pulmonary hypertension with right-sided heart failure, present on admission , acute. Active. - Continue to monitor 13. Mechanical aortic valve, present on admission, acute -Restarted warfarin 14. Macrocytic anemia, present on admission, acute -Uncertain of baseline -Macrocytosis could represent reticulocytes, will order retic count 15. Hip fracture s/p ORIF - Ordered PT to evaluate and help with mobility. 16. Hypovolemia hyponatremia, present on admission, acute -Likely multifactorial due to loses and SSRI, will continue to monitor 17. History of Tegretol toxicity. -Tegretol level normal. 18. Altered mental state. Continuing. -due to severe sepsis and ARF - Ammonia level elevated 90. - Titrating with lactulose 3-4 bowel movements per day. Disposition: Given his cardiac history, CKD, cirrhosis, and recent hip fracture , his prognosis is not favorable. We have consulted Palliative Care to guide a [id number] discussion with the patient and family. He will eventually discharge to [facility], likely in 3-4 days. Pain Evaluation: Adequate Pain Control VTE Mechanical Devices: Intermittant Pneumatic CD Resuscitation Status: DNR/DNI:Do Not Resuscitate/Intubate Limited Interventions: Medications and IV Fluid Attending Statement The patient was seen and examined together with Dr. Woodward on 09/02/2016 and I agree with the history, exam and plan as outlined in the note above. . CEDRICK WOODWARD DO Sep 03, 2016 11:40 Brandon Nielson MD Sep 14, 2016 08:50
--- NOTE | 2016-09-03 11:57 | PCM.PNMED ---
Subjective Date of Service Sep 03, 2016 Subjective Overnight: No acute overnight events. Today: He reports feeling better today. His appetite continues to remain diminished. He is only oriented to person and day. No other complaints at this time. We discussed the importance of using the CPAP machine. Exam Vital Signs Vital Sign - Last Date Time Temp Pulse Resp B/P Pulse Ox O2 Delivery O2 Flow Rate FiO2 09/03/16 11:30 36.5 101 18 89/54 96 Nasal Cannula 3.00 08/28/16 08:12 50 Intake and Output 09/02/16 09/02/16 09/03/16 Cumulative From/Thru 15:00 23:00 07:00 08/24/16 08:02 - 09/03/16 06:33 Intake Total 914 ml 655 ml 97727 ml Output Total 900 ml 1200 ml 59966 ml Balance 14 ml -545 ml -3754 ml Intake Oral 750 ml 600 ml 39016 ml IV Total 164 ml 55 ml 9564 ml Packed Cells 300 ml Output Urine Total 900 ml 1200 ml 81177 ml # Voids 15 # Bowel Movements 1 1 16 Exam General: Alert and oriented to person and day. No acute distress. Slower mentation today from previous days. Head: Normocephalic, atraumatic. External ears without defect. Eyes: Pupils equal, round, and reactive to light and accommodation. Anicteric sclerae, Cardiovascular: Regular rate and rhythm. Mechanical valve sound noted. Pulmonary: Wheezes bilaterally Abdomen: Bowel tones present. Soft, no tenderness to palpation. No masses appreciated. Extremities: Improving bilateral lower extremity edema. Neurological: No gross neurological deficits noted.s equal, round, and reactive to light and accommodation. Anicteric sclerae, Cardiovascular: Regular rate and rhythm. Mechanical valve sound noted. Pulmonary: Wheezes bilaterally Abdomen: Bowel tones present. Soft, no tenderness to palpation. No masses appreciated. Extremities: Improving bilateral lower extremity edema. Neurological: No gross neurological deficits noted. IVs and Medications Medications Reviewed: Medications were reviewed in detail Lab and Diagnostics Result Diagram: 09/03/1633309/03/16333 X-Rays, CTs and MRIs ABDOMEN/PELVIS WITHOUT CONTRAST IMPRESSION: 1. Pericholecystic fluid may raise the question of acute cholecystitis in the appropriate clinical setting. Consider limited abdominal ultrasound for further evaluation as needed. 2. Bibasilar mobile pleural effusions, as well as scattered abdominal and pelvic ascites, of uncertain etiology. 3. Incidental 1.8 cm lateral right renal cortical exophytic cyst. 4. Small fat-containing periumbilical ventral hernia. Dictated by: Enrico Gama M.D. on 08/24/2016 at 7:45 Approved by: Enrico Gmaa M.D. on 08/24/2016 at 7:55 X-RAY CHEST ONE VIEW, PORTABLE IMPRESSION: Persistent right mid and lower lung air space opacities may represent atelectasis and/or developing pneumonia. Dictated by: Enrico Gama M.D. on 08/24/2016 at 8:45 Approved by: Enrico Gama M.D. on 08/24/2016 at 8:47 X-RAY CHEST ONE VIEW IMPRESSION: 1. New right PICC is present, with tip in expected position. 2. Persistent right lower lung subtle air space opacities may represent atelectasis or early pneumonia. Dictated by: Enrico Gama M.D. on 08/24/2016 at 19:07 Approved by: Enrico Gama M.D. on 08/24/2016 at 19:09 X-RAY CHEST ONE VIEW, PORTABLE IMPRESSION: 1. Stable support lines and tubes. 2. Mild edema and/or pneumonia versus atelectasis involving the lung bases. Dictated by: Juan BECKMAN Interpreted: Yves Dallas MD on 08/25/2016 at 9:26 Approved by: Juan BECKMAN Interpreted: Yves Dallas MD on 08/25/2016 at 9:28 US RENAL SONOGRAM IMPRESSION: 1. A post-renal cause is not identified for acute renal insufficiency. 2. Gallbladder wall thickening as well as pericholecystic fluid may suggest acalculous cholecystitis. 3. Scattered perihepatic ascites again noted. Dictated by: Enrico Gama M.D. on 08/24/2016 at 17:16 Approved by: Enrico Gama M.D. on 08/24/2016 at 17:20 NM HIDA SCAN WITH CCK IMPRESSION: 1. Normal filling of gallbladder. No evidence for acute cholecystitis. 2. Poor contractile response of gallbladder to CCK infusion with gallbladder ejection fraction is 3.1%. This finding is consistent with gallbladder dyskinesia. Dictated by: Yves Dallas M.D. on 08/25/2016 at 16:43 Approved by: Yves Dallas M.D. on 08/25/2016 at 16:44 Additional Diagnostics US ABDOMEN, LIMITED IMPRESSION: 1. Trace free fluid demonstrated in the right upper quadrant. Dictated by: Garett Coffey M.D. on 09/01/2016 at 17:41 Assessment & Plan Randy Anand is a 81 year old man with history of atrial fibrillation on anticoagulation s/p implantable loop recorder, mechanical aortic valve, right heart failure, CAD s/p CABG, pulmonary hypertension, and CKD who presented with hematemesis and bradycardia. Admitted for symptomatic bradycardia, STANTON, severe sepsis, and possible acalculous cholecystitis. 1. Chronic cor pulmonale with fluid overload, present on admission. Active. - Pt has history of severe RV failure and significant pulmonary hypertension. Echo 08/26/16 showed mild concentric LVH with EF 55-60%, severe RV dilation with reduced function, flattened septum, mechanical AV, severe TR, and pulmonary hypertension. Will continue to diurese while closely monitoring renal function. Most likely 2nd to uncontrolled severe sleep apnea. - Dr. Peres with Cardiology following, recommendations appreciated. - Torsemide 40 BID. Metolazone 5 mg daily, Metoprolol 25 mg BID. - Viral resp pcr panel showed coronavirus and RSV. - Previous Sleep study showed severe sleep apnea. - Encourage nightly CPAP. 2. Acute kidney injury on chronic kidney disease (stage 3), present on admission , acute. Improving. - Secondary to cardiorenal or hepatorenal syndrome. - Nephrology has signed off. - Creatinine on admission 2.48 on 08/24/16, currently 1.58. - Following ins and outs. - KCL 10mg Kdur BID. 3. Anasarca, acute. Not present on admission. Active and improving. - Pt is up 4L total this admission but presents with significant bilateral lower extremity and scrotal edema. Most likely 2nd to cirrhosis and right sided Heart failure per above. - Continue spironolactone 50 mg daily. - Abdominal ultra sound per above. 4. Altered mental state (metabolic encephalopathy). Continuing. - Due to severe sepsis and ARF. - Ammonia level was elevated to 90 and lactulose started 09/01. - Titrating with lactulose 3-4 bowel movements per day. 5. Symptomatic bradycardia, present on admission, acute. Resolved. - Secondary to hyperkalemia in the setting of acute kidney injury. Patient appears to be exquisitely sensitive to hyperkalemia even at a potassium of 5.7. K now normal and bradycardia has since improved, with HR in 80s. He still has a temporary pacer at this time. - Cardiology consulted, appreciate the expertise and input. - Patient weaned off epinephrine gtt. Temporary pacemaker removed. 6. Hyperglycemia, acute. Present on admission. Resolved. - Glucose in 170s-180s. A1c 5.7. - Humalog low dose correctional scale. 7. Possible upper GI bleed, present on admission, stable. - Uncertain of cause, however a prior discharge summary describes a history of cirrhosis. EGD 07/01/16 was normal. Colonoscopy 07/01/16 showed 4 polyps, not resected, small internal and medium external hemorrhoids, and 2 areas of possible angiodysplasia in the colon. Received 1U PRBC. - Protonix push BID. - If H&H trends down or more hematemesis is noted, will consult GI. - Hemoglobin 8.4 up from 7.8. 8. Acute constipation. Present on admission. Resolved. - Pt reports no bowel movement for 10 days despite receiving stool softeners, as well as Kayexalate this admission. He has been passing gas. - Will attempt scheduled Senna. If this fails, will start Lactulose. 9. Elevated troponin of uncertain significance, present on admission, acute - Likely secondary to demand ischemia in the setting of right-sided heart failure and severe bradycardia, as well as acute kidney injury. 10. Anion gap metabolic acidosis, present on admission, acute. Resolving. - Likely multifactorial but primarily due to elevated lactate. Lactic acidosis resolved. AG improved from 26 to 19 to 16. - Dr. Harden of Nephrology consulted. 11. Gallbladder dyskinesia, present on admission. Stable. - Initially concern for acalculous cholecystitis given mildly tender RUQ, direct hyperbilirubinemia, elevated alk phos. CT abd showed pericholecystic fluid, US showed gallbladder wall thickening. However, HIDA scan showed gallbladder dyskinesia and no sign of cholecystitis. Surgery has evaluated the patient and he does not require surgery. - Continue to monitor. 12. Pulmonary hypertension with right-sided heart failure, present on admission , acute. Active. - Continue to monitor 13. Mechanical aortic valve, present on admission, acute - Restarted warfarin 14. Macrocytic anemia, present on admission, acute - Uncertain of baseline - Macrocytosis could represent reticulocytes, will order retic count 15. Hip fracture s/p ORIF - Ordered PT to evaluate and help with mobility. -Marc out when able 16. Hypovolemia hyponatremia, present on admission, acute - Likely multifactorial due to loses and SSRI, will continue to monitor 17. History of Tegretol toxicity. - Tegretol level normal. Acetaminophen for mild pain when necessary. Bowel regimen Senna and MiraLAX scheduled and PRN. Zofran when necessary for nausea and vomiting. SubQ heparin held for now. SCDs in place. High-risk medications: Warfarin. Disposition: Given his cardiac history, CKD, cirrhosis, and recent hip fracture , his prognosis is not favorable. We have consulted Palliative Care to guide a [id number] discussion with the patient and family. He will eventually discharge to [facility], likely in 3-4 days. Pain Evaluation: Adequate Pain Control VTE Mechanical Devices: Intermittant Pneumatic CD Resuscitation Status: DNR/DNI:Do Not Resuscitate/Intubate Limited Interventions: Medications and IV Fluid Time spent 40 minutes Attending Statement Patient seen and examined with house staff, agree with all attached documentation CEDRICK WOODWARD DO Sep 03, 2016 11:56 Gavin Redding MD Sep 04, 2016 14:49
[2016-09-03] MEDS: Albuterol-Ipratropium 3 mL Inhalation Solution NEB SCH ×2 (15:07→21:00)
--- NOTE | 2016-09-03 17:43 | NUR ---
Diuretics/PT/Nutrition The pt has been switched to oral diuretics - good urine output and blood pressures low, but stable. PT worked with the pt today, and was pleased with the increase in activity. Hopeful for walking steps tomorrow. The pt's was caught force-feeding the pt today because "he doesn't eat enough". The was educated on the risks of this behavior, yet determined to continue. We will continue to advocate for the pt.
[2016-09-04] VITALS (10 sets, daily range): BP systolic 87–123; BP diastolic 44–66; PULSE 66–100; RESP 12–20; O2SAT 89–100
--- NOTE | 2016-09-04 02:39 | NUR ---
Mentation/Dysphagia Pt alert and oriented to time and place. Pt coughing with sips of water. Candies and other foods placed off of bedside table to far table and pt asked not to consume foods without nurse being present. Pt agreed. HS medications crushed and given with pudding.
[2016-09-04 04:03] LABS: BASOPHILS % (AUTO) 0.5 % (0-3); EOSINOPHILS % (AUTO) 5.7 % (0-5); MONOCYTES % (AUTO) 2.8 % (4-12); Mean Corpuscular Hemoglobin 30.9 pg (27.0-35.0); Mean Corpuscular Volume 101.8 fL (81-100); NEUTROPHILS % (AUTO) 84.6 % (40-74); Platelet Count 191 bil/L (150-400)
[2016-09-04 04:13] LABS: INR 2.44 ratio
[2016-09-04 04:20] LABS: Magnesium 2.2 mg/dL (1.6-2.6)
[2016-09-04] MEDS: Lactulose 20 Gm/30 mL 30 mL Syrup PO SCH ×3 (06:05→20:21)
[2016-09-04] MEDS: carBAMazepine 200 mg Tablet PO SCH ×2 (07:50→20:21)
[2016-09-04] MEDS: Pantoprazole 4 mg/mL 10 mL Inj IVPUSH SCH ×2 (07:51→17:07)
[2016-09-04] MEDS: Albuterol-Ipratropium 3 mL Inhalation Solution NEB SCH ×4 (08:08→20:40)
--- NOTE | 2016-09-04 10:33 | PCM.PHAPRO ---
Progress bradycardia WARFARIN DOSING INDICATION AVR plus AFIB Target INR 2.5-3.5 Inpatient Dosing Date 5-Aug 6-Aug 7-Aug 8-Aug 28-Aug 29-Aug 30-Aug 12-Aug 13-Aug 14-Aug 15-Aug 16- Aug INR 2.37 3.46 2.51 2.06 1.63 1.66 1.76 2.20 2.46 2.6 2.67 2.44 INR change 1.09 -0.95 -0.45 0.03 0.1 0.44 0.26 0.14 0.07 -0.23 Warf Dose held held ? 5 ? 7.5 5 5 5 5 6 7.5 p/ Tolerating full dose- increase to home regimen. Robin Grissom Pharm D Sep 04, 2016 10:33
--- NOTE | 2016-09-04 12:16 | DRSVH ---
PROCEDURE: US VEINOUS LEG DUPLEX UNILATERAL, LEFT INDICATIONS: L sided hip fracture recently. TECHNIQUE: Real-time imaging, as well as color and pulse Doppler interrogation, were performed of the lower extr emity deep veins from the inguinal ligament to the popliteal fossa. COMPARISON: None. FINDINGS: The deep veins are normally compressible, and free of intraluminal thrombus. Color and pu lse Doppler demonstrate normal phasic intraluminal flow. There is normal augmentation response to di stal compression maneuver. Soft tissue swelling noted. IMPRESSION: No left leg DVT. Dictated by: Juan Mooney Corrie Interpreted: Yves Dallas MD on 09/04/2016 at 12:15 Transcribed by: PRATEEK on 09/04/2016 at 12:16 Approved by: Yves Dallas M.D. on 09/05/2016 at 18:44
--- NOTE | 2016-09-04 12:51 | PROG NOTE ---
[address] [address] PROGRESS NOTE PATIENT: SANDRINE VAN : 1935 MR#: [id number] ADMIT: 08/24/2016 JOB ID: [id number] DATE: 09/04/2016 SUBJECTIVE: The patient has made good progress over the past few days. He seems to be diuresing briskly now on oral diuretics and is no longer requiring any intravenous inotropic support for his kidneys. Renal function has stabilized, with a creatinine of 1.5-1.6. His potassium is a little bit low this morning. This patient seems much more alert and oriented and responsive today. He is eating better and starting to work with physical therapy. He still has not been out of bed yet, but seems to have made good progress over the past several days. OBJECTIVE: His exam again shows absence of jaundice. He has prominent jugular venous distention with the jugular venous pulse visible at the earlobe with the patient at 60 degrees. His lungs show less wheezing, but he still has a fairly bronchitic cough and sputum production. Cardiac auscultation is notable for an irregular rhythm with normal aortic prosthetic sounds. Abdomen shows prominent flank edema. I think I can feel his liver edge now about 6 cm below the right costal margin, but it does not appear tender. I am sure there is some mild ascites, but probably not a great deal. He continues to have sacral and lower extremity edema as well. LABORATORY: Notable for a stable protime on his current anticoagulant dose. Electrolytes again show a potassium of 3.3. His renal function is quite stable. Notable is the fact that his serum protein electrophoresis returned showing an abnormal monoclonal protein. His protein electrophoresis is pending apparently. This was drawn on August 24 and probably needs followup or perhaps consultation with hematology/oncology. DISCUSSION: I think the patient is doing well with his current medications. His hyperbilirubinemia has resolved. His liver is less congested. He has diuresed considerably and continues to do so now on oral medications. He still has probably 15 or 20 pounds to diurese. The plan going forward will be to continue with his current diuretics and potassium supplementation, hopefully to achieve another 10 or 15 pounds of diuresis while he is here in the hospital. He needs ongoing physical therapy and nutritional support. His mental status seems to be much more clear at this point and I am pleased with his clinical progress. My associate will be taking over for me tomorrow in the hospital and I will ask him to make rounds on this patient. When he is ready for discharge, he should have an appointment made to follow up with his [employer] specialist in the near future. Once again, the abnormal serum protein electrophoresis is notable and likely requires some followup.
--- NOTE | 2016-09-04 14:20 | NUR ---
NUTRITION FOLLOW UP Assess: Pt is a 81 yo male was transferred from [facility] w/ bradycardia, STANTON on CKD and hypotension. Pt being followed by nephrology and is undergoing slow diuresis. Per notes, pt will not be put on dialysis as he is not interested. Pt remains on bowel regimen. Pt experiencing decreased appetite, but states pt is eating Magic Cups on all trays. Pt is only drinking one or two Ensure drinks a day. states she is bringing in foods from home that the pt typically enjoys, such as steak and shrimp, and has been feeding him. PMHx: Afib, CHF, left hip fracture, multiple myeloma, trigeminal neuralgia, peripheral neuropathy, hyponatremia, depression, renal failure, sleep apnea, mechanical aortic valve. LABS: Reviewed. K 3.3, Cl 94, CO2, 32, BUN 59, Plant Associate 1.52, Gluc 100, Ca 8.1, Alk Phos 226, Alb 2.7 MEDICATIONS: Lactulose, Demadex, Spirinolactone, Coumadin, Senna CURRENT DIET: Heart Healthy - PO Ref-50%, usually bites GI symptoms/stool: BM x 1 (09/03) Senna provided. SKIN: George 15 redness and weeping noted on sacrum. ANTHROPOMETRICS: Current Wt: 88.3 kg BMI: 27.9 kg/m2 IBW: 73 kg Admit Wt: 90.3 kg (BMI: 28.6 kg/m2) ESTIMATED NEEDS: Renal Failure, no dialysis (recalculated 08/28) Calories: 8156-1114 kcal/day (25-30 kcal/kg BW) Protein: 70-90 g/day (0.8-1.0 g/kg BW) Fluids: ~2000 ml/day (Approx. 1 ml/kcal/d) NUTRITION DIAGNOSIS: 1) Altered nutrition related lab values related to STANTON on CKD and hyponatremia as evidenced by elevated BUN and creatinine levels and low sodium lab values. ---IMPROVED. BUN and Creatinine trending down. 2) Inadequate oral intake related to acute illness as evidenced by poor PO intake of refused-25% and pt stated decrease in appetite.---PERSISTS INTERVENTION: 1) Continue w/ Vanilla Ensure on L tray. 2) Continue Magic Cups on all trays. MONITORING/EVALUATION: PO intake, GI, labs, nutrition status, POC. Will continue to monitor per moderate nutritional risk guidelines. Addendum: 09/04/16 at [address] Student documentation reviewed and I agree with the above assessment. Tavo Ruiz, MS, RDN, CD
--- NOTE | 2016-09-04 15:40 | PCM.PNMED ---
Subjective Date of Service Sep 04, 2016 Subjective Randy Anand is a 81 year old man with past medical history significant for atrial fibrillation on anticoagulation s/p an implantable loop recorder in place for consideration of permanent pacemaker, [place] mechanical aortic valve , right-sided heart failure, CAD s/p CABG, pulmonary hypertension, and chronic kidney disease who presented to the [facility] emergency department from [facility] ED with initial complaint of coffee-ground emesis and was subsequently found to be bradycardic in the 20s hypotension and depressed mental status. The patient is unable to give any history at this time and the majority of history is collected from chart notes and from the patient's family who are at bedside. He was noted to have significant sinus pause and was initially treated with epinephrine and atropine which had no effect. He was started on an dopamine drip at [place] and transferred here. Medics administered 0.5 epinephrine x2 en route and arrived with SBP in the 80s-90s. He was found to have a positive troponin of approximately 0.2, his heart rate was noted to respond somewhat to epinephrine. He was transferred here after being discussed with Dr. Lundberg ( cardiology). An attempt was made to initiate transcutaneous pacing, however the device would not capture and this could not be done. An initial plan was for the patient to received a transvenous pacer, however upon Dr. Lundberg's evaluation of the patient she noted his severe metabolic acidosis and treated him with 1 ampule of calcium bicarbonate as well as 2 g of calcium gluconate given the patient's hyperkalemia and renal failure which successfully increased the patient's heart rate. In the patient's recent history he was admitted to [facility] for decompensated heart failure for 8 days and was aggressive diuresed. He was discharged home and unfortunately fell and broke his hip which resulted in a subsequent hospital stay at [facility]. He was recuperating at [facility] home doing acute inpatient rehab when he developed worsening altered mental status, bloody vomiting, and confusion. Per the patient's family the patient has vomited several times this morning with bloody emesis but he has not had any episodes while he has been at [facility]. Author - Angelica Adame DO Aug 24, 2016 11:21 Rory Dubose MD Aug 24, 2016 15:37 Overnight: No acute overnight events. Today: He reports feeling better today. He appears to be mentating more proficiently. Physical Therapy reports he is progressing well. Marc on left hip continue to ooze and wound care does not recommend removal at this time His appetite continues to remain diminished. Alert and oriented x 2. No other complaints at this time. We discussed the importance of using the CPAP machine at night, work with Physical therapy, and take in adequate ament of calories. . Exam Vital Signs Vital Sign - Last Date Time Temp Pulse Resp B/P Pulse Ox O2 Delivery O2 Flow Rate FiO2 09/04/16 15:01 36.8 88 20 123/66 100 Nasal Cannula 1.00 Intake and Output 09/03/16 09/03/16 09/04/16 Cumulative From/Thru 15:00 23:00 07:00 08/24/16 08:02 - 09/04/16 05:20 Intake Total 520 ml 700 ml 46333 ml Output Total 1475 ml 2200 ml 48836 ml Balance -955 ml -1500 ml -6209 ml Intake Oral 460 ml 700 ml 75201 ml IV Total 60 ml 9624 ml Packed Cells 300 ml Output Urine Total 1475 ml 2200 ml 20480 ml # Voids 15 # Bowel Movements 16 Exam General: Alert and oriented to person and day. No acute distress. Slower mentation today from previous days. Head: Normocephalic, atraumatic. External ears without defect. Eyes: Pupils equal, round, and reactive to light and accommodation. Anicteric sclerae, Cardiovascular: Regular rate and rhythm. Mechanical valve sound noted. Pulmonary: Wheezes bilaterally Abdomen: Bowel tones present. Soft, no tenderness to palpation. No masses appreciated. Extremities: Improving bilateral lower extremity edema. Neurological: No gross neurological deficits noted.s equal, round, and reactive to light and accommodation. Anicteric sclerae, Cardiovascular: Regular rate and rhythm. Mechanical valve sound noted. Pulmonary: Wheezes bilaterally Abdomen: Bowel tones present. Soft, no tenderness to palpation. No masses appreciated. Extremities: Improving bilateral lower extremity edema. Neurological: No gross neurological deficits noted. IVs and Medications Medications Reviewed: Medications were reviewed in detail Lab and Diagnostics Result Diagram: 09/04/16 0335 09/04/16 033 X-Rays, CTs and MRIs US VEINOUS LEG DUPLEX UNILATERAL, LEFT IMPRESSION: Left leg edema present and no left leg DVT identified. Dictated by: Juan BECKMAN Interpreted: Yves Dallas MD on 09/04/2016 at 12:15 ABDOMEN/PELVIS WITHOUT CONTRAST IMPRESSION: 1. Pericholecystic fluid may raise the question of acute cholecystitis in the appropriate clinical setting. Consider limited abdominal ultrasound for further evaluation as needed. 2. Bibasilar mobile pleural effusions, as well as scattered abdominal and pelvic ascites, of uncertain etiology. 3. Incidental 1.8 cm lateral right renal cortical exophytic cyst. 4. Small fat-containing periumbilical ventral hernia. Dictated by: Enrico Gama M.D. on 08/24/2016 at 7:45 Approved by: Enrico Gama M.D. on 08/24/2016 at 7:55 X-RAY CHEST ONE VIEW, PORTABLE IMPRESSION: Persistent right mid and lower lung air space opacities may represent atelectasis and/or developing pneumonia. Dictated by: Enrico Gama M.D. on 08/24/2016 at 8:45 Approved by: Enrico Gama M.D. on 08/24/2016 at 8:47 X-RAY CHEST ONE VIEW IMPRESSION: 1. New right PICC is present, with tip in expected position. 2. Persistent right lower lung subtle air space opacities may represent atelectasis or early pneumonia. Dictated by: Enrico Gama M.D. on 08/24/2016 at 19:07 Approved by: Enrico Gama M.D. on 08/24/2016 at 19:09 X-RAY CHEST ONE VIEW, PORTABLE IMPRESSION: 1. Stable support lines and tubes. 2. Mild edema and/or pneumonia versus atelectasis involving the lung bases. Dictated by: Juan BECKMAN Interpreted: Yves Dallas MD on 08/25/2016 at 9:26 Approved by: Juan BECKMAN Interpreted: Yves Dallas MD on 08/25/2016 at 9:28 US RENAL SONOGRAM IMPRESSION: 1. A post-renal cause is not identified for acute renal insufficiency. 2. Gallbladder wall thickening as well as pericholecystic fluid may suggest acalculous cholecystitis. 3. Scattered perihepatic ascites again noted. Dictated by: Enrico Gama M.D. on 08/24/2016 at 17:16 Approved by: Enrico Gama M.D. on 08/24/2016 at 17:20 NM HIDA SCAN WITH CCK IMPRESSION: 1. Normal filling of gallbladder. No evidence for acute cholecystitis. 2. Poor contractile response of gallbladder to CCK infusion with gallbladder ejection fraction is 3.1%. This finding is consistent with gallbladder dyskinesia. Dictated by: Yves Dallas M.D. on 08/25/2016 at 16:43 Approved by: Yves Dallas M.D. on 08/25/2016 at 16:44 Additional Diagnostics US ABDOMEN, LIMITED IMPRESSION: 1. Trace free fluid demonstrated in the right upper quadrant. Dictated by: Garett Coffey M.D. on 09/01/2016 at 17:41 Assessment & Plan Randy Anand is a 81 year old man with history of atrial fibrillation on anticoagulation s/p implantable loop recorder, mechanical aortic valve, right heart failure, CAD s/p CABG, pulmonary hypertension, and CKD who presented with hematemesis and bradycardia. Admitted for symptomatic bradycardia, STANTON, severe sepsis, and possible acalculous cholecystitis. 1. Chronic cor pulmonale with fluid overload (PAH, unclear etiology), present on admission. Active. - Pt has history of severe RV failure and significant pulmonary hypertension. Echo 08/26/16 showed mild concentric LVH with EF 55-60%, severe RV dilation with reduced function, flattened septum, mechanical AV, severe TR, and pulmonary hypertension. Will continue to diurese while closely monitoring renal function. Most likely 2nd to uncontrolled severe sleep apnea. - Cardiology following, recommendations appreciated. - Torsemide 40 BID. Metolazone 5 mg daily, Metoprolol 25 mg BID. - Viral resp pcr panel showed coronavirus and RSV. - Previous Sleep study showed severe sleep apnea. - Encourage nightly CPAP. 2. Acute kidney injury on chronic kidney disease (stage 3), present on admission , acute. Improving. - Secondary to cardiorenal or hepatorenal syndrome. - Nephrology has signed off. - Creatinine on admission 2.48 on 08/24/16, currently 1.58. - Following ins and outs. - KCL 10mg Kdur BID. 3. Anasarca, acute. Not present on admission. Active and improving. - Pt is up 4L total this admission but presents with significant bilateral lower extremity and scrotal edema. Most likely 2nd to cirrhosis and right sided Heart failure per above. - Continue spironolactone 50 mg daily. - Abdominal ultra sound per above. 4. Encephalopathy of unknown etiology, possibly metabolic. present on admission. Continuing and improving. - Due to severe sepsis and ARF. - Ammonia level was elevated to 90 and lactulose started 09/01. 5. Symptomatic bradycardia, present on admission, acute. Resolved. - Secondary to hyperkalemia in the setting of acute kidney injury. Patient appears to be exquisitely sensitive to hyperkalemia even at a potassium of 5.7. K now normal and bradycardia has since improved, with HR in 80s. He still has a temporary pacer at this time. - Cardiology consulted, appreciate the expertise and input. - Patient weaned off epinephrine gtt. Temporary pacemaker removed. 6. Hyperglycemia, acute. Present on admission. Resolved. - Glucose in 170s-180s. A1c 5.7. - Humalog low dose correctional scale. 7. Possible upper GI bleed, present on admission, stable. - Uncertain of cause, however a prior discharge summary describes a history of cirrhosis. EGD 07/01/16 was normal. Colonoscopy 07/01/16 showed 4 polyps, not resected, small internal and medium external hemorrhoids, and 2 areas of possible angiodysplasia in the colon. Received 1U PRBC. - Protonix push BID. - If H&H trends down or more hematemesis is noted, will consult GI. - Hemoglobin 8.4 up from 7.8. 8. Acute constipation. Present on admission. Resolved. - Pt reports no bowel movement for 10 days despite receiving stool softeners, as well as Kayexalate this admission. He has been passing gas. - Will attempt scheduled Senna. If this fails, will start Lactulose. 9. Elevated troponin of uncertain significance, present on admission, acute - Likely secondary to demand ischemia in the setting of right-sided heart failure and severe bradycardia, as well as acute kidney injury. 10. Anion gap metabolic acidosis, present on admission, acute. Resolving. - Likely multifactorial but primarily due to elevated lactate. Lactic acidosis resolved. AG improved from 26 to 19 to 16. - Dr. Harden of Nephrology consulted. 11. Gallbladder dyskinesia, present on admission. Stable. - Initially concern for acalculous cholecystitis given mildly tender RUQ, direct hyperbilirubinemia, elevated alk phos. CT abd showed pericholecystic fluid, US showed gallbladder wall thickening. However, HIDA scan showed gallbladder dyskinesia and no sign of cholecystitis. Surgery has evaluated the patient and he does not require surgery. - Continue to monitor. 12. Pulmonary hypertension with right-sided heart failure, present on admission , acute. Active. - Continue to monitor 13. Mechanical aortic valve, present on admission, acute - Restarted warfarin 14. Macrocytic anemia, present on admission, acute - Uncertain of baseline - Macrocytosis could represent reticulocytes, will order retic count 15. Hip fracture s/p ORIF - Ordered PT to evaluate and help with mobility. -[place] out when able 16. Hypovolemia hyponatremia, present on admission, acute - Likely multifactorial due to loses and SSRI, will continue to monitor 17. History of Tegretol toxicity. - Tegretol level normal. Acetaminophen for mild pain when necessary. Bowel regimen Senna and MiraLAX scheduled and PRN. Zofran when necessary for nausea and vomiting. SubQ heparin held for now. SCDs in place. High-risk medications: Warfarin. Disposition: Given his cardiac history, CKD, cirrhosis, and recent hip fracture , his prognosis is not favorable. We have consulted Palliative Care to guide a [id number] discussion with the patient and family. He will eventually discharge to [facility], likely in 3-4 days. Pain Evaluation: Adequate Pain Control VTE Mechanical Devices: Intermittant Pneumatic CD Resuscitation Status: DNR/DNI:Do Not Resuscitate/Intubate Limited Interventions: Medications and IV Fluid Time spent 45 minutes Attending Statement Patient seen and examined with house staff. Agree with all attached documentation. CEDRICK WOODWARD DO Sep 04, 2016 15:34 Gavin Redding MD Sep 06, 2016 07:20
--- NOTE | 2016-09-04 17:00 | DRSVH ---
PROCEDURE: US ABDOMEN DOPPLER, LIMITED INDICATIONS: RUQ, possible cirrhosis. TECHNIQUE: Real-time scanning was performed of the abdominal and retroperitoneal organs, with image documentatio n. Color and pulse Doppler interrogation was also performed of the hepatic and splenic vessels, or o f the lesion of interest. COMPARISON: [facility], [place], [facility]EN LTD, 09/01/2016, 16:56. FINDINGS: Liver: Liver is normal in size and homogeneous in echotexture. No focal hepatic abnormality seen Doppler: Main portal vein is patent, with luminal diameter of 14.0 mm (normal of 13-16 mm). On puls e Doppler interrogation, portal vein flow direction is hepatopetal. Hepatic artery Doppler waveforms demonstrate normal systolic upstrokes. Hepatic veins are all patent, with expected triphasic Dopple r waveforms. Miscellaneous: Small amount of upper abdominal and pelvic fluid is seen. Right pleural effusion. IMPRESSION: 1. Normal ultrasound normal appearance of the liver. Hepatopedal flow of the portal veins. 2. Trace ascites redemonstrated and small right pleural effusion. Dictated by: Juan Mooney [facility] Interpreted: Yves Dallas MD on 09/04/2016 at 16:14 Transcribed by: PRATEEK on 09/04/2016 at 16:16 Approved by: Yves Dallas M.D. on 09/05/2016 at 18:53
--- NOTE | 2016-09-04 17:16 | NUR ---
O2/PT/BM's The pt was able to keep sats above 92% on RA during the second half of day shift. He was able to get up again with PT, and his mentation continues to improve. He has three BM's during day shift - evening lactulose dose held as the pt had 4 BM's in the past 24 hours.
--- NOTE | 2016-09-04 22:33 | NUR ---
Swallowing Pt is bright and conservational. Able to cough and clear secretions adequately. Pt drank water with straw and did not have any difficulties. Pt able to take HS pills whole without issue.
--- NOTE | 2016-09-04 22:40 | NUR ---
Dressing change Pt's previous dressings not dated. Day shift stated that dressings needed to be changed. Left hip dressings changed and dated.
[2016-09-05] VITALS (12 sets, daily range): BP systolic 90–105; BP diastolic 44–66; PULSE 72–102; RESP 13–20; O2SAT 90–99
[2016-09-05] MEDS: Albuterol-Ipratropium 3 mL Inhalation Solution NEB SCH ×4 (02:30→22:02)
[2016-09-05 03:47] LABS: BASOPHILS % (AUTO) 0.4 % (0-3); EOSINOPHILS % (AUTO) 5.2 % (0-5); MONOCYTES % (AUTO) 2.6 % (4-12); Mean Corpuscular Hemoglobin 31.5 pg (27.0-35.0); Platelet Count 226 bil/L (150-400)
[2016-09-05 04:02] LABS: Magnesium 2.2 mg/dL (1.6-2.6); Phosphorus 2.5 mg/dL (2.5-4.9)
--- NOTE | 2016-09-05 04:03 | NUR ---
patient had requested that he not be woken up for a breathing tx. Patient is stable no respiratory distress noted
[2016-09-05] MEDS: Lactulose 20 Gm/30 mL 30 mL Syrup PO SCH ×3 (05:25→21:22)
--- NOTE | 2016-09-05 08:26 | NUR ---
Faxed clinicals to [facility] per TITLE EXAMINER
[2016-09-05] MEDS: Pantoprazole 4 mg/mL 10 mL Inj IVPUSH SCH ×2 (08:36→17:10)
[2016-09-05] MEDS: carBAMazepine 200 mg Tablet PO SCH ×2 (08:37→21:18)
[2016-09-05 09:37] LABS: INR 2.38 ratio
--- NOTE | 2016-09-05 10:13 | NUR ---
Social Work: Readiness for Discharge D: Pt discussed in am rounds. Pt is not medically stable for discharge and continues to be diuresed. Anticipate pt may be ready for discharge on Thursday or Thursday. COPY CAMERA OPERATOR spoke with Asael at [facility] to confirm that pt can be accepted back. He states that they are willing to accept the pt back when clinically appropriate. COPY CAMERA OPERATOR informed him of anticipated discharge early next week. COPY CAMERA OPERATOR requested MEMORIAL ADVISER fax clinicals to [facility] for further review. Pt continues to work with PT and continues to require Mod to Max assist; recommendation for discharge back to skilled rehab. PPW on chart. A: Pt who will continue to require PT at time of discharge for continued strengthening and mobility training. P: Anticipate pt to return to [facility] with Dr. Cordoba to follow once medically stable; COPY CAMERA OPERATOR to continue to follow. LANDRY Hobson
--- NOTE | 2016-09-05 12:17 | PCM.CONPHA ---
Subjective Date of Service: Sep 05, 2016 AVR and atrial fibrillation Reason for Pharmacy Consult: Anticoagulation Management Objective Vital Signs Date Time Temp Pulse Resp B/P Pulse Ox O2 Delivery O2 Flow Rate FiO2 09/05/16 08:29 36.8 95 19 105/66 92 Nasal Cannula 2.00 09/05/16 07:57 98 09/05/16 07:30 86 14 94 Nasal Cannula 0.50 09/05/16 06:25 Supplement Oxygen 09/05/16 05:15 80 09/05/16 05:12 36.5 102 13 95/54 93 Nasal Cannula 2.00 09/05/16 00:43 36.8 100 16 95/44 96 Nasal Cannula 2.00 09/04/16 20:40 100 16 95 Nasal Cannula 1.00 09/04/16 19:47 Supplement Oxygen 09/04/16 19:47 85 16 87/53 89 Nasal Cannula 2.00 09/04/16 15:01 36.8 88 20 123/66 100 Nasal Cannula 1.00 09/04/16 14:44 82 16 99 Nasal Cannula 1.00 Intake and Output 09/02/16 09/03/16 09/04/16 23:59 23:59 23:59 Intake Total 1210 ml 1175 ml 1030 ml Output Total 2000 ml 2675 ml 3850 ml Balance -790 ml -1500 ml -2820 ml Weight (Kilograms): 83.500 Height (Feet): 5 Height (Inches): 10.00 Test 08/24/16 08:13 08/24/16 08:14 08/24/16 10:22 08/24/16 13:22 Activated Partial Thromboplast Time 43.4sec (22.8-33.0) Pro-B-Type Natriuretic Peptide 64443be/mL (0-486) Digoxin Level 0.3nG/mL (0.9-2.0) Hold Michelle Top Tube Received (Received) Direct Bilirubin 1.7mg/dL (0.0-0.3) Urine Ictotest Positive (Negative) Urine Total Protein 192.6mg/dL (Not Estab.) Urine Albumin % (.) Urine Pipmh-8-Asrsxscf % (.) Urine Ajzyl-9-Dmafdvivr % (.) Urine Beta Globulin % (.) Urine Gamma Globulin % (.) Urine Protein Electrophoresis Note Comment (.) Urine Monoclonal Protein % % (.) Globulin (PEP) 4.6g/dL (2.2-3.9) Albumin/Globulin Ratio 0.7 (0.7-1.7) Ggwbh-8-Hrvnpnbgh 0.3g/dL (0.0-0.4) Jtkuv-6-Nfsifeijw 0.8g/dL (0.4-1.0) Beta Globulins 0.9g/dL (0.7-1.3) Gamma Globulins 2.6g/dL (0.4-1.8) Serum Monoclonal Protein 2.4g/dL (Not Observed) Protein Electrophoresis Comment Comment (.) Protein Electrophoresis Interpret Comment (.) Test 08/24/16 13:29 08/24/16 17:45 08/25/16 04:30 08/25/16 11:45 Fibrinogen 445mg/dL (157-380) Reticulocyte Count,Calculated 6.2% (0.6-2.6) Troponin T 0.275ug/L (0.0-0.011) Hemoglobin A1c 5.7% (4.8-5.6) Uric Acid 12.0mg/dL (2.6-7.2) Vitamin B12 Level >1999pg/mL (211-946) Folate 8.6ng/mL (>3.0) Lactic Acid Level 1.4mmol/L (0.4-2.0) Test 08/27/16 04:00 08/28/16 08:00 08/29/16 05:00 08/29/16 15:30 Iron Level 39ug/dL (35-150) Total Iron Binding Capacity 198ug/dL (250-450) Percent Iron Saturation 20%sat (15-50) Unsaturated Iron Binding 159.1ug/dL Ferritin 487ng/mL (30-400) Hold Purple Top Tube Received (Received) Hold Marlin Top Tube Received (Received) Procalcitonin 0.40ng/mL (0.00-0.08) Urine Color Yellow (YELLOW) Urine Appearance Hazy (CLEAR,HAZY) Urine pH 5.0 (5.0-8.0) Urine Specific [place] 1.010 (1.003-1.035) Urine Protein Negativemg/dL (NEG,TRACE) Urine Glucose (UA) Negativemg/dL (NEGATIVE) Urine Ketones Negativemg/dL (NEGATIVE) Urine Occult Blood Trace (NEGATIVE) Urine Nitrite Negative (NEGATIVE) Urine Bilirubin Negative (NEGATIVE) Urine Urobilinogen Normalmg/dL (NORMAL) Urine Leukocyte Esterase Negative (NEGATIVE) Urine RBC 0-2/hpf (0-2) Urine WBC 0-5/hpf (0-5) Urine Epithelial Cells Occasional/hpf (NONE-MOD) Urine Crystals Amorphous urates (NONE Urine Bacteria Few/hpf (NONE-FEW) Urine Hyaline Casts None/lpf (NONE) Urine Granular Casts None seen (NONE SEEN) Urine Waxy Casts None seen (NONE SEEN) Urine Red Blood Cell Casts None seen (NONE SEEN) Urine White Blood Cell Casts None seen (NONE SEEN) Urine Mucus Present (None Seen) Urine Trichomonas None seen (NONE SEEN) Urine Yeast None (NONE SEEN) Urinalysis Comment None Urine Culture Reflexed Not indicated Test 08/30/16 13:14 09/01/16 12:00 09/05/16 03:25 09/05/16 09:15 Osmolality 307 (275-300) Ammonia 90ug/dL (18-53) Carbamazepine (Tegretol) Level 9.9ug/mL (4.0-12.0) White Blood Count 5.4th/mm3 (3.8-10.1) Red Blood Count 2.95mil/mm3 (4.40-5.80) Hemoglobin 9.3g/dL (13.8-17.2) Hematocrit 29.5% (41.0-50.0) Mean Corpuscular Volume 100.0fL (81-100) Mean Corpuscular Hemoglobin 31.5pg (27.0-35.0) Mean Corpuscular Hemoglobin Concent 31.5% (32.0-37.0) Red Cell Distribution Width 19.0% (12.3-15.4) Platelet Count 226bil/L (150-400) Neutrophils (%) (Auto) 87.0% (40-74) Lymphocytes (%) (Auto) 4.6% (14-46) Monocytes (%) (Auto) 2.6% (4-12) Eosinophils (%) (Auto) 5.2% (0-5) Basophils (%) (Auto) 0.4% (0-3) Sodium Level 136mEq/L (134-144) Potassium Level 3.4mEq/L (3.5-5.2) Chloride Level 92mEq/L (97-108) Carbon Dioxide Level 32mmol/L (18-29) Blood Urea Nitrogen 58mg/dL (8-27) Creatinine 1.43mg/dL (0.76-1.27) Estimat Glomerular Filtration Rate 51mL/min (>59) Glucose Level 109mg/dL (60-99) Calcium Level 8.2mg/dL (8.5-10.1) Phosphorus Level 2.5mg/dL (2.5-4.9) Magnesium Level 2.2mg/dL (1.6-2.6) Total Bilirubin 1.4mg/dL (0.0-1.2) Aspartate Amino Transf (AST/SGOT) 45U/L (0-50) Alanine Aminotransferase (ALT/SGPT) 20U/L (0-44) Alkaline Phosphatase 255U/L (25-160) Total Protein 6.9g/dL (6.4-8.4) Albumin 2.8g/dL (3.4-5.0) Prothrombin Time 25.9sec (8.1-12.5) Prothromb Time International Ratio 2.38ratio Assessment/Plan Assessment/Plan Assessment: * Patient is needing warfarin management for AVR and atrial fibrillation. * Patient's warfarin was increased to the home dosage of 7.5 mg per day yesterday after INR was 2.44. * Patient's INR goal range: 2.5 - 3.5 * Patient's INR on 09/05/15: 2.38 * Patient's INR dropped slightly, but was just restarted on the home warfarin regimen yesterday. Plan: * Will continue with the home warfarin regimen for now and will reevaluate with the PT/INR on 09/06/16. * Will continue to follow. Derrick Soler Sep 05, 2016 12:17
--- NOTE | 2016-09-05 13:01 | PCM.PNCARD ---
Subjective Date of service Sep 05, 2016 History of Present Illness SOB Constitutional: Denies: Chills, Fever Cardiovascular: Reports: Edema, Denies: Chest Pain Respiratory: Denies: Shortness of Breath Neurological: Denies: Confusion Endocrine: Reports: Blood Glucose Review Exam Vital Signs Vital Sign - Last Date Time Temp Pulse Resp B/P Pulse Ox O2 Delivery O2 Flow Rate FiO2 09/05/16 12:16 36.9 83 16 93/58 96 Nasal Cannula 2.00 Intake and Output 09/04/16 09/04/16 09/05/16 Cumulative From/Thru 15:00 23:00 07:00 08/24/16 08:02 - 09/05/16 06:29 Intake Total 330 ml 849 ml 68551 ml Output Total 1650 ml 1700 ml 70869 ml Balance -1320 ml -851 ml -8380 ml Intake Oral 210 ml 500 ml 56540 ml IV Total 120 ml 349 ml 66710 ml Packed Cells 300 ml Output Urine Total 1650 ml 1700 ml 39682 ml # Voids 15 # Bowel Movements 16 General: Pleasant Cooperative Cardiac: Normal S1 and S2 Neurological: Alert & oriented Lab and Diagnostics Result Diagram: 09/05/16 0325 09/05/16 0325 Assessment & Plan Problems: (1) Cardiomyopathy Plan: -Much improved. I would simply recommend to continue with his current oral heart failure meds. Possibly consider switching his metoprolol tartrate to succinate but given his recent bradycardia, I would monitor him tartrate as an outpatient and if he continues to have a stable HR then switch him to succinate. -Follow-up with his primary instrument setter who is from [facility] cardiology and apparently can see Dr. Hope in [place]. -I would closely monitor his BP's and if he does develop symptomatic hypotension then consider decreasing his torsemide. -Cardiology will sign off. Status: Chronic ICD Code: I42.9 Pain Evaluation: Adequate Pain Control VTE Mechanical Devices: Intermittant Pneumatic CD Resuscitation Status: DNR/DNI:Do Not Resuscitate/Intubate Limited Interventions: Medications and IV Fluid Time spent 15 minutes Zen Lou MD Sep 05, 2016 13:01
--- NOTE | 2016-09-05 17:03 | NUR ---
Transfer to 2008 Patient successfully transferred to 2009. Visiting with son at bedside. Care continues.
--- NOTE | 2016-09-05 18:31 | NUR ---
Eating Patient drank two full ensures this shift. At 3/4 of his dinner ([place], rice and fruit cup). Son in room encouraging eating. Care continues.
--- NOTE | 2016-09-05 20:21 | PCM.PNMED ---
Subjective Date of Service Sep 05, 2016 Subjective Randy Anand is a 81 year old man with past medical history significant for atrial fibrillation on anticoagulation s/p an implantable loop recorder in place for consideration of permanent pacemaker, [place] mechanical aortic valve , right-sided heart failure, CAD s/p CABG, pulmonary hypertension, and chronic kidney disease who presented to the [facility] emergency department from [facility] ED with initial complaint of coffee-ground emesis and was subsequently found to be bradycardic in the 20s hypotension and depressed mental status. The patient is unable to give any history at this time and the majority of history is collected from chart notes and from the patient's family who are at bedside. He was noted to have significant sinus pause and was initially treated with epinephrine and atropine which had no effect. He was started on an dopamine drip at [place] and transferred here. Medics administered 0.5 epinephrine x2 en route and arrived with SBP in the 80s-90s. He was found to have a positive troponin of approximately 0.2, his heart rate was noted to respond somewhat to epinephrine. He was transferred here after being discussed with Dr. Lundberg ( cardiology). An attempt was made to initiate transcutaneous pacing, however the device would not capture and this could not be done. An initial plan was for the patient to received a transvenous pacer, however upon Dr. Lundberg's evaluation of the patient she noted his severe metabolic acidosis and treated him with 1 ampule of calcium bicarbonate as well as 2 g of calcium gluconate given the patient's hyperkalemia and renal failure which successfully increased the patient's heart rate. In the patient's recent history he was admitted to [facility] for decompensated heart failure for 8 days and was aggressive diuresed. He was discharged home and unfortunately fell and broke his hip which resulted in a subsequent hospital stay at [facility]. He was recuperating at [facility] home doing acute inpatient rehab when he developed worsening altered mental status, bloody vomiting, and confusion. Per the patient's family the patient has vomited several times this morning with bloody emesis but he has not had any episodes while he has been at [facility]. Author - Angelica Adame DO Aug 24, 2016 11:21 Rory Dubose MD Aug 24, 2016 15:37 Overnight: No acute overnight events. Today: He reports feeling better today. He appears to be mentating more proficiently and interacting very well. Physical Therapy reports he was progressing well till yesterday. [place] on left hip has decreased oozing from day before. His appetite is much improved today. Alert and oriented x 3. No other complaints at this time. We discussed the importance of using the CPAP machine at night, work with Physical therapy, and take in adequate ament of calories. . Exam Vital Signs Vital Sign - Last Date Time Temp Pulse Resp B/P Pulse Ox O2 Delivery O2 Flow Rate FiO2 09/05/16 15:42 36.6 81 20 95/56 99 Nasal Cannula 2.00 Intake and Output 09/04/16 09/04/16 09/05/16 Cumulative From/Thru 15:00 23:00 07:00 08/24/16 08:02 - 09/05/16 06:29 Intake Total 330 ml 849 ml 95658 ml Output Total 1650 ml 1700 ml 86139 ml Balance -1320 ml -851 ml -8380 ml Intake Oral 210 ml 500 ml 06805 ml IV Total 120 ml 349 ml 29088 ml Packed Cells 300 ml Output Urine Total 1650 ml 1700 ml 92719 ml # Voids 15 # Bowel Movements 16 Exam General: Alert and oriented to person and day. No acute distress. Slower mentation today from previous days. Head: Normocephalic, atraumatic. External ears without defect. Eyes: Pupils equal, round, and reactive to light and accommodation. Anicteric sclerae, Cardiovascular: Regular rate and rhythm. Mechanical valve sound noted. Pulmonary: Wheezes bilaterally but improved from day before. Abdomen: Bowel tones present. Soft, no tenderness to palpation. No masses appreciated. Extremities: Improving bilateral lower extremity edema. Neurological: No gross neurological deficits noted.s equal, round, and reactive to light and accommodation. Anicteric sclerae, Cardiovascular: Regular rate and rhythm. Mechanical valve sound noted. Pulmonary: Wheezes bilaterally Abdomen: Bowel tones present. Soft, no tenderness to palpation. No masses appreciated. Extremities: Improving bilateral lower extremity edema. Neurological: No gross neurological deficits noted. IVs and Medications Medications Reviewed: Medications were reviewed in detail Lab and Diagnostics Result Diagram: 09/05/1632409/05/16324 X-Rays, CTs and MRIs US VEINOUS LEG DUPLEX UNILATERAL, LEFT IMPRESSION: Left leg edema present and no left leg DVT identified. Dictated by: Juan BECKMAN Interpreted: Yves Dallas MD on 09/04/2016 at 12:15 ABDOMEN/PELVIS WITHOUT CONTRAST IMPRESSION: 1. Pericholecystic fluid may raise the question of acute cholecystitis in the appropriate clinical setting. Consider limited abdominal ultrasound for further evaluation as needed. 2. Bibasilar mobile pleural effusions, as well as scattered abdominal and pelvic ascites, of uncertain etiology. 3. Incidental 1.8 cm lateral right renal cortical exophytic cyst. 4. Small fat-containing periumbilical ventral hernia. Dictated by: Enrico Gama M.D. on 08/24/2016 at 7:45 Approved by: Enrico Gama M.D. on 08/24/2016 at 7:55 X-RAY CHEST ONE VIEW, PORTABLE IMPRESSION: Persistent right mid and lower lung air space opacities may represent atelectasis and/or developing pneumonia. Dictated by: Enrico Gama M.D. on 08/24/2016 at 8:45 Approved by: Enrico Gama M.D. on 08/24/2016 at 8:47 X-RAY CHEST ONE VIEW IMPRESSION: 1. New right PICC is present, with tip in expected position. 2. Persistent right lower lung subtle air space opacities may represent atelectasis or early pneumonia. Dictated by: Enrico Gama M.D. on 08/24/2016 at 19:07 Approved by: Enrico Gama M.D. on 08/24/2016 at 19:09 X-RAY CHEST ONE VIEW, PORTABLE IMPRESSION: 1. Stable support lines and tubes. 2. Mild edema and/or pneumonia versus atelectasis involving the lung bases. Dictated by: Juan BECKMAN Interpreted: Yves Dallas MD on 08/25/2016 at 9:26 Approved by: Juan BECKMAN Interpreted: Yves Dallas MD on 08/25/2016 at 9:28 US RENAL SONOGRAM IMPRESSION: 1. A post-renal cause is not identified for acute renal insufficiency. 2. Gallbladder wall thickening as well as pericholecystic fluid may suggest acalculous cholecystitis. 3. Scattered perihepatic ascites again noted. Dictated by: Enrico Gama M.D. on 08/24/2016 at 17:16 Approved by: Enrico Gama M.D. on 08/24/2016 at 17:20 NM HIDA SCAN WITH CCK IMPRESSION: 1. Normal filling of gallbladder. No evidence for acute cholecystitis. 2. Poor contractile response of gallbladder to CCK infusion with gallbladder ejection fraction is 3.1%. This finding is consistent with gallbladder dyskinesia. Dictated by: Yves Dallas M.D. on 08/25/2016 at 16:43 Approved by: Yves Dallas M.D. on 08/25/2016 at 16:44 Additional Diagnostics US ABDOMEN, LIMITED IMPRESSION: 1. Trace free fluid demonstrated in the right upper quadrant. Dictated by: Garett Coffey M.D. on 09/01/2016 at 17:41 Assessment & Plan Randy Anand is a 81 year old man with history of atrial fibrillation on anticoagulation s/p implantable loop recorder, mechanical aortic valve, right heart failure, CAD s/p CABG, pulmonary hypertension, and CKD who presented with hematemesis and bradycardia. Admitted for symptomatic bradycardia, [place], severe sepsis, and possible acalculous cholecystitis. 1. Chronic cor pulmonale with fluid overload, present on admission. Improving. - Pt has history of severe RV failure and significant pulmonary hypertension. Echo 08/26/16 showed mild concentric LVH with EF 55-60%, severe RV dilation with reduced function, flattened septum, mechanical AV, severe TR, and pulmonary hypertension. Will continue to diurese while closely monitoring renal function. Most likely 2nd to uncontrolled severe sleep apnea. - Viral resp pcr panel showed coronavirus and RSV. - Previous Sleep study showed severe sleep apnea. - Encourage nightly CPAP. - Cardiology signed off with recommendations. - Torsemide 40 BID. Metoprolol 25 mg BID. - Monitor him tartrate as an outpatient and if he continues to have a stable HR then switch him to succinate. - Follow-up with his primary kiln packer who is from [facility] cardiology and apparently can see Dr. Hope in [place]. - Closely monitor his BP's and if he does develop symptomatic hypotension then consider decreasing his torsemide. 2. Protein and calorie malnutrition, not present on admission. Improving. - Increased appetite today with increased PO intake of solid food today. 3. Acute kidney injury on chronic kidney disease (stage 3), present on admission , acute. Improving. - Secondary to cardiorenal or hepatorenal syndrome. - Nephrology has signed off. - Creatinine on admission 2.48 on 08/24/16, currently 1.58. - Following ins and outs. - KCL 10mg Kdur BID. 4. Anasarca, acute. Not present on admission. Improving. - Pt isdown 8 L total this admission. Most likely 2nd right sided Heart failure per above. - Continue spironolactone 50 mg daily. 5. Encephalopathy of unknown etiology. present on admission. Continuing and improving. - Due to severe sepsis and ARF. - D/c'd lactulose. 6. Symptomatic bradycardia, present on admission, acute. Resolved. - Secondary to hyperkalemia in the setting of acute kidney injury. Patient appears to be exquisitely sensitive to hyperkalemia even at a potassium of 5.7. K now normal and bradycardia has since improved, with HR in 80s. He still has a temporary pacer at this time. - Cardiology consulted, appreciate the expertise and input. - Patient weaned off epinephrine gtt. Temporary pacemaker removed. 7. Hyperglycemia, acute. Present on admission. Resolved. - Glucose in 170s-180s. A1c 5.7. - Humalog low dose correctional scale. 8. Possible upper GI bleed, present on admission, stable. - Uncertain of cause, however a prior discharge summary describes a history of cirrhosis. EGD 07/01/16 was normal. Colonoscopy 07/01/16 showed 4 polyps, not resected, small internal and medium external hemorrhoids, and 2 areas of possible angiodysplasia in the colon. Received 1U PRBC. - Protonix push BID. - If H&H trends down or more hematemesis is noted, will consult GI. - Hemoglobin 8.4 up from 7.8. 9. Acute constipation. Present on admission. Resolved. - Pt reports no bowel movement for 10 days despite receiving stool softeners, as well as Kayexalate this admission. He has been passing gas. - Will attempt scheduled Senna. If this fails, will start Lactulose. 10. Elevated troponin of uncertain significance, present on admission, acute - Likely secondary to demand ischemia in the setting of right-sided heart failure and severe bradycardia, as well as acute kidney injury. 11. Anion gap metabolic acidosis, present on admission, acute. Resolving. - Likely multifactorial but primarily due to elevated lactate. Lactic acidosis resolved. AG improved from 26 to 19 to 16. - Dr. Harden of Nephrology consulted. 12. Gallbladder dyskinesia, present on admission. Stable. - Initially concern for acalculous cholecystitis given mildly tender RUQ, direct hyperbilirubinemia, elevated alk phos. CT abd showed pericholecystic fluid, US showed gallbladder wall thickening. However, HIDA scan showed gallbladder dyskinesia and no sign of cholecystitis. Surgery has evaluated the patient and he does not require surgery. - Continue to monitor. 13. Pulmonary hypertension with right-sided heart failure, present on admission , acute. Active. - Continue to monitor 14. Mechanical aortic valve, present on admission, acute - Restarted warfarin 15. Macrocytic anemia, present on admission, acute - Uncertain of baseline - Macrocytosis could represent reticulocytes, will order retic count 15. Hip fracture s/p ORIF - Ordered PT to evaluate and help with mobility. -[place] out when able 16. Hypovolemia hyponatremia, present on admission, acute - Likely multifactorial due to loses and SSRI, will continue to monitor 17. History of Tegretol toxicity. - Tegretol level normal. Acetaminophen for mild pain when necessary. Bowel regimen Senna and MiraLAX scheduled and PRN. Zofran when necessary for nausea and vomiting. SubQ heparin held for now. SCDs in place. High-risk medications: Warfarin. Disposition: Given his cardiac history, CKD, cirrhosis, and recent hip fracture , his prognosis is not favorable. We have consulted Palliative Care to guide a [id number] discussion with the patient and family. He will eventually discharge to [facility], likely in 3-4 days. Pain Evaluation: Adequate Pain Control VTE Mechanical Devices: Intermittant Pneumatic CD Resuscitation Status: DNR/DNI:Do Not Resuscitate/Intubate Limited Interventions: Medications and IV Fluid Time spent 40 min Attending Statement Patient seen and examined with house staff. Agree with all attached documentation. CEDRICK WOODWARD DO Sep 05, 2016 20:21 Gavin Redding MD Sep 06, 2016 15:02
[2016-09-06] VITALS (12 sets, daily range): BP systolic 85–107; BP diastolic 47–69; PULSE 54–100; RESP 16–22; O2SAT 94–99
--- NOTE | 2016-09-06 05:00 | NUR ---
Hypotension / Tele Asymptomatic hypotension with SBPs in the 87s-101s overnight, Pt denies dizziness, lightheadedness or visual problems. No c/o chest pain, Tele Afib with IVCD, HR 80-90s.
[2016-09-06] MEDS: Lactulose 20 Gm/30 mL 30 mL Syrup PO SCH ×3 (05:25→21:08)
[2016-09-06 07:43] LABS: BASOPHILS % (AUTO) 0.6 % (0-3); EOSINOPHILS % (AUTO) 7.9 % (0-5); MONOCYTES % (AUTO) 2.6 % (4-12); Mean Corpuscular Hemoglobin 31.6 pg (27.0-35.0); Mean Corpuscular Volume 100.6 fL (81-100); NEUTROPHILS % (AUTO) 82.7 % (40-74); Platelet Count 242 bil/L (150-400)
[2016-09-06] MEDS ORDERED: guaiFENesin DM 100-10 mg/5 mL 118 mL Syrup PO PRN (07:55)
[2016-09-06 08:26] LABS: INR 2.17 ratio
[2016-09-06] MEDS: Albuterol-Ipratropium 3 mL Inhalation Solution NEB SCH ×4 (08:30→21:15)
[2016-09-06] MEDS: Pantoprazole 4 mg/mL 10 mL Inj IVPUSH SCH ×2 (08:57→17:26)
[2016-09-06] MEDS: guaiFENesin DM 200-20 mg/10 mL Syrup PO PRN ×2 (08:57→13:29)
[2016-09-06] MEDS: carBAMazepine 200 mg Tablet PO SCH ×2 (08:58→21:06)
--- NOTE | 2016-09-06 12:25 | NUR ---
DEEPAK signed LANDRY Melgar
--- NOTE | 2016-09-06 15:28 | NUR ---
Resp o2 sat RA Patient O2 86% RA at sleep. O2 @ 1 L nc sat 89-91% at sleep.
--- NOTE | 2016-09-06 16:49 | PCM.PNMED ---
Subjective Date of Service Sep 06, 2016 Subjective Randy Anand is a 81 year old man with past medical history significant for atrial fibrillation on anticoagulation s/p an implantable loop recorder in place for consideration of permanent pacemaker, [place] mechanical aortic valve , right-sided heart failure, CAD s/p CABG, pulmonary hypertension, and chronic kidney disease who presented to the [facility] emergency department from [facility] ED with initial complaint of coffee-ground emesis and was subsequently found to be bradycardic in the 20s hypotension and depressed mental status. The patient is unable to give any history at this time and the majority of history is collected from chart notes and from the patient's family who are at bedside. He was noted to have significant sinus pause and was initially treated with epinephrine and atropine which had no effect. He was started on an dopamine drip at [place] and transferred here. Medics administered 0.5 epinephrine x2 en route and arrived with SBP in the 80s-90s. He was found to have a positive troponin of approximately 0.2, his heart rate was noted to respond somewhat to epinephrine. He was transferred here after being discussed with Dr. Lundberg ( cardiology). An attempt was made to initiate transcutaneous pacing, however the device would not capture and this could not be done. An initial plan was for the patient to received a transvenous pacer, however upon Dr. Lundberg's evaluation of the patient she noted his severe metabolic acidosis and treated him with 1 ampule of calcium bicarbonate as well as 2 g of calcium gluconate given the patient's hyperkalemia and renal failure which successfully increased the patient's heart rate. In the patient's recent history he was admitted to [facility] for decompensated heart failure for 8 days and was aggressive diuresed. He was discharged home and unfortunately fell and broke his hip which resulted in a subsequent hospital stay at [facility]. He was recuperating at [facility] home doing acute inpatient rehab when he developed worsening altered mental status, bloody vomiting, and confusion. Per the patient's family the patient has vomited several times this morning with bloody emesis but he has not had any episodes while he has been at [facility]. Author - Angelica Adame DO Aug 24, 2016 11:21 Rory Dubose MD Aug 24, 2016 15:37 Overnight: No acute overnight events. Today: He continues to improve daily today being his best day since admission. He is cheerful lively conversational, smiles and makes jokes. His appetite is improved greatly and is participating with physical therapy. Marc from surgical incision sites are mostly dry with decreased oozing from before. Alert and oriented x 3. No other complaints at this time. Exam Vital Signs Vital Sign - Last Date Time Temp Pulse Resp B/P Pulse Ox O2 Delivery O2 Flow Rate FiO2 09/06/16 10:06 88 09/06/16 08:41 20 96 Nasal Cannula 2.00 09/06/16 08:05 36.6 101/69 Intake and Output 09/05/16 09/05/16 09/06/16 Cumulative From/Thru 15:00 23:00 07:00 08/24/16 08:02 - 09/06/16 06:02 Intake Total 500 ml 857 ml 76708 ml Output Total 1200 ml 700 ml 62803 ml Balance -700 ml 157 ml -8923 ml Intake Oral 500 ml 650 ml 97464 ml IV Total 207 ml 41428 ml Packed Cells 300 ml Output Urine Total 1200 ml 700 ml 07968 ml # Voids 15 # Bowel Movements 16 Exam General: Alert and oriented to person and day. No acute distress. Mentation improving day by day tapering the prostate.. Head: Normocephalic, atraumatic. External ears without defect. Eyes: Pupils equal, round, and reactive to light and accommodation. Anicteric sclerae, Cardiovascular: Regular rate and rhythm. Mechanical valve sound noted. Pulmonary: Wheezes bilaterally but improved from day before. Abdomen: Bowel tones present. Soft, no tenderness to palpation. No masses appreciated. Extremities: Improving bilateral lower extremity edema. Neurological: No gross neurological deficits noted. Cardiovascular: Regular rate and rhythm. Mechanical valve sound noted. Pulmonary: Wheezes bilaterally improved daily. Abdomen: Bowel tones present. Soft, no tenderness to palpation. No masses appreciated. Extremities: Improving bilateral lower extremity edema. Mild pitting edema. Neurological: No gross neurological deficits noted. IVs and Medications Medications Reviewed: Medications were reviewed in detail Lab and Diagnostics Result Diagram: 09/06/16 0700 09/06/16 0700 X-Rays, CTs and MRIs US VEINOUS LEG DUPLEX UNILATERAL, LEFT IMPRESSION: Left leg edema present and no left leg DVT identified. Dictated by: Juan BECKMAN Interpreted: Yves Dallas MD on 09/04/2016 at 12:15 ABDOMEN/PELVIS WITHOUT CONTRAST IMPRESSION: 1. Pericholecystic fluid may raise the question of acute cholecystitis in the appropriate clinical setting. Consider limited abdominal ultrasound for further evaluation as needed. 2. Bibasilar mobile pleural effusions, as well as scattered abdominal and pelvic ascites, of uncertain etiology. 3. Incidental 1.8 cm lateral right renal cortical exophytic cyst. 4. Small fat-containing periumbilical ventral hernia. Dictated by: Enrico Gama M.D. on 08/24/2016 at 7:45 Approved by: Enrico Gama M.D. on 08/24/2016 at 7:55 X-RAY CHEST ONE VIEW, PORTABLE IMPRESSION: Persistent right mid and lower lung air space opacities may represent atelectasis and/or developing pneumonia. Dictated by: Enrico Gama M.D. on 08/24/2016 at 8:45 Approved by: Enrico Gama M.D. on 08/24/2016 at 8:47 X-RAY CHEST ONE VIEW IMPRESSION: 1. New right PICC is present, with tip in expected position. 2. Persistent right lower lung subtle air space opacities may represent atelectasis or early pneumonia. Dictated by: Enrico Gama M.D. on 08/24/2016 at 19:07 Approved by: Enrico Gama M.D. on 08/24/2016 at 19:09 X-RAY CHEST ONE VIEW, PORTABLE IMPRESSION: 1. Stable support lines and tubes. 2. Mild edema and/or pneumonia versus atelectasis involving the lung bases. Dictated by: Juan BECKMAN Interpreted: Yves Dallas MD on 08/25/2016 at 9:26 Approved by: Juan BECKMAN Interpreted: Yves Dallas MD on 08/25/2016 at 9:28 US RENAL SONOGRAM IMPRESSION: 1. A post-renal cause is not identified for acute renal insufficiency. 2. Gallbladder wall thickening as well as pericholecystic fluid may suggest acalculous cholecystitis. 3. Scattered perihepatic ascites again noted. Dictated by: Enrico Gama M.D. on 08/24/2016 at 17:16 Approved by: Enrico Gama M.D. on 08/24/2016 at 17:20 NM HIDA SCAN WITH CCK IMPRESSION: 1. Normal filling of gallbladder. No evidence for acute cholecystitis. 2. Poor contractile response of gallbladder to CCK infusion with gallbladder ejection fraction is 3.1%. This finding is consistent with gallbladder dyskinesia. Dictated by: Yves Dallas M.D. on 08/25/2016 at 16:43 Approved by: Yves Dallas M.D. on 08/25/2016 at 16:44 Additional Diagnostics US ABDOMEN, LIMITED IMPRESSION: 1. Trace free fluid demonstrated in the right upper quadrant. Dictated by: Garett Coffey M.D. on 09/01/2016 at 17:41 Assessment & Plan Randy Anand is a 81 year old man with history of atrial fibrillation on anticoagulation s/p implantable loop recorder, mechanical aortic valve, right heart failure, CAD s/p CABG, pulmonary hypertension, and CKD who presented with hematemesis and bradycardia. Admitted for symptomatic bradycardia, [place], severe sepsis, and possible acalculous cholecystitis. 1. Chronic cor pulmonale with fluid overload (PAH, unclear etiology), present on admission. Improving and controlled.. - Pt has history of severe RV failure and significant pulmonary hypertension. Echo 08/26/16 showed mild concentric LVH with EF 55-60%, severe RV dilation with reduced function, flattened septum, mechanical AV, severe TR, and pulmonary hypertension. Will continue to diurese while closely monitoring renal function. Most likely 2nd to uncontrolled severe sleep apnea. - Cardiology signed off with recommendations. - Viral resp pcr panel showed coronavirus and RSV (08/29). - Previous Sleep study showed severe sleep apnea. Encourage nightly CPAP. - Torsemide 40 BID, Metoprolol 25 mg BID. 2. Acute kidney injury on chronic kidney disease (stage 3), present on admission , acute. resolved and controlled. - Secondary to cardiorenal or hepatorenal syndrome. - Nephrology has signed off. - Creatinine on admission 2.48 on 08/24/16, currently 1.29. - Following ins and outs. - KCL 10mg Kdur BID. 3. Anasarca, acute. Not present on admission. Vastly improved. - Pt is up 4L total this admission but presents with significant bilateral lower extremity and scrotal edema. Most likely 2nd to cirrhosis and right sided Heart failure per above. - Continue spironolactone 50 mg daily. - Patient is now down to 18 kg from admission. 4. Encephalopathy of unknown etiology, possibly metabolic. present on admission. Resolved. - Due to severe sepsis and ARF. - Likely resolved. 5. Symptomatic bradycardia, present on admission, acute. Resolved. - Secondary to hyperkalemia in the setting of acute kidney injury. Patient appears to be exquisitely sensitive to hyperkalemia even at a potassium of 5.7. K now normal and bradycardia has since improved, with HR in 80s. He still has a temporary pacer at this time. - Cardiology consulted, appreciate the expertise and input. - Patient weaned off epinephrine gtt. Temporary pacemaker removed. 6. Hyperglycemia, acute. Present on admission. Resolved. - Glucose in 170s-180s. A1c 5.7. - Humalog low dose correctional scale. 7. Possible upper GI bleed, present on admission, stable. - Uncertain of cause, however a prior discharge summary describes a history of cirrhosis. EGD 07/01/16 was normal. Colonoscopy 07/01/16 showed 4 polyps, not resected, small internal and medium external hemorrhoids, and 2 areas of possible angiodysplasia in the colon. Received 1U PRBC. - Protonix push BID. - If H&H trends down or more hematemesis is noted, will consult GI. - Hemoglobin 8.4 up from 7.8. 8. Acute constipation. Present on admission. Resolved. - Pt reports no bowel movement for 10 days despite receiving stool softeners, as well as Kayexalate this admission. He has been passing gas. - Will attempt scheduled Senna. If this fails, will start Lactulose. 9. Elevated troponin of uncertain significance, present on admission, acute - Likely secondary to demand ischemia in the setting of right-sided heart failure and severe bradycardia, as well as acute kidney injury. 10. Anion gap metabolic acidosis, present on admission, acute. Resolving. - Likely multifactorial but primarily due to elevated lactate. Lactic acidosis resolved. AG improved from 26 to 19 to 16. - Dr. Harden of Nephrology consulted. 11. Gallbladder dyskinesia, present on admission. Stable. - Initially concern for acalculous cholecystitis given mildly tender RUQ, direct hyperbilirubinemia, elevated alk phos. CT abd showed pericholecystic fluid, US showed gallbladder wall thickening. However, HIDA scan showed gallbladder dyskinesia and no sign of cholecystitis. Surgery has evaluated the patient and he does not require surgery. - Continue to monitor. 12. Pulmonary hypertension with right-sided heart failure, present on admission , acute. Active. - Continue to monitor 13. Mechanical aortic valve, present on admission, acute - Restarted warfarin 14. Macrocytic anemia, present on admission, acute - Uncertain of baseline - Macrocytosis could represent reticulocytes, will order retic count 15. Hip fracture s/p ORIF - Ordered PT to evaluate and help with mobility. -Marc out when able 16. Hypovolemia hyponatremia, present on admission, acute - Likely multifactorial due to loses and SSRI, will continue to monitor 17. History of Tegretol toxicity. - Tegretol level normal. Acetaminophen for mild pain when necessary. Bowel regimen Senna and MiraLAX scheduled and PRN. Zofran when necessary for nausea and vomiting. SubQ heparin held for now. SCDs in place. High-risk medications: Warfarin. Disposition: Mr. Anand has greatly improved since the visit of his oldest son from [place], his appetite has increased greatly in his attitude has immensely improved. He is progressing very nicely with physical therapy and as long as he continues physical therapy and has close follow-up medical care he should continue to improve. He will eventually discharge to [facility], likely in 1 days. Pain Evaluation: Adequate Pain Control VTE Mechanical Devices: Intermittant Pneumatic CD Resuscitation Status: DNR/DNI:Do Not Resuscitate/Intubate Limited Interventions: Medications and IV Fluid Time spent 30 min Attending Statement Patient seen and examined with house staff. Agree with all attached documentation. CEDRICK WOODWARD DO Sep 06, 2016 11:30 Gavin Redding MD Sep 07, 2016 15:58
--- NOTE | 2016-09-06 18:37 | PCM.DIMED ---
CEDRICK WOODWARD DO 09/06/16 1824: Discharge Instructions Date of Service Sep 06, 2016 Dates of Hospitalization Aug 24, 2016 at 08:16 Discharge Diagnosis Discharge Diagnosis 1. Chronic cor pulmonale with fluid overload (PAH, unclear etiology), present on admission. Improving and controlled.. 2. Acute kidney injury on chronic kidney disease (stage 3), present on admission , acute. Resolved and controlled. 3. Anasarca, acute. Not present on admission. Vastly improved. 4. Encephalopathy of unknown etiology, possibly metabolic. present on admission. Resolved. 5. Symptomatic bradycardia, present on admission, acute. Resolved. 6. Hyperglycemia, acute. Present on admission. Resolved. 7. Possible upper GI bleed, present on admission, stable. 8. Acute constipation. Present on admission. Resolved. 9. Elevated troponin of uncertain significance, present on admission, acute 10. Anion gap metabolic acidosis, present on admission, acute. Resolving. 11. Gallbladder dyskinesia, present on admission. Stable. 12. Pulmonary hypertension with right-sided heart failure, present on admission , acute. Active. 13. Mechanical aortic valve, present on admission, acute 14. Macrocytic anemia, present on admission, acute 15. Hip fracture s/p ORIF 16. Hypovolemia hyponatremia, present on admission, acute 17. History of Tegretol toxicity. Medication Instructions NEW MEDICATIONS: Consider switching his metoprolol tartrate back to home succinate when stable HR. (Monitor for recent bradycardia in hospital) 1. Change Metoprolol succinate ER 25 mg Daily --> Metoprolol tartrate 25 mg PO BID. 2. Change Spironolactone 25 mg Daily --> Spironolactone 50 mg Daily. I would closely monitor his BP's and if he does develop symptomatic hypotension then consider decreasing his torsemide. 3. Change Torsemide 20 mg daily --> 40 BID. 4. Potassium Chloride K-Dur 10 MEQ PO QID. 5. Senokot 17.2 MG PO Daily. CONTINUE HOME MEDICATIONS: Carbamazepine 400 mg BID. Enoxaparin 80 Sub-Q Daily. Protonix 40 mg Daily. Sertraline 100 mg Daily. Sildenafil citrate 20 mg TID. Tamsulosin 0.4 mg BID. Tramadol 50 mg BID PRN pain. Warfarin 7.5 Daily. Zolpidem 10 mg HS PRN. Patient Instructions Follow-up plan - Follow-up with his primary transplant worker Dr. Hope in [place] with [facility] cardiology. - Follow up with your primary care physician for post hospital stay and for medication management. If you do not have a primary care physician the [facility] residency clinic is a reasonable option. Follow-up Provider: Pattie Hope MD Follow-up with PCP in: 2 weeks (1-2 weeks ) Provider: [facility] Residency Clinic Follow-up in: 2 weeks (1-2 weeks.) Gavin Redding MD 09/07/16 1559: Discharge Instructions Date of Service Sep 07, 2016 Attending's Statement Patient seen and examined with house staff. Agree with all attached documentation. CEDRICK WOODWARD DO Sep 06, 2016 18:24 Gavin Redding MD Sep 07, 2016 15:59
--- NOTE | 2016-09-06 18:59 | PCM.DC.MED ---
Discharge Summary Date of Service Sep 07, 2016 Dates of Hospitalization Date of Hospital Admission Aug 24, 2016 at 08:16 Date of Discharge: Sep 07, 2016 Providers: Admitting Physician: Nataliia Lundberg MD Primary Care Physician: Other,Physician Attending Physician: Nataliia Lundberg MD Diagnosis at Time of Discharge Diagnosis at Time of Discharge 1. Chronic cor pulmonale with fluid overload (PAH, unclear etiology), present on admission. Improving and controlled.. 2. Acute kidney injury on chronic kidney disease (stage 3), present on admission , acute. Resolved and controlled. 3. Anasarca, acute. Not present on admission. Vastly improved. 4. Encephalopathy of unknown etiology, possibly metabolic. present on admission. Resolved. 5. Symptomatic bradycardia, present on admission, acute. Resolved. 6. Hyperglycemia, acute. Present on admission. Resolved. 7. Possible upper GI bleed, present on admission, stable. 8. Acute constipation. Present on admission. Resolved. 9. Elevated troponin of uncertain significance, present on admission, acute 10. Anion gap metabolic acidosis, present on admission, acute. Resolving. 11. Gallbladder dyskinesia, present on admission. Stable. 12. Pulmonary hypertension with right-sided heart failure, present on admission , acute. Active. 13. Mechanical aortic valve, present on admission, acute 14. Macrocytic anemia, present on admission, acute 15. Hip fracture s/p ORIF 16. Hypovolemia hyponatremia, present on admission, acute 17. History of Tegretol toxicity. Consultations Cardiology, Palliative care, Nephrology Procedures XRay, CTs & MRIs US VEINOUS LEG DUPLEX UNILATERAL, LEFT IMPRESSION: Left leg edema present and no left leg DVT identified. Dictated by: Juan Mooney [facility] Interpreted: Yves Dallas MD on 09/04/2016 at 12:15 ABDOMEN/PELVIS WITHOUT CONTRAST IMPRESSION: 1. Pericholecystic fluid may raise the question of acute cholecystitis in the appropriate clinical setting. Consider limited abdominal ultrasound for further evaluation as needed. 2. Bibasilar mobile pleural effusions, as well as scattered abdominal and pelvic ascites, of uncertain etiology. 3. Incidental 1.8 cm lateral right renal cortical exophytic cyst. 4. Small fat-containing periumbilical ventral hernia. Dictated by: Enrico Gama M.D. on 08/24/2016 at 7:45 Approved by: Enrico Gama M.D. on 08/24/2016 at 7:55 X-RAY CHEST ONE VIEW, PORTABLE IMPRESSION: Persistent right mid and lower lung air space opacities may represent atelectasis and/or developing pneumonia. Dictated by: Enrico Gama M.D. on 08/24/2016 at 8:45 Approved by: Enrico Gama M.D. on 08/24/2016 at 8:47 X-RAY CHEST ONE VIEW IMPRESSION: 1. New right PICC is present, with tip in expected position. 2. Persistent right lower lung subtle air space opacities may represent atelectasis or early pneumonia. Dictated by: Enrico Gama M.D. on 08/24/2016 at 19:07 Approved by: Enrico Gama M.D. on 08/24/2016 at 19:09 X-RAY CHEST ONE VIEW, PORTABLE IMPRESSION: 1. Stable support lines and tubes. 2. Mild edema and/or pneumonia versus atelectasis involving the lung bases. Dictated by: Juan BECKMAN Interpreted: Yves Dallas MD on 08/25/2016 at 9:26 Approved by: Juan BECKMAN Interpreted: Yves Dallas MD on 08/25/2016 at 9:28 US RENAL SONOGRAM IMPRESSION: 1. A post-renal cause is not identified for acute renal insufficiency. 2. Gallbladder wall thickening as well as pericholecystic fluid may suggest acalculous cholecystitis. 3. Scattered perihepatic ascites again noted. Dictated by: Enrico Gama M.D. on 08/24/2016 at 17:16 Approved by: Enrico Gama M.D. on 08/24/2016 at 17:20 NM HIDA SCAN WITH CCK IMPRESSION: 1. Normal filling of gallbladder. No evidence for acute cholecystitis. 2. Poor contractile response of gallbladder to CCK infusion with gallbladder ejection fraction is 3.1%. This finding is consistent with gallbladder dyskinesia. Dictated by: Yves Dallas M.D. on 08/25/2016 at 16:43 Approved by: Yves Dallas M.D. on 08/25/2016 at 16:44 Cardiac Echo Impression 1) Mild concentric left ventricular hypertrophy with normal size and systolic function (EF 55-60%). 2) Severely dliated right ventricle with severely reduced function. 3) Flattened septum is consistent with RV pressure/volume overload. 4) Mechanical aortic valve present, opens well. Mildly increased mean gradient of 26mHg. 5) Severe tricuspid regurgitation present. 6) Pulmonary hypertension present, estimated systolic pulmonary pressure of 52mmHg. 7) Elevated right sided filling pressures. 8) No prior Echo avaliable for comparison. Other Diagnostics US ABDOMEN, LIMITED IMPRESSION: 1. Trace free fluid demonstrated in the right upper quadrant. Dictated by: Garett Coffey M.D. on 09/01/2016 at 17:41 Brief History Previous H&P before hospital stay: Randy Anand is a 81 year old man with past medical history significant for atrial fibrillation on anticoagulation s/p an implantable loop recorder in place for consideration of permanent pacemaker, [place] mechanical aortic valve , right-sided heart failure, CAD s/p CABG, pulmonary hypertension, and chronic kidney disease who presented to the [facility] emergency department from [facility] ED with initial complaint of coffee-ground emesis and was subsequently found to be bradycardic in the 20s hypotension and depressed mental status. The patient was unable to give any history at that time and the majority of history is collected from chart notes and from the patient's family who are at bedside. He was noted to have significant sinus pause and was initially treated with epinephrine and atropine which had no effect. He was started on an dopamine drip at [place] and transferred here. Medics administered 0.5 epinephrine x2 en route and arrived with SBP in the 80s-90s. He was found to have a positive troponin of approximately 0.2, his heart rate was noted to respond somewhat to epinephrine. [facility] after being discussed with Dr. Lundberg (cardiology). An attempt was made to initiate transcutaneous pacing, however the device would not capture and this could not be done. An initial plan was for the patient to received a transvenous pacer, however upon Dr. Lundberg's evaluation of the patient she noted his severe metabolic acidosis and treated him with 1 ampule of calcium bicarbonate as well as 2 g of calcium gluconate given the patient's hyperkalemia and renal failure which successfully increased the patient's heart rate. In the patient's recent history he was admitted to [facility] for decompensated heart failure for 8 days and was aggressively diuresed. He was discharged home and unfortunately fell and broke his hip which resulted in a subsequent hospital stay at [facility]. He was recuperating at [facility] home doing acute inpatient rehab when he developed worsening altered mental status, bloody vomiting, and confusion. Per the patient's family the patient has vomited several times this morning with bloody emesis but he has not had any episodes while he has been at [facility]. Author - Angelica Adame DO Aug 24, 2016 11:21 Rory Dubose MD Aug 24, 2016 15:37 Brief Hospital stay: 5 days after admission patient was diagnosed with coronal virus and respiratory syncytial virus. During his hospital stay the patient was very fluid up following his orthopedic intervention. He presented with severe anasarca, acute kidney injury, Chronic cor pulmonale, likely from PAH. It was also determined that he has severe sleep apnea, from a previous sleep study, and will require CPAP machine at night. He was very encephalopathic early on from unknown etiology, however most likely due to sepsis and acute renal failure and elevated ammonia levels. He was treated aggressively for all of these symptoms and slowly over the course of his hospital stay was successfully diuresed with a total loss of 18 kg. His lower extremity edema is markedly improved. He has existing staple sites in the left upper thigh which were unable to be removed due to risk of dehiscence since patient was very edematous in his lower extremities. The staple sites have been oozing however improving daily and I suspect will be ready for removal in 2-4 days' time. Patient's acute kidney injury is nearly completely resolved with creatinine back to baseline. Patient' s mental status has markedly improved since the arrival of his oldest son yesterday and today he was joking and laughing. He has recently increasing his oral intake of solids foods. Medication changes, follow-up plan and rationale are as follows. NEW MEDICATIONS: Consider switching his metoprolol tartrate back to home succinate when stable HR. (Monitor for recent bradycardia in hospital) 1. Change Metoprolol succinate ER 25 mg Daily --> Metoprolol tartrate 25 mg PO BID. 2. Change Spironolactone 25 mg Daily --> Spironolactone 50 mg Daily. I would closely monitor his BP's and if he does develop symptomatic hypotension then consider decreasing his torsemide. 3. Change Torsemide 20 mg daily --> 40 BID. 4. Potassium Chloride K-Dur 10 MEQ PO QID. 5. Senokot 17.2 MG PO Daily. CONTINUE HOME MEDICATIONS: Carbamazepine 400 mg BID. Enoxaparin 80 Sub-Q Daily. Protonix 40 mg Daily. Sertraline 100 mg Daily. Sildenafil citrate 20 mg TID. Tamsulosin 0.4 mg BID. Tramadol 50 mg BID PRN pain. Warfarin 7.5 Daily. Zolpidem 10 mg HS PRN. - Follow-up with his primary manager balance Dr. Hope in [place] with [facility] cardiology. - Follow up with your primary care physician for post hospital stay and for medication management. If you do not have a primary care physician the [facility] residency clinic is a reasonable option. Hospital Course Randy Anand is a 81 year old man with history of atrial fibrillation on anticoagulation s/p implantable loop recorder, mechanical aortic valve, right heart failure, CAD s/p CABG, pulmonary hypertension, and CKD who presented with hematemesis and bradycardia. Admitted for symptomatic bradycardia, [place], severe sepsis, and possible acalculous cholecystitis. Currently stable with treatment and problem list below. 1. Chronic cor pulmonale with fluid overload (PAH, unclear etiology), present on admission. Improving and controlled. - Pt has history of severe RV failure and significant pulmonary hypertension. Echo 08/26/16 showed mild concentric LVH with EF 55-60%, severe RV dilation with reduced function, flattened septum, mechanical AV, severe TR, and pulmonary hypertension. Will continue to diurese while closely monitoring renal function. Most likely 2nd to uncontrolled severe sleep apnea. - Cardiology signed off with recommendations. - Viral resp pcr panel showed coronavirus and RSV (08/29). - Previous Sleep study showed severe sleep apnea. Encourage nightly CPAP. - Torsemide 40 BID, Metoprolol 25 mg BID. 2. Acute kidney injury on chronic kidney disease (stage 3), present on admission , acute. Resolved and controlled. - Secondary to cardiorenal or hepatorenal syndrome. - Nephrology has signed off. - Creatinine on admission 2.48 on 08/24/16, currently 1.29. - Following ins and outs. - KCL 10mg Kdur BID. 3. Anasarca, acute. Not present on admission. Vastly improved. - Pt is up 4L total this admission but presents with significant bilateral lower extremity and scrotal edema. Most likely 2nd to cirrhosis and right sided Heart failure per above. - Continue spironolactone 50 mg daily. - Patient is now down to 18 kg from admission. 4. Encephalopathy of unknown etiology, possibly metabolic. present on admission. Resolved. - Due to severe sepsis and ARF. - Likely resolved. 5. Symptomatic bradycardia, present on admission, acute. Resolved. - Secondary to hyperkalemia in the setting of acute kidney injury. Patient appears to be exquisitely sensitive to hyperkalemia even at a potassium of 5.7. K now normal and bradycardia has since improved, with HR in 80s. He still has a temporary pacer at this time. - Cardiology consulted, appreciate the expertise and input. - Patient weaned off epinephrine gtt. Temporary pacemaker removed. 6. Hyperglycemia, acute. Present on admission. Resolved. - Glucose in 170s-180s. A1c 5.7. - Humalog low dose correctional scale. 7. Possible upper GI bleed, present on admission, stable. - Uncertain of cause, however a prior discharge summary describes a history of cirrhosis. EGD 07/01/16 was normal. Colonoscopy 07/01/16 showed 4 polyps, not resected, small internal and medium external hemorrhoids, and 2 areas of possible angiodysplasia in the colon. Received 1U PRBC. - Protonix push BID. - If H&H trends down or more hematemesis is noted, will consult GI. - Hemoglobin stable. 8. Acute constipation. Present on admission. Resolved. - Pt reports no bowel movement for 10 days despite receiving stool softeners, as well as Kayexalate this admission. He has been passing gas. - Will attempt scheduled Senna. If this fails, will start Lactulose. 9. Elevated troponin of uncertain significance, present on admission, acute - Likely secondary to demand ischemia in the setting of right-sided heart failure and severe bradycardia, as well as acute kidney injury. 10. Anion gap metabolic acidosis, present on admission, acute. Resolving. - Likely multifactorial but primarily due to elevated lactate. Lactic acidosis resolved. AG improved from 26 to 19 to 16. - Dr. Harden of Nephrology consulted. 11. Gallbladder dyskinesia, present on admission. Stable. - Initially concern for acalculous cholecystitis given mildly tender RUQ, direct hyperbilirubinemia, elevated alk phos. CT abd showed pericholecystic fluid, US showed gallbladder wall thickening. However, HIDA scan showed gallbladder dyskinesia and no sign of cholecystitis. Surgery has evaluated the patient and he does not require surgery. - Continue to monitor. 12. Pulmonary hypertension with right-sided heart failure, present on admission , acute. Active. - Continue to monitor 13. Mechanical aortic valve, present on admission, acute - Restarted warfarin 14. Macrocytic anemia, present on admission, acute - Uncertain of baseline - Macrocytosis could represent reticulocytes, will order retic count 15. Hip fracture s/p ORIF - Ordered PT to evaluate and help with mobility. -Marc out when able 16. Hypovolemia hyponatremia, present on admission, acute - Likely multifactorial due to loses and SSRI, will continue to monitor 17. History of Tegretol toxicity. - Tegretol level normal. Acetaminophen for mild pain when necessary. Bowel regimen Senna and MiraLAX scheduled and PRN. Zofran when necessary for nausea and vomiting. SubQ heparin held for now. SCDs in place. High-risk medications: Warfarin. Disposition: Mr. Anand has greatly improved since the visit of his oldest son from [place], his appetite has increased greatly in his attitude has immensely improved. He is progressing very nicely with physical therapy and as long as he continues physical therapy and has close follow-up medical care he should continue to improve. He will be discharge to [facility], likely today. Exam Vital Signs (Last) Date Time Temp Pulse Resp B/P Pulse Ox O2 Delivery O2 Flow Rate FiO2 09/06/16 16:26 36.7 79 18 91/47 95 Nasal Cannula 3.00 Exam General: Alert and oriented to person and day. No acute distress. Mentation improving day by day tapering the prostate.. Head: Normocephalic, atraumatic. External ears without defect. Eyes: Pupils equal, round, and reactive to light and accommodation. Anicteric sclerae, Cardiovascular: Regular rate and rhythm. Mechanical valve sound noted. Pulmonary: Wheezes bilaterally but improved from day before. Abdomen: Bowel tones present. Soft, no tenderness to palpation. No masses appreciated. Extremities: Improving bilateral lower extremity edema. Neurological: No gross neurological deficits noted. Cardiovascular: Regular rate and rhythm. Mechanical valve sound noted. Pulmonary: Wheezes bilaterally improved daily. Abdomen: Bowel tones present. Soft, no tenderness to palpation. No masses appreciated. Extremities: Improving bilateral lower extremity edema. Mild pitting edema. Neurological: No gross neurological deficits noted. Test 08/24/16 08:13 08/24/16 08:14 08/24/16 10:22 08/24/16 13:22 Activated Partial Thromboplast Time 43.4sec (22.8-33.0) Pro-B-Type Natriuretic Peptide 40784rz/mL (0-486) Digoxin Level 0.3nG/mL (0.9-2.0) Hold Michelle Top Tube Received (Received) Direct Bilirubin 1.7mg/dL (0.0-0.3) Urine Ictotest Positive (Negative) Urine Total Protein 192.6mg/dL (Not Estab.) Urine Albumin % (.) Urine Lfyra-2-Sjcyrhmr % (.) Urine Kmmgn-0-Pzliavgax % (.) Urine Beta Globulin % (.) Urine Gamma Globulin % (.) Urine Protein Electrophoresis Note Comment (.) Urine Monoclonal Protein % % (.) Globulin (PEP) 4.6g/dL (2.2-3.9) Albumin/Globulin Ratio 0.7 (0.7-1.7) Afiim-4-Nhvcfkchv 0.3g/dL (0.0-0.4) Vwlub-4-Qemryimyf 0.8g/dL (0.4-1.0) Beta Globulins 0.9g/dL (0.7-1.3) Gamma Globulins 2.6g/dL (0.4-1.8) Serum Monoclonal Protein 2.4g/dL (Not Observed) Protein Electrophoresis Comment Comment (.) Protein Electrophoresis Interpret Comment (.) Test 08/24/16 13:29 08/24/16 17:45 08/25/16 04:30 08/25/16 11:45 Fibrinogen 445mg/dL (157-380) Reticulocyte Count,Calculated 6.2% (0.6-2.6) Troponin T 0.275ug/L (0.0-0.011) Hemoglobin A1c 5.7% (4.8-5.6) Uric Acid 12.0mg/dL (2.6-7.2) Vitamin B12 Level >1999pg/mL (211-946) Folate 8.6ng/mL (>3.0) Lactic Acid Level 1.4mmol/L (0.4-2.0) Test 08/27/16 04:00 08/28/16 08:00 08/29/16 05:00 08/29/16 15:30 Iron Level 39ug/dL (35-150) Total Iron Binding Capacity 198ug/dL (250-450) Percent Iron Saturation 20%sat (15-50) Unsaturated Iron Binding 159.1ug/dL Ferritin 487ng/mL (30-400) Hold Purple Top Tube Received (Received) Hold [place] Top Tube Received (Received) Procalcitonin 0.40ng/mL (0.00-0.08) Urine Color Yellow (YELLOW) Urine Appearance Hazy (CLEAR,HAZY) Urine pH 5.0 (5.0-8.0) Urine Specific [place] 1.010 (1.003-1.035) Urine Protein Negativemg/dL (NEG,TRACE) Urine Glucose (UA) Negativemg/dL (NEGATIVE) Urine Ketones Negativemg/dL (NEGATIVE) Urine Occult Blood Trace (NEGATIVE) Urine Nitrite Negative (NEGATIVE) Urine Bilirubin Negative (NEGATIVE) Urine Urobilinogen Normalmg/dL (NORMAL) Urine Leukocyte Esterase Negative (NEGATIVE) Urine RBC 0-2/hpf (0-2) Urine WBC 0-5/hpf (0-5) Urine Epithelial Cells Occasional/hpf (NONE-MOD) Urine Crystals Amorphous urates (NONE Urine Bacteria Few/hpf (NONE-FEW) Urine Hyaline Casts None/lpf (NONE) Urine Granular Casts None seen (NONE SEEN) Urine Waxy Casts None seen (NONE SEEN) Urine Red Blood Cell Casts None seen (NONE SEEN) Urine White Blood Cell Casts None seen (NONE SEEN) Urine Mucus Present (None Seen) Urine Trichomonas None seen (NONE SEEN) Urine Yeast None (NONE SEEN) Urinalysis Comment None Urine Culture Reflexed Not indicated Test 08/30/16 13:14 09/01/16 12:00 09/05/16 03:25 09/06/16 07:00 Osmolality 307 (275-300) Ammonia 90ug/dL (18-53) Carbamazepine (Tegretol) Level 9.9ug/mL (4.0-12.0) Phosphorus Level 2.5mg/dL (2.5-4.9) Magnesium Level 2.2mg/dL (1.6-2.6) White Blood Count 6.5th/mm3 (3.8-10.1) Red Blood Count 3.16mil/mm3 (4.40-5.80) Hemoglobin 10.0g/dL (13.8-17.2) Hematocrit 31.8% (41.0-50.0) Mean Corpuscular Volume 100.6fL (81-100) Mean Corpuscular Hemoglobin 31.6pg (27.0-35.0) Mean Corpuscular Hemoglobin Concent 31.4% (32.0-37.0) Red Cell Distribution Width 19.2% (12.3-15.4) Platelet Count 242bil/L (150-400) Neutrophils (%) (Auto) 82.7% (40-74) Lymphocytes (%) (Auto) 6.0% (14-46) Monocytes (%) (Auto) 2.6% (4-12) Eosinophils (%) (Auto) 7.9% (0-5) Basophils (%) (Auto) 0.6% (0-3) Prothrombin Time 23.6sec (8.1-12.5) Prothromb Time International Ratio 2.17ratio Sodium Level 132mEq/L (134-144) Potassium Level 3.9mEq/L (3.5-5.2) Chloride Level 89mEq/L (97-108) Carbon Dioxide Level 34mmol/L (18-29) Blood Urea Nitrogen 52mg/dL (8-27) Creatinine 1.29mg/dL (0.76-1.27) Estimat Glomerular Filtration Rate 57mL/min (>59) Glucose Level 110mg/dL (60-99) Calcium Level 8.4mg/dL (8.5-10.1) Total Bilirubin 1.5mg/dL (0.0-1.2) Aspartate Amino Transf (AST/SGOT) 46U/L (0-50) Alanine Aminotransferase (ALT/SGPT) 21U/L (0-44) Alkaline Phosphatase 285U/L (25-160) Total Protein 7.6g/dL (6.4-8.4) Albumin 3.2g/dL (3.4-5.0) Discharge Medications Discharge Medications Carbamazepine (Tegretol Xr) 400 Mg Tabcr 400 MG PO BID (Reported) Enoxaparin (Lovenox) 80 Mg/0.8 Ml Syringe 80 MG SUBQ DAILY (Reported) Metoprolol Tartrate (Metoprolol Tartrate) 25 Mg Tablet 25 MG PO BID Prescribed by: CEDRICK WOODWARD DO Pantoprazole DR (Protonix) 40 Mg Tablet 40 MG PO DAILY (Reported) Potassium Chloride (Potassium Chloride) 10 Meq Tab.er.prt 10 MEQ PO QID Prescribed by: CEDRICK WOODWARD DO Sennosides (Senna) 8.6 Mg Tablet 17.2 MG PO DAILY Prescribed by: CEDRICK WOODWARD DO Sertraline HCl (Zoloft) 100 Mg Tablet 100 MG PO DAILY (Reported) Spironolactone (Spironolactone) 25 Mg Tablet 25 MG PO DAILY (Reported) Spironolactone (Aldactone) 25 Mg Tablet 50 MG PO DAILY Prescribed by: CEDRICK WOODWARD DO Tamsulosin (Flomax) 0.4 Mg Capsule 0.4 MG PO BID (Reported) Torsemide (Demadex) 20 Mg Tablet 40 MG PO BID Prescribed by: CEDRICK WOODWARD DO Warfarin Sodium (Coumadin) 7.5 Mg Tablet 7.5 MG PO DAILY (Reported) As needed Bisacodyl (Dulcolax) 5 Mg Tablet.dr 5 MG PO DAILY PRN PRN For Constipation ( Reported) Mild Constipation : Step 2 Hydrocodone-Acetaminophen 5-325 mg (Hydrocodone-Acetaminophen 5-325 mg) 1 Each Tablet 1-2 TABLET PO Q4H PRN PRN For Pain (Reported) Lactobacillus Acidophilus (Acidophilus) 1 Each Capsule 1 EACH PO BID PRN PRN When on antibiotics (Reported) Magnesium Hydroxide (Milk of Magnesia) 400 Mg/5 Ml Oral.susp 400 MG PO PRN For Constipation (Reported) If no BM for 3 days If unable to give or refuse, then see step 2 Tramadol (Tramadol) 50 Mg Tablet 50 MG PO BID PRN PRN For Pain (Reported) Zolpidem (Ambien) 10 Mg Tablet 10 MG PO HS PRN PRN For Insomnia (Reported) Additional med instructions NEW MEDICATIONS: Consider switching his metoprolol tartrate back to home succinate when stable HR. (Monitor for recent bradycardia in hospital) 1. Change Metoprolol succinate ER 25 mg Daily --> Metoprolol tartrate 25 mg PO BID. 2. Change Spironolactone 25 mg Daily --> Spironolactone 50 mg Daily. I would closely monitor his BP's and if he does develop symptomatic hypotension then consider decreasing his torsemide. 3. Change Torsemide 20 mg daily --> 40 BID. 4. Potassium Chloride K-Dur 10 MEQ PO QID. 5. Senokot 17.2 MG PO Daily. CONTINUE HOME MEDICATIONS: Carbamazepine 400 mg BID. Enoxaparin 80 Sub-Q Daily. Protonix 40 mg Daily. Sertraline 100 mg Daily. Sildenafil citrate 20 mg TID. Tamsulosin 0.4 mg BID. Tramadol 50 mg BID PRN pain. Warfarin 7.5 Daily. Zolpidem 10 mg HS PRN. Followup Plan Disposition: [facility], discussed with assuming , Dr Cifuentes today. Follow-up plan - Follow-up with his primary manager balance Dr. Hope in [place] with [facility] cardiology. - Follow up with your primary care physician for post hospital stay and for medication management. If you do not have a primary care physician the [facility] residency clinic is a reasonable option. Follow-up Provider: Pattie Hope MD Follow-up with PCP in: 2 weeks (1-2 weeks ) Provider: [facility] Residency Clinic Follow-up in: 2 weeks (1-2 weeks.) Time spent 60 minutes Attending Statement Patient seen and examined with house staff. Agree with all attached documentation. copies to: [facility] Residency Clinic; Pattie Hope MD, COREY P DO Sep 06, 2016 18:39 Gaivn Redding MD Sep 07, 2016 16:05
[2016-09-06] MEDS ORDERED: POTA10TA38 PO (19:05)
[2016-09-06] MEDS ORDERED: SENN-133 PO (19:05)
[2016-09-06] MEDS ORDERED: METO25TA6 PO (19:05)
[2016-09-06] MEDS ORDERED: TORS20TA PO (19:05)
[2016-09-06] MEDS ORDERED: SPIR25TA PO (19:05)
--- NOTE | 2016-09-06 19:23 | NUR ---
Activity/Nuero's Patient a/o x 3, but forgetful this a.m. and had increased confusion this evening but reorients easily. Patient denies pain, nausea or sob. Taking diet fair with encouragement by family. Patient oob to chair with PT and 2 person assist. Patient jed sitting in chair for approx 1 hr. Left hip drsg c/d/i. Cardona patent cloudy esha uop. Patient had BM x 1. Tele A fib IVCD, VSS.
[2016-09-07 02:59] LABS: BASOPHILS % (AUTO) 0.6 % (0-3); EOSINOPHILS % (AUTO) 7.9 % (0-5); MONOCYTES % (AUTO) 4.7 % (4-12); Mean Corpuscular Hemoglobin 31.9 pg (27.0-35.0); Mean Corpuscular Volume 101.4 fL (81-100); NEUTROPHILS % (AUTO) 81.1 % (40-74); Platelet Count 236 bil/L (150-400)
[2016-09-07 03:13] LABS: INR 2.13 ratio
[2016-09-07 04:23] VITALS: BP 98/65; PULSE 76; RESP 16; O2SAT 98
[2016-09-07] MEDS: Lactulose 20 Gm/30 mL 30 mL Syrup PO SCH (05:15)
--- NOTE | 2016-09-07 05:19 | NUR ---
Incision / Dressing changed/ Tele / BP's No c/o pain, left hip dressing changed. Xerofoam placed over rené and covered with Island dressing. Erythema noted around medial incision rené, none noted around upper and lower stapled incision sites. No weeping or drainage noted around rené, and rené remain intact. Pt reports full sensation in both lower extremities. No c/o chest pain, Tele Afib with IVCD, HR 70s to 90s. Hypotension better tonight, SBP's 95-107s, PO Metoprolol dose reduced to 25mg BID.
[2016-09-07 06:27] VITALS: PULSE 76
[2016-09-07 07:49] VITALS: BP 96/58; PULSE 96; RESP 16; O2SAT 99
[2016-09-07 07:55] VITALS: PULSE 96
[2016-09-07] MEDS: Pantoprazole 4 mg/mL 10 mL Inj IVPUSH SCH (07:56)
[2016-09-07] MEDS: carBAMazepine 200 mg Tablet PO SCH (07:57)
[2016-09-07] MEDS: Albuterol-Ipratropium 3 mL Inhalation Solution NEB SCH (08:45)
[2016-09-07 08:48] VITALS: PULSE 91; RESP 18; O2SAT 91
[2016-09-07 10:01] VITALS: PULSE 80
--- NOTE | 2016-09-07 10:39 | NUR ---
Harrison D/C'd Harrison patent clear esha uop. Patient harrison catheter discontinued at 1035, no spontaneous voiding and patient denies urge to void at this time.
--- NOTE | 2016-09-07 12:00 | NUR ---
Discharge note Patient a/o x 3, forgetful at times. Patient denies pain or nausea, but has noted sob and moist cough. Lungs course bilat, patient encouraged to use Acapella and IS q 1 hr wa. Patient declined getting oob for breakfast. Left hip drsg c/d/i. IV SL and tele discontinued. Patient HNV prior to discharge. Patient transported BLS, family at bedside and belongings sent home with . Report called to RN at [facility].
--- NOTE | 2016-09-07 12:51 | NUR ---
Social Work: Discharge D&A: Per MD in AM round, pt to d/c today to [facility] via BLS. MS reports that BLS is medically necessary. PROFESSOR OF CHEMISTRY confirmed with SNF ability to accept pt this AM and arranged BLS transport with [facility]. PROFESSOR OF CHEMISTRY completed discharge packet, faxing necessary paperwork ahead of comprehensive packet, to be delivered by [facility]. Pt, family, and MD updated; all parties agreeable. P: Pt to d/c today to [facility] via BLS. LANDRY Melgar
== END 2016-09-07 11:49 | DRG 308 ==
LOC: SED 08:00 → PCC 08:16 → CCU 08:50 → PCC 08-28 10:20
PROVIDERS: ADMIT Internal Medicine; ATTEND Internal Medicine
PROC: 5A1213Z Performance of Cardiac Pacing, Intermittent (ICD-10-PCS; principal; 2016-08-24)
PROC: 4A033R1 Measurement of Arterial Saturation, Peripheral, Percutaneous Approach (ICD-10-PCS; 2016-08-24)
PROC: 5A2204Z Restoration of Cardiac Rhythm, Single (ICD-10-PCS; 2016-08-24)
PROC: 30233N1 Transfusion of Nonautologous Red Blood Cells into Peripheral Vein, Percutaneous Approach (ICD-10-PCS; 2016-08-27)
DX: R00.1 Bradycardia, unspecified (principal); G93.41 Metabolic encephalopathy; E87.1 Hypo-osmolality and hyponatremia; N17.9 Acute kidney failure, unspecified; E72.20 Disorder of urea cycle metabolism, unspecified; E87.2 Acidosis; K92.0 Hematemesis; E87.3 Alkalosis; I24.8 Other forms of acute ischemic heart disease; E87.5 Hyperkalemia; I50.9 Heart failure, unspecified; I47.2 Ventricular tachycardia; Z95.2 Presence of prosthetic heart valve; I95.9 Hypotension, unspecified; Z79.01 Long term (current) use of anticoagulants; D53.9 Nutritional anemia, unspecified; I25.10 Atherosclerotic heart disease of native coronary artery without angina pectoris; Z95.1 Presence of aortocoronary bypass graft; I48.2 Chronic atrial fibrillation; I27.2 Other secondary pulmonary hypertension; K59.00 Constipation, unspecified; R73.9 Hyperglycemia, unspecified; Z66 Do not resuscitate; I27.81 Cor pulmonale (chronic); K82.8 Other specified diseases of gallbladder; I13.10 Hypertensive heart and chronic kidney disease without heart failure, with stage 1 through stage 4 chronic kidney disease, or unspecified chronic kidney disease; E87.70 Fluid overload, unspecified; N18.3 Chronic kidney disease, stage 3 (moderate)